=== PATIENT | female | born 1965 | race Caucasian/White ===

== ENCOUNTER 2019-05-03 08:29 | Emergency (ER) | payer MEDICAID ==
[~2019-05-03] VITALS: Ht 167.6 cm; Wt 79.2 kg
[~2019-05-03 08:29] MED LIST: CALC-159 PO; CYCL-1 PO; IBUP-1984 PO; PARO40TA PO; TRAZ-251 PO
[2019-05-03 08:50] VITALS: BP 170/109
[2019-05-03] MEDS ORDERED: HYDROcodone/acetaminophen 5mg/325mg tablet PO ONE (09:40)
[2019-05-03] MEDS ORDERED: NAPR-56 PO (09:49)
== END 2019-05-03 11:02 | disposition home or self-care (01) ==
LOC: ER 08:31
DX: M25.511 Pain in right shoulder (principal); G89.29 Other chronic pain; F41.9 Anxiety disorder, unspecified; F32.9 Major depressive disorder, single episode, unspecified; Z98.51 Tubal ligation status; Z98.890 Other specified postprocedural states; Z79.899 Other long term (current) drug therapy
CPT/HCPCS: 73030; 99283

== ENCOUNTER 2019-12-27 07:14 | Inpatient (IN) | payer MEDICAID ==
[2019-12-21 14:07] LABS: BASOPHILS # (AUTO) 0.1 X10'3 (0-0.2); BASOPHILS % (AUTO) 0.9 % (0-1); EOSINOPHILS # (AUTO) 0.1 X10'3 (0-0.9); EOSINOPHILS % (AUTO) 1.1 % (0-6); LYMPHOCYTES # (AUTO) 2.3 X10'3 (1.1-4.8); LYMPHOCYTES % (AUTO) 26.3 % (21-51); MEAN CORPUSCULAR HEMOGLOBIN 31.6 PG (27.0-31.0); MEAN CORPUSCULAR HGB CONC 34.1 g/dL (33.0-36.5); MEAN CORPUSCULAR VOLUME 92.5 FL (78-98); MEAN PLATELET VOLUME 8.9 FL (7.4-10.4); MONOCYTES # (AUTO) 0.9 X10'3 (0-0.9); MONOCYTES % (AUTO) 9.9 % (2-12); NEUTROPHILS # (AUTO) 5.3 X10'3 (1.8-7.7); NEUTROPHILS % (AUTO) 61.8 % (42-75); PRE OP HEMATOCRIT 45.6 % (35.0-45.0); PRE OP HEMOGLOBIN 15.6 g/dL (12.0-16.0); PRE OP PLATELET COUNT 270 X10'3 (140-440); RED BLOOD COUNT 4.93 X10'6 (4.20-5.60); RED CELL DISTRIBUTION WIDTH 13.6 % (11.5-14.5)
[2019-12-21 14:20] LABS: ALBUMIN 4.3 G/DL (3.4-5.0); ALKALINE PHOSPHATASE 79 IU/L (46-116); BLOOD UREA NITROGEN 11 MG/DL (7-18); BUN/CREATININE RATIO 13.8 (6.6-38.0); CALCIUM 9.3 MG/DL (8.5-10.1); CHLORIDE 102 MMOL/L (99-107); PRE OP ALT 32 U/L (30-65); PRE OP ANION GAP 8 (8-16); PRE OP AST 21 U/L (10-37); PRE OP BILIRUB, TOTAL 0.3 MG/DL (0.0-1.0); PRE OP GLUCOSE 91 MG/DL (70-104); PRE OP POTASSIUM 3.9 MMOL/L (3.4-5.1); PRE OP SODIUM 138 MMOL/L (135-145); TOTAL CARBON DIOXIDE 28.5 MMOL/L (24-32); TOTAL PROTEIN 8.4 G/DL (6.4-8.2); eGFR 75 ML/MIN
[~2019-12-27] VITALS: Ht 167.6 cm; Wt 77.2 kg
[2019-12-27] VITALS (22 sets, daily range): BP systolic 137–165; BP diastolic 78–109
[~2019-12-27 07:14] MED LIST changes: -CALC-159 PO; +CLON-527 PO; -CYCL-1 PO; +GABA300C PO; -IBUP-1984 PO; +LURA40TA3 PO; -PARO40TA PO; +PRAZ5CAP2 PO; +QUET300T2 PO; +TRAM50TA2 PO; -TRAZ-251 PO; +VALB80CA PO; +cefazolin/dext.iso 2gm/50ml 50 ML IV ONE; +famotidine 20mg tablet PO ONE; +ringers solution, lacted 1,000 ML IV SCH; +tranexamic acid inj. 750 MG in normal saline 100ml IV soln 92.5 ML IV ONE; +vancomycin 1,500 MG in NS 300ml IV soln IV ONE
[2019-12-27] MEDS ORDERED: [UNRECOGNIZED DRUG - OTHER] IU ONE (10:05)
[2019-12-27] MEDS ORDERED: KETOROLAC TROMETH IU ONE ×2 (10:05→10:55)
[2019-12-27] MEDS ORDERED: ROPIVACAINE IU ONE ×2 (10:05→10:55)
[2019-12-27] MEDS ORDERED: ringers solution, lacted 1,000 ML IV SCH (10:11)
[2019-12-27] MEDS ORDERED: ROPIVAcaine 0.2%/PF PUMP/bolus 550 ML INTERSCALE SCH (10:14)
[2019-12-27] MEDS ORDERED: ROPIVAcaine 0.2% (10 MG/5 ML) BOLUS INJECTION INTERSCALE PRN (10:15)
[2019-12-27] MEDS ORDERED: labetalol 20mg/4ml (5mg/ml) syringe IV PRN (10:15)
[2019-12-27] MEDS ORDERED: morphine 2 MG/ML inj. syringe IV PRN (10:15)
[2019-12-27] MEDS ORDERED: HYDROmorphone inj. 0.5 MG/0.5 ML DISP.SYRIN IV PRN ×3 (10:15→13:30)
[2019-12-27] MEDS ORDERED: meperidine/PF 25mg/ml syringe IV PRN (10:15)
[2019-12-27] MEDS ORDERED: hydrALAZINE 20mg/ml inj. IV PRN (10:15)
[2019-12-27] MEDS ORDERED: ondansetron/PF 4mg/2ml inj IV PRN ×2 (10:15→13:30)
[2019-12-27] MEDS ORDERED: acetaminophen 1,000mg/100ml IV 100 ML IV PRN (10:15)
[2019-12-27] MEDS ORDERED: morphine 4 MG/ML inj SYRINge IV PRN (10:15)
[2019-12-27] MEDS ORDERED: proCHLORperazine 10 MG/2 ml inj IV PRN (10:15)
[2019-12-27] MEDS ORDERED: sevoflurane 250ml liquid IH ONE (10:38)
[2019-12-27] MEDS ORDERED: fentaNYL/PF 50MCG/1 ML 2ML syringe ONE (10:46)
[2019-12-27] MEDS ORDERED: midazolam 2 mg/2 ml injection ONE (10:47)
[2019-12-27] MEDS ORDERED: [UNRECOGNIZED DRUG - OTHER] IU ONE (10:55)
[2019-12-27] MEDS ORDERED: rocuronium 10mg/ml inj IV ONE (11:32)
[2019-12-27] MEDS ORDERED: ROPIVAcaine 0.5% (5mg/ml) 30ml vial ONE (11:32)
[2019-12-27] MEDS ORDERED: propofol inj 20 ML IV ONE (11:32)
[2019-12-27] MEDS ORDERED: 0.9 % SODIUM CHLORIDE 10 ML VIAL ONE (11:32)
[2019-12-27] MEDS ORDERED: ePHEDrine 50MG/ML INJ. ONE (11:32)
[2019-12-27] MEDS ORDERED: LIDOcaine 2% (20mg/ml) 5ml vial ONE (11:32)
[2019-12-27] MEDS ORDERED: LIDOcaine 1%/PF 5ML 10 MG/ML VIAL ONE (11:32)
[2019-12-27] MEDS ORDERED: ondansetron/PF 4mg/2ml inj ONE (11:48)
[2019-12-27] MEDS ORDERED: dexamethasone sod phosphate 4mg/ml inj. ONE (11:48)
[2019-12-27] MEDS ORDERED: neostigmine methylsulfate 1 MG/ML 10ml vial ONE (13:03)
[2019-12-27] MEDS ORDERED: glycopyrrolate 0.2mg/ml inj ONE (13:03)
--- NOTE | 2019-12-27 13:18 | NUR ---
Received from OR via bed, accompanied by Anesthesiologist Aishwarya and report given by Anesthesiolgist. 20G left hand IVF LR at 100cc/hr. All VS stable. NC at 3L sats 95%. Patient talking and oriented, shoulder wrapped cold pack in place on-q catheter exposed. SCDs placed on patient. Teeth given back to patient.
[2019-12-27] MEDS ORDERED: bisacodyl 10mg suppository rectal RC PRN (13:30)
[2019-12-27] MEDS ORDERED: acetaminophen 325mg tablet PO PRN (13:30)
[2019-12-27] MEDS ORDERED: HYDROmorphone 1 mg/ml syringe IV PRN (13:30)
[2019-12-27] MEDS ORDERED: diphenhydrAMINE 25mg capsule PO PRN ×2 (13:30)
[2019-12-27] MEDS ORDERED: tranexamic acid inj. 770 MG in normal saline 100ml IV soln 100 ML IV ONE (13:30)
[2019-12-27] MEDS ORDERED: magnesium hydroxide 30ml (MOM) UD suspension PO PRN (13:30)
[2019-12-27] MEDS ORDERED: traMADol 50MG tablet PO PRN (13:30)
[2019-12-27] MEDS ORDERED: oxyCODONE IR 5mg (immed. release) tablet PO PRN (13:30)
[2019-12-27] MEDS ORDERED: LORazepam 2 mg/ml vial IV ONE ×2 (13:40→13:50)
[2019-12-27] MEDS ORDERED: LORazepam 2 mg/ml vial ONE (13:52)
[2019-12-27] MEDS ORDERED: clonazePAM 1mg tablet PO ONE (14:05)
--- NOTE | 2019-12-27 14:58 | NUR ---
Report called to receiving nurse. Transferred via ortho bed to room 4020B. Belongings sent with patient. She states she feels much better since receiving the ativan and klonopin. Special Issues communicated to receiving nurse RC Sweeney. Patient BLL and call light within reach chart at bedside.
--- NOTE | 2019-12-27 18:20 | NUR ---
Patient in room ORTHO 4020. I have received report from Mag TATUM and had the opportunity to ask questions and assume patient care.
[2019-12-27] MEDS: gabapentin 300mg capsule PO SCH (18:43)
[2019-12-27] MEDS: acetaminophen 325mg tablet PO SCH (18:43)
--- NOTE | 2019-12-27 18:58 | NUR ---
Problems reprioritized. Patient report given, questions answered & plan of care reviewed with RC Larose.
[2019-12-27] MEDS ORDERED: vancomycin/NS 1 GM ADD-VANTAGE 250 ML IV SCH (20:00)
[2019-12-27] MEDS: ceFAZolin/D5W- 1GM premix 50 ML IV SCH (20:38)
[2019-12-27] MEDS: potassium cl 20mEq in 1/2 NS 1,000 ML IV SCH ×2 (20:38→21:26)
[2019-12-27] MEDS ORDERED: lurasidone 20mg tablet PO SCH (21:00)
[2019-12-27] MEDS ORDERED: quetiapine 100mg tablet PO SCH (21:00)
[2019-12-27] MEDS ORDERED: prazosin 5mg capsule PO SCH (21:00)
[2019-12-27] MEDS ORDERED: sennosides 8.6mg tablet PO SCH (21:00)
[2019-12-28] MEDS: gabapentin 300mg capsule PO SCH ×2 (00:38→07:41)
[2019-12-28] MEDS: acetaminophen 325mg tablet PO SCH ×3 (00:38→07:41)
[2019-12-28] MEDS: ceFAZolin/D5W- 1GM premix 50 ML IV SCH (00:39)
[2019-12-28 02:00] VITALS: BP 143/79
[2019-12-28] MEDS: oxyCODONE IR 5mg (immed. release) tablet PO PRN ×2 (03:31→11:12)
[2019-12-28 06:00] VITALS: BP 163/92
--- NOTE | 2019-12-28 06:50 | NUR ---
Problems reprioritized. Patient report given, questions answered & plan of care reviewed with Radha TATUM.
[2019-12-28 07:26] LABS: BASOPHILS # (AUTO) 0.1 X10'3 (0-0.2); BASOPHILS % (AUTO) 0.6 % (0-1); EOSINOPHILS % (AUTO) 0.2 % (0-6); HEMATOCRIT 37.9 % (35.0-45.0); HEMOGLOBIN 12.7 g/dl (12.0-16.0); LYMPHOCYTES # (AUTO) 2.2 X10'3 (1.1-4.8); LYMPHOCYTES % (AUTO) 20.4 % (21-51); MEAN CORPUSCULAR HEMOGLOBIN 31.9 PG (27.0-31.0); MEAN CORPUSCULAR HGB CONC 33.6 g/dL (33.0-36.5); MEAN PLATELET VOLUME 9.2 FL (7.4-10.4); MONOCYTES % (AUTO) 9.1 % (2-12); NEUTROPHILS # (AUTO) 7.6 X10'3 (1.8-7.7); NEUTROPHILS % (AUTO) 69.7 % (42-75); PLATELET COUNT 243 X10'3 (140-440); RED BLOOD COUNT 3.99 X10'6 (4.20-5.60); RED CELL DISTRIBUTION WIDTH 13.4 % (11.5-14.5); WHITE BLOOD COUNT 10.9 X10'3 (4.5-11.0)
[2019-12-28 07:41] LABS: ANION GAP 9 (8-16); CHLORIDE 107 MMOL/L (99-107); POTASSIUM 3.9 MMOL/L (3.5-5.1); SODIUM 142 MMOL/L (135-145); TOTAL CARBON DIOXIDE 25.9 MMOL/L (24-32)
[2019-12-28] MEDS: potassium cl 20mEq in 1/2 NS 1,000 ML IV SCH (07:46)
[2019-12-28] MEDS ORDERED: VALBENAZINE TOSYLATE PO SCH (08:00)
[2019-12-28] MEDS ORDERED: clonazePAM 1mg tablet PO SCH (08:00)
[2019-12-28] MEDS ORDERED: aspirin 325mg tablet PO SCH (08:30)
[2019-12-28] MEDS ORDERED: ONQPUMP ADDCANAL (09:28)
[2019-12-28] MEDS ORDERED: ASPI-1 PO (09:28)
[2019-12-28 10:50] VITALS: BP 166/97
[2019-12-29] MEDS ORDERED: acetaminophen 325mg tablet PO PRN (13:30)
== END 2019-12-28 11:15 | disposition home or self-care (01) | DRG 322 ==
LOC: PAS IN 07:14 → UNDOADMIN 07:14 → EDSTATUS 10:15 → PAS IN 13:26 → ORTHO 4S 15:10
PROVIDERS: ADMIT Orthopaedic Surgery; ATTEND Orthopaedic Surgery
PROC: 0LS30ZZ Reposition Right Upper Arm Tendon, Open Approach (ICD-10-PCS; 2019-12-27)
PROC: 3E0T3BZ Introduction of Anesthetic Agent into Peripheral Nerves and Plexi, Percutaneous Approach (ICD-10-PCS; 2019-12-27)
PROC: 0RRJ0JZ Replacement of Right Shoulder Joint with Synthetic Substitute, Open Approach (ICD-10-PCS; principal; 2019-12-27 10:38)
DX: M19.011 Primary osteoarthritis, right shoulder (principal); M87.029 Idiopathic aseptic necrosis of unspecified humerus; M75.21 Bicipital tendinitis, right shoulder; F31.9 Bipolar disorder, unspecified; G89.29 Other chronic pain; M65.811 Other synovitis and tenosynovitis, right shoulder; Z79.899 Other long term (current) drug therapy
CPT/HCPCS: 36415; 80051; 80053; 82948; 85025; 87081; 87635; 97110; 97116; 97161; 97530; A4565; A4618; A7000; C1713; C1776; G0378; J0690; J1100; J2001; J2060; J2250; J2405; J2704; J2710; J2795; J3010; J3370; J3480; J3490; J7040; J7120; Q0163

== ENCOUNTER 2020-03-06 15:51 | Emergency (ER) | payer MEDICAID ==
[~2020-03-06] VITALS: Ht 167.6 cm; Wt 75.5 kg
[~2020-03-06 15:51] MED LIST changes: +ASPI-1 PO; +ONQPUMP ADDCANAL; -cefazolin/dext.iso 2gm/50ml 50 ML IV ONE; -famotidine 20mg tablet PO ONE; -ringers solution, lacted 1,000 ML IV SCH; -tranexamic acid inj. 750 MG in normal saline 100ml IV soln 92.5 ML IV ONE; -vancomycin 1,500 MG in NS 300ml IV soln IV ONE
[2020-03-06] MEDS ORDERED: normal saline 1000ML IV soln IVB ONE (16:15)
[2020-03-06] MEDS ORDERED: meclizine 12.5mg tablet PO ONE (16:15)
[2020-03-06] MEDS ORDERED: LORazepam 2 mg/ml vial IV ONE (16:15)
[2020-03-06 17:37] LABS: BASOPHILS # (AUTO) 0.1 X10'3 (0-0.2); BASOPHILS % (AUTO) 0.7 % (0-1); EOSINOPHILS % (AUTO) 0.4 % (0-6); HEMATOCRIT 41.1 % (35.0-45.0); HEMOGLOBIN 13.9 g/dl (12.0-16.0); LYMPHOCYTES # (AUTO) 2.2 X10'3 (1.1-4.8); LYMPHOCYTES % (AUTO) 31.5 % (21-51); MEAN CORPUSCULAR HEMOGLOBIN 31.9 PG (27.0-31.0); MEAN CORPUSCULAR HGB CONC 33.7 g/dL (33.0-36.5); MEAN CORPUSCULAR VOLUME 94.4 FL (78-98); MEAN PLATELET VOLUME 9.1 FL (7.4-10.4); MONOCYTES # (AUTO) 0.5 X10'3 (0-0.9); MONOCYTES % (AUTO) 7.3 % (2-12); NEUTROPHILS # (AUTO) 4.3 X10'3 (1.8-7.7); NEUTROPHILS % (AUTO) 60.1 % (42-75); PLATELET COUNT 244 X10'3 (140-440); RED BLOOD COUNT 4.35 X10'6 (4.20-5.60); RED CELL DISTRIBUTION WIDTH 14.2 % (11.5-14.5); WHITE BLOOD COUNT 7.1 X10'3 (4.5-11.0)
[2020-03-06 17:47] LABS: ALANINE AMINOTRANSFERASE 33 U/L (12-78); ALBUMIN 4.1 G/DL (3.4-5.0); ALBUMIN/GLOBULIN RATIO 1.4 (1.1-1.5); ALKALINE PHOSPHATASE 80 IU/L (46-116); ANION GAP 16 (8-16); ASPARTATE AMINO TRANSFERASE 19 U/L (10-37); BILIRUBIN,TOTAL 0.3 MG/DL (0.1-1.0); BLOOD UREA NITROGEN 8 MG/DL (7-18); CALCIUM 9.3 MG/DL (8.5-10.1); CHLORIDE 107 MMOL/L (99-107); CREATININE 0.89 MG/DL (0.40-0.90); GLUCOSE 117 MG/DL (70-104); POTASSIUM 3.2 MMOL/L (3.5-5.1); SODIUM 142 MMOL/L (135-145); TOTAL CARBON DIOXIDE 18.8 MMOL/L (24-32); eGFR 66 ML/MIN
[2020-03-06 17:54] LABS: MAGNESIUM 1.9 MG/DL (1.5-2.4)
[2020-03-06] MEDS ORDERED: potassium Cl 20 mEq SR tablet PO STA (17:56)
--- NOTE | 2020-03-06 18:21 | NUR ---
pt states her dizziness is better. sitting on side of bed and doing well.
[2020-03-06 19:09] VITALS: BP 133/81
== END 2020-03-06 18:54 | disposition home or self-care (01) ==
LOC: ER 15:51
DX: R42 Dizziness and giddiness (principal); R55 Syncope and collapse; E87.6 Hypokalemia
CPT/HCPCS: 36415; 70450; 71045; 80053; 83735; 83880; 84484; 85025; 93005; 96361; 96374; 99285; J2060; J7030; J8597

== ENCOUNTER 2020-08-21 05:27 | Inpatient (IN) | payer MEDICAID ==
[2020-08-14 11:55] LABS: PRE OP PROTIME 10.7 SECONDS (9.0-12.0)
[2020-08-14 11:57] LABS: ALBUMIN 4.5 G/DL (3.4-5.0); ALBUMIN/GLOBULIN RATIO 1.6 (1.1-1.5); ALKALINE PHOSPHATASE 73 IU/L (46-116); BLOOD UREA NITROGEN 11 MG/DL (7-18); BUN/CREATININE RATIO 12.1 (6.6-38.0); CALCIUM 9.1 MG/DL (8.5-10.1); CHLORIDE 105 MMOL/L (99-107); CREATININE 0.91 MG/DL (0.40-0.90); PRE OP ALT 20 U/L (30-65); PRE OP ANION GAP 10 (8-16); PRE OP AST 14 U/L (10-37); PRE OP BILIRUB, TOTAL 0.3 MG/DL (0.0-1.0); PRE OP GLUCOSE 102 MG/DL (70-104); PRE OP POTASSIUM 3.5 MMOL/L (3.4-5.1); PRE OP SODIUM 143 MMOL/L (135-145); TOTAL CARBON DIOXIDE 28.3 MMOL/L (24-32); TOTAL PROTEIN 7.3 G/DL (6.4-8.2); eGFR 64 ML/MIN
[2020-08-14 12:08] LABS: BASOPHILS % (AUTO) 0.6 % (0-1); EOSINOPHILS % (AUTO) 0.8 % (0-6); LYMPHOCYTES # (AUTO) 1.8 X10'3 (1.1-4.8); LYMPHOCYTES % (AUTO) 31.7 % (21-51); MEAN CORPUSCULAR HEMOGLOBIN 32.3 PG (27.0-31.0); MEAN CORPUSCULAR HGB CONC 33.8 g/dL (33.0-36.5); MEAN CORPUSCULAR VOLUME 95.6 FL (78-98); MEAN PLATELET VOLUME 9.9 FL (7.4-10.4); MONOCYTES # (AUTO) 0.5 X10'3 (0-0.9); MONOCYTES % (AUTO) 7.9 % (2-12); NEUTROPHILS # (AUTO) 3.4 X10'3 (1.8-7.7); PRE OP HEMATOCRIT 42.8 % (35.0-45.0); PRE OP HEMOGLOBIN 14.5 g/dL (12.0-16.0); PRE OP PLATELET COUNT 221 X10'3 (140-440); RED BLOOD COUNT 4.48 X10'6 (4.20-5.60); RED CELL DISTRIBUTION WIDTH 13.9 % (11.5-14.5)
[2020-08-21] VITALS (20 sets, daily range): BP systolic 125–155; BP diastolic 72–95
[~2020-08-21] VITALS: Ht 167.6 cm; Wt 69.9 kg
[~2020-08-21 05:27] MED LIST changes: -ASPI-1 PO; -ONQPUMP ADDCANAL; +ringers solution, lacted 1,000 ML IV SCH
[2020-08-21] MEDS ORDERED: tranexamic acid 650mg tablet PO ONE (05:30)
[2020-08-21] MEDS ORDERED: VANCOMYCIN INJ 1000 MG in NORMAL SALINE 250ml IV.SOLN IV ONE (05:30)
[2020-08-21] MEDS ORDERED: cefazolin/dext.iso 2gm/100ml IV ONE (05:30)
[2020-08-21] MEDS ORDERED: famotidine 20mg tablet PO ONE (05:30)
[2020-08-21] MEDS ORDERED: ROPIVAcaine 0.5% (5mg/ml) 30ml vial ONE ×2 (06:43→07:04)
[2020-08-21] MEDS ORDERED: ketorolac trometh. 30mg/ml inj. ONE (06:43)
[2020-08-21] MEDS ORDERED: MIDAZolam 1 MG/ML 5ML VIAL ONE (07:04)
[2020-08-21] MEDS ORDERED: fentaNYL/PF 50MCG/1 ML 2ML syringe ONE (07:04)
[2020-08-21] MEDS ORDERED: propofol inj 20 ML IV ONE (07:21)
[2020-08-21] MEDS ORDERED: ondansetron/PF 4mg/2ml inj ONE (07:33)
[2020-08-21] MEDS ORDERED: morphine 4 MG/ML inj SYRINge IV PRN (08:20)
[2020-08-21] MEDS ORDERED: proCHLORperazine 10 MG/2 ml inj IV PRN (08:20)
[2020-08-21] MEDS ORDERED: meperidine/PF 25mg/ml syringe IV PRN ×3 (08:20)
[2020-08-21] MEDS ORDERED: morphine 2 MG/ML inj. syringe IV PRN (08:20)
[2020-08-21] MEDS ORDERED: ondansetron/PF 4mg/2ml inj IV PRN ×2 (08:20→09:10)
[2020-08-21] MEDS ORDERED: ringers solution, lacted 1,000 ML IV SCH (08:20)
[2020-08-21] MEDS ORDERED: ROPIVAcaine 0.2% (10 MG/5 ML) BOLUS INJECTION INTERSCALE PRN (08:25)
[2020-08-21] MEDS ORDERED: ROPIVAcaine 0.2%/PF PUMP/bolus 545 ML INTERSCALE SCH (09:00)
--- NOTE | 2020-08-21 09:05 | NUR ---
PT RECEIVED FROM OR VIA BED WITH DR HATHAWAY, ANESTHESIA-REPORT GIVEN, PT STILL SLEEPY, DENIES PAIN, VSS, PIV 20G TO RIGHT UE-LR RUNNING AT 100ML/HR, LEFT SHOULDER WRAP IN PLACE WITH COLD PACK, ON-Q CATHETER PRESENT, FINGERS PINK, WARM, +PULSE TO LEFT WRIST, INTERSCALENE BLOCK USED, SCDS IN PLACE.
[2020-08-21] MEDS ORDERED: HYDROmorphone 1 mg/ml syringe IV PRN (09:10)
[2020-08-21] MEDS ORDERED: magnesium hydroxide 30ml (MOM) UD suspension PO PRN (09:10)
[2020-08-21] MEDS ORDERED: HYDROmorphone inj. 0.5 MG/0.5 ML DISP.SYRIN IV PRN (09:10)
[2020-08-21] MEDS ORDERED: oxyCODONE IR 5mg (immed. release) tablet PO PRN (09:10)
[2020-08-21] MEDS ORDERED: diphenhydrAMINE 25mg capsule PO PRN ×2 (09:10)
[2020-08-21] MEDS ORDERED: acetaminophen 325mg tablet PO PRN (09:10)
[2020-08-21] MEDS ORDERED: bisacodyl 10mg suppository rectal RC PRN (09:10)
--- NOTE | 2020-08-21 10:05 | NUR ---
PT AWAKE, TOLERATING FLUIDS, VSS, DENIES PAIN, INTERSCALENE BLOCK STILL INTACT AND WORKING ON LEFT SIDE-NO SENSATION/MOVEMENT, FINGERS-PINK, WARM, +2 PULSE, ON-Q BALL ATTACHED AND STARTED AT 2ML/HR, PT EDUCATED REGARDING USE-ALL QUESTIONS ANSWERED, SCDS IN PLACE, 20G PIV TO RIGHT UE-LR RUNNING AT 100ML/HR, SHOULDER WRAP AND COLD PACK IN PLACE DRSG-CDI, REPORT CALLED TO LENNY ON ORTHO-ALL QUESTIONS ANSWERED, TAKEN WITH ALL BELONGINGS TO RM 4023B, MEET WITH PRIMARY RN IN ROOM-ASSISTED TO PLACE SLING ON PT, BED LOW AND LOCKED, HOOKED UP TO MONITORS.
--- NOTE | 2020-08-21 10:26 | NUR ---
RECEIVED POST-OP REPORT FROM RC COSTELLO. PT ARRIVED TO FLOOR AT 1005
[2020-08-21] MEDS: oxyCODONE IR 5mg (immed. release) tablet PO PRN ×2 (13:46→19:19)
[2020-08-21] MEDS: acetaminophen 325mg tablet PO SCH ×2 (13:46→21:12)
[2020-08-21] MEDS: potassium cl 20mEq in 1/2 NS 1,000 ML IV SCH ×2 (14:13→17:35)
[2020-08-21] MEDS: ceFAZolin/D5W- 1GM premix 50 ML IV SCH (17:34)
[2020-08-21] MEDS: gabapentin 300mg capsule PO SCH (17:34)
--- NOTE | 2020-08-21 18:34 | NUR ---
Problems reprioritized. Patient report given, questions answered & plan of care reviewed with RC Delvalle.
[2020-08-21] MEDS ORDERED: vancomycin/NS 1 GM ADD-VANTAGE 250 ML IV SCH (20:00)
[2020-08-21] MEDS ORDERED: quetiapine fumarate ER 300mg tablet PO SCH (21:00)
[2020-08-21] MEDS ORDERED: prazosin 5mg capsule PO SCH (21:00)
[2020-08-21] MEDS ORDERED: lurasidone 60mg tablet PO SCH (21:00)
[2020-08-21] MEDS ORDERED: sennosides 8.6mg tablet PO SCH (21:00)
[2020-08-22] MEDS: ceFAZolin/D5W- 1GM premix 50 ML IV SCH (00:54)
[2020-08-22] MEDS: gabapentin 300mg capsule PO SCH ×2 (00:54→08:03)
[2020-08-22] MEDS: clonazePAM 1mg tablet PO SCH ×2 (01:15→08:03)
[2020-08-22] MEDS: potassium cl 20mEq in 1/2 NS 1,000 ML IV SCH ×2 (01:16→09:10)
[2020-08-22 02:00] VITALS: BP 139/83
[2020-08-22] MEDS: acetaminophen 325mg tablet PO SCH ×2 (02:00→08:05)
[2020-08-22] MEDS: oxyCODONE IR 5mg (immed. release) tablet PO PRN ×2 (04:45→10:17)
[2020-08-22 05:57] LABS: BASOPHILS % (AUTO) 0.2 % (0-1); EOSINOPHILS % (AUTO) 0.4 % (0-6); HEMATOCRIT 35.7 % (35.0-45.0); LYMPHOCYTES # (AUTO) 2.6 X10'3 (1.1-4.8); LYMPHOCYTES % (AUTO) 26.3 % (21-51); MEAN CORPUSCULAR HEMOGLOBIN 32.5 PG (27.0-31.0); MEAN CORPUSCULAR HGB CONC 33.5 g/dL (33.0-36.5); MEAN CORPUSCULAR VOLUME 96.9 FL (78-98); MEAN PLATELET VOLUME 10.1 FL (7.4-10.4); MONOCYTES # (AUTO) 0.9 X10'3 (0-0.9); MONOCYTES % (AUTO) 9.3 % (2-12); NEUTROPHILS # (AUTO) 6.3 X10'3 (1.8-7.7); NEUTROPHILS % (AUTO) 63.8 % (42-75); PLATELET COUNT 171 X10'3 (140-440); RED BLOOD COUNT 3.68 X10'6 (4.20-5.60); RED CELL DISTRIBUTION WIDTH 14.1 % (11.5-14.5); WHITE BLOOD COUNT 9.9 X10'3 (4.5-11.0)
[2020-08-22 06:00] VITALS: BP 144/80
[2020-08-22 06:19] LABS: ANION GAP 11 (8-16); CHLORIDE 108 MMOL/L (99-107); POTASSIUM 3.6 MMOL/L (3.5-5.1); SODIUM 144 MMOL/L (135-145); TOTAL CARBON DIOXIDE 24.6 MMOL/L (24-32)
--- NOTE | 2020-08-22 06:26 | NUR ---
Patient in room ORTHO 4023B. I have received report from RC Delvalle and had the opportunity to ask questions and assume patient care.
[2020-08-22] MEDS ORDERED: VALBENAZINE TOSYLATE 80 MG PO SCH (08:00)
[2020-08-22] MEDS ORDERED: aspirin 325mg tablet PO SCH (08:30)
[2020-08-22 10:00] VITALS: BP 124/79
[2020-08-22] MEDS ORDERED: ASPI-1 PO (11:33)
--- NOTE | 2020-08-22 12:22 | NUR ---
Joint Replacement Consult: Pt seen by SAMARA for written/verbal high protein ed w/ RD contact information provided. Addendum: 08/22/20 at [address] Amended: Links added.
--- NOTE | 2020-08-22 12:34 | NUR ---
D/C instructions give, questions answered. Belongings gathered by nurse and sent with pt. IV d/c'd, cannula intact, no complications. D/C'd pt in stable condition to home in a private vehicle. Pt left floor at 1225
[2020-08-23] MEDS ORDERED: acetaminophen 325mg tablet PO PRN (09:10)
== END 2020-08-22 12:25 | disposition home or self-care (01) | DRG 322 ==
LOC: UNDOADMIN 05:27 → PAS IN 05:27 → ORTHO 4S 10:10 → PAS IN 10:10
PROVIDERS: ADMIT Orthopaedic Surgery; ATTEND Orthopaedic Surgery
PROC: 0LS40ZZ Reposition Left Upper Arm Tendon, Open Approach (ICD-10-PCS; 2020-08-21)
PROC: 3E0T3BZ Introduction of Anesthetic Agent into Peripheral Nerves and Plexi, Percutaneous Approach (ICD-10-PCS; 2020-08-21)
PROC: 3E0T33Z Introduction of Anti-inflammatory into Peripheral Nerves and Plexi, Percutaneous Approach (ICD-10-PCS; 2020-08-21)
PROC: 0RRK0JZ Replacement of Left Shoulder Joint with Synthetic Substitute, Open Approach (ICD-10-PCS; principal; 2020-08-21 07:05)
DX: M87.022 Idiopathic aseptic necrosis of left humerus (principal); G89.29 Other chronic pain; M65.812 Other synovitis and tenosynovitis, left shoulder; Z79.899 Other long term (current) drug therapy; Z79.82 Long term (current) use of aspirin
CPT/HCPCS: 36415; 80051; 80053; 82948; 85025; 85610; 85730; 87081; 97110; 97161; 97530; A4618; A7000; C1713; C1776; G0378; J0690; J1885; J2250; J2405; J2704; J2795; J3010; J3370; J3480; J7120

== ENCOUNTER 2021-05-01 06:17 | Emergency (ER) | payer MEDICAID ==
[~2021-05-01] VITALS: Ht 167.6 cm; Wt 68.0 kg
[~2021-05-01 06:17] MED LIST changes: +ASPI-1 PO; -ringers solution, lacted 1,000 ML IV SCH
[2021-05-01 06:26] VITALS: BP 118/75
[2021-05-01] MEDS ORDERED: ondansetron 4mg rapidly disintigrating tab PO ONE (07:15)
[2021-05-01] MEDS ORDERED: acetaminophen 325mg tablet PO ONE (07:15)
[2021-05-01] MEDS ORDERED: ketorolac trometh inj. 60 MG/2 ML VIAL IM ONE (07:15)
[2021-05-01] MEDS ORDERED: HYDROcodone/acetaminophen 5mg/325mg tablet PO ONE (07:15)
[2021-05-01] MEDS ORDERED: HYDR-3965 PO ×2 (07:20→08:11)
[2021-05-01] MEDS ORDERED: ketorolac trometh. 30mg/ml inj. IM ONE (07:25)
== END 2021-05-01 08:24 | disposition home or self-care (01) ==
LOC: ER 06:18
DX: S82.832A Other fracture of upper and lower end of left fibula, initial encounter for closed fracture (principal); R10.84 Generalized abdominal pain; R42 Dizziness and giddiness; G89.29 Other chronic pain; F41.9 Anxiety disorder, unspecified; F31.9 Bipolar disorder, unspecified; Z98.51 Tubal ligation status; Z90.89 Acquired absence of other organs; Z98.890 Other specified postprocedural states; Z91.013 Allergy to seafood; Z79.82 Long term (current) use of aspirin; Z79.899 Other long term (current) drug therapy; W19.XXXA Unspecified fall, initial encounter; Y93.89 Activity, other specified; Y92.89 Other specified places as the place of occurrence of the external cause; Y99.8 Other external cause status
CPT/HCPCS: 29515; 73610; 93005; 96372; 99284; J1885

== ENCOUNTER 2021-11-11 11:17 | Inpatient (IN) | payer MEDICAID ==
[~2021-11-11] VITALS: Ht 170.2 cm; Wt 75.0 kg
[~2021-11-11 11:17] MED LIST changes: +LURA40TA2 PO; -LURA40TA3 PO
--- NOTE | 2021-11-11 12:07 | NUR ---
Assumed care of pt, ,noted pt up and out of bed, assisted pt back in bed with help from Dr Murray.
--- NOTE | 2021-11-11 12:34 | NUR ---
Spoke with Elizabet in poison control to make aware of pt's overdose.
[2021-11-11 12:48] LABS: BASOPHILS # (AUTO) 0.1 X10'3 (0-0.2); BASOPHILS % (AUTO) 0.8 % (0-1); EOSINOPHILS # (AUTO) 0.1 X10'3 (0-0.9); HEMATOCRIT 38.9 % (35.0-45.0); LYMPHOCYTES # (AUTO) 2.7 X10'3 (1.1-4.8); LYMPHOCYTES % (AUTO) 40.4 % (21-51); MEAN CORPUSCULAR HEMOGLOBIN 31.1 PG (27.0-31.0); MEAN CORPUSCULAR HGB CONC 33.5 g/dL (33.0-36.5); MEAN CORPUSCULAR VOLUME 92.7 FL (78-98); MEAN PLATELET VOLUME 10.1 FL (7.4-10.4); MONOCYTES # (AUTO) 0.7 X10'3 (0-0.9); MONOCYTES % (AUTO) 11.2 % (2-12); NEUTROPHILS # (AUTO) 3.1 X10'3 (1.8-7.7); NEUTROPHILS % (AUTO) 46.6 % (42-75); PLATELET COUNT 197 X10'3 (140-440); RED BLOOD COUNT 4.19 X10'6 (4.20-5.60); RED CELL DISTRIBUTION WIDTH 13.4 % (11.5-14.5); WHITE BLOOD COUNT 6.6 X10'3 (4.5-11.0)
[2021-11-11 12:55] LABS: ALANINE AMINOTRANSFERASE 30 U/L (12-78); ALBUMIN 3.8 G/DL (3.4-5.0); ALBUMIN/GLOBULIN RATIO 1.4 (1.1-1.5); ALKALINE PHOSPHATASE 70 IU/L (46-116); ANION GAP 7 (8-16); ASPARTATE AMINO TRANSFERASE 23 U/L (10-37); BILIRUBIN,TOTAL 0.2 MG/DL (0.1-1.0); BLOOD UREA NITROGEN 10 MG/DL (7-18); BUN/CREATININE RATIO 12.8 (6.6-38.0); CHLORIDE 103 MMOL/L (99-107); CREATININE 0.78 MG/DL (0.40-0.90); GLUCOSE 101 MG/DL (70-104); POTASSIUM 3.2 MMOL/L (3.5-5.1); SODIUM 135 MMOL/L (135-145); TOTAL CARBON DIOXIDE 24.6 MMOL/L (24-32); TOTAL PROTEIN 6.5 G/DL (6.4-8.2); eGFR 77 ML/MIN
--- NOTE | 2021-11-11 13:00 | NUR ---
Kate Barksdale, assigned to be a bed side sitter for patient.
[2021-11-11 13:05] LABS: ETHANOL 0.251 GM/DL (0.0-0.010)
[2021-11-11 13:07] LABS: ACETAMINOPHEN < 2.0 UG/ML (10-30)
[2021-11-11 13:52] LABS: CLARITY,URINE CLEAR (Clear); GLUCOSE, URINE NEGATIVE (Neg); KETONES,URINE NEGATIVE (Neg); LEUKOCYTE ESTERASE ,URINE NEGATIVE (Neg); NITRITES, URINE NEGATIVE (Neg); OCCULT BLOOD,URINE NEGATIVE (Neg); PROTEIN,URINE NEGATIVE (Neg); UA COLLECTION TYPE STRAIGHT CATH; URINE HCG NEGATIVE (NEG); UROBILINOGEN,URINE 0.2 E.U/dL (0.2-1.0)
[2021-11-11 13:54] LABS: COLOR,URINE STRAW (Yellow)
[2021-11-11 14:09] LABS: URINE AMPHETAMINE SCREEN NEGATIVE (Neg); URINE BARBITUATE SCREEN NEGATIVE (Neg); URINE BENZODIAZEPINES SCREEN NEGATIVE (Neg); URINE CANNABINOID SCREEN NEGATIVE (Neg); URINE COCAINE SCREEN NEGATIVE (Neg); URINE METHADONE SCREEN NEGATIVE (Neg); URINE OPIATE SCREEN NEGATIVE (Neg); URINE PHENCYCLIDINE SCREEN NEGATIVE (Neg)
--- NOTE | 2021-11-11 15:24 | NUR ---
spoke with Dr. Pineda regarding patients potassium level at 3.2. Dr. Pineda gave verbal order for potassium replacement 20 mEq eff once now.
[2021-11-11] MEDS ORDERED: POTASSIUM BICARB 20meq eff tab 20 MEQ TABLET.EFF PO ONE (15:25)
--- NOTE | 2021-11-11 18:30 | NUR ---
First encoutner with pt that is here today for etoh. Pt denies HI or SI or taking any pills. PT is cooperative and resting in the cart. PT requesting anxiety meds and at this time she was told there were no orders for that.
--- NOTE | 2021-11-11 21:00 | NUR ---
Pt was up to the comode in the room and is still unsatble to walk on her own
[2021-11-11] MEDS ORDERED: magnesium 2GM in 50ml NS 50 ML IV PRN (23:15)
[2021-11-11] MEDS ORDERED: acetaminophen 325mg tablet PO PRN ×2 (23:15)
[2021-11-11] MEDS ORDERED: acetaminophen 650mg rectal suppository RC PRN (23:15)
[2021-11-11] MEDS ORDERED: POTASSIUM BICARB 20meq eff tab 20 MEQ TABLET.EFF PO PRN ×2 (23:15)
[2021-11-11] MEDS ORDERED: magnesium 4gm in 100ml NS 100 ML IV PRN (23:15)
[2021-11-11] MEDS ORDERED: potassium CL 10mEq/100ml bag 100 ML IV PRN (23:15)
[2021-11-11] MEDS ORDERED: magnesium Cl slow-release 64mg tablet PO PRN (23:15)
[2021-11-11] MEDS ORDERED: bisacodyl 10mg suppository rectal RC PRN (23:15)
[2021-11-11] MEDS ORDERED: ondansetron/PF 4mg/2ml inj IV PRN (23:15)
[2021-11-11] MEDS ORDERED: LORazepam 2 mg/ml vial IV PRN (23:20)
[2021-11-11] MEDS ORDERED: LORazepam 1 MG tablet PO PRN (23:20)
[2021-11-11] MEDS: normal saline 1000ml 1,000 ML IV SCH (23:40)
[2021-11-11] MEDS ORDERED: PROM25TA14 PO (23:49)
[2021-11-11] MEDS ORDERED: ESCI-8 PO (23:49)
[2021-11-11] MEDS ORDERED: ASPI-10 PO (23:53)
[2021-11-12] MEDS ORDERED: LORazepam 2 mg/ml vial IV PRN (00:10)
[2021-11-12] MEDS ORDERED: proMETHazine 25mg tablet PO PRN (00:15)
[2021-11-12] MEDS ORDERED: traMADol 50MG tablet PO PRN (00:15)
[2021-11-12] MEDS: LORazepam 1 MG tablet PO PRN ×3 (00:36→13:35)
[2021-11-12 06:54] LABS: BASOPHILS # (AUTO) 0.1 X10'3 (0-0.2); BASOPHILS % (AUTO) 1.1 % (0-1); EOSINOPHILS # (AUTO) 0.1 X10'3 (0-0.9); EOSINOPHILS % (AUTO) 1.6 % (0-6); HEMOGLOBIN 13.8 g/dl (12.0-16.0); LYMPHOCYTES # (AUTO) 1.9 X10'3 (1.1-4.8); LYMPHOCYTES % (AUTO) 29.7 % (21-51); MEAN CORPUSCULAR HEMOGLOBIN 31.4 PG (27.0-31.0); MEAN CORPUSCULAR HGB CONC 33.7 g/dL (33.0-36.5); MEAN PLATELET VOLUME 9.9 FL (7.4-10.4); MONOCYTES # (AUTO) 0.7 X10'3 (0-0.9); MONOCYTES % (AUTO) 10.5 % (2-12); NEUTROPHILS # (AUTO) 3.7 X10'3 (1.8-7.7); NEUTROPHILS % (AUTO) 57.1 % (42-75); PLATELET COUNT 228 X10'3 (140-440); RED BLOOD COUNT 4.41 X10'6 (4.20-5.60); RED CELL DISTRIBUTION WIDTH 13.3 % (11.5-14.5); WHITE BLOOD COUNT 6.5 X10'3 (4.5-11.0)
[2021-11-12 07:37] LABS: ALANINE AMINOTRANSFERASE 36 U/L (12-78); ALBUMIN 3.8 G/DL (3.4-5.0); ALBUMIN/GLOBULIN RATIO 1.3 (1.1-1.5); ALKALINE PHOSPHATASE 74 IU/L (46-116); ANION GAP 10 (8-16); ASPARTATE AMINO TRANSFERASE 25 U/L (10-37); BILIRUBIN,TOTAL 0.2 MG/DL (0.1-1.0); BLOOD UREA NITROGEN 13 MG/DL (7-18); BUN/CREATININE RATIO 13.8 (6.6-38.0); CALCIUM 8.1 MG/DL (8.5-10.1); CHLORIDE 110 MMOL/L (99-107); CREATININE 0.94 MG/DL (0.40-0.90); GLUCOSE 98 MG/DL (70-104); LIPASE 87 U/L (73-393); PHOSPHORUS 5.1 MG/DL (2.3-4.5); POTASSIUM 4.3 MMOL/L (3.5-5.1); SODIUM 146 MMOL/L (135-145); TOTAL CARBON DIOXIDE 25.7 MMOL/L (24-32); TOTAL PROTEIN 6.7 G/DL (6.4-8.2); eGFR 62 ML/MIN
[2021-11-12] MEDS ORDERED: ESCITALOPRAM OXALATE 5 MG TABLET PO SCH (08:00)
[2021-11-12] MEDS ORDERED: K and/or MAG REPLACEMENT MC SCH (08:00)
[2021-11-12] MEDS ORDERED: heparin, porcine 5000 units/ml vial SQ SCH (08:00)
[2021-11-12] MEDS ORDERED: folic acid 1mg/0.2ml inj IV SCH (08:00)
[2021-11-12] MEDS: thiamine 100mg/ml 2ml inj. IV SCH ×2 (08:24→13:41)
--- NOTE | 2021-11-12 08:50 | NUR ---
PHARMACY PREPPING FOLIC ACID MEDICATION
[2021-11-12] MEDS: normal saline 1000ml 1,000 ML IV SCH (09:18)
--- NOTE | 2021-11-12 11:30 | NUR ---
Patient resting on bed. Patient is calmmed, although expresses anxiety.
--- NOTE | 2021-11-12 12:00 | NUR ---
Patient is teary, patient is cooperative and calmmed.
--- NOTE | 2021-11-12 12:47 | NUR ---
covering primary rn mitali for lunch break. patient up to bathroom and now resting with eyes closed.
[2021-11-12 14:05] VITALS: BP 110/68
--- NOTE | 2021-11-12 15:00 | NUR ---
Patient spoke to Chau from Mental Health. He states she has been released from any Mental Health hold need.
--- NOTE | 2021-11-12 16:06 | NUR ---
1545: As per doctor Anh patient was provided an AMA form that she signed. Patient is ao x 4. Patient denies discomfort. Patient states she has no further questions. Patient was explained risks and symptoms to return to ED.
[2021-11-12] MEDS ORDERED: prazosin 5mg capsule PO SCH (21:00)
== END 2021-11-12 16:06 | disposition left against medical advice (07) | DRG 817 ==
LOC: ER 11:18 → ED HOLD 23:16
PROVIDERS: ADMIT Internal Medicine; ATTEND Family Medicine
DX: T42.4X2A Poisoning by benzodiazepines, intentional self-harm, initial encounter (principal); G93.40 Encephalopathy, unspecified; G89.29 Other chronic pain; M54.9 Dorsalgia, unspecified; Z53.29 Procedure and treatment not carried out because of patient's decision for other reasons; F10.129 Alcohol abuse with intoxication, unspecified; F31.9 Bipolar disorder, unspecified; F41.9 Anxiety disorder, unspecified; Y92.89 Other specified places as the place of occurrence of the external cause; Z79.899 Other long term (current) drug therapy; Z87.891 Personal history of nicotine dependence; Z91.013 Allergy to seafood
CPT/HCPCS: 36415; 70450; 80053; 80305; 80320; 80329; 81003; 81025; 83605; 83690; 83735; 84100; 84443; 85025; 87040; 87077; 87186; 93005; 99285; G0378; J1644; J2060; J3411; J3490; J7030

== ENCOUNTER 2023-03-22 10:02 | Inpatient (IN) | payer MEDICAID ==
[2023-03-22] VITALS (14 sets, daily range): BP systolic 88–153; BP diastolic 48–105; PULSE 73–90; RESP 12–20; O2SAT 92–98
[~2023-03-22] VITALS: Ht 162.6 cm; Wt 85.0 kg
[~2023-03-22 10:02] MED LIST changes: -ASPI-1 PO; +ASPI-10 PO; +ESCI-8 PO; +PROM25TA14 PO
[2023-03-22] MEDS ORDERED: iohexol 350MG/ML 100ml bottle IV ONE (10:30)
[2023-03-22 10:34] LABS: BASOPHILS % (AUTO) 0.1 % (0-1); EOSINOPHILS % (AUTO) 0.1 % (0-6); HEMATOCRIT 44.8 % (35.0-45.0); HEMOGLOBIN 14.6 g/dl (12.0-16.0); LYMPHOCYTES % (AUTO) 6.9 % (21-51); MEAN CORPUSCULAR HEMOGLOBIN 30.9 PG (27.0-31.0); MEAN CORPUSCULAR HGB CONC 32.7 g/dL (33.0-36.5); MEAN CORPUSCULAR VOLUME 94.7 FL (78-98); MONOCYTES % (AUTO) 6.9 % (2-12); NEUTROPHILS # (AUTO) 12.9 X10'3 (1.8-7.7); PLATELET COUNT 235 X10'3 (140-440); RED BLOOD COUNT 4.73 X10'6 (4.20-5.60); RED CELL DISTRIBUTION WIDTH 14.6 % (11.5-14.5)
[2023-03-22 10:39] LABS: APTT 25 SECONDS (22-32); INR 0.9 INR; PROTHROMBIN TIME 10.2 SECONDS (9.0-12.0)
[2023-03-22 10:40] LABS: ALANINE AMINOTRANSFERASE 48 U/L (12-78); ALBUMIN 3.9 G/DL (3.4-5.0); ALBUMIN/GLOBULIN RATIO 1.1 (1.1-1.5); ALKALINE PHOSPHATASE 93 IU/L (46-116); ANION GAP 9 (8-16); BILIRUBIN,TOTAL 0.6 MG/DL (0.1-1.0); BLOOD UREA NITROGEN 18 MG/DL (7-18); BUN/CREATININE RATIO 7.6 (10.0-20.0); CALCIUM 8.7 MG/DL (8.5-10.1); CHLORIDE 102 MMOL/L (99-107); CREATININE 2.37 MG/DL (0.40-0.90); GLUCOSE 154 MG/DL (70-104); SODIUM 137 MMOL/L (135-145); TOTAL CARBON DIOXIDE 26.1 MMOL/L (24-32); TOTAL PROTEIN 7.6 G/DL (6.4-8.2); eCRCL 23 ML/MIN; eGFR 21 ML/MIN
[2023-03-22 10:43] LABS: ASPARTATE AMINO TRANSFERASE 72 U/L (10-37); POTASSIUM 5.5 MMOL/L (3.5-5.1)
[2023-03-22 10:47] LABS: PRO BRAIN NATRIURETIC PEPTIDE 4330 PG/ML (0-125)
[2023-03-22] MEDS ORDERED: normal saline 1000ml 1,000 ML IV ONE (10:50)
[2023-03-22] MEDS ORDERED: CefTRIAXone/D5W-Rocephin 1gm 50 ML IV ONE (10:50)
[2023-03-22 11:00] LABS: ABG BASE EXCESS -6.3 mmol/L (-2.0-2.0); ABG HCO3 21.2 mmol/L (22.0-26.0); ABG OXYGEN SATURATION 90.2 % (94-97); ABG PCO2 (T) 49.7 mmHg (32.0-45.0); ABG PH (T) 7.248 (7.350-7.450); ABG PO2 (T) 61.2 mmHg (75.0-100.0); FCOHb 0.5 % (0.0-3.9); FHHb 9.7 % (0.0-5.0); FLOW 15 L/min; FMetHb 0.4 % (0.0-1.5); FO2Hb 89.4 % (94-97); MODE MASK - NRB; TOTAL HEMOGLOBIN 14.5 G/dl (12.0-16.0)
[2023-03-22] MEDS ORDERED: VANCOMYCIN 750MG IV in NS 250 ML IV ONE (11:05)
[2023-03-22] MEDS ORDERED: ketamine 10mg/ml 20ml inj vial IV STA (11:07)
[2023-03-22] MEDS ORDERED: FENTANYL-0.9 % NACL/PF 100 ML IV SCH (11:10)
[2023-03-22] MEDS ORDERED: midazolam 100mg in NS 100ml 100 ML IV SCH (11:10)
[2023-03-22] MEDS ORDERED: LidoCAINE 2% Topical Jelly 11mL syringe TOP ONE ×2 (11:15→15:10)
[2023-03-22 11:25] LABS: ETHANOL < 10 MG/DL (<10); SALICYLATE 1.1 MG/DL (4.0-20.0)
[2023-03-22 11:26] LABS: ACETAMINOPHEN < 2.0 UG/ML (10-30)
[2023-03-22] MEDS ORDERED: propofol 1000mg/100ml bottle 100 ML IV SCH ×2 (12:20→15:10)
[2023-03-22 12:39] LABS: URINE AMPHETAMINE SCREEN NEGATIVE (Neg); URINE BARBITUATE SCREEN NEGATIVE (Neg); URINE BENZODIAZEPINES SCREEN NEGATIVE (Neg); URINE CANNABINOID SCREEN NEGATIVE (Neg); URINE COCAINE SCREEN NEGATIVE (Neg); URINE METHADONE SCREEN NEGATIVE (Neg); URINE OPIATE SCREEN POSITIVE (Neg); URINE PHENCYCLIDINE SCREEN NEGATIVE (Neg)
[2023-03-22 12:46] LABS: BILIRUBIN,URINE NEGATIVE (Neg); CLARITY,URINE SLIGHTLY CLOUDY (Clear); COLOR,URINE YELLOW (Yellow); GLUCOSE, URINE NEGATIVE (Neg); KETONES,URINE NEGATIVE (Neg); LEUKOCYTE ESTERASE ,URINE NEGATIVE (Neg); NITRITES, URINE NEGATIVE (Neg); PROTEIN,URINE 30 mg/dl (Neg); UROBILINOGEN,URINE 0.2 E.U/dL (0.2-1.0)
[2023-03-22] MEDS ORDERED: acetaminophen 650mg rectal suppository RC ONE (12:50)
[2023-03-22 12:52] LABS: OCCULT BLOOD,URINE MODERATE (Neg); PH,URINE 5.5 (4.8-8.0)
[2023-03-22 12:56] LABS: UA COLLECTION TYPE FOLEY CATH
[2023-03-22 13:01] LABS: MUCUS STRANDS MANY /LPF (Neg); SQUAMOUS EPITHELIAL CELL,UR MODERATE /LPF (FEW)
[2023-03-22 13:03] LABS: CAL OXALATE CRYSTALS 1+ /HPF (NEGATIVE)
[2023-03-22 13:05] LABS: BACTERIA,URINE FEW /HPF (Neg); RBC,URINE 0-2 /HPF (0-2); WBC,URINE 0-4 /HPF (0-4)
[2023-03-22 13:21] LABS: ABG BASE EXCESS -6.5 mmol/L (-2.0-2.0); ABG HCO3 22.7 mmol/L (22.0-26.0); ABG OXYGEN SATURATION 95.9 % (94-97); ABG PCO2 (T) 60.4 mmHg (32.0-45.0); ABG PH (T) 7.193 (7.350-7.450); ABG PO2 (T) 87.2 mmHg (75.0-100.0); ALLEN'S TEST POSITIVE; FCOHb 0.3 % (0.0-3.9); FHHb 4.1 % (0.0-5.0); FMetHb 0.6 % (0.0-1.5); MODE VENT - AC; PEEP 5 cm H2O; RESPIRATORY RATE 16 b/min; TIDAL VOLUME 450 mL; TOTAL HEMOGLOBIN 16.1 G/dl (12.0-16.0)
[2023-03-22] MEDS ORDERED: normal saline 1000ml 1,000 ML IVB ONE (13:55)
[2023-03-22] MEDS ORDERED: FENTANYL-0.9 % NACL/PF 100 ML IV PRN (15:10)
[2023-03-22] MEDS ORDERED: morphine 2 MG/ML inj. syringe IV PRN (15:10)
[2023-03-22] MEDS ORDERED: acetaminophen 325mg tablet PO PRN (15:10)
[2023-03-22] MEDS ORDERED: morphine 4 MG/ML inj SYRINge IV PRN (15:10)
[2023-03-22] MEDS ORDERED: magnesium hydroxide 30ml (MOM) UD suspension PO PRN (15:10)
[2023-03-22] MEDS ORDERED: ondansetron/PF 4mg/2ml inj IV PRN (15:10)
[2023-03-22] MEDS: heparin, porcine 5000 units/ml vial SQ SCH (16:23)
[2023-03-22 17:55] LABS: ABG BASE EXCESS -6.3 mmol/L (-2.0-2.0); ABG HCO3 20.4 mmol/L (22.0-26.0); ABG OXYGEN SATURATION 96.5 % (94-97); ABG PCO2 (T) 47.3 mmHg (32.0-45.0); ABG PH (T) 7.259 (7.350-7.450); ABG PO2 (T) 96.3 mmHg (75.0-100.0); ALLEN'S TEST POSITIVE; FCOHb 0.2 % (0.0-3.9); FHHb 3.5 % (0.0-5.0); FO2Hb 96.3 % (94-97); MODE VENT - AC; PATIENT TEMPERATURE 38.1; PEEP 10 cm H2O; RESPIRATORY RATE 16 b/min; TIDAL VOLUME 400 mL; TOTAL HEMOGLOBIN 14.2 G/dl (12.0-16.0)
[2023-03-22] MEDS ORDERED: ringers solution, lactated 500ml IV solution IV ONE (22:30)
[2023-03-22] MEDS: pantoprazole 40 MG vial IV SCH (22:54)
[2023-03-23] VITALS (25 sets, daily range): BP systolic 101–185; BP diastolic 56–101; PULSE 68–93; RESP 9–20; O2SAT 93–97
[2023-03-23] MEDS: dexmedetomidine inj. 400 MCG in normal saline 100ml IV soln 96 ML IV SCH ×6 (00:59→23:35)
[2023-03-23] MEDS: heparin, porcine 5000 units/ml vial SQ SCH ×4 (01:13→23:39)
[2023-03-23 02:04] LABS: ABG BASE EXCESS -1.2 mmol/L (-2.0-2.0); ABG HCO3 24.7 mmol/L (22.0-26.0); ABG OXYGEN SATURATION 97.4 % (94-97); ABG PCO2 (T) 47.2 mmHg (32.0-45.0); ABG PH (T) 7.339 (7.350-7.450); ABG PO2 (T) 98.9 mmHg (75.0-100.0); FCOHb 0.1 % (0.0-3.9); FHHb 2.6 % (0.0-5.0); FLOW 10 L/min; FMetHb 0.3 % (0.0-1.5); MODE HIGH FLOW; PATIENT TEMPERATURE 37.6; TOTAL HEMOGLOBIN 12.4 G/dl (12.0-16.0)
[2023-03-23 02:28] LABS: BASOPHILS % (AUTO) 0.2 % (0-1); EOSINOPHILS % (AUTO) 0 % (0-6); HEMATOCRIT 35.8 % (35.0-45.0); HEMOGLOBIN 11.9 g/dl (12.0-16.0); LYMPHOCYTES # (AUTO) 1.7 X10'3 (1.1-4.8); LYMPHOCYTES % (AUTO) 10.9 % (21-51); MEAN CORPUSCULAR HEMOGLOBIN 30.7 PG (27.0-31.0); MEAN CORPUSCULAR HGB CONC 33.1 g/dL (33.0-36.5); MEAN CORPUSCULAR VOLUME 92.9 FL (78-98); MEAN PLATELET VOLUME 9.9 FL (7.4-10.4); MONOCYTES # (AUTO) 0.9 X10'3 (0-0.9); NEUTROPHILS # (AUTO) 12.8 X10'3 (1.8-7.7); NEUTROPHILS % (AUTO) 82.9 % (42-75); PLATELET COUNT 158 X10'3 (140-440); RED BLOOD COUNT 3.86 X10'6 (4.20-5.60); RED CELL DISTRIBUTION WIDTH 14.6 % (11.5-14.5); WHITE BLOOD COUNT 15.4 X10'3 (4.5-11.0)
[2023-03-23 02:34] LABS: APTT 27 SECONDS (22-32); PROTHROMBIN TIME 11.2 SECONDS (9.0-12.0)
[2023-03-23 02:40] LABS: ALANINE AMINOTRANSFERASE 54 U/L (12-78); ALBUMIN 2.8 G/DL (3.4-5.0); ALBUMIN/GLOBULIN RATIO 0.9 (1.1-1.5); ALKALINE PHOSPHATASE 72 IU/L (46-116); ANION GAP 8 (8-16); ASPARTATE AMINO TRANSFERASE 50 U/L (10-37); BILIRUBIN,TOTAL 0.6 MG/DL (0.1-1.0); BLOOD UREA NITROGEN 13 MG/DL (7-18); BUN/CREATININE RATIO 12.5 (10.0-20.0); CALCIUM 8.1 MG/DL (8.5-10.1); CHLORIDE 108 MMOL/L (99-107); CREATININE 1.04 MG/DL (0.40-0.90); GLUCOSE 146 MG/DL (70-104); MAGNESIUM 1.7 MG/DL (1.5-2.4); PHOSPHORUS 3.3 MG/DL (2.3-4.5); POTASSIUM 3.9 MMOL/L (3.5-5.1); SODIUM 141 MMOL/L (135-145); eCRCL 52 ML/MIN; eGFR 55 ML/MIN
[2023-03-23] MEDS: CefTRIAXone/D5W-Rocephin 1gm 50 ML IV SCH (07:31)
[2023-03-23] MEDS ORDERED: levoFLOXACIN-Levaquin 750MG/D5 150 ML IV SCH (08:00)
[2023-03-23] MEDS: pantoprazole 40 MG vial IV SCH (08:00)
[2023-03-23] MEDS: aspirin 325mg tablet, delayed-release (Ecotrin) PO SCH (08:00)
[2023-03-23] MEDS ORDERED: haloperidol lactate 5mg/ml inj IM ONE (08:55)
[2023-03-23] MEDS ORDERED: gabapentin 300mg capsule PO SCH (09:16)
[2023-03-23] MEDS ORDERED: proMETHazine 25mg tablet PO PRN (09:20)
[2023-03-23] MEDS: ESCITALOPRAM 10 mg tablet 10 MG TABLET PO SCH (10:09)
[2023-03-23] MEDS ORDERED: labetalol 20mg/4ml (5mg/ml) syringe IV PRN (11:05)
[2023-03-23] MEDS: prazosin 5mg capsule PO SCH (11:16)
[2023-03-23] MEDS: lurasidone 20mg tablet PO SCH (11:17)
[2023-03-23] MEDS: quetiapine 100mg tablet PO SCH (11:17)
[2023-03-23] MEDS: hydrALAZINE 20mg/ml inj. IV SCH ×4 (11:23→23:39)
[2023-03-23] MEDS: clonazePAM 1mg tablet PO SCH (19:37)
[2023-03-23] MEDS: haloperidol lactate 5mg/ml inj IM PRN ×3 (19:58→23:40)
[2023-03-23] MEDS ORDERED: mineral oil/petrolatum ophthal oint EACHEYE SCH (20:00)
[2023-03-24] VITALS: BP 154/82; PULSE 73; RESP 14; O2SAT 97
[2023-03-24] MEDS: dexmedetomidine inj. 400 MCG in normal saline 100ml IV soln 96 ML IV SCH ×2 (02:43→06:47)
[2023-03-24] MEDS: hydrALAZINE 20mg/ml inj. IV SCH ×5 (03:37→20:07)
[2023-03-24] MEDS: haloperidol lactate 5mg/ml inj IM PRN (03:37)
[2023-03-24 04:00] VITALS: BP 147/80; PULSE 70; RESP 17; O2SAT 96
[2023-03-24 04:33] LABS: BASOPHILS % (AUTO) 0.3 % (0-1); EOSINOPHILS # (AUTO) 0.1 X10'3 (0-0.9); EOSINOPHILS % (AUTO) 0.7 % (0-6); HEMATOCRIT 33.6 % (35.0-45.0); HEMOGLOBIN 11.3 g/dl (12.0-16.0); LYMPHOCYTES # (AUTO) 1.5 X10'3 (1.1-4.8); LYMPHOCYTES % (AUTO) 13.8 % (21-51); MEAN CORPUSCULAR HEMOGLOBIN 30.9 PG (27.0-31.0); MEAN CORPUSCULAR HGB CONC 33.7 g/dL (33.0-36.5); MEAN CORPUSCULAR VOLUME 91.9 FL (78-98); MONOCYTES # (AUTO) 0.8 X10'3 (0-0.9); NEUTROPHILS # (AUTO) 8.6 X10'3 (1.8-7.7); NEUTROPHILS % (AUTO) 78.2 % (42-75); PLATELET COUNT 142 X10'3 (140-440); RED BLOOD COUNT 3.66 X10'6 (4.20-5.60); RED CELL DISTRIBUTION WIDTH 14.1 % (11.5-14.5)
[2023-03-24 04:47] LABS: APTT 28 SECONDS (22-32); PROTHROMBIN TIME 10.6 SECONDS (9.0-12.0)
[2023-03-24 04:50] LABS: ALANINE AMINOTRANSFERASE 40 U/L (12-78); ALBUMIN 2.7 G/DL (3.4-5.0); ALBUMIN/GLOBULIN RATIO 0.8 (1.1-1.5); ALKALINE PHOSPHATASE 70 IU/L (46-116); ANION GAP 10 (8-16); ASPARTATE AMINO TRANSFERASE 29 U/L (10-37); BILIRUBIN,TOTAL 0.4 MG/DL (0.1-1.0); BLOOD UREA NITROGEN 8 MG/DL (7-18); BUN/CREATININE RATIO 14.3 (10.0-20.0); CALCIUM 8.2 MG/DL (8.5-10.1); CHLORIDE 103 MMOL/L (99-107); CREATININE 0.56 MG/DL (0.40-0.90); GLUCOSE 138 MG/DL (70-104); POTASSIUM 3.1 MMOL/L (3.5-5.1); SODIUM 139 MMOL/L (135-145); TOTAL CARBON DIOXIDE 25.9 MMOL/L (24-32); TOTAL PROTEIN 6.1 G/DL (6.4-8.2); eCRCL 97 ML/MIN; eGFR > 90 ML/MIN
[2023-03-24 04:54] LABS: MAGNESIUM 1.6 MG/DL (1.5-2.4); PHOSPHORUS 1.4 MG/DL (2.3-4.5)
[2023-03-24] MEDS: heparin, porcine 5000 units/ml vial SQ SCH ×2 (07:34→16:12)
[2023-03-24] MEDS: aspirin 325mg tablet, delayed-release (Ecotrin) PO SCH (07:34)
[2023-03-24] MEDS: pantoprazole 40 MG vial IV SCH (07:35)
[2023-03-24] MEDS: gabapentin 300mg capsule PO SCH (07:35)
[2023-03-24] MEDS: clonazePAM 1mg tablet PO SCH ×2 (07:35→20:07)
[2023-03-24] MEDS: ESCITALOPRAM 10 mg tablet 10 MG TABLET PO SCH (07:40)
[2023-03-24] MEDS: CefTRIAXone/D5W-Rocephin 1gm 50 ML IV SCH (07:45)
[2023-03-24 08:00] VITALS: BP 173/106; PULSE 70; RESP 12; RESP 16; O2SAT 96
[2023-03-24] MEDS ORDERED: VALBENAZINE 80 MG PO SCH (08:00)
[2023-03-24] MEDS ORDERED: magnesium Cl slow-release 64mg tablet PO PRN (10:15)
[2023-03-24] MEDS ORDERED: magnesium 4gm in 100ml NS 100 ML IV PRN (10:15)
[2023-03-24] MEDS ORDERED: potassium phosphate inj 15 MMOL in dextrose 5%-water 250 ML IV PRN (10:15)
[2023-03-24] MEDS ORDERED: magnesium 2GM in 50ml NS 50 ML IV PRN (10:15)
[2023-03-24] MEDS ORDERED: potassium phosphate inj 30 MMOL in dextrose 5%-water 250 ML IV PRN (10:15)
[2023-03-24] MEDS ORDERED: Neutra Phos packet PO PRN (10:15)
[2023-03-24 12:00] VITALS: BP 190/99; PULSE 94; RESP 15; O2SAT 96
[2023-03-24] MEDS: acetaminophen 325mg tablet PO PRN (15:51)
[2023-03-24 16:00] VITALS: BP 169/93; PULSE 106; RESP 17; O2SAT 96
[2023-03-24 18:50] LABS: PHOSPHORUS 2.9 MG/DL (2.3-4.5)
[2023-03-24 19:48] LABS: POTASSIUM 2.9 MMOL/L (3.5-5.1)
[2023-03-24 20:00] VITALS: BP 167/85; PULSE 110; RESP 16; RESP 17; O2SAT 94; O2SAT 95
[2023-03-24] MEDS: prazosin 5mg capsule PO SCH (20:06)
[2023-03-24] MEDS: quetiapine 100mg tablet PO SCH (20:06)
[2023-03-24] MEDS: lurasidone 20mg tablet PO SCH (20:06)
[2023-03-24] MEDS: potassium Cl 40MEQ/1/2NS 520ml 520 ML IV PRN (20:58)
[2023-03-25] VITALS (10 sets, daily range): BP systolic 98–163; BP diastolic 57–96; PULSE 74–140; RESP 14–25; TEMP 97.7–99.3; O2SAT 92–96
[2023-03-25] MEDS: hydrALAZINE 20mg/ml inj. IV SCH ×6 (00:16→20:40)
[2023-03-25] MEDS: heparin, porcine 5000 units/ml vial SQ SCH ×3 (00:16→16:22)
[2023-03-25] MEDS: haloperidol lactate 5mg/ml inj IM PRN (00:23)
[2023-03-25] MEDS: potassium Cl 40MEQ/1/2NS 520ml 520 ML IV PRN (02:58)
[2023-03-25 06:22] LABS: BASOPHILS % (AUTO) 0.4 % (0-1); EOSINOPHILS % (AUTO) 0.5 % (0-6); HEMATOCRIT 32.9 % (35.0-45.0); HEMOGLOBIN 11.2 g/dl (12.0-16.0); LYMPHOCYTES # (AUTO) 2.1 X10'3 (1.1-4.8); LYMPHOCYTES % (AUTO) 20.7 % (21-51); MEAN CORPUSCULAR HEMOGLOBIN 31.2 PG (27.0-31.0); MEAN CORPUSCULAR VOLUME 91.8 FL (78-98); MEAN PLATELET VOLUME 10.4 FL (7.4-10.4); MONOCYTES # (AUTO) 0.9 X10'3 (0-0.9); MONOCYTES % (AUTO) 8.4 % (2-12); NEUTROPHILS # (AUTO) 7.1 X10'3 (1.8-7.7); PLATELET COUNT 175 X10'3 (140-440); RED BLOOD COUNT 3.59 X10'6 (4.20-5.60); RED CELL DISTRIBUTION WIDTH 14.4 % (11.5-14.5); WHITE BLOOD COUNT 10.1 X10'3 (4.5-11.0)
[2023-03-25 06:28] LABS: APTT 23 SECONDS (22-32); PROTHROMBIN TIME 10.5 SECONDS (9.0-12.0)
[2023-03-25 06:36] LABS: ALANINE AMINOTRANSFERASE 32 U/L (12-78); ALBUMIN 2.5 G/DL (3.4-5.0); ALBUMIN/GLOBULIN RATIO 0.8 (1.1-1.5); ALKALINE PHOSPHATASE 75 IU/L (46-116); ANION GAP 8 (8-16); ASPARTATE AMINO TRANSFERASE 22 U/L (10-37); BILIRUBIN,TOTAL 0.6 MG/DL (0.1-1.0); BLOOD UREA NITROGEN 5 MG/DL (7-18); BUN/CREATININE RATIO 8.2 (10.0-20.0); CHLORIDE 105 MMOL/L (99-107); CREATININE 0.61 MG/DL (0.40-0.90); GLUCOSE 116 MG/DL (70-104); MAGNESIUM 1.7 MG/DL (1.5-2.4); PHOSPHORUS 2.4 MG/DL (2.3-4.5); POTASSIUM 3.4 MMOL/L (3.5-5.1); SODIUM 140 MMOL/L (135-145); TOTAL CARBON DIOXIDE 26.8 MMOL/L (24-32); TOTAL PROTEIN 5.7 G/DL (6.4-8.2); eCRCL 89 ML/MIN; eGFR > 90 ML/MIN
[2023-03-25] MEDS: K and/or MAG REPLACEMENT MC SCH (08:00)
[2023-03-25] MEDS: clonazePAM 1mg tablet PO SCH (08:09)
[2023-03-25] MEDS: gabapentin 300mg capsule PO SCH (08:09)
[2023-03-25] MEDS: aspirin 325mg tablet, delayed-release (Ecotrin) PO SCH (08:09)
[2023-03-25] MEDS: ESCITALOPRAM 10 mg tablet 10 MG TABLET PO SCH (08:09)
[2023-03-25] MEDS ORDERED: morphine 4 MG/ML inj SYRINge IV PRN (08:45)
[2023-03-25] MEDS ORDERED: morphine 2 MG/ML inj. syringe IV PRN (08:45)
[2023-03-25] MEDS: pantoprazole 40mg Tablet.DR PO SCH (10:15)
[2023-03-25] MEDS: levoFLOXACIN-Levaquin 750MG/D5 150 ML IV SCH (10:16)
[2023-03-25] MEDS: potassium Cl 20 mEq SR tablet PO PRN ×3 (12:41→21:47)
[2023-03-25] MEDS: atenolol 25mg tablet PO SCH (13:20)
[2023-03-25] MEDS: acetaminophen 325mg tablet PO PRN (16:18)
[2023-03-25] MEDS: lurasidone 20mg tablet PO SCH (17:58)
[2023-03-25] MEDS ORDERED: PROP40TA72 PO (19:02)
[2023-03-25] MEDS ORDERED: TRAZ-256 PO (19:02)
[2023-03-25] MEDS ORDERED: VALB80CA PO (19:02)
[2023-03-25] MEDS: prazosin 5mg capsule PO SCH (20:40)
[2023-03-25] MEDS: quetiapine 100mg tablet PO SCH (20:41)
[2023-03-26] VITALS (9 sets, daily range): BP systolic 121–171; BP diastolic 77–98; PULSE 70–99; RESP 15–22; TEMP 97.4–98.4; O2SAT 95–96
[2023-03-26] MEDS: heparin, porcine 5000 units/ml vial SQ SCH ×3 (00:40→16:10)
[2023-03-26] MEDS: hydrALAZINE 20mg/ml inj. IV SCH ×4 (00:41→12:00)
[2023-03-26] MEDS: acetaminophen 325mg tablet PO PRN (03:51)
[2023-03-26 06:17] LABS: APTT 29 SECONDS (22-32); PROTHROMBIN TIME 10.6 SECONDS (9.0-12.0)
[2023-03-26 06:21] LABS: ALANINE AMINOTRANSFERASE 38 U/L (12-78); ALBUMIN 2.6 G/DL (3.4-5.0); ALBUMIN/GLOBULIN RATIO 0.7 (1.1-1.5); ALKALINE PHOSPHATASE 82 IU/L (46-116); ANION GAP 7 (8-16); ASPARTATE AMINO TRANSFERASE 22 U/L (10-37); BILIRUBIN,TOTAL 0.5 MG/DL (0.1-1.0); BLOOD UREA NITROGEN 4 MG/DL (7-18); BUN/CREATININE RATIO 5.8 (10.0-20.0); CALCIUM 8.6 MG/DL (8.5-10.1); CHLORIDE 108 MMOL/L (99-107); CREATININE 0.69 MG/DL (0.40-0.90); GLUCOSE 125 MG/DL (70-104); MAGNESIUM 1.7 MG/DL (1.5-2.4); PHOSPHORUS 2.3 MG/DL (2.3-4.5); POTASSIUM 3.5 MMOL/L (3.5-5.1); SODIUM 141 MMOL/L (135-145); TOTAL CARBON DIOXIDE 25.9 MMOL/L (24-32); TOTAL PROTEIN 6.3 G/DL (6.4-8.2); eCRCL 79 ML/MIN; eGFR 88 ML/MIN
[2023-03-26 06:24] LABS: BASOPHILS % (AUTO) 0.5 % (0-1); EOSINOPHILS # (AUTO) 0.1 X10'3 (0-0.9); EOSINOPHILS % (AUTO) 1.6 % (0-6); HEMATOCRIT 34.5 % (35.0-45.0); HEMOGLOBIN 11.5 g/dl (12.0-16.0); LYMPHOCYTES # (AUTO) 2.3 X10'3 (1.1-4.8); LYMPHOCYTES % (AUTO) 29.6 % (21-51); MEAN CORPUSCULAR HEMOGLOBIN 30.9 PG (27.0-31.0); MEAN CORPUSCULAR HGB CONC 33.3 g/dL (33.0-36.5); MEAN CORPUSCULAR VOLUME 92.8 FL (78-98); MEAN PLATELET VOLUME 9.7 FL (7.4-10.4); MONOCYTES # (AUTO) 0.9 X10'3 (0-0.9); MONOCYTES % (AUTO) 11.6 % (2-12); NEUTROPHILS # (AUTO) 4.5 X10'3 (1.8-7.7); NEUTROPHILS % (AUTO) 56.7 % (42-75); PLATELET COUNT 192 X10'3 (140-440); RED BLOOD COUNT 3.72 X10'6 (4.20-5.60); RED CELL DISTRIBUTION WIDTH 15.1 % (11.5-14.5); WHITE BLOOD COUNT 7.9 X10'3 (4.5-11.0)
[2023-03-26] MEDS: pantoprazole 40mg Tablet.DR PO SCH (06:52)
[2023-03-26] MEDS: HYDROcodone/acetaminophen 5mg/325mg tablet PO PRN (06:53)
[2023-03-26] MEDS: aspirin 325mg tablet, delayed-release (Ecotrin) PO SCH (07:55)
[2023-03-26] MEDS: gabapentin 300mg capsule PO SCH (07:56)
[2023-03-26] MEDS: ESCITALOPRAM 10 mg tablet 10 MG TABLET PO SCH (07:56)
[2023-03-26] MEDS: clonazePAM 1mg tablet PO PRN (07:57)
[2023-03-26] MEDS: atenolol 25mg tablet PO SCH (07:57)
[2023-03-26] MEDS: K and/or MAG REPLACEMENT MC SCH (08:00)
[2023-03-26] MEDS: acetaminophen 325mg tablet PO SCH ×3 (11:05→19:06)
[2023-03-26] MEDS: HYDROcodone/acetaminophen 10/325mg tab PO PRN (16:11)
[2023-03-26] MEDS: lurasidone 20mg tablet PO SCH (17:18)
[2023-03-26] MEDS: HYDROchlorothiazide 12.5mg capsule PO SCH (17:18)
[2023-03-26] MEDS ORDERED: atenolol 25mg tablet PO ONE (18:55)
[2023-03-26] MEDS: prazosin 5mg capsule PO SCH (21:00)
[2023-03-26] MEDS: quetiapine 100mg tablet PO SCH (21:00)
[2023-03-27] VITALS (7 sets, daily range): BP systolic 148–176; BP diastolic 94–111; PULSE 73–81; RESP 12–20; TEMP 97.4–98.1; O2SAT 92–97
[2023-03-27] MEDS: heparin, porcine 5000 units/ml vial SQ SCH ×3 (00:08→17:20)
[2023-03-27] MEDS: acetaminophen 325mg tablet PO SCH ×4 (02:00→20:00)
[2023-03-27 06:15] LABS: BASOPHILS # (AUTO) 0.1 X10'3 (0-0.2); EOSINOPHILS # (AUTO) 0.3 X10'3 (0-0.9); EOSINOPHILS % (AUTO) 3.8 % (0-6); HEMATOCRIT 35.5 % (35.0-45.0); HEMOGLOBIN 11.9 g/dl (12.0-16.0); LYMPHOCYTES # (AUTO) 2.6 X10'3 (1.1-4.8); LYMPHOCYTES % (AUTO) 32.8 % (21-51); MEAN CORPUSCULAR HGB CONC 33.4 g/dL (33.0-36.5); MEAN CORPUSCULAR VOLUME 92.9 FL (78-98); MEAN PLATELET VOLUME 9.2 FL (7.4-10.4); MONOCYTES # (AUTO) 0.8 X10'3 (0-0.9); MONOCYTES % (AUTO) 10.5 % (2-12); NEUTROPHILS # (AUTO) 4.1 X10'3 (1.8-7.7); NEUTROPHILS % (AUTO) 51.9 % (42-75); PLATELET COUNT 205 X10'3 (140-440); RED BLOOD COUNT 3.82 X10'6 (4.20-5.60); RED CELL DISTRIBUTION WIDTH 14.9 % (11.5-14.5); WHITE BLOOD COUNT 7.9 X10'3 (4.5-11.0)
[2023-03-27 06:21] LABS: APTT 27 SECONDS (22-32); PROTHROMBIN TIME 10.3 SECONDS (9.0-12.0)
[2023-03-27 06:24] LABS: ALANINE AMINOTRANSFERASE 32 U/L (12-78); ALBUMIN 2.7 G/DL (3.4-5.0); ALBUMIN/GLOBULIN RATIO 0.8 (1.1-1.5); ALKALINE PHOSPHATASE 77 IU/L (46-116); ANION GAP 8 (8-16); ASPARTATE AMINO TRANSFERASE 17 U/L (10-37); BILIRUBIN,TOTAL 0.3 MG/DL (0.1-1.0); BLOOD UREA NITROGEN 6 MG/DL (7-18); CALCIUM 8.8 MG/DL (8.5-10.1); CHLORIDE 105 MMOL/L (99-107); GLUCOSE 107 MG/DL (70-104); MAGNESIUM 1.8 MG/DL (1.5-2.4); PHOSPHORUS 4.5 MG/DL (2.3-4.5); POTASSIUM 3.4 MMOL/L (3.5-5.1); SODIUM 139 MMOL/L (135-145); TOTAL CARBON DIOXIDE 25.9 MMOL/L (24-32); TOTAL PROTEIN 6.3 G/DL (6.4-8.2); eCRCL 90 ML/MIN; eGFR > 90 ML/MIN
[2023-03-27] MEDS: potassium Cl 20 mEq SR tablet PO PRN ×2 (07:09→20:38)
[2023-03-27] MEDS: gabapentin 300mg capsule PO SCH (07:09)
[2023-03-27] MEDS: ESCITALOPRAM 10 mg tablet 10 MG TABLET PO SCH (07:09)
[2023-03-27] MEDS: HYDROchlorothiazide 12.5mg capsule PO SCH (07:09)
[2023-03-27] MEDS: pantoprazole 40mg Tablet.DR PO SCH (07:09)
[2023-03-27] MEDS: aspirin 325mg tablet, delayed-release (Ecotrin) PO SCH (07:10)
[2023-03-27] MEDS: atenolol 25mg tablet PO SCH (07:10)
[2023-03-27] MEDS: levoFLOXACIN-Levaquin 750MG/D5 150 ML IV SCH (07:10)
[2023-03-27] MEDS: K and/or MAG REPLACEMENT MC SCH (07:11)
[2023-03-27] MEDS: clonazePAM 1mg tablet PO PRN (07:13)
[2023-03-27] MEDS: HYDROcodone/acetaminophen 5mg/325mg tablet PO PRN ×2 (08:44→20:35)
[2023-03-27] MEDS ORDERED: LEVO-65 PO (12:57)
[2023-03-27] MEDS ORDERED: HYDROchlorothiazide tablet PO (12:57)
[2023-03-27] MEDS: HYDROcodone/acetaminophen 10/325mg tab PO PRN (14:12)
[2023-03-27] MEDS ORDERED: hyDRALAzine 10mg tablet PO PRN (17:10)
[2023-03-27] MEDS: lurasidone 20mg tablet PO SCH (17:21)
[2023-03-27] MEDS: prazosin 5mg capsule PO SCH (20:33)
[2023-03-27] MEDS: quetiapine 100mg tablet PO SCH (20:33)
[2023-03-28] MEDS: heparin, porcine 5000 units/ml vial SQ SCH ×2 (01:37→08:31)
[2023-03-28] MEDS: acetaminophen 325mg tablet PO SCH ×3 (01:41→14:00)
[2023-03-28 06:00] VITALS: BP 111/76; PULSE 105; RESP 15; TEMP 97.5; O2SAT 93
[2023-03-28 07:02] LABS: BASOPHILS % (AUTO) 0.5 % (0-1); EOSINOPHILS # (AUTO) 0.3 X10'3 (0-0.9); EOSINOPHILS % (AUTO) 3.4 % (0-6); HEMOGLOBIN 12.8 g/dl (12.0-16.0); LYMPHOCYTES # (AUTO) 2.9 X10'3 (1.1-4.8); LYMPHOCYTES % (AUTO) 36.9 % (21-51); MEAN CORPUSCULAR HGB CONC 33.6 g/dL (33.0-36.5); MEAN CORPUSCULAR VOLUME 92.3 FL (78-98); MEAN PLATELET VOLUME 9.4 FL (7.4-10.4); MONOCYTES % (AUTO) 13.1 % (2-12); NEUTROPHILS # (AUTO) 3.6 X10'3 (1.8-7.7); NEUTROPHILS % (AUTO) 46.1 % (42-75); PLATELET COUNT 246 X10'3 (140-440); RED BLOOD COUNT 4.12 X10'6 (4.20-5.60); RED CELL DISTRIBUTION WIDTH 14.7 % (11.5-14.5); WHITE BLOOD COUNT 7.8 X10'3 (4.5-11.0)
[2023-03-28 07:13] LABS: APTT 27 SECONDS (22-32); INR 0.9 INR; PROTHROMBIN TIME 10.1 SECONDS (9.0-12.0)
[2023-03-28 07:15] LABS: ALANINE AMINOTRANSFERASE 35 U/L (12-78); ALBUMIN/GLOBULIN RATIO 0.8 (1.1-1.5); ALKALINE PHOSPHATASE 80 IU/L (46-116); ANION GAP 9 (8-16); ASPARTATE AMINO TRANSFERASE 20 U/L (10-37); BILIRUBIN,TOTAL 0.2 MG/DL (0.1-1.0); BLOOD UREA NITROGEN 8 MG/DL (7-18); BUN/CREATININE RATIO 11.3 (10.0-20.0); CALCIUM 8.8 MG/DL (8.5-10.1); CHLORIDE 103 MMOL/L (99-107); CREATININE 0.71 MG/DL (0.40-0.90); GLUCOSE 68 MG/DL (70-104); MAGNESIUM 1.8 MG/DL (1.5-2.4); PHOSPHORUS 4.5 MG/DL (2.3-4.5); POTASSIUM 3.9 MMOL/L (3.5-5.1); SODIUM 139 MMOL/L (135-145); TOTAL CARBON DIOXIDE 26.8 MMOL/L (24-32); TOTAL PROTEIN 6.9 G/DL (6.4-8.2); eCRCL 76 ML/MIN; eGFR 85 ML/MIN
[2023-03-28 08:00] VITALS: RESP 15; O2SAT 93
[2023-03-28] MEDS: gabapentin 300mg capsule PO SCH (08:29)
[2023-03-28] MEDS: ESCITALOPRAM 10 mg tablet 10 MG TABLET PO SCH (08:29)
[2023-03-28] MEDS: aspirin 325mg tablet, delayed-release (Ecotrin) PO SCH (08:30)
[2023-03-28] MEDS: pantoprazole 40mg Tablet.DR PO SCH (08:30)
[2023-03-28] MEDS: HYDROchlorothiazide 12.5mg capsule PO SCH (08:30)
[2023-03-28] MEDS: atenolol 25mg tablet PO SCH (08:30)
[2023-03-28] MEDS: HYDROcodone/acetaminophen 10/325mg tab PO PRN ×2 (08:38→15:05)
[2023-03-28 11:00] VITALS: BP 141/87; PULSE 67; RESP 14; TEMP 97.9; O2SAT 95
[2023-03-28 15:00] VITALS: BP 166/98; PULSE 74; RESP 16; TEMP 97.3; O2SAT 97
[2023-03-28] MEDS ORDERED: LEVO-65 PO (17:15)
[2023-03-28] MEDS ORDERED: HYDR12.55 PO (17:15)
[2023-03-28] MEDS ORDERED: GABA300C PO (17:28)
[2023-03-28] MEDS ORDERED: HYDR-3972 PO (17:28)
[2023-03-28] MEDS ORDERED: MORP15TA PO (17:28)
[2023-03-29] MEDS ORDERED: levoFLOXACIN 750MG TABLET PO SCH (11:00)
== END 2023-03-28 16:53 | DRG 720 ==
LOC: ER 10:03 → ED HOLD 15:24 → CICU 2S 17:22 → PCU 3S 03-25 07:05
PROVIDERS: ADMIT Internal Medicine Critical Care Medicine; ATTEND Internal Medicine Critical Care Medicine
PROC: B325ZZZ Computerized Tomography (CT Scan) of Bilateral Common Carotid Arteries (ICD-10-PCS; principal; 2023-03-22)
PROC: 5A1935Z Respiratory Ventilation, Less than 24 Consecutive Hours (ICD-10-PCS; 2023-03-22)
PROC: B32 Imaging, Upper Arteries, Computerized Tomography (CT Scan) (ICD-10-PCS; 2023-03-22)
PROC: B32RZZZ Computerized Tomography (CT Scan) of Intracranial Arteries (ICD-10-PCS; 2023-03-22)
PROC: B328ZZZ Computerized Tomography (CT Scan) of Bilateral Internal Carotid Arteries (ICD-10-PCS; 2023-03-22)
PROC: 0BH17EZ Insertion of Endotracheal Airway into Trachea, Via Natural or Artificial Opening (ICD-10-PCS; 2023-03-22)
PROC: 5A0935A Assistance with Respiratory Ventilation, Less than 24 Consecutive Hours, High Flow/Velocity Cannula (ICD-10-PCS; 2023-03-23)
DX: A41.9 Sepsis, unspecified organism (principal); G93.40 Encephalopathy, unspecified; N17.9 Acute kidney failure, unspecified; J18.9 Pneumonia, unspecified organism; J96.01 Acute respiratory failure with hypoxia; J96.02 Acute respiratory failure with hypercapnia; E87.4 Mixed disorder of acid-base balance; I50.30 Unspecified diastolic (congestive) heart failure; I11.0 Hypertensive heart disease with heart failure; T50.901A Poisoning by unspecified drugs, medicaments and biological substances, accidental (unintentional), initial encounter; F31.9 Bipolar disorder, unspecified; G89.29 Other chronic pain; Z20.822 Contact with and (suspected) exposure to COVID-19; M54.9 Dorsalgia, unspecified; L40.9 Psoriasis, unspecified; F41.9 Anxiety disorder, unspecified; E66.9 Obesity, unspecified; M17.12 Unilateral primary osteoarthritis, left knee; E87.5 Hyperkalemia; Z91.013 Allergy to seafood; Z79.82 Long term (current) use of aspirin; Z79.899 Other long term (current) drug therapy; Z79.891 Long term (current) use of opiate analgesic; Z87.891 Personal history of nicotine dependence; Y92.89 Other specified places as the place of occurrence of the external cause; Z68.32 Body mass index [BMI] 32.0-32.9, adult
CPT/HCPCS: 36415; 36600; 70450; 70496; 70498; 71045; 71250; 80053; 80305; 80320; 80329; 81001; 82803; 82948; 83605; 83735; 83880; 84100; 84132; 84145; 84484; 85018; 85025; 85610; 85730; 87040; 87070; 87081; 87502; 87503; 87811; 92508; 92616; 93005; 93306; 94002; 94003; 94640; 94760; 94799; 97110; 97116; 97161; 97530; 99285; A4615; A6213; C1751; C1758; C9113; G0378; J0360; J0696; J1630; J1644; J1956; J2270; J2704; J3010; J3370; J3480; J3490; J7030; J7040; J7050; J7060; J7120; Q9967

== ENCOUNTER 2023-10-02 13:51 | Emergency (ER) | payer MEDICAID ==
[~2023-10-02] VITALS: Ht 167.6 cm; Wt 76.2 kg
[~2023-10-02 13:51] MED LIST changes: -ASPI-10 PO; -CLON-527 PO; +HYDR-3972 PO; +HYDR12.55 PO; +HYDROchlorothiazide tablet PO; +LEVO-65 PO; +MORP15TA PO; -PRAZ5CAP2 PO; -PROM25TA14 PO; +PROP40TA72 PO; -QUET300T2 PO; -TRAM50TA2 PO; +TRAZ-256 PO
[2023-10-02 14:14] LABS: BASOPHILS # (AUTO) 0.1 X10'3 (0-0.2); BASOPHILS % (AUTO) 0.8 % (0-1); EOSINOPHILS # (AUTO) 0.1 X10'3 (0-0.9); EOSINOPHILS % (AUTO) 0.9 % (0-6); HEMATOCRIT 40.2 % (35.0-45.0); HEMOGLOBIN 13.4 g/dl (12.0-16.0); LYMPHOCYTES # (AUTO) 2.4 X10'3 (1.1-4.8); LYMPHOCYTES % (AUTO) 31.9 % (21-51); MEAN CORPUSCULAR HEMOGLOBIN 31.1 PG (27.0-31.0); MEAN CORPUSCULAR HGB CONC 33.3 g/dL (33.0-36.5); MEAN CORPUSCULAR VOLUME 93.2 FL (78-98); MEAN PLATELET VOLUME 8.9 FL (7.4-10.4); MONOCYTES # (AUTO) 0.5 X10'3 (0-0.9); MONOCYTES % (AUTO) 7.4 % (2-12); NEUTROPHILS # (AUTO) 4.4 X10'3 (1.8-7.7); PLATELET COUNT 274 X10'3 (140-440); RED BLOOD COUNT 4.31 X10'6 (4.20-5.60); RED CELL DISTRIBUTION WIDTH 15.1 % (11.5-14.5); WHITE BLOOD COUNT 7.4 X10'3 (4.5-11.0)
[2023-10-02 14:22] LABS: ALBUMIN 3.7 G/DL (3.4-5.0); ANION GAP 8 (8-16); BLOOD UREA NITROGEN 4 MG/DL (7-18); BUN/CREATININE RATIO 4.9 (10.0-20.0); CALCIUM 8.9 MG/DL (8.5-10.1); CHLORIDE 105 MMOL/L (99-107); CREATININE 0.81 MG/DL (0.40-0.90); GLUCOSE 133 MG/DL (70-104); SODIUM 141 MMOL/L (135-145); TOTAL CARBON DIOXIDE 27.7 MMOL/L (24-32); eCRCL 72 ML/MIN; eGFR 73 ML/MIN
[2023-10-02 14:27] LABS: APTT 24 SECONDS (22-32); PROTHROMBIN TIME 10.6 SECONDS (9.0-12.0)
[2023-10-02] MEDS ORDERED: METH4TAB81 PO (14:47)
[2023-10-02] MEDS: POTASSIUM CHLORIDE 20 MEQ/15 ML oral solution PO ONE (14:54)
[2023-10-02 15:19] VITALS: TEMP 98.3
[2023-10-02 15:21] VITALS: BP 182/126; PULSE 86; RESP 14; O2SAT 96
== END 2023-10-02 15:22 | disposition home or self-care (01) ==
LOC: ER 13:52
DX: G51.0 Bell's palsy (principal); F31.9 Bipolar disorder, unspecified; F17.210 Nicotine dependence, cigarettes, uncomplicated; R79.1 Abnormal coagulation profile; Z91.013 Allergy to seafood; Z79.899 Other long term (current) drug therapy; Z79.2 Long term (current) use of antibiotics; Z98.890 Other specified postprocedural states; Z98.51 Tubal ligation status
CPT/HCPCS: 36415; 70450; 71045; 80048; 85025; 85610; 85730; 93005; 99285

== ENCOUNTER 2024-01-09 10:52 | Inpatient (IN) | payer MEDICAID ==
[~2024-01-09] VITALS: Ht 167.6 cm; Wt 83.1 kg
[~2024-01-09 10:52] MED LIST changes: +METH4TAB81 PO
[2024-01-09] MEDS ORDERED: iohexol 350MG/ML 100ml bottle IV ONE ×2 (11:21→13:21)
[2024-01-09 11:33] LABS: BASOPHILS # (AUTO) 0.1 X10'3 (0-0.2); BASOPHILS % (AUTO) 0.8 % (0-1); EOSINOPHILS % (AUTO) 0.5 % (0-6); HEMATOCRIT 42.8 % (35.0-45.0); HEMOGLOBIN 14.6 g/dl (12.0-16.0); LYMPHOCYTES # (AUTO) 1.6 X10'3 (1.1-4.8); LYMPHOCYTES % (AUTO) 20.2 % (21-51); MEAN CORPUSCULAR HGB CONC 34.1 g/dL (33.0-36.5); MONOCYTES # (AUTO) 0.5 X10'3 (0-0.9); MONOCYTES % (AUTO) 6.3 % (2-12); NEUTROPHILS # (AUTO) 5.7 X10'3 (1.8-7.7); NEUTROPHILS % (AUTO) 72.2 % (42-75); PLATELET COUNT 280 X10'3 (140-440); RED BLOOD COUNT 4.56 X10'6 (4.20-5.60); RED CELL DISTRIBUTION WIDTH 13.3 % (11.5-14.5); WHITE BLOOD COUNT 7.8 X10'3 (4.5-11.0)
[2024-01-09 11:46] LABS: ALANINE AMINOTRANSFERASE 18 U/L (12-78); ALBUMIN 3.9 G/DL (3.4-5.0); ALBUMIN/GLOBULIN RATIO 1.1 (1.1-1.5); ALKALINE PHOSPHATASE 68 IU/L (46-116); ANION GAP 9 (8-16); ASPARTATE AMINO TRANSFERASE 13 U/L (10-37); BILIRUBIN,TOTAL 0.3 MG/DL (0.1-1.0); BLOOD UREA NITROGEN 5 MG/DL (7-18); BUN/CREATININE RATIO 6.5 (10.0-20.0); CALCIUM 8.8 MG/DL (8.5-10.1); CHLORIDE 105 MMOL/L (99-107); CREATININE 0.77 MG/DL (0.40-0.90); GLUCOSE 125 MG/DL (70-104); POTASSIUM 3.3 MMOL/L (3.5-5.1); SODIUM 139 MMOL/L (135-145); TOTAL CARBON DIOXIDE 25.4 MMOL/L (24-32); TOTAL PROTEIN 7.5 G/DL (6.4-8.2); eCRCL 75 ML/MIN; eGFR 77 ML/MIN
[2024-01-09 11:55] LABS: PRO BRAIN NATRIURETIC PEPTIDE 144 PG/ML (0-125)
[2024-01-09] MEDS ORDERED: magnesium hydroxide 30ml (MOM) UD suspension PO PRN (13:05)
[2024-01-09] MEDS ORDERED: potassium Cl 40MEQ/1/2NS 520ml 520 ML IV PRN (13:05)
[2024-01-09] MEDS ORDERED: ondansetron/PF 4mg/2ml inj IV PRN (13:05)
[2024-01-09] MEDS ORDERED: mag hydrox/Alum hydrox/simeth 30ml oral suspension PO PRN (13:05)
[2024-01-09] MEDS ORDERED: magnesium sulf-water 4G/100mL 100 ML IV PRN (13:05)
[2024-01-09] MEDS ORDERED: potassium Cl 20 mEq SR tablet PO PRN (13:05)
[2024-01-09] MEDS ORDERED: magnesium Cl slow-release 64mg tablet PO PRN (13:05)
[2024-01-09] MEDS ORDERED: morphine 2 MG/ML inj. syringe IV PRN (13:05)
[2024-01-09] MEDS ORDERED: magnesium sulf-water 2g/50mL 50 ML IV PRN (13:05)
[2024-01-09 13:22] LABS: BILIRUBIN,URINE NEGATIVE (Neg); CLARITY,URINE CLEAR (Clear); COLOR,URINE YELLOW (Yellow); GLUCOSE, URINE NEGATIVE (Neg); KETONES,URINE TRACE mg/dl (Neg); LEUKOCYTE ESTERASE ,URINE NEGATIVE (Neg); NITRITES, URINE NEGATIVE (Neg); OCCULT BLOOD,URINE NEGATIVE (Neg); PROTEIN,URINE NEGATIVE (Neg); UROBILINOGEN,URINE 0.2 E.U/dL (0.2-1.0)
[2024-01-09 13:27] LABS: UA COLLECTION TYPE NON-SPECIFIED
[2024-01-09 13:32] LABS: URINE AMPHETAMINE SCREEN NEGATIVE (Neg); URINE BARBITUATE SCREEN NEGATIVE (Neg); URINE BENZODIAZEPINES SCREEN NEGATIVE (Neg); URINE CANNABINOID SCREEN NEGATIVE (Neg); URINE COCAINE SCREEN NEGATIVE (Neg); URINE METHADONE SCREEN NEGATIVE (Neg); URINE OPIATE SCREEN NEGATIVE (Neg); URINE PHENCYCLIDINE SCREEN NEGATIVE (Neg)
[2024-01-09 14:17] LABS: HEMOGLOBIN A1C 5.8 % (4.5-6.2)
[2024-01-09] MEDS ORDERED: CLON0.5T4 PO (14:53)
[2024-01-09] MEDS: atorvastatin 20mg tablet PO SCH (15:20)
[2024-01-09] MEDS: aspirin 81mg, enteric-coated 1 TAB TABLET.DR PO SCH (15:20)
[2024-01-09] MEDS: ESCITALOPRAM 10 mg tablet 10 MG TABLET PO SCH (17:33)
[2024-01-09] MEDS: clonazePAM 0.5mg tablet PO PRN (17:33)
[2024-01-09 19:00] VITALS: RESP 16; O2SAT 96
[2024-01-09] MEDS: normal saline 1000ml 1,000 ML IV SCH (19:46)
[2024-01-09 20:23] VITALS: BP 171/108; PULSE 84; RESP 16; TEMP 97.7
[2024-01-09] MEDS: K and/or MAG REPLACEMENT MC SCH (20:27)
[2024-01-09] MEDS: lurasidone 20mg tablet PO SCH (22:03)
[2024-01-09] MEDS: enoxaparin 40mg/0.4ml syringe SQ SCH (22:03)
[2024-01-09] MEDS: potassium Cl 20 mEq SR tablet PO PRN (22:04)
[2024-01-09] MEDS: gabapentin 300mg capsule PO SCH (22:05)
[2024-01-09] MEDS: traZODone 50mg tablet PO SCH (22:05)
[2024-01-10] VITALS: BP 177/100; PULSE 84; RESP 16; TEMP 98
[2024-01-10 04:00] VITALS: BP 131/84; PULSE 78; RESP 14; TEMP 97.7
[2024-01-10 06:00] VITALS: BP 143/83; PULSE 78; RESP 16; TEMP 98.4; O2SAT 99
[2024-01-10] MEDS: Valbenazine Tosylate (Ingrezza) 80 MG PO SCH (08:00)
[2024-01-10 08:10] LABS: BASOPHILS # (AUTO) 0.1 X10'3 (0-0.2); BASOPHILS % (AUTO) 0.6 % (0-1); EOSINOPHILS # (AUTO) 0.1 X10'3 (0-0.9); EOSINOPHILS % (AUTO) 0.9 % (0-6); HEMATOCRIT 41.9 % (35.0-45.0); HEMOGLOBIN 13.9 g/dl (12.0-16.0); LYMPHOCYTES # (AUTO) 2.5 X10'3 (1.1-4.8); LYMPHOCYTES % (AUTO) 28.3 % (21-51); MEAN CORPUSCULAR HEMOGLOBIN 31.3 PG (27.0-31.0); MEAN CORPUSCULAR HGB CONC 33.2 g/dL (33.0-36.5); MEAN CORPUSCULAR VOLUME 94.2 FL (78-98); MEAN PLATELET VOLUME 9.3 FL (7.4-10.4); MONOCYTES # (AUTO) 0.8 X10'3 (0-0.9); MONOCYTES % (AUTO) 9.3 % (2-12); NEUTROPHILS # (AUTO) 5.3 X10'3 (1.8-7.7); NEUTROPHILS % (AUTO) 60.9 % (42-75); PLATELET COUNT 252 X10'3 (140-440); RED BLOOD COUNT 4.45 X10'6 (4.20-5.60); RED CELL DISTRIBUTION WIDTH 13.3 % (11.5-14.5); WHITE BLOOD COUNT 8.8 X10'3 (4.5-11.0)
[2024-01-10 08:22] LABS: ALBUMIN 3.5 G/DL (3.4-5.0); ANION GAP 8 (8-16); BLOOD UREA NITROGEN 9 MG/DL (7-18); CALCIUM 8.9 MG/DL (8.5-10.1); CHLORIDE 106 MMOL/L (99-107); CHOL/HDL RATIO 5.1 (0.00-4.99); CHOLESTEROL 285 MG/DL (0-200); CREATININE 0.75 MG/DL (0.40-0.90); GLUCOSE 108 MG/DL (70-104); HDL CHOLESTEROL 56 MG/DL (35-60); LDL CHOLESTEROL 193 MG/DL (50-100); POTASSIUM 3.5 MMOL/L (3.5-5.1); SODIUM 141 MMOL/L (135-145); TOTAL CARBON DIOXIDE 27.4 MMOL/L (24-32); TRIGLYCERIDES 101 MG/DL (20-135); eCRCL 77 ML/MIN; eGFR 80 ML/MIN
[2024-01-10 10:00] VITALS: BP 130/91; PULSE 83; RESP 16; TEMP 98.6; O2SAT 94
[2024-01-10] MEDS: acetaminophen 325mg tablet PO PRN (16:21)
[2024-01-10] MEDS: morphine 2 MG/ML inj. syringe IV PRN (16:51)
[2024-01-10 18:00] VITALS: BP 151/100; PULSE 76; RESP 15; TEMP 97.6; O2SAT 94
[2024-01-10] MEDS: ESCITALOPRAM 10 mg tablet 10 MG TABLET PO SCH (21:01)
[2024-01-10 22:00] VITALS: BP 159/103; PULSE 74; RESP 16; TEMP 97.4; O2SAT 96
[2024-01-11] MEDS ORDERED: acetaminophen 325mg tablet PO PRN (00:20)
[2024-01-11 06:00] VITALS: BP 132/88; PULSE 74; RESP 14; TEMP 98.3; O2SAT 95
[2024-01-11 06:29] LABS: BASOPHILS % (AUTO) 0.4 % (0-1); EOSINOPHILS # (AUTO) 0.1 X10'3 (0-0.9); EOSINOPHILS % (AUTO) 1.1 % (0-6); HEMATOCRIT 40.5 % (35.0-45.0); HEMOGLOBIN 13.5 g/dl (12.0-16.0); LYMPHOCYTES # (AUTO) 2.2 X10'3 (1.1-4.8); LYMPHOCYTES % (AUTO) 24.7 % (21-51); MEAN CORPUSCULAR HEMOGLOBIN 31.3 PG (27.0-31.0); MEAN CORPUSCULAR HGB CONC 33.3 g/dL (33.0-36.5); MEAN CORPUSCULAR VOLUME 93.9 FL (78-98); MEAN PLATELET VOLUME 9.1 FL (7.4-10.4); MONOCYTES # (AUTO) 1.2 X10'3 (0-0.9); MONOCYTES % (AUTO) 13.2 % (2-12); NEUTROPHILS # (AUTO) 5.3 X10'3 (1.8-7.7); NEUTROPHILS % (AUTO) 60.6 % (42-75); PLATELET COUNT 217 X10'3 (140-440); RED BLOOD COUNT 4.31 X10'6 (4.20-5.60); WHITE BLOOD COUNT 8.8 X10'3 (4.5-11.0)
[2024-01-11 06:30] LABS: ALBUMIN 3.3 G/DL (3.4-5.0); ANION GAP 7 (8-16); BLOOD UREA NITROGEN 10 MG/DL (7-18); BUN/CREATININE RATIO 13.5 (10.0-20.0); CALCIUM 8.6 MG/DL (8.5-10.1); CHLORIDE 103 MMOL/L (99-107); CREATININE 0.74 MG/DL (0.40-0.90); GLUCOSE 116 MG/DL (70-104); MAGNESIUM 1.8 MG/DL (1.5-2.4); POTASSIUM 3.2 MMOL/L (3.5-5.1); SODIUM 138 MMOL/L (135-145); TOTAL CARBON DIOXIDE 27.7 MMOL/L (24-32); eCRCL 79 ML/MIN; eGFR 81 ML/MIN
[2024-01-11] MEDS ORDERED: ASPI-1265 PO (09:08)
[2024-01-11] MEDS ORDERED: ATOR-2 PO (09:08)
[2024-01-11] MEDS ORDERED: propranolol 10mg tablet PO PRN (09:30)
[2024-01-11 09:35] VITALS: RESP 16
== END 2024-01-11 10:20 | disposition home or self-care (01) | DRG 47 ==
LOC: ER 10:53 → ED HOLD 13:09 → ORTHO 4S 20:10
PROVIDERS: ADMIT Family Medicine; ATTEND Family Medicine
PROC: B3251ZZ Computerized Tomography (CT Scan) of Bilateral Common Carotid Arteries using Low Osmolar Contrast (ICD-10-PCS; principal; 2024-01-09)
PROC: B32G1ZZ Computerized Tomography (CT Scan) of Bilateral Vertebral Arteries using Low Osmolar Contrast (ICD-10-PCS; 2024-01-09)
PROC: B32R1ZZ Computerized Tomography (CT Scan) of Intracranial Arteries using Low Osmolar Contrast (ICD-10-PCS; 2024-01-09)
DX: G45.9 Transient cerebral ischemic attack, unspecified (principal); E87.6 Hypokalemia; G51.0 Bell's palsy; I48.91 Unspecified atrial fibrillation; F31.9 Bipolar disorder, unspecified; F41.9 Anxiety disorder, unspecified; G89.29 Other chronic pain; I10 Essential (primary) hypertension; Z91.013 Allergy to seafood
CPT/HCPCS: 36415; 70250; 70450; 70496; 70498; 71045; 80048; 80053; 80061; 80305; 81003; 82948; 83036; 83735; 83880; 84484; 85025; 87081; 93005; 93306; 97110; 97116; 97162; 99285; G0378; J1650; J2270; J7030; Q9967

== ENCOUNTER 2024-06-02 10:28 | Inpatient (IN) | payer MEDICAID ==
[~2024-06-02] VITALS: Ht 167.6 cm; Wt 70.0 kg
[~2024-06-02 10:28] MED LIST changes: +ATOR-2 PO; +CLON0.5T4 PO; -HYDR-3972 PO; -HYDR12.55 PO; -HYDROchlorothiazide tablet PO; -LEVO-65 PO; -METH4TAB81 PO; -MORP15TA PO
[2024-06-02 11:19] LABS: BASOPHILS # (AUTO) 0.1 X10'3 (0-0.2); EOSINOPHILS # (AUTO) 0.1 X10'3 (0-0.9); EOSINOPHILS % (AUTO) 1.3 % (0-6); HEMATOCRIT 43.6 % (35.0-45.0); HEMOGLOBIN 14.6 g/dl (12.0-16.0); LYMPHOCYTES # (AUTO) 1.9 X10'3 (1.1-4.8); LYMPHOCYTES % (AUTO) 20.6 % (21-51); MEAN CORPUSCULAR HEMOGLOBIN 31.7 PG (27.0-31.0); MEAN CORPUSCULAR HGB CONC 33.6 g/dL (33.0-36.5); MEAN CORPUSCULAR VOLUME 94.4 FL (78-98); MEAN PLATELET VOLUME 9.3 FL (7.4-10.4); MONOCYTES # (AUTO) 0.8 X10'3 (0-0.9); MONOCYTES % (AUTO) 8.8 % (2-12); NEUTROPHILS # (AUTO) 6.4 X10'3 (1.8-7.7); NEUTROPHILS % (AUTO) 68.3 % (42-75); PLATELET COUNT 341 X10'3 (140-440); RED BLOOD COUNT 4.61 X10'6 (4.20-5.60); RED CELL DISTRIBUTION WIDTH 13.6 % (11.5-14.5); WHITE BLOOD COUNT 9.3 X10'3 (4.5-11.0)
[2024-06-02 11:32] LABS: APTT 25 SECONDS (22-32); PROTHROMBIN TIME 10.6 SECONDS (9.0-12.0)
[2024-06-02 11:35] LABS: ALANINE AMINOTRANSFERASE 69 U/L (12-78); ALBUMIN 3.8 G/DL (3.4-5.0); ALBUMIN/GLOBULIN RATIO 1.1 (1.1-1.5); ALKALINE PHOSPHATASE 472 IU/L (46-116); ANION GAP 10 (8-16); ASPARTATE AMINO TRANSFERASE 40 U/L (10-37); BILIRUBIN,TOTAL 0.4 MG/DL (0.1-1.0); BLOOD UREA NITROGEN 9 MG/DL (7-18); BUN/CREATININE RATIO 12.3 (10.0-20.0); CALCIUM 9.4 MG/DL (8.5-10.1); CHLORIDE 103 MMOL/L (99-107); CREATININE 0.73 MG/DL (0.40-0.90); GLUCOSE 113 MG/DL (70-104); POTASSIUM 3.8 MMOL/L (3.5-5.1); SODIUM 141 MMOL/L (135-145); TOTAL CARBON DIOXIDE 28.2 MMOL/L (24-32); TOTAL PROTEIN 7.4 G/DL (6.4-8.2); eCRCL 80 ML/MIN; eGFR 82 ML/MIN
[2024-06-02] MEDS ORDERED: mag hydrox/Alum hydrox/simeth 30ml oral suspension PO PRN (14:05)
[2024-06-02] MEDS ORDERED: potassium Cl 40MEQ/1/2NS 520ml 520 ML IV PRN (14:05)
[2024-06-02] MEDS ORDERED: ondansetron/PF 4mg/2ml inj IV PRN (14:05)
[2024-06-02] MEDS ORDERED: magnesium sulf-water 4G/100mL 100 ML IV PRN (14:05)
[2024-06-02] MEDS ORDERED: potassium Cl 20 mEq SR tablet PO PRN ×2 (14:05)
[2024-06-02] MEDS ORDERED: magnesium hydroxide 30ml (MOM) UD suspension PO PRN (14:05)
[2024-06-02] MEDS ORDERED: magnesium sulf-water 2g/50mL 50 ML IV PRN (14:05)
[2024-06-02 14:07] LABS: C-REACTIVE PROTEIN 0.11 MG/DL (0.0-0.5); THYROID STIMULATING HORMONE 1.78 ulU/ml (0.34-4.50)
[2024-06-02] MEDS: PERFLUTREN PROTEIN-A MICROSPHR (Optison) 0.22 MG/ML 3ML VIAL IV ONE (14:28)
[2024-06-02] MEDS: normal saline 1000ml 1,000 ML IV SCH (14:44)
[2024-06-02] MEDS: hydrOXYzine 25 MG tablet PO PRN (19:58)
[2024-06-02] MEDS: enoxaparin 40mg/0.4ml syringe SQ SCH (19:58)
[2024-06-02] MEDS: docusate sod 100mg capsule PO SCH (20:00)
[2024-06-02] MEDS: K and/or MAG REPLACEMENT MC SCH (20:00)
[2024-06-02] MEDS: hydrALAZINE 20mg/ml inj. IV PRN (20:03)
[2024-06-02] MEDS ORDERED: ASPI-1475 (20:56)
[2024-06-02] MEDS ORDERED: LISI20TA28 (20:56)
[2024-06-02] MEDS: lurasidone 20mg tablet PO SCH (21:06)
[2024-06-02] MEDS ORDERED: propranolol 40mg tablet PO PRN (21:07)
[2024-06-02] MEDS ORDERED: iohexol 350MG/ML 100ml bottle IV ONE (21:14)
[2024-06-03] VITALS (8 sets, daily range): BP systolic 126–183; BP diastolic 85–106; PULSE 78–113; RESP 12–20; TEMP 97.5–98.1; O2SAT 95–97
[2024-06-03] MEDS: Melatonin 3mg tablet PO ONE (03:42)
[2024-06-03 07:23] LABS: BASOPHILS # (AUTO) 0.1 X10'3 (0-0.2); BASOPHILS % (AUTO) 0.8 % (0-1); EOSINOPHILS # (AUTO) 0.1 X10'3 (0-0.9); EOSINOPHILS % (AUTO) 0.8 % (0-6); HEMOGLOBIN 14.5 g/dl (12.0-16.0); LYMPHOCYTES # (AUTO) 1.8 X10'3 (1.1-4.8); LYMPHOCYTES % (AUTO) 19.6 % (21-51); MEAN CORPUSCULAR HEMOGLOBIN 31.6 PG (27.0-31.0); MEAN CORPUSCULAR HGB CONC 33.7 g/dL (33.0-36.5); MEAN CORPUSCULAR VOLUME 93.6 FL (78-98); MEAN PLATELET VOLUME 9.7 FL (7.4-10.4); MONOCYTES # (AUTO) 0.8 X10'3 (0-0.9); NEUTROPHILS # (AUTO) 6.4 X10'3 (1.8-7.7); NEUTROPHILS % (AUTO) 69.8 % (42-75); PLATELET COUNT 299 X10'3 (140-440); RED CELL DISTRIBUTION WIDTH 13.6 % (11.5-14.5); WHITE BLOOD COUNT 9.2 X10'3 (4.5-11.0)
[2024-06-03 07:41] LABS: ALANINE AMINOTRANSFERASE 51 U/L (12-78); ALBUMIN 3.5 G/DL (3.4-5.0); ALBUMIN/GLOBULIN RATIO 0.9 (1.1-1.5); ALKALINE PHOSPHATASE 408 IU/L (46-116); ANION GAP 11 (8-16); ASPARTATE AMINO TRANSFERASE 36 U/L (10-37); BILIRUBIN,TOTAL 0.5 MG/DL (0.1-1.0); BLOOD UREA NITROGEN 9 MG/DL (7-18); CHLORIDE 103 MMOL/L (99-107); CHOLESTEROL 164 MG/DL (0-200); CREATININE 0.75 MG/DL (0.40-0.90); GLUCOSE 114 MG/DL (70-104); HDL CHOLESTEROL 55 MG/DL (35-60); LDL CHOLESTEROL 87 MG/DL (50-100); MAGNESIUM 1.8 MG/DL (1.5-2.4); POTASSIUM 3.8 MMOL/L (3.5-5.1); SODIUM 139 MMOL/L (135-145); TOTAL CARBON DIOXIDE 25.5 MMOL/L (24-32); TOTAL PROTEIN 7.3 G/DL (6.4-8.2); TRIGLYCERIDES 88 MG/DL (20-135); eCRCL 77 ML/MIN; eGFR 80 ML/MIN
[2024-06-03] MEDS: clopidogrel 75mg tablet PO SCH (07:59)
[2024-06-03] MEDS: aspirin 81mg tab.chew PO SCH (07:59)
[2024-06-03] MEDS: atorvastatin 20mg tablet PO SCH (07:59)
[2024-06-03] MEDS ORDERED: propranolol 40mg tablet PO PRN (09:24)
[2024-06-03] MEDS: gabapentin 300mg capsule PO SCH (12:13)
[2024-06-03] MEDS: clonazePAM 0.5mg tablet PO SCH (12:14)
[2024-06-03] MEDS: acetaminophen 325mg tablet PO PRN (19:27)
[2024-06-03] MEDS: traZODone 50mg tablet PO SCH (21:30)
[2024-06-03] MEDS: ibuprofen 200mg tablet PO ONE (22:48)
[2024-06-04 02:00] VITALS: BP 92/67; PULSE 90; RESP 16; TEMP 97.7
[2024-06-04 06:30] VITALS: BP 136/79; PULSE 91; RESP 18; TEMP 97.9; O2SAT 97
[2024-06-04 07:01] LABS: BASOPHILS % (AUTO) 0.2 % (0-1); EOSINOPHILS # (AUTO) 0.1 X10'3 (0-0.9); HEMATOCRIT 42.7 % (35.0-45.0); HEMOGLOBIN 14.4 g/dl (12.0-16.0); LYMPHOCYTES # (AUTO) 1.9 X10'3 (1.1-4.8); LYMPHOCYTES % (AUTO) 19.1 % (21-51); MEAN CORPUSCULAR HEMOGLOBIN 31.4 PG (27.0-31.0); MEAN CORPUSCULAR HGB CONC 33.7 g/dL (33.0-36.5); MEAN CORPUSCULAR VOLUME 93.1 FL (78-98); MEAN PLATELET VOLUME 9.5 FL (7.4-10.4); MONOCYTES % (AUTO) 20.2 % (2-12); NEUTROPHILS # (AUTO) 5.9 X10'3 (1.8-7.7); NEUTROPHILS % (AUTO) 59.5 % (42-75); PLATELET COUNT 255 X10'3 (140-440); RED BLOOD COUNT 4.58 X10'6 (4.20-5.60); RED CELL DISTRIBUTION WIDTH 13.8 % (11.5-14.5)
[2024-06-04] MEDS: ESCITALOPRAM 10 mg tablet 10 MG TABLET PO SCH (07:11)
[2024-06-04] MEDS: lisinopril 20mg tablet PO SCH (07:13)
[2024-06-04 07:18] LABS: ALANINE AMINOTRANSFERASE 38 U/L (12-78); ALBUMIN 3.2 G/DL (3.4-5.0); ALBUMIN/GLOBULIN RATIO 0.9 (1.1-1.5); ALKALINE PHOSPHATASE 337 IU/L (46-116); ANION GAP 10 (8-16); ASPARTATE AMINO TRANSFERASE 25 U/L (10-37); BILIRUBIN,TOTAL 0.4 MG/DL (0.1-1.0); BLOOD UREA NITROGEN 9 MG/DL (7-18); BUN/CREATININE RATIO 11.8 (10.0-20.0); CHLORIDE 104 MMOL/L (99-107); CREATININE 0.76 MG/DL (0.40-0.90); GLUCOSE 116 MG/DL (70-104); MAGNESIUM 1.7 MG/DL (1.5-2.4); POTASSIUM 3.5 MMOL/L (3.5-5.1); SODIUM 140 MMOL/L (135-145); TOTAL CARBON DIOXIDE 26.5 MMOL/L (24-32); TOTAL PROTEIN 6.8 G/DL (6.4-8.2); eCRCL 76 ML/MIN; eGFR 78 ML/MIN
[2024-06-04 11:00] VITALS: BP 129/83; PULSE 94; RESP 19; TEMP 98; O2SAT 100
[2024-06-04] MEDS ORDERED: CLOP75TA34 PO (11:13)
== END 2024-06-04 16:59 | disposition home or self-care (01) | DRG 52 ==
LOC: ER 10:29 → ED HOLD 14:14 → PCU 3S 06-03 01:00
PROVIDERS: ADMIT Family Medicine; ATTEND Family Medicine
PROC: B3251ZZ Computerized Tomography (CT Scan) of Bilateral Common Carotid Arteries using Low Osmolar Contrast (ICD-10-PCS; principal; 2024-06-02)
PROC: B32G1ZZ Computerized Tomography (CT Scan) of Bilateral Vertebral Arteries using Low Osmolar Contrast (ICD-10-PCS; 2024-06-02)
PROC: B32R1ZZ Computerized Tomography (CT Scan) of Intracranial Arteries using Low Osmolar Contrast (ICD-10-PCS; 2024-06-02)
PROC: B3281ZZ Computerized Tomography (CT Scan) of Bilateral Internal Carotid Arteries using Low Osmolar Contrast (ICD-10-PCS; 2024-06-02)
DX: G92.8 Other toxic encephalopathy (principal); G45.9 Transient cerebral ischemic attack, unspecified; F31.9 Bipolar disorder, unspecified; I10 Essential (primary) hypertension; Z66 Do not resuscitate; F41.9 Anxiety disorder, unspecified; Z96.651 Presence of right artificial knee joint; Z87.891 Personal history of nicotine dependence; Z79.899 Other long term (current) drug therapy; Z91.013 Allergy to seafood
CPT/HCPCS: 36415; 70250; 70450; 70496; 70498; 71045; 80053; 80061; 83735; 84145; 84443; 85025; 85610; 85651; 85730; 86140; 87081; 92508; 92616; 93005; 93306; 97161; 97530; 99291; G0378; J0360; J1650; J7030; Q0177; Q9967

== ENCOUNTER 2024-12-03 07:20 | Inpatient (IN) | payer MEDICAID ==
[~2024-12-03] VITALS: Ht 167.6 cm; Wt 80.0 kg
[~2024-12-03 07:20] MED LIST changes: +ASPI-1475; +CLOP75TA34 PO; +LISI20TA28 PO; -VALB80CA PO
--- NOTE | 2024-12-03 07:35 | ELECTROCARDIOGRAPH REPORT ---
[facility] Test Date: 2024-12-03 Test Time: 07:33:22 Pat Name: DIANNE JACOBS Department: [facility]-ER Patient ID: [facility]-[id number] Room: Gender: F Acting Section Chief: : 1965 Requested By: LORI SCOTT Order Number: [id number] Reading MD: Measurements Intervals [place] Rate: 94 P: 38 SC: 132 QRS: 51 QRSD: 104 T: 41 QT: 364 QTc: 456 Interpretive Statements Sinus rhythm Probable left atrial enlargement Borderline T abnormalities, anterior leads Please click the below link to view image of tracing.
[2024-12-03 08:05] LABS: MEAN PLATELET VOLUME 8.9 FL (7.4-10.4); RED CELL DISTRIBUTION WIDTH 13.6 % (11.5-14.5)
--- NOTE | 2024-12-03 08:12 | Physician Documentation ---
History of Present Illness General Chief Complaint: Multiple Medical Complaints Stated Complaint: CHEST PAIN Time Seen by MD: 08:12 Primary Medical Doctor: deon Mode of Arrival: EMS History of Present Illness Initial Comments The patient is a 59-year-old female presents to the emergency department with left-sided pleuritic chest pain. Patient states she has no cardiac history. Patient states it hurts when she takes a breath and she has been slightly short of breath over last two days. Patient states she has also noted some left-sided facial droop. She states she has had facial droop in the past. She also states that she may have had a stroke in the past. 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 Patient denies any fevers or chills she does complain of a slight cough patient's symptoms are moderate and persistent. The patient denies any cardiac history Medication Reconciliation Allergies: Coded Allergies: shellfish derived (Verified Allergy, Unknown, 12/03/24) Scheduled Atorvastatin Calcium (Atorvastatin Calcium), 1 TAB PO DAILY Clopidogrel Bisulfate (Clopidogrel), 75 MG PO DAILY Gabapentin (Neurontin), 1-2 CAP PO TID, (Reported) Lisinopril (Lisinopril), 1 DAILY, (Reported) Lurasidone HCl (Latuda), 80 MG PO HS, (Reported) Propranolol Hcl* (Inderal*), 2 TAB PO TID, (Reported) Trazodone HCl (Trazodone HCl), 1 TAB PO HS, (Reported) Venlafaxine Hcl (Venlafaxine Hcl Er), 1 CAP PO DAILY, (Reported) Scheduled PRN Clonazepam (Clonazepam), 1 TAB PO TID PRN for anxiety, (Reported) Discontinued Medications Aspirin (Aspirin EC), 1 DAILY, (Reported) Discontinued Reason: patient no longer taking Escitalopram Oxalate (Escitalopram Oxalate), 3 TAB PO DAILY, (Reported) Discontinued Reason: patient no longer taking Propranolol Hcl* (Inderal*), 1 TAB PO TID PRN for anxiety, (Reported) Discontinued Reason: Other Past Medical History Past Medical History: Chronic Back Pain, Psoriasis, Anxiety, Bipolar, Depression Past Surgical History: tonsillectomy, tubal ligation, other Smoking: Quit greater than 1 year Alcohol Use: None Drug Use: none Lives In: Home Review of Systems All Other Systems at this time: Reviewed and Negative Physical Exam Physical Exam Vital Signs: Temperature: 96.7, Source: Oral, Heart Rate: 104, Respiratory Rate: 19, BP: 129/86, Pulse Oximetry: 96, Weight: 80.000 Oxygen Flow Rate: 0 Physical Exam VITALS: Reviewed and as above. GENERAL: Alert, no apparent distress. HEENT: Normocephalic, atraumatic, PERRL, EOMI, dry mucosa, no erythema RESPIRATORY: Lungs clear, normal breath sounds, no respiratory distress. CHEST: No accessory muscle use, no retractions CV: Regular rate, rhythm, no edema, no murmur, No: JVD GI: Soft, non-tender, bowels sounds present, no rebound, guarding, or rigidity BACK: No CVA tenderness, or swelling MUSCULOSKELETAL: No deformities, no edema SKIN: Warm and dry, no rash NEURO: Oriented x4, slight left facial droop with involvement of the left forehead PSYCH: Normal mood and affect, no agitation Progress Results/Orders Results/Orders Orders - OHLORI MONREAL MD Chest,Single View (12/03/24 07:29) Monitor (12/03/24 07:29) Saline Lock (12/03/24 07:29) Oxygen (12/03/24 07:29) Cta Chest Pe (12/03/24 10:37) Page Hospitalist (12/03/24 ) Echocardiogram (12/03/24 12:59) Completed Orders - LORI FONSECA MD Chest,Single View (12/03/24 07:29) Cbc/Diff (12/03/24 07:29) BMP (12/03/24 07:29) PBNP (12/03/24 07:29) Electrocardiogram (12/03/24 07:29) Hs Troponin I W Calculations (12/03/24 07:29) Hs Troponin I W Calculations (12/03/24 09:29) Hs Troponin I W Calculations (12/03/24 10:29) D-Dimer (12/03/24 08:21) Procalcitonin (12/03/24 08:21) Potassium Cl Sr Tablet (K-Dur Tablet) (12/03/24 09:37) Cta Chest Pe (12/03/24 10:37) Clonazepam 0.5mg Tablet (Klonopin 0.5mg (12/03/24 10:25) Iohexol 350mg/Ml 100ml (Omnipaque 350mg/ (12/03/24 10:24) Ceftriaxone 2gm/D5w 50ml Bag (Rocephin 2 (12/03/24 12:30) Echocardiogram (12/03/24 12:59) Hgb A1c (12/03/24 07:49) Lipid Panel (12/03/24 07:49) Vital Signs 12/03/24 12/03/24 12/03/24 12/03/24 07:23 07:58 07:58 08:48 Temp 96.7 96.7 Pulse 93 104 86 Resp 16 19 16 14 B/P (MAP) 146/99 129/86 (100) 129/86 (100) Pulse Ox 94 96 97 O2 Flow Rate 0 0 0 12/03/24 12/03/24 12/03/24 09:00 10:00 12:12 Pulse 90 86 87 Resp 14 16 14 B/P (MAP) 132/95 (107) 123/87 (99) 127/90 (102) Pulse Ox 94 94 94 O2 Flow Rate 0 0 0 Laboratory Tests Test 12/03/24 07:49 12/03/24 09:06 12/03/24 11:43 White Blood Count 12.1 H Red Blood Count 4.49 Hemoglobin 14.0 Hematocrit 41.0 Mean Corpuscular Volume 91.2 Mean Corpuscular Hemoglobin 31.2 H Mean Corpuscular Hemoglobin Concent 34.3 Red Cell Distribution Width 13.6 Platelet Count 267 Mean Platelet Volume 8.9 Neutrophils (%) (Auto) 74.5 Lymphocytes (%) (Auto) 12.3 L Monocytes (%) (Auto) 12.5 H Eosinophils (%) (Auto) 0.2 Basophils (%) (Auto) 0.5 Neutrophils # (Auto) 9.0 H Lymphocytes # (Auto) 1.5 Monocytes # (Auto) 1.5 H Eosinophils # (Auto) 0.0 Basophils # (Auto) 0.1 CBC Comment D-Dimer 3.25 H D-Dimer Comment Sodium Level 137 Potassium Level 3.1 L Chloride Level 99 Carbon Dioxide Level 29.4 Anion Gap 9 Blood Urea Nitrogen 2 L Creatinine 0.79 Estimated GFR/1.73 m2 75 BUN/Creatinine Ratio 2.5 L Glucose Level 159 H Hemoglobin A1c 5.8 Calcium Level 8.8 Troponin I High Sensitivity 9 8 10 Pro-B-Type Natriuretic Peptide 247 H Albumin 3.0 L Triglycerides Level 53 Cholesterol Level 128 LDL Cholesterol 56 HDL Cholesterol 58 Cholesterol/HDL Ratio 2.2 Chemistry Comments Troponin I High Sens Percent Delta 11 25 Troponin I Hi Sens Absolute Change -1 2 Procalcitonin < 0.05 EKG/XRAY/CT/US/VASC/MRI Chest X-Ray : Additional Comments Patient: DIANNE JACOBS Medical Record: [id number] [facility] : 1965, Age: 59 Sex: Female Location: ER Patient Status: REG ER Service Date/Time: 12/03/24728 Ordering Physician: LORI FONSECA MD Exam: CHEST,SINGLE VIEW CHEST RADIOGRAPH Indication: CP Technique: Single frontal view of the chest was obtained Comparison: DI CHEST,SINGLE VIEW on DOS: 06/02/24, DI CHEST,SINGLE VIEW on DOS: 01/09/24, DI CHEST,SINGLE VIEW on DOS: 10/02/23, DI CHEST,SINGLE VIEW on DOS: 03/26/23, DI CHEST,SINGLE VIEW on DOS: 03/24/23 FINDINGS: Lines and Tubes: None Lungs: No focal consolidation. Pleura: No effusion. No pneumothorax. Cardiomediastinal contours: Unremarkable Bones: Bilateral shoulder arthroplasties IMPRESSION: No acute cardiopulmonary disease. Electronically Signed by:MAYO EWING MD Date & Time: 12/03/24832 Dictated by: MAYO EWING MD Dictation date and time: 12/03/24832 Primary Care Provider: NO PRIMARY CARE PROVIDER cc: LORI FONSECA MD ~ CT : Impression Patient: DIANNE JACOBS Medical Record: [id number] [facility] : 1965, Age: 59 Sex: Female Location: ER Patient Status: REG ER Service Date/Time: 12/03/241036 Ordering Physician: OLRI FONSECA MD Exam: CTA CHEST PE Indication: sob d-dimer 3.25 Technique: CT axial images of the chest are obtained with intravenous contrast per CT angiogram protocol. Coronal and sagittal reformats were obtained. Radiation Dose Information: CTDI volume is 20 mGy. Dose-length product is 728 mGy*cm Comparison: None FINDINGS: No filling defect within the main left right pulmonary arteries. The trachea is patent. No pneumothorax. Bilateral atelectasis. Possible developing left upper lobe lingular segment and left lower lobe airspace consolidation. Small left pleural effusion. Large pericardial effusion. Aortic atherosclerotic disease. 12 mm right supraclavicular lymph node. 11 mm left supraclavicular lymph node.. Bilateral shoulder arthroplasty hardware. Moderate thoracic degenerative disc disease old T6 compression deformity with 20% loss height. Left breast lesion measuring 3.4 cm. IMPRESSION: No evidence for large pulmonary embolism. Large pericardial effusion. Recommend cardiology / thoracic surgery consultation for further evaluation / management. Small left pleural effusion. Left upper lobe lingular segment, left lower lobe consolidation/developing atelectasis. 3.4 cm left breast lesion. Recommend correlation with mammography and breast ultrasound. Supraclavicular lymphadenopathy. Electronically Signed by:BRISEYDA PEREZ MD Date & Time: 12/03/241107 Dictated by: BRISEYDA PEREZ MD Dictation date and time: 12/03/241107 Primary Care Provider: NO PRIMARY CARE PROVIDER cc: LORI FONSECA MD ~ Medical Decision Making Findings Patient with shortness of breath and reported hypoxia at home states that she has a pulse ox of 92% she has also had a cough the patient's chest x- ray was interpreted by me as being a normal chest x-ray has a normal cardiac s ilhouette normal mediastinum normal lung lazaro CT chest was ordered due to an elevated D-dimer shows pulmonary consolidation consistent with possible pneumonia as well as a large pericardial effusion and a left breast mass which is evidently new. The patient was given ceftriaxone in the emergency department for the consolidation the patient will be admitted to the hospitalist. The patient's CT read was reviewed the patient's chest x-ray was reviewed prior hospitalizations were reviewed the patient's cardiac monitors were reviewed and it is a sinus rhythm by myself the patient's pulse oximetry was interpreted as normal and adequate. The patient's EKG was interpreted by me it shows a sinus rhythm rate of 94 with a normal axis with nonspecific ST abnormalities and flattening of the T-waves. The patient was also found to have hypokalemia and the patient was treated in the emergency room with 40 mEq of potassium chloride. Case has been discussed with the hospitalist. Other etiologies considered but not supported by the clinical evidence include pulmonary embolism as well as cardiac causes of shortness of breath to include CHF and cardiac ischemia. This was not supported by the clinical evidence. Departure Admitted to Inpatient Unit: yes, to hospitalist Impression: Primary Impression: Pneumonia Qualified Codes: J18.9 - Pneumonia, unspecified organism Additional Impressions: Pericardial effusion Hypokalemia Breast mass Qualified Codes: N63.20 - Unspecified lump in the left breast, unspecified quadrant Referrals: NO PRIMARY CARE PROVIDER (PCP) Signature Scribe Signature: no scribe Attestation: The note accurately reflects work and decisions made by me.Lori Fonseca MD 12/05/24 18:54 LORI FONSECA MD Dec 03, 2024 08:12
[2024-12-03 08:31] LABS: CREATININE 0.79 MG/DL (0.40-0.90); PRO BRAIN NATRIURETIC PEPTIDE 247 PG/ML (0-125); TOTAL CARBON DIOXIDE 29.4 MMOL/L (24-32); eCRCL 73 ML/MIN; eGFR 75 ML/MIN
--- NOTE | 2024-12-03 08:35 | RADIOLOGY REPORT ---
CHEST RADIOGRAPH Indication: CP Technique: Single frontal view of the chest was obtained Comparison: DI CHEST,SINGLE VIEW on DOS: 06/02/24, DI CHEST,SINGLE VIEW on DOS: 01/09/24, DI CHEST,SING LE VIEW on DOS: 10/02/23, DI CHEST,SINGLE VIEW on DOS: 03/26/23, DI CHEST,SINGLE VIEW on DOS: 03/24/23 FINDINGS: Lines and Tubes: None Lungs: No focal consolidation. Pleura: No effusion. No pneumothorax. Cardiomediastinal contours: Unremarkable Bones: Bilateral shoulder arthroplasties IMPRESSION: No acute cardiopulmonary disease.
[2024-12-03] MEDS: potassium Cl 20 mEq SR tablet PO STA (09:37)
--- NOTE | 2024-12-03 11:08 | RADIOLOGY REPORT ---
Indication: sob d-dimer 3.25 Technique: CT axial images of the chest are obtained with intravenous contrast per CT angiogram prot ocol. Coronal and sagittal reformats were obtained. Radiation Dose Information: CTDI volume is 20 mGy. Dose-length product is 728 mGy*cm Comparison: None FINDINGS: No filling defect within the main left right pulmonary arteries. The trachea is patent. No pneumothorax. Bilateral atelectasis. Possible developing left upper lobe li ngular segment and left lower lobe airspace consolidation. Small left pleural effusion. Large pericardial effusion. Aortic atherosclerotic disease. 12 mm right supraclavicular lymph node. 11 mm left supraclavicular l ymph node.. Bilateral shoulder arthroplasty hardware. Moderate thoracic degenerative disc disease old T6 compress ion deformity with 20% loss height. Left breast lesion measuring 3.4 cm. IMPRESSION: No evidence for large pulmonary embolism. Large pericardial effusion. Recommend cardiology / thoracic surgery consultation for further evaluat ion / management. Small left pleural effusion. Left upper lobe lingular segment, left lower lobe consolidation/developing atelectasis. 3.4 cm left breast lesion. Recommend correlation with mammography and breast ultrasound. Supraclavicular lymphadenopathy.
[2024-12-03] MEDS ORDERED: magnesium hydroxide 30ml (MOM) UD suspension PO PRN (13:00)
[2024-12-03] MEDS ORDERED: magnesium Cl slow-release 64mg tablet PO PRN (13:00)
[2024-12-03] MEDS ORDERED: ondansetron/PF 4mg/2ml inj IV PRN (13:00)
[2024-12-03] MEDS ORDERED: potassium Cl 20 mEq SR tablet PO PRN ×2 (13:00)
[2024-12-03] MEDS ORDERED: potassium Cl 40MEQ/1/2NS 520ml 520 ML IV PRN (13:00)
[2024-12-03] MEDS ORDERED: mag hydrox/Alum hydrox/simeth 30ml oral suspension PO PRN (13:00)
[2024-12-03] MEDS ORDERED: magnesium sulf-water 2g/50mL 50 ML IV PRN (13:00)
[2024-12-03] MEDS ORDERED: magnesium sulf-water 4G/100mL 100 ML IV PRN (13:00)
[2024-12-03 13:56] LABS: CHOL/HDL RATIO 2.2 (0.00-4.99); LDL CHOLESTEROL 56 MG/DL (50-100)
--- NOTE | 2024-12-03 14:36 | HISTORY AND PHYSICAL-Residence ---
History & Physical Providers to CC Resident Creating Document: ROBI YEUNG, RES ~ History of Present Illness Primary Medical Doctor: deon Reason for Admit\Complaint: Chest pain History of Present Illness 59 years old female with past history of Anxiety/bipolar disorder,hypertension, Stroke came to ED with complains of left sided chest tightness which is 5/10 intensity which is gradual in onset from last 3 days which is non radiating which is aggravated by deep breathing, She describe it as heavy pain which is associated with Shortness of breath and cough. she also mentioned having episodes of cought around same time which is associated with white sputum of table spoon size quantity. she also mentioned having mind balance problems when got up and when trying to walk, she also mentioned having diarreah for 2-3 times.she also mentioned history of stroke for which she is on plavix last year.She denies any fever,chills,weight loss,sweating, palpitations. Allergies: Coded Allergies: shellfish derived (Verified Allergy, Unknown, 12/03/24) Home Medications Home Medications Active Clopidogrel (Clopidogrel Bisulfate) 75 Mg Tablet 75 Mg PO DAILY Do not stop medication unless instructed by prescriber. Atorvastatin Calcium 80 Mg Tablet 1 Tab PO DAILY 30 Days Reported Aspirin EC (Aspirin) 81 Mg Tablet.dr 1 DAILY Lisinopril 20 Mg Tablet 1 DAILY Clonazepam 0.5 Mg Tablet 1 Tab PO DAILY PRN Neurontin (Gabapentin) 300 Mg Capsule 1-2 Cap PO TID Trazodone HCl 100 Mg Tablet 1 Tab PO HS Inderal* (Propranolol HCl) 40 Mg Tablet 1 Tab PO TID PRN Escitalopram Oxalate 10 Mg Tablet 3 Tab PO DAILY Latuda (Lurasidone HCl) 40 Mg Tablet 80 Mg PO HS Past Medical History Past Medical History Anxiety/bipolar disorder, TIA, hypertension,left Douglas palsy Past Surgical History Surgical History Comment Tonsillectomy, tubal ligation, bilateral shoulder surgery, right knee arthroplasty, right foot bunionectomy Family History Family History: Patient reports no known family medical history. 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) ROS All Other Systems: Reviewed and Negative Constitutional: Reports: no symptoms reported Eyes: Reports: no symptoms reported ENT: Reports: no symptoms reported Respiratory: Reports: cough, shortness of breath Cardiovascular: Reports: chest pain Gastrointestinal: Reports: no symptoms reported Genitourinary: Reports: no symptoms reported Female Genitalia: Reports: no reported symptoms Neurological: Reports: no symptoms reported Musculoskeletal: Reports: no symptoms reported Integumentary: Reports: no symptoms reported Allergic/Immunologic: Reports: no symptoms reported Hematologic/Lymphatic: Reports: no symptoms reported Endocrine: Reports: no symptoms reported Exam Vitals: Vital Signs Date Time Temp Pulse Resp B/P (MAP) Pulse Ox O2 Delivery O2 Flow Rate FiO2 12/03/24 12:12 87 14 127/90 (102) 94 0 12/03/24 08:48 96.7 General: patient is alert, awake ,oriented x4 HEENT: Conjunctiva pink, Sclera clear, Mucus Membranes moist. Neck: elevated JVD, Supple, no thyromegalay, no lymphadenopathy Chest: chest pain with deep breathing, equal air movement, b/L crackles are heard Cardiovascular: Normal S1 and S2,normal heart sounds, no rubs Abdomen: Soft, non tender, no gaurding , no rigidity, no organomegaly Extremities: No cyanosis,clubbing or edema. Central Nervous System: gross motor functions intact , EOMI, Sensations are normal in All extremities Skin: warm and dry Diagnostic Data Last Recorded Lab Results: 12/03/24 0749 12/03/24 0749 Diagnostic Data: Laboratory Tests Test 12/03/24 07:49 D-Dimer 3.25 MG/L FEU (0-0.50) H D-Dimer Comment Advance Care Planning Advanced Care plannin - 30 Minutes Additional Plan 59 years old female with past history of Anxiety/bipolar disorder,hypertension is currently Evaluated for left chest pain Pleuritic chest pain possible community acquired pneumonia Covering Gram positive and gram negative, possible Acute pericardial effusion R/o Pulmonary embolism BP: 127/90 , [place]: 87, SpO2: 94 on room air WBC: 12.1, H/H: 14/41 TROPONINS: 9-8-10 D-Dimers- 3.25. procalcitonin: <0.05, Chest X-ray : No acute cardiopulmonary disease. CTA Chest/Thorax: No evidence for large pulmonary embolism.Large pericardial effusion. Recommend cardiology / thoracic surgery consultation for further evaluation / management. Small left pleural effusion. Left upper lobe lingular segment, left lower lobe consolidation/developing atelectasis. 3.4 cm left breast lesion. Recommend correlation with mammography and breast ultrasound. Supraclavicular lymphadenopathy ECHO :Normal LV size and wall thickness. Overall systolic function is hyperdynamic. Intra-cavitary gradient is present with resting gradient of 30 mmHg increasing to 42 mmHg with valsalva. RV is normal size and function. Trileaflet AV appears mildly sclerotic without stenosis. Increased velocities across the AV/LVOT with resting gradient of 21 mmHg increasing to 31 mmHg with valsalva due to hyperdynamic LV function. No insufficiency. Mild mitral annular calcification without stenosis. Trace regurgitation. The tricuspid valve is normal in structure with trace regurgitation. Moderate circumferential pericardial effusion with fibrinous material seen. Recommend clinical correlation Plan: Ordered blood culture, ESR,CRP start on Ceftriaxone 1g IV daily Azithromycin 500 mg PO DAILY started Duoneb Prn Monitor CBC/CMP Follow up with ECHO ER Doctor Consulted Cardiothoracic surgeron H/O STROKE CONTINUE PLAVIX 75MG PO DAILY ATROVASTAIN 80MG PO DAILY H/O PERIPHERAL NEUROPATHY GABAPENTIN 300MG TID PO H/O ANXIETY CLONAZEPALM 0.5MG PO tid PRN DISPOSITION ; PATIENT WILL BE MONITORED IN PCU WITH TELEMETRY Date of Service: Dec 03, 2024 Billing Provider: CORINNE OSCAR MD Common Visit Codes: 89963-EJRXUSO INP/OBS CARE (HIGH) Secondary Visit Codes: [id number] CARE PLAN 30 MINUTES ROBI YEUNG RES Dec 03, 2024 14:36 CORINNE OSCAR MD Dec 05, 2024 07:54
[2024-12-03] MEDS: CefTRIAXone 2gm/D5W 50ml BAG 50 ML IV ONE (14:39)
[2024-12-03 15:58] VITALS: BP 130/79; PULSE 103; RESP 17; TEMP 98.9; O2SAT 97
[2024-12-03] MEDS ORDERED: PROP10TA10 PO (17:42)
[2024-12-03] MEDS ORDERED: VENL150C58 PO (17:42)
[2024-12-03 18:00] VITALS: BP 157/98; PULSE 104; RESP 21; TEMP 99.2; O2SAT 96
[2024-12-03] MEDS: CefTRIAXone/D5W-Rocephin 1gm 50 ML IV SCH (18:34)
--- NOTE | 2024-12-03 18:50 | CARDIOLOGY REPORT ---
APPROVED REPORT EXAM: Comprehensive 2D, Doppler, and color-flow Echocardiogram. 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 191.4 cm/s AoV VTI 39.3 cm AO Peak GR. 14.7 mmHg AO Mean GR. 10 mmHg LVOT VTI 32.00 cm LVOT Peak Bebeto. 140.4 cm/s NORBERT(VTI)/BSA 3.05 cm2/m2 NORBERT (VTI) 3.05 cm2 Mitral Valve MV E Velocity 60.2 cm/s MV Peak Gr. 4 mmHg MV DECEL TIME 272 ms MV A Velocity 78.4 cm/s MV PHT 60 ms E/A Ratio 0.8 MVA (PHT) 3.67 cm2 MV VMax95.3 cm/s TDI Lateral E' P. V8.14 cm/s E/Lateral E' 7.4 Pulmonary Valve PAEDP12.11 mmHg Tricuspid Valve TR P. Velocity 194 cm/s RAP ESTIMATE 10 mmHg TR Peak Gr. 15 mmHg RVSP 25 mmHg LEFT VENTRICLE Normal LV size and wall thickness. Overall systolic function is hyperdynamic. Intra-cavitary gradient is present with resting gradient of 30 mmHg increasing to 42 mmHg with valsalva. Overall LVEF is 70- 75%. RIGHT VENTRICLE RV is normal size and function. ATRIA The left atrium size is normal. AORTIC VALVE Trileaflet AV appears mildly sclerotic without stenosis. Increased velocities across the AV/LVOT with resting gradient of 21 mmHg increasing to 31 mmHg with valsalva due to hyperdynamic LV function. No insufficiency. MITRAL VALVE Mild mitral annular calcification without stenosis. Trace regurgitation. TRICUSPID VALVE The tricuspid valve is normal in structure with trace regurgitation. PULMONIC VALVE The pulmonary valve is normal in structure with trace insufficiency. GREAT VESSELS The aortic root is normal in size. The ascending aorta is normal in size. The IVC is normal in size a nd collapses >50% with inspiration. PERICARDIUM [id number] circumferential pericardial effusion with fibrinous material seen. Pleural effusion present. Other Information Study Quality: Adequate Conclusion Overall LVEF is 70-75%. Normal LV size and wall thickness. Overall systolic function is hyperdynamic. Intra-cavitary gradient is present with resting gradient of 30 mmHg increasing to 42 mmHg with valsal va. RV is normal size and function. Trileaflet AV appears mildly sclerotic without stenosis. Increased velocities across the AV/LVOT wit h resting gradient of 21 mmHg increasing to 31 mmHg with valsalva due to hyperdynamic LV function. N o insufficiency. Mild mitral annular calcification without stenosis. Trace regurgitation. The tricuspid valve is normal in structure with trace regurgitation. Moderate circumferential pericardial effusion with fibrinous material seen. Recommend clinical corre lation
[2024-12-03] MEDS: POTASSIUM CHLORIDE 20 MEQ/15 ML oral solution PO PRN (19:59)
[2024-12-03] MEDS: propranolol 10mg tablet PO SCH (19:59)
[2024-12-03] MEDS: K and/or MAG REPLACEMENT MC SCH (20:00)
[2024-12-03 22:00] VITALS: BP 115/68; PULSE 81; RESP 18; TEMP 97.6; O2SAT 94
[2024-12-03 22:51] VITALS: PULSE 80; RESP 16; O2SAT 94
[2024-12-04] VITALS (9 sets, daily range): BP systolic 104–130; BP diastolic 66–89; PULSE 62–86; RESP 14–23; TEMP 97–99; O2SAT 93–95
[2024-12-04] MEDS: POTASSIUM CHLORIDE 20 MEQ/15 ML oral solution PO PRN (00:22)
[2024-12-04 06:38] LABS: MEAN PLATELET VOLUME 8.8 FL (7.4-10.4); RED CELL DISTRIBUTION WIDTH 13.5 % (11.5-14.5)
[2024-12-04 06:53] LABS: CREATININE 0.72 MG/DL (0.40-0.90); TOTAL CARBON DIOXIDE 27.4 MMOL/L (24-32); eCRCL 80 ML/MIN; eGFR 83 ML/MIN
[2024-12-04] MEDS: venlafaxine XR 75mg capsule (Q24H) PO SCH (09:04)
[2024-12-04] MEDS: azithromycin/NS 500mg/250ml 250 ML IV SCH (10:18)
[2024-12-04] MEDS ORDERED: ibuprofen tablet 400 MG TABLET PO SCH (12:30)
--- NOTE | 2024-12-04 14:52 | CONSULTATION REPORT - RESIDENT ---
Consult Providers to CC Resident Creating Document: BRANDTELBERT TENORIOJULI CHINCHILLA History of Present Illness Reason for Admit\Complaint: Chest pain History of Present Illness 59 years old female with past history of Anxiety/bipolar disorder, Hypertension, left Sanchez's palsy Stroke came to ED with chief complaints of a chest pain, five to 6/10, gradual in onset, aggravating with a deep inspiration and relieving with sitting and forward position associated with shortness of breaths and cough. She endorses cough with sputum for the past few days. She denied diaphoresis, nausea, vomiting, syncope, palpitations, loss of weight, fever. Allergies: Coded Allergies: shellfish derived (Verified Allergy, Unknown, 12/03/24) Home Medications Home Medications Active Clopidogrel (Clopidogrel Bisulfate) 75 Mg Tablet 75 Mg PO DAILY Do not stop medication unless instructed by prescriber. Atorvastatin Calcium 80 Mg Tablet 1 Tab PO DAILY 30 Days Reported Venlafaxine Hcl Er (Venlafaxine Hcl) 150 Mg Cap.sr.24h 1 Cap PO DAILY Inderal* (Propranolol HCl) 10 Mg Tablet 2 Tab PO TID Lisinopril 20 Mg Tablet 1 DAILY Clonazepam 0.5 Mg Tablet 1 Tab PO TID PRN Neurontin (Gabapentin) 300 Mg Capsule 1-2 Cap PO TID Trazodone HCl 100 Mg Tablet 1 Tab PO HS Latuda (Lurasidone HCl) 40 Mg Tablet 80 Mg PO HS Past Medical History Past Medical History Anxiety/bipolar disorder, TIA, hypertension,left [place] palsy Past Surgical History Surgical History Comment Tonsillectomy, tubal ligation, bilateral shoulder surgery, right knee arthroplasty, right foot bunionectomy Family History Family History: Patient reports no known family medical history. 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) ROS ROS All Other Systems: Reviewed and Negative Constitutional: Reports: no symptoms reported Eyes: Reports: no symptoms reported ENT: Reports: no symptoms reported Respiratory: Reports: cough, shortness of breath Cardiovascular: Reports: chest pain Gastrointestinal: Reports: no symptoms reported Genitourinary: Reports: no symptoms reported Female Genitalia: Reports: no reported symptoms Neurological: Reports: no symptoms reported Musculoskeletal: Reports: no symptoms reported Integumentary: Reports: no symptoms reported Allergic/Immunologic: Reports: no symptoms reported Hematologic/Lymphatic: Reports: no symptoms reported Endocrine: Reports: no symptoms reported Exam Vitals: Vital Signs Date Time Temp Pulse Resp B/P (MAP) Pulse Ox O2 Delivery O2 Flow Rate FiO2 12/04/24 12:13 62 16 94 Room Air* 0 21 12/04/24 11:00 98.5 119/80 (93) General: General: patient is alert, awake ,oriented x4. Bilateral supraclavicular and axillary lymphadenopathy is palpable. HEENT: Conjunctiva pink, Sclera clear, Mucus Membranes moist. Neck: Supple, no thyromegalay, no lymphadenopathy Chest: equal air movement, b/L crackles are heard Cardiovascular: Normal S1 and S2,normal heart sounds, frictional pericardial rub is heard Abdomen: Soft, non tender, no gaurding , no rigidity, no organomegaly Extremities: No cyanosis,clubbing or edema. Central Nervous System: gross motor functions intact , EOMI, Sensations are normal in All extremities Skin: warm and dry Diagnostic Data Last Recorded Lab Results: 12/04/24 0603 12/04/24 0603 Diagnostic Data: Laboratory Tests Test 12/03/24 07:49 D-Dimer 3.25 MG/L FEU (0-0.50) H D-Dimer Comment Additional Plan 1. 59-year-old female with Acute pericarditis with pericardial effusion Fibrinous circumferential pericardial effusion without cardiac tamponade Possible left breast malignancy Left pleural effusion Left upper lingular segment, left lower lobe consolidation ECHO :Normal LV size and wall thickness. Overall systolic function is hyperdynamic. Intra-cavitary gradient is present with resting gradient of 30 mmHg increasing to 42 mmHg with valsalva. RV is normal size and function. Trileaflet AV appears mildly sclerotic without stenosis. Increased velocities across the AV/LVOT with resting gradient of 21 mmHg increasing to 31 mmHg with valsalva due to hyperdynamic LV function. No insufficiency. Mild mitral annular calcification without stenosis. Trace regurgitation. The tricuspid valve is normal in structure with trace regurgitation. Moderate circumferential pericardial effusion with fibrinous material seen. Recommend clinical correlation. 2. CTA Chest/Thorax: No evidence for large pulmonary embolism.Large pericardial effusion. Recommend cardiology / thoracic surgery consultation for further evaluation / management. Small left pleural effusion. Left upper lobe lingular segment, left lower lobe consolidation/developing atelectasis. 3.4 cm left breast lesion. Recommend correlation with mammography and breast ultrasound. Supraclavicular lymphadenopathy No impending signs of cardiac tamponade. Continue conservative management with ibuprofen 800 mg PO TID daily, colchicine 0.6 mg p.o. b.i.d. as of now and We will follow up with the patient we will evaluate further if there is any need for pericardiocentesis. Initiate further workup for possible left breast cancer. 2. Cerebrovascular accident 3. 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 Anxiety Continue Plavix, atorvastatin, gabapentin, clonazepam per hospitalist team Patient seen and examined by Dr. PRITCHARD. We will again review her echocardiogram and CT scan. Sepsis Screening Reassessment Date: Dec 04, 2024 Date of Service: Dec 04, 2024 Billing Provider: VIANCA PRECIADO MD, VENKATESH, [facility] Dec 04, 2024 14:52 VIANCA PRECIADO MD Dec 04, 2024 16:56
--- NOTE | 2024-12-04 15:56 | PROGRESS NOTE- Residence ---
Progress Note - Resident Providers to CC Resident Creating Document: ROBI YEUNG RES ~ Antibiotic Timeout Antibiotic Ordered?: Yes Subjective patient is examined at bed side and she still having chest pain when deep breathing Objective Vital Signs Date Time Temp Pulse Resp B/P (MAP) Pulse Ox O2 Delivery O2 Flow Rate FiO2 12/04/24 12:13 62 16 94 Room Air* 0 21 12/04/24 11:00 98.5 119/80 (93) Result Diagram: 12/05/24 0501 12/05/24 0501 patient is awake ,oriented , repsonding to questions , and in mild distress due to chest pain HEENT: Conjunctiva pink, Sclera clear, Mucus Membranes moist. Neck: elevated JVD, Supple, no thyromegalay, no lymphadenopathy Chest: chest pain with deep breathing, equal air movement, b/L crackles are heard and patient is coughing Cardiovascular: Normal S1 and S2,normal heart sounds, no rubs Abdomen: Soft, non tender, no gaurding , no rigidity, no organomegaly Extremities: No cyanosis,clubbing or edema. Central Nervous System: gross motor functions intact , EOMI, Sensations are normal in All extremities Skin: warm and dry Coagulation Studies Laboratory Tests Test 12/03/24 07:49 D-Dimer 3.25 MG/L FEU (0-0.50) H D-Dimer Comment Assessment Assessment 59 years old female with past history of Anxiety/bipolar disorder,hypertension, Stroke is currently evaluated by pleuritic chest pain Plan Plan left sided Pleuritic chest pain possible Acute pericardial effusion-possibly due to community acquired pneumonia Covering Gram positive and gram negative, or Metastasis R/o Pulmonary embolism BP: 127/90 , ND: 87, SpO2: 94 on room air WBC: 12.1, H/H: 14/41 TROPONINS: 9-8-10 D-Dimers- 3.25. procalcitonin: <0.05, Chest X-ray : No acute cardiopulmonary disease. CTA Chest/Thorax: No evidence for large pulmonary embolism.Large pericardial effusion. Recommend cardiology / thoracic surgery consultation for further evaluation / management. Small left pleural effusion. Left upper lobe lingular segment, left lower lobe consolidation/developing atelectasis. 3.4 cm left breast lesion. Recommend correlation with mammography and breast ultrasound. Supraclavicular lymphadenopathy ECHO :Normal LV size and wall thickness. Overall systolic function is hyperdynamic. Intra-cavitary gradient is present with resting gradient of 30 mmHg increasing to 42 mmHg with valsalva. RV is normal size and function. Trileaflet AV appears mildly sclerotic without stenosis. Increased velocities across the AV/LVOT with resting gradient of 21 mmHg increasing to 31 mmHg with valsalva due to hyperdynamic LV function. No insufficiency. Mild mitral annular calcification without stenosis. Trace regurgitation. The tricuspid valve is normal in structure with trace regurgitation. Moderate circumferential pericardial effusion with fibrinous material seen. Recommend clinical correlation Plan: Ordered blood culture, ESR,CRP start on Ceftriaxone 1g IV daily Azithromycin 500 mg PO DAILY started Duoneb Prn Monitor CBC/CMP ER Doctor Consulted Cardiothoracic surgeron 12/04/24: ESR:49,Procalcitonin :<0.05 WBC: 14.5, Service Member Dr George greer : ruled out cardiac tamoponade Started conservative management with ibuprofen 800 mg PO TID daily colchicine 0.6 mg p.o. b.i.d. he will evaluate further if there is any need for pericardiocentesis. Initiate further workup for breast cancer with possible lung Mets Continue Ceftriaxone 1g IV daily (day2) Continue Azithromycin 500 mg PO DAILY (day2) Duoneb Prn Monitor CBC/CMP H/O STROKE: patient has a history of stroke and now patient is little bit confused and in background of suspected breast malignancy we are ordering head CT with out contrast possibly to rule out stroke or multiple metastasis CONTINUE PLAVIX 75MG PO DAILY ATROVASTAIN 80MG PO DAILY ordered Head CT H/O PERIPHERAL NEUROPATHY GABAPENTIN 300MG TID PO H/O ANXIETY CLONAZEPALM 0.5MG PO tid PRN Disposition : We will continue to monitor patient in PCU with telemetry and we will let arranger assembler know about patient need of oncologist appointment robi yeung Pgy1 Addendum pt with newly discovered l breast mass during this visit l pleuritic cp, poss pericarditis pericardial effusion poss 2 to malignancy h/o psychiatric illness, ct of head with no ac pathology Date of Service: Dec 04, 2024 Billing Provider: CORINNE OSCAR MD Common Visit Codes: [id number] INP/OBS CARE(HIGH) ROBI YEUNG, JULI Dec 04, 2024 15:56 CORINNE OSCAR MD Dec 05, 2024 07:57
--- NOTE | 2024-12-04 16:09 | RADIOLOGY REPORT ---
EXAM: CT CT HEAD INDICATION: POSSIBLE STROKE TECHNIQUE: CT images of the head were obtained without administration of IV contrast. CT scans at [facility] facility use dose modulation, iterative reconstruction, and/or weight based dosing when appropriate to reduce radiation dose to as low as reasonably achievable. COMPARISON: CT CT STROKE ALERT on DOS: 06/02/24 FINDINGS: PARENCHYMA: No acute hemorrhage. There is no mass effect, midline shift, or herniation. There is pres ervation of the wise white differentiation. VENTRICLES: No hydrocephalus. EXTRA-AXIAL SPACES: No extra-axial fluid collections. OTHER: The bony structures are intact. Visualized portions of the paranasal sinuses and mastoid air cells are clear. IMPRESSION: 1. No CT evidence of an acute intracranial abnormality.
[2024-12-05] VITALS (16 sets, daily range): BP systolic 91–129; BP diastolic 57–78; PULSE 68–90; RESP 14–20; TEMP 97.2–98.8; O2SAT 90–95
[2024-12-05 05:55] LABS: MEAN PLATELET VOLUME 9.1 FL (7.4-10.4); RED CELL DISTRIBUTION WIDTH 13.7 % (11.5-14.5)
[2024-12-05 06:31] LABS: CREATININE 0.64 MG/DL (0.40-0.90); TOTAL CARBON DIOXIDE 28.3 MMOL/L (24-32); eCRCL 90 ML/MIN; eGFR > 90 ML/MIN
[2024-12-05] MEDS ORDERED: iohexol 300mg/ml 100ml inj. ONE (11:00)
[2024-12-05] MEDS ORDERED: LIDOcaine 1% 30ml preserv. free vial ONE (11:42)
[2024-12-05] MEDS ORDERED: midazolam 1 mg/ML 2ml injection ONE (11:42)
[2024-12-05] MEDS ORDERED: fentaNYL/PF 50MCG/1 ML 2ML syringe ONE (11:42)
--- NOTE | 2024-12-05 12:07 | RADIOLOGY REPORT ---
Exam: CT CT ABDOMEN PELVIS W/ IV CONTRAST History: abnormal liver enzymes COMPARISON: None Technique: Multidetector spiral CT of the abdomen and pelvis was performed from lung bases to pubic s ymphysis. Intravenous contrast was administered during this examination. Multiphasic imaging was obta ined. Axial, coronal and sagittal multiplanar reformats were performed by the technologist on a [employer] workstation. Radiation Dose : 1. Abdomen/Pelvis: CTDIvol 15.8 mGy, DLP 1841 mGy*cm. Findings: Lung Bases: Large pericardial effusion. Small left pleural effusion. Liver: The liver is normal in size. No focal lesions. Normal hepatic vascular enhancement. Gallbladder and Biliary Tree: Unremarkable Spleen: Unremarkable Pancreas: The pancreas is normal in appearance without focal lesions or abnormal enhancement. Adrenal Glands: Left adrenal benign lipoma or myelolipoma measures 3.3 cm. Kidneys: No hydronephrosis. Bladder: Unremarkable Bowel: The stomach is grossly normal in appearance. Small bowel and colon are normal in caliber and d istribution. The appendix is not visualized; however, no secondary findings of acute appendicitis ave ntified. Ascites: Absent Lymphadenopathy: No mesenteric, retroperitoneal or periportal lymphadenopathy. Abdominal Wall and Mesentery: Unremarkable. Vasculature: The visualized abdominal aorta is normal in size and caliber. Abdominal and pelvic vess els demonstrate normal enhancement. Pelvic Organs: Unremarkable Musculoskeletal: No aggressive focal bony lesions, acute fractures or dislocation. IMPRESSION: No acute abdominal or pelvic finding. Large pericardial effusion. Small to moderate left pleural effusion.
--- NOTE | 2024-12-05 12:26 | PROGRESS NOTE- Residence ---
Progress Note - Resident Providers to CC Resident Creating Document: HEBER PETERSON RES ~ Antibiotic Timeout Antibiotic Ordered?: No Subjective patient is examined at bed side and she is still having the chest pain but reduced intensity /. We reviewed the chest CT imaging and echocardiogram findings related to pericardial effusion. We noted the pulses paradoxus and jugular venous distention. We think that the large pericardial effusion could be secondary to possible left breast malignancy with impending signs of tamponade. We are taking the patient to labor mediator for pericardiocentesis on today. Objective Vital Signs Date Time Temp Pulse Resp B/P (MAP) Pulse Ox O2 Delivery O2 Flow Rate FiO2 12/05/24 08:03 80 16 95 Room Air* 0 21 12/05/24 06:00 97.2 128/71 (90) Result Diagram: 12/05/24 0501 12/05/24 0501 patient is alert, awake ,oriented x4. Bilateral supraclavicular and axillary lymphadenopathy is palpable. HEENT: Conjunctiva pink, Sclera clear, Mucus Membranes moist. Neck: Supple, no thyromegalay, no lymphadenopathy. Jugular veins are distended in 45 supine position. Chest: equal air movement, b/L crackles are heard Cardiovascular: Normal S1 and S2,normal heart sounds, frictional scratchy pericardial rub is heard near the xiphisternum Abdomen: Soft, non tender, no gaurding , no rigidity, no organomegaly. Mild tenderness noted in right upper quadrant Extremities: No cyanosis,clubbing or edema. Central Nervous System: gross motor functions intact , EOMI, Sensations are normal in All extremities Skin: warm and dry Coagulation Studies Laboratory Tests Test 12/03/24 07:49 D-Dimer 3.25 MG/L FEU (0-0.50) H D-Dimer Comment Advance Care Planning Advanced Care plannin - 30 Minutes Assessment Assessment 59 years old female with past history of Anxiety/bipolar disorder,hypertension, Stroke is currently evaluated by pleuritic chest pain Plan Plan 1. 59-year-old female with Acute pericarditis with pericardial effusion Fibrinous circumferential pericardial effusion with impending signs of cardiac tamponade Possible left breast malignancy with possible lung metastasis Left pleural effusion Left upper lingular segment, left lower lobe consolidation ECHO :Normal LV size and wall thickness. Overall systolic function is hyperdynamic. Intra-cavitary gradient is present with resting gradient of 30 mmHg increasing to 42 mmHg with valsalva. RV is normal size and function. Trileaflet AV appears mildly sclerotic without stenosis. Increased velocities across the AV/LVOT with resting gradient of 21 mmHg increasing to 31 mmHg with valsalva due to hyperdynamic LV function. No insufficiency. Mild mitral annular calcification without stenosis. Trace regurgitation. The tricuspid valve is normal in structure with trace regurgitation. Moderate circumferential pericardial effusion with fibrinous material seen. Recommend clinical correlation. 2. CTA Chest/Thorax: No evidence for large pulmonary embolism.Large pericardial effusion. Recommend cardiology / thoracic surgery consultation for further evaluation / management. Small left pleural effusion. Left upper lobe lingular segment, left lower lobe consolidation/developing atelectasis. 3.4 cm left breast lesion. Recommend correlation with mammography and breast ultrasound. Supraclavicular lymphadenopathy We reviewed the CT imaging and echocardiogram which showed a large pericardial effusion with impending signs of cardiac tamponade. We thought it is better to pull out the pericardial fluid rather than continuing conservative management considering her breast mass which could be malignancy with possible lung Mets Continue conservative management with ibuprofen 800 mg PO TID daily, colchicine 0.6 mg p.o. b.i.d. as of now . Initiate further workup for possible left breast cancer. We are planning to do the pericardiocentesis in the noon. 2. Cerebrovascular accident 3. 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 Anxiety Continue Plavix, atorvastatin, gabapentin, clonazepam per hospitalist team Patient seen and examined by Dr. PRITCHARD. Patient is getting the Pericardiocentesis on today afternoon. Heber Peterson IM resident, PGY 2 Cardiology Patient seen and examined by Dr. Melissa POMPA. After discussing risks benefits alternative options, patient preferred to proceed with pericardiocentesis in view of near tamponade situation. Pericardiocentesis done in labor mediator yielded 380 cc of lianet color pericardial fluid, nonhemorrhagic. Sent for analysis. Pericardial drain left in the pericardial space connected to negative suction. Recommend primary team to evaluate for underlying malignancy. Date of Service: Dec 05, 2024 Billing Provider: VIANCA PRECIADO MD, VENKATESH, RES Dec 05, 2024 12:26 VIANCA PRECIADO MD Dec 05, 2024 17:22
[2024-12-05 13:22] LABS: LACTATE DEHYDROGENASE 343 U/L (81-234)
[2024-12-05 14:12] LABS: GLUCOSE,BODY FLUID 113 MG/DL; LDH,BODY FLUID 206 U/L; TOTAL PROTEIN,BODY FLUID 5.1 G/DL
[2024-12-05 14:39] LABS: LYMPHOCYTES,BODY FLUID 4 %; MONOCYTES,BODY FLUID 2 %; NEUTROPHILS,BODY FLUID 94 %
[2024-12-05 14:43] LABS: BF RBC COUNT 2200 /CU MM; BF WBC COUNT 344 /CU MM (0-1000); BFAPPEAR HAZY; BFCOLOR YELLOW; BFSOURCE PERICARDIAL FLD; BFVOLUME 18 ML
[2024-12-05] MEDS: HYDROmorphone 1mg tablet (1/2 of 2mg tablet) PO ONE (15:31)
--- NOTE | 2024-12-05 16:16 | RADIOLOGY REPORT ---
CHEST RADIOGRAPH Indication: post pericaridocentesis Technique: Single frontal view of the chest was obtained Comparison: CT CTA CHEST PE W/ IV CONTRAST on DOS: 12/03/24, DI CHEST,SINGLE VIEW on DOS: 12/03/24, DI CHEST,SINGLE VIEW on DOS: 06/02/24 FINDINGS: Lines and Tubes: There is a Possible drainage catheter overlying the left upper abdomen with the tip projected over the left lower lung zone. Lungs: Left mid to lower lung zone opacification with obscuration of the left hemidiaphragm. Linear density of the left mid lung zone No pneumothorax. Cardiomediastinal contours: [id number] cardiomegaly. Bones: No acute osseous abnormality. Gas-filled bowel loops are noted over the upper abdomen. IMPRESSION: Small left-sided pleural effusion with associated atelectasis / pneumonia. Questionable drainage catheter with the tip projected over the left lower lung zone overlying the car diac silhouette.
--- NOTE | 2024-12-05 18:20 | CARDIOLOGY REPORT ---
APPROVED REPORT EXAM: Limited 2D, Doppler, and color-flow Echocardiogram during pericardiocentesis. Patient Location: [facility] Blood Pressure: 120/75 mmHg Heart Rate: 75 bpm Rhythm: SINUS Indications PERICARDIAL EFFUSION 365 ccs CLEAR YELLOW FLUID REMOVED HYPERTENSION CHEST PAIN TIA Chief Nursing Officer: Kaushik Lucero MD Previous echo: 12/03/24 [facility] (EF 70-75%, trace MR, trace TR, mild to moderate circumferential pericard ial effusion with fibrinous material) LEFT VENTRICLE Small LV size and grossly normal wall thickness. Overall systolic function is hyperdynamic. Overall L VEF is 70-75%. ATRIA RA collapse is present. PERICARDIUM Moderate to large circumferential pericardial effusion with beginning signs of hemodynamic compromise . Fibrinous material visualized around the RV. 365 ccs removed from the pericardium, however no post- centesis imaging was done. Unable to visualize wire in the pericardium due to limited imaging windows . Other Information Study Quality: Adequate Conclusion Overall LVEF is 70-75%. Small LV size and grossly normal wall thickness. Overall systolic function is hyperdynamic. RA collapse is present. Moderate to large circumferential pericardial effusion with beginning signs of hemodynamic compromise . Fibrinous material visualized around the RV. 365 ccs removed from the pericardium, however no post- centesis imaging was done. Unable to visualize wire in the pericardium due to limited imaging windows .
--- NOTE | 2024-12-05 18:35 | PROGRESS NOTE- Residence ---
Progress Note - Resident Providers to CC Resident Creating Document: ROBI YEUNG RES ~ Antibiotic Timeout Antibiotic Ordered?: Yes Subjective patient is examined at bed side and she is still having the chest pain with 3/10 intensity. She was taken to lab for pericardiocentesis Objective Vital Signs Date Time Temp Pulse Resp B/P (MAP) Pulse Ox O2 Delivery O2 Flow Rate FiO2 12/05/24 15:00 98.1 68 15 98/66 (77) 93 Room Air 12/05/24 08:03 0 21 Result Diagram: 12/05/24 0501 12/05/24 0501 patient is on pericaridal continous drain.awake ,oriented , repsonding to questions , and in mild distress due to chest pain HEENT: Conjunctiva pink, Sclera clear, Mucus Membranes moist. Neck: elevated JVD, Supple, no thyromegalay, no lymphadenopathy Chest: chest pain with deep breathing, equal air movement, b/L crackles are heard and patient is coughing Cardiovascular: Normal S1 and S2,normal heart sounds, pericardial friction rub heard Abdomen: Soft, non tender, no gaurding , no rigidity, no organomegaly Extremities: No cyanosis,clubbing or edema. Central Nervous System: gross motor functions intact , EOMI, Sensations are normal in All extremities Skin: warm and dry Coagulation Studies Laboratory Tests Test 12/03/24 07:49 D-Dimer 3.25 MG/L FEU (0-0.50) H D-Dimer Comment Assessment Assessment 59 years old female with past history of Anxiety/bipolar disorder,hypertension, Stroke is currently evaluated by pleuritic chest pain Plan Plan Plan left sided Pleuritic chest pain possible due to Pericarditis, pericardial effusion-possibly due to Metastasis or community acquired pneumonia Covering Gram positive and gram negative R/o Pulmonary embolism pt with newly discovered l breast mass during this visit BP: 127/90 , ID: [id number], SpO2: 94 on room air WBC: 12.1, H/H: 14/41 TROPONINS: 9-8-10 D-Dimers- 3.25. procalcitonin: <0.05, Chest X-ray : No acute cardiopulmonary disease. CTA Chest/Thorax: No evidence for large pulmonary embolism.Large pericardial effusion. Recommend cardiology / thoracic surgery consultation for further evaluation / management. Small left pleural effusion. Left upper lobe lingular segment, left lower lobe consolidation/developing atelectasis. 3.4 cm left breast lesion. Recommend correlation with mammography and breast ultrasound. Supraclavicular lymphadenopathy ECHO :Normal LV size and wall thickness. Overall systolic function is hyperdynamic. Intra-cavitary gradient is present with resting gradient of 30 mmHg increasing to 42 mmHg with valsalva. RV is normal size and function. Trileaflet AV appears mildly sclerotic without stenosis. Increased velocities across the AV/LVOT with resting gradient of 21 mmHg increasing to 31 mmHg with valsalva due to hyperdynamic LV function. No insufficiency. Mild mitral annular calcification without stenosis. Trace regurgitation. The tricuspid valve is normal in structure with trace regurgitation. Moderate circumferential pericardial effusion with fibrinous material seen. Recommend clinical correlation Plan: Ordered blood culture, ESR,CRP start on Ceftriaxone 1g IV daily Azithromycin 500 mg PO DAILY started Duoneb Prn Monitor CBC/CMP ER Doctor Consulted Cardiothoracic surgeron 12/04/24: ESR:49,Procalcitonin :<0.05 WBC: 14.5, Volcanology Teacher Dr George greer : ruled out cardiac tamoponade Started conservative management with ibuprofen 800 mg PO TID daily colchicine 0.6 mg p.o. b.i.d. he will evaluate further if there is any need for pericardiocentesis. Initiate further workup for breast cancer with possible lung Mets Continue Ceftriaxone 1g IV daily (day2) Continue Azithromycin 500 mg PO DAILY (day2) Duoneb Prn Monitor CBC/CMP 12/05/24: pericardicentesis: is did by B VC after examining the patient yielded 380 cc of lianet color pericardial fluid, nonhemorrhagic Pericaridal analysis shows: yellow,hazy, wbc 344, rbc:2200, neutrophils 94, glucose 113, Fluid protien : 5.1 , Fluid LDH 206 Possible malignant pericarditis and patient was put on pericaridac ccontinous draining catheter P: follow up Echo continue ibuprofen 800 mg PO TID daily and colchicine 0.6 mg p.o. b.i.d. Continue Ceftriaxone 1g IV daily (day2) Continue Azithromycin 500 mg PO DAILY (day2) Duoneb Prn Monitor CBC/CMP Ordered serum LDH Initiated further workup for breast cancer with possible lung Mets H/o psychiatric illness : patient has a history of stroke and now patient is little bit confused and in background of suspected breast malignancy we are ordering head CT with out contrast possibly to rule out stroke or multiple metastasis CONTINUE PLAVIX 75MG PO DAILY ATROVASTAIN 80MG PO DAILY Head CT: No CT evidence of an acute intracranial abnormality. H/O PERIPHERAL NEUROPATHY GABAPENTIN 300MG TID PO H/O ANXIETY CLONAZEPALM 0.5MG PO tid PRN Disposition : patients pericaridal fluid is drained which is 380 cc of lianet color pericardial fluid, nonhemorrhagic and we will let nylon machine operator know about patient need of oncologist appointment robi yeung [id number] Date of Service: Dec 05, 2024 Billing Provider: CORINNE OSCAR MD Common Visit Codes: [id number] INP/OBS CARE(HIGH) ROBI YEUNG, RES Dec 05, 2024 18:35 CORINNE OSCAR MD Dec 06, 2024 08:05
[2024-12-06] VITALS (19 sets, daily range): BP systolic 91–106; BP diastolic 56–80; PULSE 75–94; RESP 11–16; TEMP 97.4–98.9; O2SAT 92–97
[2024-12-06] MEDS: HYDROcodone/acetaminophen 10/325mg tab PO ONE (02:38)
--- NOTE | 2024-12-06 03:29 | ELECTROCARDIOGRAPH REPORT ---
[facility] Test Date: 2024-12-06 Test Time: 03:27:30 Pat Name: DIANNE JACOBS Department: 3rd FLOOR PCU Room: [facility] 302 A Gender: F Icu Manager: : 1965 Requested By: NOAH ENGLISH Order Number: [id number] Reading MD: Dr. Zoe Coyne Measurements Intervals [place] Rate: 184 P: 0 CT: 0 QRS: 39 QRSD: 80 T: 139 QT: 275 QTc: 482 Interpretive Statements Atrial fibrillation with rapid V-rate Repolarization abnormality, prob rate related Electronically Signed On 12-06-2024 6:54:[address] Zoe Coyne Please click the below link to view image of tracing.
[2024-12-06] MEDS: metoprolol tartrate 1mg/ml inj IV ONE (04:16)
[2024-12-06] MEDS: amiodarone 150mg/dext, iso-os 100 ML IV ONE (05:26)
[2024-12-06] MEDS: amiodarone/D5 360MG/200ML BAG 200 ML IV SCH (05:42)
[2024-12-06 06:50] LABS: MEAN PLATELET VOLUME 8.7 FL (7.4-10.4); RED CELL DISTRIBUTION WIDTH 13.3 % (11.5-14.5)
[2024-12-06 07:10] LABS: CREATININE 0.76 MG/DL (0.40-0.90); LACTATE DEHYDROGENASE 159 U/L (81-234); TOTAL CARBON DIOXIDE 25.6 MMOL/L (24-32); eCRCL 76 ML/MIN; eGFR 78 ML/MIN
[2024-12-06] MEDS ORDERED: potassium Cl 20 mEq SR tablet PO PRN (10:10)
[2024-12-06] MEDS: HYDROcodone/acetaminophen 5mg/325mg tablet PO ONE (10:10)
[2024-12-06] MEDS: potassium Cl 20 mEq SR tablet PO PRN (10:45)
--- NOTE | 2024-12-06 11:53 | PROGRESS NOTE- Residence ---
Progress Note - Resident Providers to CC Resident Creating Document: KAM BLANCA RES ~ Antibiotic Timeout Antibiotic Ordered?: Yes Subjective Patient was examined at bed side and she is still having the left chest pain with 3/10 intensity. The pt had new onset Afib last night for which she was on the VY Amiodarone. The pt converted to the normal sinus this am and stopped the VY amiodarone Objective Vital Signs Date Time Temp Pulse Resp B/P (MAP) Pulse Ox O2 Delivery O2 Flow Rate FiO2 12/06/24 11:00 98.9 76 12 93/58 (70) 92 Room Air 12/06/24 08:36 0 21 Result Diagram: 12/06/24 0612/06/24 06 Patient was seen at the bedside this morning. The patient's vital signs were stable at the moment with pulse 80/minute, RR 18/minute, BP 103/80 mm Hg, pulse oximetry 95% on room air. On exam, General: The patient was alert, oriented, in no acute distress and neither confused nor agitated. Patient was well cooperative during the physical exam and a pericardial drain was in place. HEENT: Conjunctive are pink, sclera clear, no icterus, pupils are equal and reactive to lights in both sides. There is no ear discharge present, no pharyngeal erythema or edema. Upon checking, the mouth and lips are moist. Neck: Supple, JVD elevated, no lymphadenopathy and thyromegaly. Lungs: Patient is coughing and there is equal air entry on both lungs, b/l crackles are heard and there is chest pain present with deep inspiration. Chest: No signs of inflammation was present on drainage site, the pericordial drainage line is functioning without having any complications and drained around 20cc of serous fluid collected inside the collecting bottle this am. Heart: Regular S1-S2 present, regular rate, no gallops, pericardial friction rub heard and no murmurs Abdomen: Bowel sounds present on auscultation, soft, nontender, no guarding, no rigidity Extremities: No obvious deformities, no pitting edema bilaterally, capillary refill intact, able to wiggle toes both sides, peripheral pulsations are intact on both sides CORPORATE PLANNING MANAGER: No focal neurological deficits, no motor and sensory weakness in all 4 extremities, could move all 4 extremities Musculoskeletal: No joint swelling, deformities, inflammations, and no scoliosis and back tenderness Skin: No active skin lesions and rashes Coagulation Studies Laboratory Tests Test 12/03/24 07:49 D-Dimer 3.25 MG/L FEU (0-0.50) H D-Dimer Comment Assessment Assessment A 59 year old female with past history of hypertension, CVA/ TIA, and Anxiety/bipolar disorder/depression was presented with chest pain with elevated D-Dimeres and admitted to rule out Acute PE with Cleared CTA chest and found to have the community acquired pneumonia, left breast mass lesion with the pericardial and small left pleural effusoin. The pericardial fluid was drained with drainage tube. New onset Afib was developed post pericardial drain and currently converted to the normal sinus again. Plan Plan # New onset atrial fibrillation with Controlled Ventricular rate, possibly due to AV laci manipulation Vs post pericardial drained pericarditis -Patient presented with new onset atrial fibrillation with RVR last night, and amiodarone drip was initiated to which the patient responded positively to and is currently on normal sinus rhythm. CHA2-DS2-VA score was 3 (HTN, CVA). 12/06/24: Cardiology Dr Lucero was consulted and agreed with the plan to discontinue amiodarone IV this morning. -If the patient was converted back to AFIB, cardiology recommended to re start IV amiodarone -Will plan to discuss with the pt in the am for the anticoag plan to prevent future possibility of CVA -will start PO full dose of Eliquis if pt agrees with the plan #left sided Pleuritic chest pain possible due to Pericarditis, # pericardial effusion-possibly due to Metastasis # community acquired pneumonia Covering Gram positive and gram negative # R/o Pulmonary embolism 12/06/24: Pt complained of chest pain with 3/10 on intensity and on physical examination there was no inflammation present near the pericardial drain, pain was possibly related to pericardial drainage. Patient to continue ibuprofen 800 mg TID for pain control and to continue antibiotics for CAP. -Continue Ceftriaxone 1g IV daily (day3) -Continue Azithromycin 500 mg PO DAILY (day3) -Duoneb Prn -Initiate further workup for breast cancer with possible lung Mets in the outpatient setting -follow up with pending fluid analysis BP: 93/58, OK: 76, SpO2: 92 on room air WBC: 13.6, H/H: 12.7/37.2 Troponins: 9-8-10 D-Dimers: 3.25. Procalcitonin: <0.05 Chest X-ray: No acute cardiopulmonary disease 12/05/24: pt with newly discovered l breast mass during this visit BP: 127/90 , OK: 87, SpO2: 94 on room air WBC: 12.1, H/H: 14/41 TROPONINS: 9-8-10 D-Dimers- 3.25. procalcitonin: <0.05, Chest X-ray : No acute cardiopulmonary disease. CTA Chest/Thorax: No evidence for large pulmonary embolism.Large pericardial effusion. Recommend cardiology / thoracic surgery consultation for further evaluation / management. Small left pleural effusion. Left upper lobe lingular segment, left lower lobe consolidation/developing atelectasis. 3.4 cm left breast lesion. Recommend correlation with mammography and breast ultrasound. Supraclavicular lymphadenopathy ECHO :Normal LV size and wall thickness. Overall systolic function is hyperdynamic. Intra-cavitary gradient is present with resting gradient of 30 mmHg increasing to 42 mmHg with valsalva. RV is normal size and function. Trileaflet AV appears mildly sclerotic without stenosis. Increased velocities across the AV/LVOT with resting gradient of 21 mmHg increasing to 31 mmHg with valsalva due to hyperdynamic LV function. No insufficiency. Mild mitral annular calcification without stenosis. Trace regurgitation. The tricuspid valve is normal in structure with trace regurgitation. Moderate circumferential pericardial effusion with fibrinous material seen. Recommend clinical correlation Crosscutter Dr George greer : ruled out cardiac tamoponade Started conservative management with ibuprofen 800 mg PO TID daily colchicine 0.6 mg p.o. b.i.d. Duoneb Prn 12/05/24: pericardicentesis: was done by Melissa POMPA after examining the patient, yielded 465 cc of lianet color pericardial fluid, nonhemorrhagic Pericaridal analysis shows: yellow,hazy, wbc 344, rbc:2200, neutrophils 94, glucose 113, Fluid protien : 5.1 , Fluid LDH 206 Possible malignant pericarditis and patient was put on pericaridac continuos draining catheter Echo findings include: LEFT VENTRICLE LV appears hypovolemic with hyperdynamic function. Normal wall thickness. LVEF is 80%. AORTIC VALVE AV appears grossly normal without stenosis or regurgitation. MITRAL VALVE MV appears grossly normal with trace regurgitation. TRICUSPID VALVE TV appears grossly normal with trace regurgitation. PERICARDIUM Small circumferential, but mostly apically located, pericardial effusion is present s/p pericardiocentesis without obvious hemodynamic compromise. Catheter and drain remain in place in the pericardium. continue ibuprofen 800 mg PO TID daily and colchicine 0.6 mg p.o. b.i.d. Monitor CBC/CMP Ordered serum LDH and was reported to be 159 Initiated further workup for breast cancer with possible lung Mets # Elevated transaminitis 12/06/2024:-AST/ALT: 96/139 -ALPO4 bumped up to 415 -we will monitor the LFTs daily -encourage the oral fluid intake # H/o psychiatric illness : patient has a history of stroke and a background of suspected breast malignancy, we are ordering head CT with out contrast possibly to rule out stroke or multiple metastasis CONTINUE PLAVIX 75MG PO DAILY ATROVASTAIN 80MG PO DAILY Head CT: No CT evidence of an acute intracranial abnormality. # H/O PERIPHERAL NEUROPATHY -GABAPENTIN 300MG TID PO # H/O ANXIETY -CLONAZEPALM 0.5MG PO tid PRN CODE STATUS: Full code DVT prophylaxis: SCDs until fully ambulatory Analgesia/sedation: morphine Lines/tubes:PIV GI prophylaxis: Pantaprazole 40mg Nutrition: Regular diet Prognosis:Guarded Disposition: Continue medical management including IV antibiotics, pain control, Anticoag plan, to set up with PCP and Oncology outpatient workup for the left breast mass and Pericardial drained, PT eval and DC plan. Resident MD attestation: Patient was seen, examined and discussed with attending MD, Dr. Odalis BLANCA MD Internal Medicine Resident, PGY3 [facility] Date of Service: Dec 06, 2024 Billing Provider: CORINNE OSCAR MD Common Visit Codes: [id number] INP/OBS CARE(HIGH) KAM BLANCA RES Dec 06, 2024 11:53 CORINNE OSCAR MD Dec 06, 2024 22:00
--- NOTE | 2024-12-06 13:02 | PROGRESS NOTE- Residence ---
Progress Note - Resident Providers to CC Resident Creating Document: CHRISTIANO CORNEJO, RES ~ Antibiotic Timeout Antibiotic Ordered?: Yes Subjective The patient has been evaluated at bedside. The patient reports some chest pain 2/10 in intensity, sharp type in the area of pericardial drainage. The patient developed AFib with RVR last night, started on amiodarone drip. Objective Vital Signs Date Time Temp Pulse Resp B/P (MAP) Pulse Ox O2 Delivery O2 Flow Rate FiO2 12/06/24 12:00 76 91/59 (70) 12/06/24 11:00 98.9 12 92 Room Air 12/06/24 08:36 0 21 Physical exam: General: Well alert, well oriented, not confused, not agitated, not in acute distress, well cooperated during the physical. HEENT: Conjunctive are pink, sclerae clear, no icterus, pupil is equal in both sides, reactive to light, no ear discharge, no pharyngeal erythema or an edema. Neck: Supple, no JVD, no lymphadenopathy and thyromegaly. Chest: Equal air entry on both lungs, Crackles in the left base of the lung. Presence of drainage from pericardial the midline of the chest, no signs of infections, inflammation or hematoma. Cardiovascular: S1-S2 regular sinus rhythm and, regular rate, no gallops, no rubs, no murmurs Abdomen: No visible peristalsis, Bowel sounds present on auscultation, soft, nontender, no guarding, no rigidity Extremities: No obvious deformities, no pitting edema bilaterally, capillary refill intact, peripheral pulsations are intact on both sides Central Nervous System: No focal neurological deficits, no motor or sensory weakness in all 4 extremities, could move all 4 extremities, 2+ deep tendon reflexes, negative Babinski. Musculoskeletal: No joint swelling, deformities, inflammations, and no scoliosis and back tenderness Skin: Warm and dry. Result Diagram: 12/06/24 0600 12/06/24 06 Coagulation Studies Laboratory Tests Test 12/03/24 07:49 D-Dimer 3.25 MG/L FEU (0-0.50) H D-Dimer Comment Assessment Assessment 59-year-old female patient came to the hospital with chief complaint of chest pain. Plan Plan 1. Acute pericarditis with pericardial effusion s/p pericardiocentesis on 12/05/2024: Exudative pericardial effusion: Fibrinous circumferential pericardial effusion with impending signs of cardiac tamponade: Possible left breast malignancy with possible lung metastasis Left pleural effusion Left upper lingular segment, left lower lobe consolidation ECHO :Normal LV size and wall thickness. Overall systolic function is hyperdynamic. Intra-cavitary gradient is present with resting gradient of 30 mmHg increasing to 42 mmHg with valsalva. RV is normal size and function. Trileaflet AV appears mildly sclerotic without stenosis. Increased velocities across the AV/LVOT with resting gradient of 21 mmHg increasing to 31 mmHg with valsalva due to hyperdynamic LV function. No insufficiency. Mild mitral annular calcification without stenosis. Trace regurgitation.The tricuspid valve is normal in structure with trace regurgitation. Moderate circumferential pericardial effusion with fibrinous material seen. Recommend clinical correlation. Follow-up echocardiogram on 12/06/2024 after the procedure showing less pericardial effusion, drainage in place. CTA Chest/Thorax: No evidence for large pulmonary embolism.Large pericardial effusion. Recommend cardiology / thoracic surgery consultation for further evaluation / management. Small left pleural effusion. Left upper lobe lingular segment, left lower lobe consolidation/developing atelectasis. 3.4 cm left breast lesion. Recommend correlation with mammography and breast ultrasound. Supraclavicular lymphadenopathy Plan: Continue colchicine 0.8 mg b.i.d. Continue ibuprofen 800 mg t.i.d. The patient will require primary for care physician for follow-up. The patient will need follow-up with Oncology. 2. AFib with RVR likely secondary to pericarditis itself or post procedural: The patient developed AFib with RVR during the night of 12/06/2024. Plan: If another episode of AFib with RVR is evidenced, restarted IV amiodarone and continue until drainage is on place. 3. Community-acquired bacterial pneumonia: 4. Cerebrovascular accident 5. 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 Anxiety Continue Plavix, atorvastatin, gabapentin, clonazepam, antibiotics per hospitalist team Christiano Carrasquillo Internal Medicine Resident [facility] Patient seen and examined by Dr. Melissa POMPA. Patient had pericardiocentesis yesterday. Feels better. Follow up echocardiogram today shows significantly small pericardial effusion. Rest of the workup in progress. Discussed with the primary team. Date of Service: Dec 06, 2024 Billing Provider: CHANDRAMVIANCA LIMA MD, FRANCO LUIS, RES Dec 06, 2024 13:02 VIANCA PRECIADO MD Dec 06, 2024 17:03
--- NOTE | 2024-12-06 16:56 | CARDIOLOGY REPORT ---
APPROVED REPORT EXAM: Limited 2D, Doppler, and color-flow Echocardiogram. Patient Location: 3028 A Blood Pressure: 103/80 mmHg Heart Rate: 76 bpm Rhythm: SINUS Indications ASSESS PERICARDIAL EFFUSION S/P PERICARDIOCENTESIS PULSUS PARADOXIS PRE-PERICARDIOCENTESIS 465 CCS TOTAL DRAINED Partition Making Machine Operator: Kaushik Lucero MD Previous echo: 12/05/24 [facility] (EF 75%, moderate circumferential pericardial effusion) LEFT VENTRICLE LV appears hypovolemic with hyperdynamic function. Normal wall thickeness. Overall LVEF is 80%. AORTIC VALVE AV appears grossly normal without stenosis or regurgitation. MITRAL VALVE MV appears grossly normal with trace regurgitation. TRICUSPID VALVE TV appears grossly normal with trace regurgitation. PERICARDIUM Small circumferential, but mostly apically located, pericardial effusion is present s/p pericardiocen tesis without obvious hemodynamic compromise. Catheter and drain remain in place in the pericardium. Conclusion Overall LVEF is 80%. LV appears hypovolemic with hyperdynamic function. Normal wall thickeness. AV appears grossly normal without stenosis or regurgitation. MV appears grossly normal with trace regurgitation. TV appears grossly normal with trace regurgitation. Small circumferential, but mostly apically located, pericardial effusion is present s/p pericardiocen tesis without obvious hemodynamic compromise. Catheter and drain remain in place in the pericardium.
[2024-12-07] VITALS (14 sets, daily range): BP systolic 93–181; BP diastolic 54–107; PULSE 70–100; RESP 11–22; TEMP 96.9–98.4; O2SAT 90–95
--- NOTE | 2024-12-07 02:46 | RADIOLOGY REPORT ---
EXAM: CT CT HEAD INDICATION: fall TECHNIQUE: CT of the head without intravenous contrast. Radiation Dose : 1. Head: CT Dose: CTDI volume is 59 mGy. Dose-length product is 11 80 mGy*cm The dose indicators for CT are the volume Computed Tomography (CT) Dose Index (CTDIvol) and the Dose Length Product (DLP), and are measured in units of mGy and mGy-cm, respectively. These indicators are not patient dose, but values generated from the CT scanner acquisition factors. The report includes radiation exposure data for exposures received during this examination. COMPARISON: CT CT HEAD on DOS: 12/04/24, CT CT STROKE ALERT on DOS: 06/02/24, CT CT HEAD on DOS: , CT CT STROKE ALERT on DOS: 01/09/24, CT CT STROKE ALERT on DOS: 10/02/23 FINDINGS: Brain: No acute hemorrhage, mass effect, or cerebral edema. CSF Spaces: Size and morphology within normal limits. Bones/Soft Tissues: No acute fracture. Moderate right periorbital hematoma. Metallic fragments redemo nstrated along the left face with partially imaged maxillary dental bridge. Orbits/Sinuses/Mastoids: Unremarkable as visualized. IMPRESSION: 1. No acute intracranial abnormality. 2. New right periorbital soft tissue hematoma from 3 days prior. Radiation optimization: All CT scans at this facility use at least one of these dose optimization rod hniques: automated exposure control mA and/or kV adjustment per patient size (includes targeted exam s where dose is matched to clinical indication) or iterative reconstruction.
[2024-12-07 06:05] LABS: MEAN PLATELET VOLUME 8.8 FL (7.4-10.4); RED CELL DISTRIBUTION WIDTH 13.5 % (11.5-14.5)
[2024-12-07 06:07] LABS: CREATININE 1.65 MG/DL (0.40-0.90); TOTAL CARBON DIOXIDE 27.4 MMOL/L (24-32); eCRCL 35 ML/MIN; eGFR 32 ML/MIN
[2024-12-07] MEDS: normal saline 1000ml 1,000 ML IV SCH (09:24)
--- NOTE | 2024-12-07 10:06 | ELECTROCARDIOGRAPH REPORT ---
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 SERGEY Preciado Measurements Intervals [place] Rate: 96 P: 18 NE: 140 QRS: 11 QRSD: 96 T: 81 QT: 401 QTc: 507 Interpretive Statements Sinus rhythm Abnormal inferior Q waves Borderline T wave abnormalities Borderline prolonged QT interval Electronically Signed On 12-07-2024 17:18:[address] SERGEY Preciado Please click the below link to view image of tracing.
[2024-12-07 11:57] LABS: MEAN PLATELET VOLUME 9.2 FL (7.4-10.4); RED CELL DISTRIBUTION WIDTH 13.5 % (11.5-14.5)
--- NOTE | 2024-12-07 12:00 | PROGRESS NOTE- Residence ---
Progress Note - Resident Providers to CC Resident Creating Document: KAM BLANCA RES ~ Antibiotic Timeout Antibiotic Ordered?: Yes Subjective Patient was examined at bed side and reported no chest pain but upper abdominal pain with 5/10 on the severity scale still persists. Objective Vital Signs Date Time Temp Pulse Resp B/P (MAP) Pulse Ox O2 Delivery O2 Flow Rate FiO2 12/07/24 11:42 96 16 92 Room Air* 0 21 12/07/24 06:00 97.4 98/66 (77) Result Diagram: 12/07/2445012/07/24450 Patient was seen at the bedside this morning. The patient's vital signs were stable at the moment with pulse 78/minute, RR 14/minute, BP 98/66mm Hg, pulse oximetry 92% on room air. On exam; General: The patient was alert, oriented, seemed a bit jittery and neither confused nor agitated. Patient was well cooperative during the physical exam and a pericardial drain is still in place. There was a right periorbital hematoma which occurred after a fall last night HEENT: Conjunctive are pink, sclera clear, no icterus, pupils are equal and reactive to lights in both sides. There is no ear discharge present, no pharyngeal erythema or edema. Upon checking, the mouth and lips are moist. Neck: Supple, JVD elevated, no lymphadenopathy and thyromegaly. Lungs: Patient is coughing and there is equal air entry on both lungs, b/l crackles are heard and there is chest pain present with deep inspiration. Chest: No signs of inflammation was present on drainage site, the pericordial drainage line is still in situ, and functioning without having any complications and drained around 5cc of serous fluid collected inside the collecting bottle this am. Heart: Regular S1-S2 present, regular rate, no gallops, pericardial friction rub heard and no murmurs Abdomen: Bowel sounds present on auscultation, soft, nontender, no guarding, no rigidity Extremities: No obvious deformities, no pitting edema bilaterally, capillary refill intact, able to wiggle toes both sides, peripheral pulsations are intact on both sides [employer]: No focal neurological deficits, no motor and sensory weakness in all 4 extremities, could move all 4 extremities Musculoskeletal: No joint swelling, deformities, inflammations, and no scoliosis and back tenderness Skin: No active skin lesions and rashes. Coagulation Studies Laboratory Tests Test 8/22/25 07:49 D-Dimer 3.25 MG/L FEU (0-0.50) H D-Dimer Comment Assessment Assessment A 59 year old female with past history of hypertension, CVA/ TIA, and Anxiety/bipolar disorder/depression was presented with chest pain with elevated D-Dimeres and admitted to rule out Acute PE with Cleared CTA chest and found to have the community acquired pneumonia, left breast mass lesion with the pericardial and small left pleural effusion. The pericardial fluid was drained with drainage tube. New onset Afib was developed post pericardial drain and currently converted to the normal sinus again. Patient complained of stomach pain most likely due to patient being on ibuprofen or gastrointestinal issue. WBCs were uptrending, so as BUN and creatinine. Plan Plan # Ground level Fall on 12/07/24 # Non specific leucocytosis -Nurse reported that the patient had a fall around 1:[address] head without contrast was ordered which showed no intracranial abnormalities or acute hemorrhage, with the previous right hematoma 3 days back, and vitals were within normal limits after the event. -continued neuro checks monitoring with no abnormalities were detected. -pt is not on the any anticoag yet -WBC trending up this am, mostly from the reactive reaction from post pericardial drainage Vs recent GLF Vs infections for which procal and UA ordered to be followed up. # Acute pericarditis with pericardial effusion s/p pericardiocentesis on 12/05/2024 # Exudative pericardial effusion 12/07/24: Lights criteria was used, which a showed 98% sensitivity for an exudative effusion possibly due to metastasis from left breast mass. -continue IV fluid and analgesic and colchicine # Fibrinous circumferential pericardial effusion with impending signs of cardiac tamponade # Possible left breast malignancy with possible lung metastasis # Left pleural effusion # Left upper lingular segment, left lower lobe consolidation- Community acquired pneumonia covering with broad spectrum ABx ECHO :Normal LV size and wall thickness. Overall systolic function is hyperdynamic. Intra-cavitary gradient is present with resting gradient of 30 mmHg increasing to 42 mmHg with valsalva. RV is normal size and function. Trileaflet AV appears mildly sclerotic without stenosis. Increased velocities across the AV/LVOT with resting gradient of 21 mmHg increasing to 31 mmHg with valsalva due to hyperdynamic LV function. No insufficiency. Mild mitral annular calcification without stenosis. Trace regurgitation.The tricuspid valve is normal in structure with trace regurgitation. Moderate circumferential pericardial effusion with fibrinous material seen. Recommend clinical correlation. Follow-up echocardiogram on 12/06/2024 after the procedure showing less pericardial effusion, drainage in place. CTA Chest/Thorax: No evidence for large pulmonary embolism.Large pericardial effusion. Recommend cardiology / thoracic surgery consultation for further evaluation / management. Small left pleural effusion. Left upper lobe lingular segment, left lower lobe consolidation/developing atelectasis. 3.4 cm left breast lesion. Recommend correlation with mammography and breast ultrasound. Supraclavicular lymphadenopathy Plan: continue IV Ceftriaxone and Azithromycin- Day 5 so far and plan to stop tomorrow if pt improves respiratory wide -Continue Duoneb and respiratory rehab -We will arrange to set up with PCP and Oncology out patient management on discharge -ordered CXR for the gradually progressive SOB today. -Ordered IV reglan 10 mg Q6H prn for the acute gastric pain and no BM # AFib with RVR likely secondary to pericarditis itself or post procedural- converted to sinus The patient developed AFib with RVR during the night of 12/06/2024. Plan: If another episode of AFib with RVR is evidenced, plan to restart IV amiodarone and continue it until drainage is removed. 12/07/24: remains sinus after IV amiodarone was discontinued. 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 CODE STATUS: Full code DVT prophylaxis: SCDs until fully ambulatory Analgesia/sedation: morphine Lines/tubes:PIV GI prophylaxis: Pantaprazole 40mg Nutrition: Regular diet Prognosis: Guarded Disposition: Continue medical management including IV antibiotics, pain control, Anticoag plan to be discussed with pt, to set up with PCP and Oncology outpatient workup for the left breast mass and to track cytology for the pericardial fluid drained, patient was taken to OR for EX-LAP due to peritonitis, continue to monitor BM, PT eval and DC plan. Resident MD attestation: Patient was seen, examined and discussed with attending , Dr. Odalis BLANCA MD Internal Medicine Resident, PGY3 [facility] Date of Service: Dec 07, 2024 Billing Provider: CORINNE OSCAR MD, TIN, RES Dec 07, 2024 12:00
[2024-12-07] MEDS ORDERED: metoclopramide 5 mg/ml inj IV PRN (12:10)
--- NOTE | 2024-12-07 13:41 | RADIOLOGY REPORT ---
EXAM: DI CHEST,SINGLE VIEW Indication: SOB Technique: Single frontal view of the chest was obtained Comparison: DI CHEST,SINGLE VIEW on DOS: 12/05/24, DI CHEST,SINGLE VIEW on DOS: 12/03/24, DI CHEST,SING LE VIEW on DOS: 06/02/24, DI CHEST,SINGLE VIEW on DOS: 01/09/24, DI CHEST,SINGLE VIEW on DOS: 10/02/23 FINDINGS: Lines and Tubes: None Lungs: Left basilar opacities. Low lung volumes. Pleura: No effusion. No pneumothorax. Cardiomediastinal contours: Unremarkable. Bones: No acute osseous abnormality. IMPRESSION: Pneumoperitoneum which may be postsurgical versus pneumoperitoneum. Correlate with surgical history. If indicated consider further evaluation with CT.
--- NOTE | 2024-12-07 17:19 | PROGRESS NOTE- Residence ---
Progress Note - Resident Providers to CC Resident Creating Document: TYRON ENGLE RES ~ Antibiotic Timeout Antibiotic Ordered?: Yes Subjective Patient was examined at bed side and she is complaining of slight shortness of breath. Patient had a fall last night while using the washroom. Objective Vital Signs Date Time Temp Pulse Resp B/P (MAP) Pulse Ox O2 Delivery O2 Flow Rate FiO2 12/07/24 11:42 96 16 92 Room Air* 0 21 12/07/24 11:00 96.9 136/85 (102) Result Diagram: 12/07/24 1008 12/07/24 0451 Coagulation Studies Laboratory Tests Test 12/03/24 07:49 D-Dimer 3.25 MG/L FEU (0-0.50) H D-Dimer Comment Assessment Assessment A 59 year old female with past history of hypertension, CVA/ TIA, and Anxiety/bipolar disorder/depression was presented with chest pain with elevated D-Dimeres and admitted to rule out Acute PE with Cleared CTA chest and found to have the community acquired pneumonia, left breast mass lesion with the pericardial and small left pleural effusion. The pericardial fluid was drained with drainage tube. New onset Afib was developed post pericardial drain and currently converted to the normal sinus again. Patient complained of stomach pain most likely due to patient being on ibuprofen or gastrointestinal issue. WBCs were uptrending, so as BUN and creatinine were. Plan Plan 1. Acute pericarditis with pericardial effusion s/p pericardiocentesis on 12/05/2024: Exudative pericardial effusion: Fibrinous circumferential pericardial effusion with impending signs of cardiac tamponade: Possible left breast malignancy with possible lung metastasis Left pleural effusion Left upper lingular segment, left lower lobe consolidation ECHO :Normal LV size and wall thickness. Overall systolic function is hyperdynamic. Intra-cavitary gradient is present with resting gradient of 30 mmHg increasing to 42 mmHg with valsalva. RV is normal size and function. Trileaflet AV appears mildly sclerotic without stenosis. Increased velocities across the AV/LVOT with resting gradient of 21 mmHg increasing to 31 mmHg with valsalva due to hyperdynamic LV function. No insufficiency. Mild mitral annular calcification without stenosis. Trace regurgitation.The tricuspid valve is normal in structure with trace regurgitation. Moderate circumferential pericardial effusion with fibrinous material seen. Recommend clinical correlation. Follow-up echocardiogram on 12/06/2024 after the procedure showing less pericardial effusion, drainage in place. CTA Chest/Thorax: No evidence for large pulmonary embolism.Large pericardial effusion. Recommend cardiology / thoracic surgery consultation for further evaluation / management. Small left pleural effusion. Left upper lobe lingular segment, left lower lobe consolidation/developing atelectasis. 3.4 cm left breast lesion. Recommend correlation with mammography and breast ultrasound. Supraclavicular lymphadenopathy Plan: Continue colchicine 0.8 mg b.i.d. Ibuprofen discontinued in view of increasing creatinine and urea levels. The patient will require primary for care physician for follow-up. The patient will need follow-up with Oncology. 3. Community-acquired bacterial pneumonia: 4. Cerebrovascular accident 5. 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 Anxiety Continue Plavix, atorvastatin, gabapentin, clonazepam, antibiotics per hospitalist team Tyron Engle PGY-1 Patient seen and examined by Dr. Melissa POMPA. No significant output in pericardial drainage. Patient drowsy did receive sedatives. NSAID stopped because of renal function dysfunction. Recommend hydration for a day. Date of Service: Dec 07, 2024 Billing Provider: VIANCA PRECIADO MD, PREETHI, RES Dec 07, 2024 17:19 VIANCA PRECIADO MD Dec 07, 2024 17:32
[2024-12-08] VITALS (29 sets, daily range): BP systolic 99–158; BP diastolic 62–95; PULSE 61–98; RESP 10–20; TEMP 97.1–98.4; O2SAT 91–98
[2024-12-08 07:05] LABS: MEAN PLATELET VOLUME 9.0 FL (7.4-10.4); RED CELL DISTRIBUTION WIDTH 13.3 % (11.5-14.5)
[2024-12-08 07:20] LABS: CREATININE 0.94 MG/DL (0.40-0.90); TOTAL CARBON DIOXIDE 26.1 MMOL/L (24-32); eCRCL 61 ML/MIN; eGFR 61 ML/MIN
[2024-12-08 08:37] LABS: LEUKOCYTE ESTERASE ,URINE TRACE (Neg); NITRITES, URINE NEGATIVE (Neg); OCCULT BLOOD,URINE SMALL (Neg)
[2024-12-08 08:47] LABS: UA COLLECTION TYPE NON-SPECIFIED
[2024-12-08 08:51] LABS: SQUAMOUS EPITHELIAL CELL,UR MODERATE /LPF (FEW)
[2024-12-08 08:52] LABS: CELLULAR CAST 20-30 /LPF (NEGATIVE)
[2024-12-08 08:53] LABS: YEAST FEW /HPF (NEGATIVE)
--- NOTE | 2024-12-08 09:14 | PROGRESS NOTE- Residence ---
Progress Note - Resident Providers to CC Resident Creating Document: CHRISTIANO CORNEJO, JULI ~ Antibiotic Timeout Antibiotic Ordered?: Yes Subjective The patient has been evaluated at bedside. The patient complains of shortness of breaths and abdominal pain in the level of the lower abdomen. Objective Vital Signs Date Time Temp Pulse Resp B/P (MAP) Pulse Ox O2 Delivery O2 Flow Rate FiO2 12/08/24 06:00 82 12/08/24 06:00 98.4 17 144/93 (110) 91 Nasal Cannula 2.0 12/07/24 20:36 21 Physical exam: General: Well alert, well oriented, not confused, not agitated, mildly acute distress, well cooperated during the physical. HEENT: Conjunctive are pink, sclerae clear, no icterus, pupil is equal in both sides, reactive to light, no ear discharge, no pharyngeal erythema or an edema. Neck: Supple, no JVD, no lymphadenopathy and thyromegaly. Chest: Equal air entry on both lungs, no evidence of crackles or wheezing. Incision side from previous drainage without signs of infection or inflammation. Cardiovascular: S1-S2 regular sinus rhythm and, regular rate, no gallops, no rubs, no murmurs Abdomen: Abdominal tenderness in the level of the lower extremity with superficial and deep palpation. Extremities: No obvious deformities, no pitting edema bilaterally, capillary refill intact, peripheral pulsations are intact on both sides, presence of scars in the level of the lower extremities from previous surgeries. Central Nervous System: No focal neurological deficits, no motor or sensory weakness in all 4 extremities, could move all 4 extremities, 2+ deep tendon reflexes, negative Babinski. Musculoskeletal: No joint swelling, deformities, inflammations, and no scoliosis and back tenderness Skin: Warm and dry. Result Diagram: 12/08/24 0555 12/08/24 0555 Coagulation Studies Laboratory Tests Test 12/03/24 07:49 D-Dimer 3.25 MG/L FEU (0-0.50) H D-Dimer Comment Assessment Assessment 59-year-old female patient came to the hospital with chief complaint of chest pain. Plan Plan 1. Acute pericarditis with pericardial effusion s/p pericardiocentesis on 12/05/2024: Exudative pericardial effusion: Fibrinous circumferential pericardial effusion with impending signs of cardiac tamponade: Possible left breast malignancy with possible lung metastasis Left pleural effusion Left upper lingular segment, left lower lobe consolidation Acute hypoxemic respiratory failure secondary to acute exacerbation of diastolic congestive heart failure: ECHO :Normal LV size and wall thickness. Overall systolic function is hyperdynamic. Intra-cavitary gradient is present with resting gradient of 30 mmHg increasing to 42 mmHg with valsalva. RV is normal size and function. Trileaflet AV appears mildly sclerotic without stenosis. Increased velocities across the AV/LVOT with resting gradient of 21 mmHg increasing to 31 mmHg with valsalva due to hyperdynamic LV function. No insufficiency. Mild mitral annular calcification without stenosis. Trace regurgitation.The tricuspid valve is normal in structure with trace regurgitation. Moderate circumferential pericardial effusion with fibrinous material seen. Recommend clinical correlation. Follow-up echocardiogram on 12/06/2024 after the procedure: Overall LVEF is 80%. LV appears hypovolemic with hyperdynamic function. Small circumferential, but mostly apically located, pericardial effusion is present s/p pericardiocentesis without obvious hemodynamic compromise. Catheter and drain remain in place in the pericardium. CTA Chest/Thorax: No evidence for large pulmonary embolism.Large pericardial effusion. Recommend cardiology / thoracic surgery consultation for further evaluation / management. Small left pleural effusion. Left upper lobe lingular segment, left lower lobe consolidation/developing atelectasis. 3.4 cm left breast lesion. Recommend correlation with mammography and breast ultrasound. Supraclavicular lymphadenopathy. Pericardial tube removed on 12/08/2024. Fluid removed in 48 hours approximally less than 10 mL. ProBNP trended up from [id number]. Plan: Continue colchicine 0.8 mg b.i.d. Discontinued ibuprofen due to kidney function. Completed 24 hours of IV fluids. Discontinued today. Pending pathology results from pericardial fluid. Records from previous mammography requested. The patient will require primary for care physician for follow-up. The patient will need follow-up with Oncology. 2. Possible peritonitis: CT chest/abdomen/pelvis: Large large volume pneumoperitoneum consistent with bowel/ viscus perforation. Recommend surgical consultation. Mucosal hyperemia of the large bowel which could represent reactive changes, colitis, inflammatory bowel disease. Colonic diverticular disease. Small amount of ascites. Moderate volume free pelvic fluid the free pelvic fluid may represent a developing abscess. Bilateral atelectatic changes. Cardiomegaly. Small pericardial effusion, decreased from prior. Left breast nodule measuring 3.2 cm. Recommend correlation with mammography and breast ultrasound. Posterior wall gastric diverticulum. Enlarged mesenteric lymph nodes up to 1.8 cm could represent reactive changes, mesenteric adenitis, other infectious / inflammatory processes. Dr. Pressley consulted. The patient will undergo exploratory laparotomy today. 3. AFib with RVR likely secondary to pericarditis itself or post procedural: Chads Vasc score: 4 points: The patient developed AFib with RVR during the night of 12/06/2024. No new episodes of atrial fibrillation, telemetry monitoring showing sinus rhythm, heart rate within reference range. Plan: If another episode of AFib with RVR is evidenced, restarted IV amiodarone and continue until drainage is on place. We will consider anticoagulation for discharge. 4. Acute kidney injury secondary to NSAIDs use: Early acute tubular necrosis-resolved: Creatinine trended down from 1.65-0.84 after stopping NSAIDs. Plan: Discontinued ibuprofen. Discontinued IV fluids. 5. Community-acquired bacterial pneumonia: 6. Cerebrovascular accident 7. 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 Anxiety Continue Plavix, atorvastatin, gabapentin, clonazepam, antibiotics per hospitalist team. Disposition: Pericardial tube removed. The patient will undergo exploratory laparotomy today. Christiano Carrasquillo Internal Medicine Resident [facility] Patient seen and examined in the morning. Very minimal output from pericardial catheter. Pericardial catheter removed under aseptic precaution this morning. Subsequently patient noted to have acute abdomen with suspected pneumoperitoneum and taken to OR requiring resection of the distal transverse colon. Date of Service: Dec 08, 2024 Billing Provider: VIANCA PRECIADO MD, FRANCO LUIS, RES Dec 08, 2024 09:14 VIANCA PRECIADO MD Dec 08, 2024 19:29
[2024-12-08] MEDS ORDERED: iohexol 300mg/ml 100ml inj. ONE (10:55)
--- NOTE | 2024-12-08 11:42 | RADIOLOGY REPORT ---
Indication: ABNORMAL CHEST XRAY;ABNORMAL LIVER ENZYMES;EVALUATE FOR METS Technique: CT axial images of the abdomen and pelvis are obtained with intravenous contrast. Coronal and sagittal reformats were obtained. Radiation Dose Information: CTDI volume is 25.4 mGy. Dose-length product is 2076 mGy*cm Comparison: CT CT ABDOMEN PELVIS W/ IV CONTRAST on DOS: 12/05/24, chest radiograph from today FINDINGS: Trachea patent. No pneumothorax. Right lower lobe atelectasis. Left upper lobe lingular segment atele ctasis. Left lower lobe consolidation. Moderate left pleural effusion. Cardiomegaly. Small pericardial effusion, decreased from prior. No supraclavicular or axillary lympha denopathy. Left breast nodule measuring 3.2 cm. Adrenal glands, spleen, pancreas unremarkable. No enhancing hepatic lesion. No CT evidence for cholel ithiasis. No hydronephrosis. Gastric diverticulum measuring 2.5 cm. Moderate distention stomach. Small bowel loops are normal in caliber. Colonic diverticular disease. Colonic mucosal hyperemia and wall edema/ thickening most pronounced wi thin the rectosigmoid colon region. Appendix not well visualized. Abdominal aortic atherosclerotic disease. Bladder partially distended small amount of free fluid. Moderate volume pelvic free fluid. Large volume pneumoperitoneum. Mesenteric lymph nodes up to 1.8 cm. Bladder partially distended. No inguinal lymphadenopathy. [id number] bilateral sacroiliac degenerative joint disease. [id number] thoracic degenerat daniel disc disease. Tmfa-jl-[id number] lumbar degenerative disc disease. Bilateral shoulder arthroplasty hardware. IMPRESSION: Large large volume pneumoperitoneum consistent with bowel/ viscus perforation. Recommend surgical co nsultation. Mucosal hyperemia of the large bowel which could represent reactive changes, colitis, inflammatory bernice wel disease. Colonic diverticular disease. Small amount of ascites. Moderate volume free pelvic fluid the free pelvic fluid may represent a dev eloping abscess. Bilateral atelectatic changes. Cardiomegaly. Small pericardial effusion, decreased from prior. Left breast nodule measuring 3.2 cm. Recommend correlation with mammography and breast ultrasound. Posterior wall gastric diverticulum. Enlarged mesenteric lymph nodes up to 1.8 cm could represent reactive changes, mesenteric adenitis, o ther infectious / inflammatory processes. Other findings as described.
[2024-12-08] MEDS: ipratropium/albuterol 3ml nebule NEB PRN (11:45)
--- NOTE | 2024-12-08 13:02 | PROGRESS NOTE ---
Progress Note ID Providers to CC ~ Progress Note Progress Note: pt seen and examined-now with peritonitis-needs ex lap-discussed procedure including risks/benefits/alternatives KHRIS LUIS MD Dec 08, 2024 13:02
[2024-12-08] MEDS ORDERED: BUPIVAcaine 2.5mg/ml inj 50ml vial (contains preservative) ONE (13:23)
[2024-12-08] MEDS ORDERED: HYDROmorphone/PF 0.2 MG/ML SYRINGE IV PRN ×2 (13:45)
[2024-12-08] MEDS ORDERED: labetalol 20mg/4ml (5mg/ml) syringe IV PRN (13:45)
[2024-12-08] MEDS ORDERED: ondansetron/PF 4mg/2ml inj IV PRN (13:45)
[2024-12-08] MEDS ORDERED: hydrALAZINE 20mg/ml inj. IV PRN (13:45)
[2024-12-08] MEDS: ringers solution, lacted 1,000 ML IV SCH (13:45)
[2024-12-08] MEDS ORDERED: morphine 4 MG/ML inj SYRINge IV PRN (13:45)
[2024-12-08] MEDS ORDERED: midazolam 1 mg/ML 2ml injection ONE (13:49)
[2024-12-08] MEDS ORDERED: fentaNYL /PF 50mcg/ml 5ml ampule ONE (13:49)
[2024-12-08] MEDS ORDERED: albumin (Human) 5% 250ml 250 ML IV ONE ×2 (14:17→15:07)
--- NOTE | 2024-12-08 14:49 | PROGRESS NOTE- Residence ---
Progress Note - Resident Providers to CC Resident Creating Document: KAM BLANCA RES ~ Antibiotic Timeout Antibiotic Ordered?: Yes Subjective Patient was examined at bed side and reported progressive persistent upper abdominal pain but no more complaint of chest pain this am. Objective Vital Signs Date Time Temp Pulse Resp B/P (MAP) Pulse Ox O2 Delivery O2 Flow Rate FiO2 12/08/24 11:56 78 16 Nasal Cannula 3.0 12/08/24 11:51 94 32 12/08/24 11:00 97.1 158/95 (116) Result Diagram: 12/08/24 0555 12/08/24 05 Patient was seen at the bedside this morning. The patient's vital signs were stable at the moment apart from being slightly hypertensive with BP measuring 144/93 mmhg, pulse 85/minute, RR 17/minute, pulse oximetry 91% on room air. On exam; General: The patient was alert, oriented, seemed a bit jittery and neither confused nor agitated. Patient was well cooperative during the physical exam and the pericardial drain was removed. There was a slight right periorbital hematoma which occurred after a fall 2 nights ago HEENT: Conjunctive are pink, sclera clear, no icterus, pupils are equal and reactive to lights in both sides. There is no ear discharge present, no pharyngeal erythema or edema. Upon checking, the mouth and lips are moist. Neck: Supple, JVD elevated, no lymphadenopathy and thyromegaly. Lungs: Patient is coughing and there is equal air entry on both lungs, and no more chest pain with deep inspiration. Chest: No signs of inflammation was present on drainage site Breast and axilla: NO signs of visible mastitis, infection, inflammation, any skin changes, and lymphatic drainage abnormalities on inspection. No bilateral Breast or axillary lymphadenopathy were noted on palpation. Heart: Regular S1-S2 present, regular rate, no gallops, pericardial friction rub heard and no murmurs Abdomen: Bowel sounds present on auscultation, soft, tender at the right upper and epigastric area, no guarding, no rigidity Extremities: No obvious deformities, no pitting edema bilaterally, capillary refill intact, able to wiggle toes both sides, peripheral pulsations are intact on both sides POWER SYSTEM DISPATCHER: No focal neurological deficits, no motor and sensory weakness in all 4 extremities, could move all 4 extremities Musculoskeletal: No joint swelling, deformities, inflammations, and no scoliosis and back tenderness Skin: No active skin lesions and rashes. Coagulation Studies Laboratory Tests Test 12/03/24 07:49 D-Dimer 3.25 MG/L FEU (0-0.50) H D-Dimer Comment Assessment Assessment A 59 year old female with past history of hypertension, CVA/ TIA, and Anxiety/bipolar disorder/depression was presented with chest pain with elevated D-Dimeres and admitted to rule out Acute PE with Cleared CTA chest and found to have the community acquired pneumonia, left breast mass lesion with the pericardial and small left pleural effusion. The pericardial fluid was drained with drainage tube. New onset Afib was developed post pericardial drain and currently converted to the normal sinus again. Patient complained of stomach pain most likely due to patient being on ibuprofen or gastrointestinal issue. WBCs were uptrending, so as BUN and creatinine. Patient developed peritonitis and was taken into the OR for exploratory laparotomy. Plan Plan #Peritonitis # Leucocytosis -Given radiological finding of pneumoperitoneum on CXR on 12/07/24, CT Chest Abdomen and pelvis with IV Contrast was ordered which resulted into A large volume pneumoperitoneum consistent with bowel/viscus perforation was observed with a small amount of ascites. Moderate volume, free pelvic fluid and the free pelvic fluid may represent a developing abscess. Surgery was consulted and patient was taken to OR for exploratory laparotomy. -CT scan also showed Enlarged mesenteric lymph nodes up to 1.8 cm could represent reactive changes, mesenteric adenitis, other infectious / inflammatory processes. Colonic diverticular disease. Posterior wall gastric diverticulum. -f/up with Dr Pressley Surgical team management plan in the post ex laparotomy. -elevated procalcitonin, Trending down WBC which was 2/2 from the peritonitis and peritonitis Vs Possible LUTIs/bacteuria with no symptoms # Acute pericarditis with pericardial effusion s/p pericardiocentesis on 12/05/2024 # Exudative pericardial effusion 12/07/24: Lights criteria was used, which a showed 98% sensitivity for an exudative effusion possibly due to metastasis from left breast mass. -continue IV fluid and analgesic and colchicine 12/08/24: Pericardial tube was removed on 12/08/2024, and ibuprofen was also discontinued due to up trending creatinine. ProBNP trended up from 247 to 1313. Stopped IV Fluid. # Fibrinous circumferential pericardial effusion with impending signs of cardiac tamponade # Possible left breast malignancy with possible lung metastasis # Left pleural effusion # Left upper lingular segment, left lower lobe consolidation- Community acquired pneumonia covering with broad spectrum ABx ECHO :Normal LV size and wall thickness. Overall systolic function is hyperdynamic. Intra-cavitary gradient is present with resting gradient of 30 mmHg increasing to 42 mmHg with valsalva. RV is normal size and function. Trileaflet AV appears mildly sclerotic without stenosis. Increased velocities across the AV/LVOT with resting gradient of 21 mmHg increasing to 31 mmHg with valsalva due to hyperdynamic LV function. No insufficiency. Mild mitral annular calcification without stenosis. Trace regurgitation.The tricuspid valve is normal in structure with trace regurgitation. Moderate circumferential pericardial effusion with fibrinous material seen. Recommend clinical correlation. Follow-up echocardiogram on 12/06/2024 after the procedure showing less pericardial effusion, drainage in place. CTA Chest/Thorax: No evidence for large pulmonary embolism.Large pericardial effusion. Recommend cardiology / thoracic surgery consultation for further evaluation / management. Small left pleural effusion. Left upper lobe lingular segment, left lower lobe consolidation/developing atelectasis. 3.4 cm left breast lesion. Recommend correlation with mammography and breast ultrasound. Supraclavicular lymphadenopathy 12/08/24: continue IV Ceftriaxone and Azithromycin- Day 5 so far and switch to the IV ABx as per Surgical management in the post Ex lap. -Continue Duoneb and respiratory rehab -We will arrange to set up with PCP and Oncology out patient management on discharge -Tracking Pericardial fluid analysis including cytology report and recent mammogram what the pt stated for normal report in the last 3-6 months. -continue IV reglan 10 mg Q6H prn for the acute gastric pain and no BM # AFib with RVR likely secondary to pericarditis itself or post procedural- converted to sinus The patient developed AFib with RVR during the night of 12/06/2024. Plan: If another episode of AFib with RVR is evidenced, plan to restart IV amiodarone and continue it until drainage is removed. 12/07/24: remains sinus persistently after IV amiodarone was discontinued. 12/08/24: Patient continues to be in sinus rhythm. -continue telemetry monitoring in PCU # Ground level Fall on 12/07/24 -Nurse reported that the patient had a fall around 1:[address] head without contrast was ordered which showed no intracranial abnormalities or acute hemorrhage, with the previous right hematoma 3 days back, and vitals were within normal limits after the event. -continued neuro checks monitoring with no abnormalities were detected. -pt is not on the any anticoag yet -WBC trending up this am, mostly from the reactive reaction from post pericardial drainage Vs recent GLF Vs infections for which procal and UA ordered to be followed up. 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 CODE STATUS: Full code DVT prophylaxis: SCDs until fully ambulatory Analgesia/sedation: morphine Lines/tubes:PIV GI prophylaxis: Pantaprazole 40mg Nutrition: Regular diet Prognosis: Guarded Disposition: follow up with the surgical team for the post op management with proper pain control and monitor post op complications, Continue medical management including IV antibiotics, pain control, Anticoag plan to be discussed with pt, to set up with PCP and Oncology outpatient workup for the left breast mass and to track cytology for the pericardial fluid drained, tracking up for the recent mammogram result, patient was taken to OR for EX-LAP due to peritonitis, continue to monitor BM, PT eval and DC plan. Resident MD attestation: Patient was seen, examined and discussed with attending MD, Dr. Ysabel BLANCA MD Internal Medicine Resident, PGY3 [facility] Date of Service: Dec 08, 2024 Billing Provider: RASTA LAMAS MD Common Visit Codes: [id number] INP/OBS CARE(HIGH) KAM BLANCA RES Dec 08, 2024 14:49 RASTA LAMAS MD Dec 08, 2024 18:33
[2024-12-08] MEDS ORDERED: propofol inj 20 ML IV ONE (15:07)
[2024-12-08] MEDS ORDERED: rocuronium 10mg/ml inj IV ONE (15:07)
[2024-12-08] MEDS ORDERED: dexamethasone sod phosphate 4mg/ml inj. ONE (15:08)
[2024-12-08] MEDS ORDERED: ePHEDrine 50MG/ML INJ. ONE (15:08)
[2024-12-08] MEDS ORDERED: glycopyrrolate 0.2mg/ml inj ONE (15:52)
[2024-12-08] MEDS ORDERED: ondansetron/PF 4mg/2ml inj ONE (15:52)
--- NOTE | 2024-12-08 16:07 | OPERATIVE REPORT ---
Operative Report Providers to CC ~ Date of Procedure: Dec 08, 2024 Pre-Operative Diagnosis: acute abdomen Post-Operative Diagnosis SAME as PRE-Op Procedure Performed ex lap/partial colectomy/takedown splenic flexure Surgeon: kenneth gonzalez Anesthesiologist: Anupam Lundberg Type of Anesthesia: General Findings: perforated colon Estimated Blood Loss: 100 ml Specimen Removed: distal transverse-proximal left KHRIS LUIS MD Dec 08, 2024 16:07
[2024-12-08 16:42] LABS: ABG BASE EXCESS -2.2 mmol/L (-2.0-3.0); ABG HCO3 24.0 mmol/L (21.0-28.0); ABG OXYGEN SATURATION 94.9 % (94.0-98.0); ABG PCO2 (T) 44.7 mmHg (32.0-45.0); ABG PH (T) 7.343 (7.350-7.450); ABG PO2 (T) 76.5 mmHg (83.0-108.0); FCOHb 0.5 % (0.5-1.5); FHHb 5.1 % (0.0-5.0); FIO2 60.0 mmHg/%; FLOW 10 L/min; FMetHb 0.2 % (0.0-1.5); FO2Hb 94.2 % (94.0-98.0); MODE MASK - SIMPLE; PATIENT TEMPERATURE 36.1; TOTAL HEMOGLOBIN 12.9 G/dl (12.0-16.0)
[2024-12-08] MEDS: acetaminophen 1,000mg/100ml IV 100 ML IV ONE (16:55)
--- NOTE | 2024-12-08 17:01 | RADIOLOGY REPORT ---
CHEST RADIOGRAPH Indication: POST OP CL Technique: DI CHEST,SINGLE VIEW COMPARISON: 12/07/2024 FINDINGS: Nasogastric tube projects towards stomach. Right IJ catheter tip projects over the cavoat rial junction. Endotracheal tube tip projects 3.5 cm above the juliet. The cardiac silhouette is enlarged. The lungs demonstrate bilateral patchy airspace opacities, left-g [id number]. The pulmonary vasculature is prominent. Moderate left and small right pleural effu sions. There is no pneumothorax. Pneumoperitoneum better seen on previous CT abdomen pelvis. IMPRESSION: Cardiomegaly with pulmonary vascular congestion and bilateral patchy airspace opacities. Pneumoperitoneum, better seen on previous CT abdomen pelvis.
--- NOTE | 2024-12-08 19:35 | CONSULTATION ---
DATE OF CONSULTATION: 12/08/2024 DICTATING PHYSICIAN: Reji Pressley MD REASON FOR CONSULTATION: Evaluation of pneumoperitoneum. HISTORY OF PRESENT ILLNESS: The patient is a 59-year-old female who was admitted on 12/03, with chest discomfort. Ultimately, she was found to have a pericardial effusion as well as community-acquired pneumonia. The patient underwent pericardial drain placement. Drain was subsequently removed and the patient developed extensive abdominal discomfort with pneumoperitoneum. Surgical evaluation is now requested. On further questioning, the patient complains of severe abdominal discomfort. Pain has been present for approximately 24 hours. PAST MEDICAL HISTORY: Notable for anxiety, bipolar, TIA, hypertension, Sanchez's palsy. PAST SURGICAL HISTORY: Tubal ligation, shoulder procedures, knee arthroplasty, bunionectomy, and recent pericardial drain placement. HOME MEDICATIONS: Include aspirin, ____, Neurontin, trazodone, Inderal, escitalopram, Latuda and Plavix. ALLERGIES: SHELLFISH. SOCIAL HISTORY: No history of tobacco use. PHYSICAL EXAMINATION: GENERAL: Well-nourished female, in no distress. VITAL SIGNS: Unremarkable. HEART: Regular rhythm. LUNGS: Clear to auscultation. ABDOMEN: Shows diffuse tenderness ____. EXTREMITIES: Unremarkable. NEUROLOGIC: Nonfocal. LABORATORY DATA: WBC 13, hematocrit of 36, platelet count 285. Chemistries include is 26. IMAGING STUDIES: CAT scan reveals pneumoperitoneum. IMPRESSION: * Perforated viscus. * History of pericardial effusion, status post drain placement. * History of anxiety. * History of cerebrovascular disease. * History of hypertension. RECOMMENDATIONS: Laparotomy for management of perforated viscus. Reji Pressley MD TID: [id number] RECEIPT: [id number] KB/SANDY/AMA
[2024-12-09] VITALS (22 sets, daily range): BP systolic 126–170; BP diastolic 71–94; PULSE 58–91; RESP 9–20; TEMP 97.7–97.8; O2SAT 93–98
[2024-12-09] MEDS: metroNIDAZOLE-Flagyl 500mg/NS 100 ML IV SCH (01:21)
[2024-12-09 02:47] LABS: MEAN PLATELET VOLUME 8.0 FL (7.4-10.4); RED CELL DISTRIBUTION WIDTH 13.4 % (11.5-14.5)
[2024-12-09 03:40] LABS: BANDS% (MANUAL) 23 % (0-10); LYMPHOCYTES % (MANUAL) 5 % (21-51); MONOCYTES % (MANUAL) 5 % (2-12); NEUTROPHILS % (MANUAL) 67 % (42-75); PLATELET ESTIMATE NORMAL
[2024-12-09] MEDS: hydrALAZINE 20mg/ml inj. IV ONE (04:02)
[2024-12-09 04:19] LABS: CREATININE 0.74 MG/DL (0.40-0.90); PHOSPHORUS 3.2 MG/DL (2.3-4.5); TOTAL CARBON DIOXIDE 26.3 MMOL/L (24-32); eCRCL 78 ML/MIN; eGFR 81 ML/MIN
--- NOTE | 2024-12-09 07:39 | OPERATIVE REPORT ---
DATE OF SURGERY: 12/08/2024 DICTATING PHYSICIAN: Reji Pressley MD PREOPERATIVE DIAGNOSES: Acute abdomen. POSTOPERATIVE DIAGNOSES: Acute abdomen. PROCEDURES PERFORMED: * Exploratory laparotomy. * Partial colectomy involving distal transverse and proximal left colon. * splenic flexure. SURGEON: Reji Pressley MD TRAFFIC ANALYSIS TECHNICIAN: Malika. ANESTHESIA: General/Dr. Lundberg. DRAINS: None. INDICATIONS FOR OPERATION: A 59-year-old female admitted with chest discomfort, found to have a pericardial effusion, had a pericardial drain placed. Post drain removal, the patient developed pneumoperitoneum and evidence of peritonitis. Taken to the surgery for laparotomy. INTRAOPERATIVE FINDINGS: The patient had a perforated distal transverse colon. There was sensitive contamination present in the peritoneal cavity. Collections were obtained. DESCRIPTION OF PROCEDURE: The patient was placed supine on the operating table. After induction of general anesthesia and placement of endotracheal tube, the abdomen was prepped and draped. I made a midline incision, which was explored. A large amount of contaminations was present. The patient had cultures performed. The colon was carefully examined from the hepatic flexure to the sigmoid. There was obvious perforation of the distal transverse colon. Gastric lumen was then taken down. Secondary to possible perforation identified. The splenic flexure was immobilized. The proximal descending colon was then divided with BRENNA 75 stapler. Transverse colon stapler and colonic coagulation device. Specimen for evaluation. Stomach was then carefully examined, both posterior wall and anterior wall of the stomach with no evidence of perforation. The stomach was then inflated with air via an NG tube with no evidence of leak identified. Small bowel essentially . Ileocecal valve found to be unremarkable. The right colon and proximal contours were unremarkable as was the rectum. Abdomen was then copiously irrigated with large amount of antibiotic-containing solution. [id number]-mt-[id number] ultrasound was then extracted using a GI centrifuged taper and was closed with a TA-30. The mesenteric defect was then closed sutures with 3-0 silk. After additional irrigation, drains were placed through a stab incision directly in the pelvis. looped with PDS as well as clipped. Fixed place dressing applied. The patient was transferred to recovery in stable condition after the general anesthesia. Reji Pressley MD TID: [id number] RECEIPT: [id number] HUGO/INDER/STANLEY
[2024-12-09] MEDS: HYDROmorphone inj. 0.5 MG/0.5 ML DISP.SYRIN IV PRN (10:39)
--- NOTE | 2024-12-09 12:28 | PROGRESS NOTE- Residence ---
Progress Note - Resident Providers to CC Resident Creating Document: KAM BLANCA RES ~ Antibiotic Timeout Antibiotic Ordered?: Yes Subjective Patient was examined at CICU bed side and no reportable post op abd pain, stable vitals except for slightly elevated BP, MAP, and no post op complications at that moment. Currently on NPO with NG tube decompression. Objective Vital Signs Date Time Temp Pulse Resp B/P (MAP) Pulse Ox O2 Delivery O2 Flow Rate FiO2 12/09/24 11:00 98.6 78 13 142/81 (101) 96 Nasal Cannula 3.0 12/09/24 08:00 21 Result Diagram: 12/09/24 0230 12/09/24 0230 Patient was seen at the bedside this morning. The patient's vital signs were stable at the moment apart from being slightly hypertensive with BP measuring 142/81 mmhg, pulse 78/minute, RR 13/minute, pulse oximetry 96% on nasal canula. On exam; General: The patient was alert, oriented, a bit drowsy but neither confused nor agitated. Patient was well cooperative during the physical exam. HEENT: There was a slight right forehead hematoma and old bruises. Conjunctive are pink, sclera clear, no icterus, pupils are equal and reactive to lights in both sides. There is no ear discharge present, no pharyngeal erythema or edema. Upon checking, the mouth and lips are moist. NG tube decompression in situ. Neck: Supple, JVD elevated, no lymphadenopathy and thyromegaly. Lungs: Patient is coughing and there is equal air entry on both lungs, and no more chest pain with deep inspiration. Chest: No signs of inflammation was present on drainage site Breast and axilla: NO signs of visible mastitis, infection, inflammation, any skin changes, and lymphatic drainage abnormalities on inspection. No bilateral Breast or axillary lymphadenopathy were noted on palpation. Heart: Regular S1-S2 present, regular rate, no gallops, pericardial friction rub heard and no murmurs Abdomen: Surgical dressing over incision site is clean, dry and intact with no signs of erythema, drainage or dehiscence. SIVA drain is in place with approximately 80 cc of serosanguinous fluid and no signs of infection or obstruction. Bowel sounds sluggish on auscultation, soft, slight tender at the operated area due to post op ex lap, no guarding, no rigidity. Extremities: No obvious deformities, no pitting edema bilaterally, capillary refill intact, able to wiggle toes both sides, peripheral pulsations are intact on both sides RESOLUTION AGENT: No focal neurological deficits, no motor and sensory weakness in all 4 extremities, could move all 4 extremities Musculoskeletal: No joint swelling, deformities, inflammations, and no scoliosis and back tenderness Skin: No active skin lesions and rashes. Coagulation Studies Laboratory Tests Test 12/03/24 07:49 D-Dimer 3.25 MG/L FEU (0-0.50) H D-Dimer Comment Assessment Assessment A 59 year old female with past history of hypertension, CVA/ TIA, and Anxiety/bipolar disorder/depression was presented with chest pain with elevated D-Dimeres and admitted to rule out Acute PE with Cleared CTA chest and found to have the community acquired pneumonia, left breast mass lesion with the pericardial and small left pleural effusion. The pericardial fluid was drained with drainage tube. New onset Afib was developed post pericardial drain and currently converted to the normal sinus again. Patient complained of stomach pain most likely due to patient being on ibuprofen or gastrointestinal issue. WBCs were uptrending. Patient has undergone s/p exploratory laparotomy, partial left descending colectomy and take down splenic flexure for perforated viscus by Dr Pressley on 12/09/24. Plan Plan # s/p exploratory laparotomy, partial left descending colectomy and take down splenic flexure # Perforated distal transverse colon # pneumoperitoneum and peritonitis 12/09/2024:-There was sensitive contamination present in the peritoneal cavity and collections were obtained. -surgery done by Dr Pressley on 12/09/24. -currently on IV ceftriaxone, azithromycin, and metronidazole -continue postop care in CICU as per surgical team management plan 12/08/2024: -Given radiological finding of pneumoperitoneum on CXR on 12/07/24, CT Chest Abdomen and pelvis with IV Contrast was ordered which resulted into A large volume pneumoperitoneum consistent with bowel/viscus perforation was observed with a small amount of ascites. Moderate volume, free pelvic fluid and the free pelvic fluid may represent a developing abscess. Surgery was consulted and patient was taken to OR for exploratory laparotomy. -CT scan also showed Enlarged mesenteric lymph nodes up to 1.8 cm could represent reactive changes, mesenteric adenitis, other infectious / inflammatory processes. Colonic diverticular disease. Posterior wall gastric diverticulum. -f/up with Dr Pressley Surgical team management plan in the post ex laparotomy. -elevated procalcitonin, Trending down WBC which was 2/2 from the peritonitis and peritonitis Vs Possible LUTIs/bacteuria with no symptoms # Acute pericarditis with pericardial effusion s/p pericardiocentesis on 12/05/2024 # Exudative pericardial effusion 12/07/24: Lights criteria was used, which a showed 98% sensitivity for an exudative effusion possibly due to metastasis from left breast mass. -continue IV fluid and analgesic and colchicine 12/08/24: Pericardial tube was removed on 12/08/2024, and ibuprofen was also discontinued due to up trending creatinine. ProBNP trended up from 247 to 1313. Stopped IV Fluid. # Hypertension 12/09/24: BP has been trending up to 160/170s systolic and urine output has been trending down to 20 an hour. Hydralazine as prn, and lasix 20 were ordered. Continue to monitor blood pressure. # Fibrinous circumferential pericardial effusion with impending signs of cardiac tamponade # Possible left breast malignancy with possible lung metastasis # Left pleural effusion # Left upper lingular segment, left lower lobe consolidation- Community acquired pneumonia covering with broad spectrum ABx # Acute hypoxemic respiratory failure secondary to acute exacerbation of diastolic congestive heart failure ECHO :Normal LV size and wall thickness. Overall systolic function is hyperdynamic. Intra-cavitary gradient is present with resting gradient of 30 mmHg increasing to 42 mmHg with valsalva. RV is normal size and function. Trileaflet AV appears mildly sclerotic without stenosis. Increased velocities across the AV/LVOT with resting gradient of 21 mmHg increasing to 31 mmHg with valsalva due to hyperdynamic LV function. No insufficiency. Mild mitral annular calcification without stenosis. Trace regurgitation.The tricuspid valve is normal in structure with trace regurgitation. Moderate circumferential pericardial effusion with fibrinous material seen. Recommend clinical correlation. Follow-up echocardiogram on 12/06/2024 after the procedure showing less pericardial effusion, drainage in place. CTA Chest/Thorax: No evidence for large pulmonary embolism.Large pericardial effusion. Recommend cardiology / thoracic surgery consultation for further evaluation / management. Small left pleural effusion. Left upper lobe lingular segment, left lower lobe consolidation/developing atelectasis. 3.4 cm left breast lesion. Recommend correlation with mammography and breast ultrasound. Supraclavicular lymphadenopathy 12/08/24: continue IV Ceftriaxone and Azithromycin- Day 5 so far and switch to the IV ABx as per Surgical management in the post Ex lap. -Continue Duoneb and respiratory rehab -We will arrange to set up with PCP and Oncology out patient management on discharge -Tracking Pericardial fluid analysis including cytology report and recent mammogram what the pt stated for normal report in the last 3-6 months. -continue IV reglan 10 mg Q6H prn for the acute gastric pain and no BM 12/09/24: Continue current management plan # AFib with RVR likely secondary to pericarditis itself or post procedural- converted to sinus Chads Vasc score: 4 points: The patient developed AFib with RVR during the night of 12/06/2024. Plan: If another episode of AFib with RVR is evidenced, plan to restart IV amiodarone and continue it until drainage is removed. 12/07/24: remains sinus persistently after IV amiodarone was discontinued. 12/08/24: Patient continues to be in sinus rhythm. -continue telemetry monitoring in PCU 12/09/2024: Plan for amiodarone for recurrent AFib again, remains persistent sinus rhythm # JASE- possibly from the NSAIDs induced Vs renal tubular stasis # Electrolytes imbalances-hyponatremia/hypokalemia # selective hypoalbuminemia 12/08/2024:-Cr trending with IV fluid and stopped the fluid -stopped NSAIDs -we will order urine lytes and continue monitoring CMP -replace as per protocol for the electrolyte imbalances -encourage protein diet 12/09/2024: Continue IV fluid, normalized kidney function today # Ground level Fall on 12/07/24 -Nurse reported that the patient had a fall around 1:[address] head without contrast was ordered which showed no intracranial abnormalities or acute hemorrhage, with the previous right hematoma 3 days back, and vitals were within normal limits after the event. -continued neuro checks monitoring with no abnormalities were detected. -pt is not on the any anticoag yet -WBC trending up this am, mostly from the reactive reaction from post pericardial drainage Vs recent GLF Vs infections for which procal and UA ordered to be followed up. 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 CODE STATUS: Full code DVT prophylaxis: SCDs until fully ambulatory Analgesia/sedation: morphine Lines/tubes: PIV GI prophylaxis: Pantaprazole 40mg Nutrition: NPO Prognosis: Guarded Disposition: follow up with the surgical team for the post op management with proper pain control and monitor post op complications, Continue medical management including IV antibiotics, pain control, Anticoag plan to be discussed with pt, to set up with PCP and Oncology outpatient workup for the left breast mass and to track cytology for the pericardial fluid drained, tracking up for the recent mammogram result, antibiotics and with nurses to monitor for any post op complications, continue to monitor BM, PT eval and DC plan. Resident MD attestation: Patient was seen, examined and discussed with attending MD, Dr. Simon BLANCA MD Internal Medicine Resident, PGY3 [facility] Date of Service: Dec 09, 2024 Billing Provider: RASTA LAMAS MD Common Visit Codes: [id number] INP/OBS CARE(MOD) KAM BLANCA RES Dec 09, 2024 12:28 RASTA LAMAS MD Dec 12, 2024 17:27
--- NOTE | 2024-12-09 12:42 | PROGRESS NOTE- Residence ---
Progress Note - Resident Providers to CC Resident Creating Document: SERGE CORNEJO, RES ~ Antibiotic Timeout Antibiotic Ordered?: Yes Subjective The patient has been evaluated at bedside. The patient is currently awake, oriented to place person and time. States some pain in the level of the abdomen. Objective Vital Signs Date Time Temp Pulse Resp B/P (MAP) Pulse Ox O2 Delivery O2 Flow Rate FiO2 12/09/24 12:00 98.6 73 12 141/79 (99) 97 Nasal Cannula 3.0 12/09/24 08:00 21 Physical exam: General: Well alert, well oriented, not confused, not agitated, mildly acute distress, well cooperated during the physical. HEENT: Conjunctive are pink, sclerae clear, no icterus, pupil is equal in both sides, reactive to light, no ear discharge, no pharyngeal erythema or an edema. Presence of right periorbital hematoma. Neck: Supple, no JVD, no lymphadenopathy and thyromegaly. Chest: Equal air entry on both lungs, no evidence of crackles or wheezing. Incision side from previous drainage without signs of infection or inflammation. Cardiovascular: S1-S2 regular sinus rhythm and, regular rate, no gallops, no rubs, no murmurs Abdomen: Mild tenderness in the level of the abdomen, presence of clean dressing over surgical area, presence of SIVA drain, no signs of infection or inflammation. Extremities: No obvious deformities, no pitting edema bilaterally, capillary refill intact, peripheral pulsations are intact on both sides, presence of scars in the level of the lower extremities from previous surgeries. Central Nervous System: No focal neurological deficits, no motor or sensory weakness in all 4 extremities, could move all 4 extremities, 2+ deep tendon reflexes, negative Babinski. Musculoskeletal: No joint swelling, deformities, inflammations, and no scoliosis and back tenderness Skin: Warm and dry. Result Diagram: 12/09/24 0230 12/09/24 0230 Coagulation Studies Laboratory Tests Test 12/03/24 07:49 D-Dimer 3.25 MG/L FEU (0-0.50) H D-Dimer Comment Assessment Assessment 59-year-old female patient came to the hospital with chief complaint of chest pain. Plan Plan 1. Acute pericarditis with pericardial effusion s/p pericardiocentesis on 12/05/2024: Exudative pericardial effusion: Fibrinous circumferential pericardial effusion with impending signs of cardiac tamponade: Possible left breast malignancy with possible lung metastasis Left pleural effusion Left upper lingular segment, left lower lobe consolidation Acute hypoxemic respiratory failure secondary to acute exacerbation of diastolic congestive heart failure: ECHO :Normal LV size and wall thickness. Overall systolic function is hyperdynamic. Intra-cavitary gradient is present with resting gradient of 30 mmHg increasing to 42 mmHg with valsalva. RV is normal size and function. Trileaflet AV appears mildly sclerotic without stenosis. Increased velocities across the AV/LVOT with resting gradient of 21 mmHg increasing to 31 mmHg with valsalva due to hyperdynamic LV function. No insufficiency. Mild mitral annular calcification without stenosis. Trace regurgitation.The tricuspid valve is normal in structure with trace regurgitation. Moderate circumferential pericardial effusion with fibrinous material seen. Recommend clinical correlation. Follow-up echocardiogram on 12/06/2024 after the procedure: Overall LVEF is 80%. LV appears hypovolemic with hyperdynamic function. Small circumferential, but mostly apically located, pericardial effusion is present s/p pericardiocentesis without obvious hemodynamic compromise. Catheter and drain remain in place in the pericardium. CTA Chest/Thorax: No evidence for large pulmonary embolism.Large pericardial effusion. Recommend cardiology / thoracic surgery consultation for further evaluation / management. Small left pleural effusion. Left upper lobe lingular segment, left lower lobe consolidation/developing atelectasis. 3.4 cm left breast lesion. Recommend correlation with mammography and breast ultrasound. Supraclavicular lymphadenopathy. Pericardial tube removed on 12/08/2024. Fluid removed in 48 hours approximally less than 10 mL. ProBNP trended up from 247-1313. Plan: Continue colchicine 0.8 mg b.i.d. Pending pathology results from pericardial fluid. The patient will require primary for care physician for follow-up. The patient will need follow-up with Oncology. 2. Peritonitis: S/p exploratory laparotomy, partial colectomy involving distal transverse and proximal left colon on 12/08/2024: CT chest/abdomen/pelvis: Large large volume pneumoperitoneum consistent with bowel/ viscus perforation. Recommend surgical consultation. Mucosal hyperemia of the large bowel which could represent reactive changes, colitis, inflammatory bowel disease. Colonic diverticular disease. Small amount of ascites. Moderate volume free pelvic fluid the free pelvic fluid may represent a developing abscess. Bilateral atelectatic changes. Cardiomegaly. Small pericardial effusion, decreased from prior. Left breast nodule measuring 3.2 cm. Recommend correlation with mammography and breast ultrasound. Posterior wall gastric diverticulum. Enlarged mesenteric lymph nodes up to 1.8 cm could represent reactive changes, mesenteric adenitis, other infectious / inflammatory processes. The patient underwent exploratory laparotomy, partial colectomy involving distal transverse and proximal left colon on 12/08/2024: Dr. Pressley. Currently on azithromycin, ceftriaxone and metronidazole. 3. AFib with RVR likely secondary to pericarditis itself or post procedural: Chads Vasc score: 4 points: The patient developed AFib with RVR during the night of 12/06/2024. No new episodes of atrial fibrillation, telemetry monitoring showing sinus rhythm, heart rate within reference range. Plan: If another episode of AFib with RVR is evidenced, restarted IV amiodarone and continue until drainage is on place. We will consider anticoagulation for discharge. 4. Acute kidney injury secondary to NSAIDs use: Early acute tubular necrosis-resolved: Creatinine trended down from 1.65-0.84 after stopping NSAIDs. Plan: Continue to monitor CMP. 5. Community-acquired bacterial pneumonia: 6. Cerebrovascular accident 7. 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 Anxiety Continue Plavix, atorvastatin, gabapentin, clonazepam, antibiotics per hospitalist team. Disposition: Patient doing well. Continue management as per surgeon and hospitalist team. Serge Carrasquillo Internal Medicine Resident [facility] Patient seen and examined by Dr. Melissa POMPA. Patient getting better and being transferred to PCU. Date of Service: Dec 09, 2024 Billing Provider: VIANCA PRECIADO MD,SERGE MASON, RES Dec 09, 2024 12:41 VIANCA PRECIADO MD Dec 09, 2024 18:33
[2024-12-09] MEDS: hydrALAZINE 20mg/ml inj. IV PRN (13:30)
[2024-12-09] MEDS ORDERED: VALB80CA PO (17:05)
[2024-12-09] MEDS ORDERED: ATOR80TA PO (17:05)
[2024-12-09] MEDS ORDERED: LURA80TA4 PO (17:05)
[2024-12-09] MEDS ORDERED: CLOP-32 PO (17:05)
--- NOTE | 2024-12-09 20:05 | PROGRESS NOTE ---
Progress Note ID Providers to CC ~ Progress Note Progress Note: doingf well/transfer to tele KHRIS LUIS MD Dec 09, 2024 20:05
[2024-12-10] VITALS (8 sets, daily range): BP systolic 144–169; BP diastolic 85–96; PULSE 61–93; RESP 11–19; TEMP 97.5–98.4; O2SAT 92–95
[2024-12-10 06:34] LABS: MEAN PLATELET VOLUME 8.1 FL (7.4-10.4); RED CELL DISTRIBUTION WIDTH 13.6 % (11.5-14.5)
[2024-12-10 06:55] LABS: CREATININE 0.69 MG/DL (0.40-0.90); PHOSPHORUS 1.4 MG/DL (2.3-4.5); TOTAL CARBON DIOXIDE 33.6 MMOL/L (24-32); eCRCL 83 ML/MIN; eGFR 87 ML/MIN
[2024-12-10] MEDS ORDERED: magnesium sulf-water 2g/50mL 50 ML IV PRN (07:25)
[2024-12-10] MEDS ORDERED: sodium phosphate inj. 15 MMOL in dextrose 5%-water 250 ML IV PRN (07:25)
[2024-12-10] MEDS ORDERED: magnesium sulf-water 4G/100mL 100 ML IV PRN (07:25)
[2024-12-10] MEDS: potassium Cl 40MEQ/1/2NS 520ml 520 ML IV PRN (07:50)
[2024-12-10] MEDS ORDERED: K and/or MAG REPLACEMENT MC SCH (08:00)
[2024-12-10] MEDS: sodium phosphate inj. 30 MMOL in dextrose 5%-water 250 ML IV PRN (09:23)
[2024-12-10] MEDS: HYDROmorphone inj. 0.5 MG/0.5 ML DISP.SYRIN IV ONE (11:28)
--- NOTE | 2024-12-10 12:16 | PROGRESS NOTE- Residence ---
Progress Note - Resident Providers to CC Resident Creating Document: VASYL TATUM RES ~ Antibiotic Timeout Antibiotic Ordered?: Yes Subjective Patient was examined at bed side and reported post op abd pain, stable vitals except for slightly elevated BP which was 144/86 mmhg, MAP, and no post op complications at that moment. Currently on NPO. Objective Vital Signs Date Time Temp Pulse Resp B/P (MAP) Pulse Ox O2 Delivery O2 Flow Rate FiO2 12/10/24 11:37 88 16 94 Room Air* 0 21 12/10/24 06:00 97.5 161/89 (113) Result Diagram: 12/10/24 0612 12/10/24 06 Patient was seen at the bedside this morning. The patient's vital signs were stable at the moment apart from being slightly hypertensive with BP measuring 144/86 mmhg, pulse 76/minute, RR 18/minute, pulse oximetry 93% on room air. On exam; General: The patient was alert, oriented, neither confused nor agitated. Patient was well cooperative during the physical exam. HEENT: There was a slight right forehead hematoma and old bruises. Conjunctive are pink, sclera clear, no icterus, pupils are equal and reactive to lights in both sides. There is no ear discharge present, no pharyngeal erythema or edema. Upon checking, the mouth and lips are moist. NG tube decompression in situ. Neck: Supple, JVD elevated, no lymphadenopathy and thyromegaly. Lungs: There is equal air entry on both lungs, and no more chest pain with deep inspiration. Chest: No signs of inflammation was present on drainage site Breast and axilla: NO signs of visible mastitis, infection, inflammation, any skin changes, and lymphatic drainage abnormalities on inspection. No bilateral Breast or axillary lymphadenopathy were noted on palpation. Heart: Regular S1-S2 present, regular rate, no gallops, pericardial friction rub heard and no murmurs Abdomen: Surgical dressing over incision site is clean, dry and intact with no signs of erythema, drainage or dehiscence. SIVA drain is in place with approximately 80 cc of serosanguinous fluid and no signs of infection or obstruction. Bowel sounds sluggish on auscultation, soft, slight tender at the operated area due to post op ex lap, no guarding, no rigidity. Extremities: No obvious deformities, no pitting edema bilaterally, capillary refill intact, able to wiggle toes both sides, peripheral pulsations are intact on both sides INSURANCE CLAIMS EXAMINER: No focal neurological deficits, no motor and sensory weakness in all 4 extremities, could move all 4 extremities Musculoskeletal: No joint swelling, deformities, inflammations, and no scoliosis and back tenderness Skin: No active skin lesions and rashes. Coagulation Studies Laboratory Tests Test 12/03/24 07:49 D-Dimer 3.25 MG/L FEU (0-0.50) H D-Dimer Comment Advance Care Planning Advanced Care plannin - 30 Minutes Assessment Assessment A 59 year old female with past history of hypertension, CVA/ TIA, and Anxiety/bipolar disorder/depression was presented with chest pain with elevated D-Dimeres and admitted to rule out Acute PE with Cleared CTA chest and found to have the community acquired pneumonia, left breast mass lesion with the pericardial and small left pleural effusion. The pericardial fluid was drained with drainage tube. New onset Afib was developed post pericardial drain and currently converted to the normal sinus again. Patient complained of stomach pain most likely due to patient being on ibuprofen or gastrointestinal issue. WBCs were uptrending. Patient has undergone s/p exploratory laparotomy, partial left descending colectomy and take down splenic flexure for perforated viscus by Dr Pressley on 12/09/24. Patient complained of post op abdominal pain around incision site, and hypokalemia was recorded on labs. Plan Plan #Hypokalemia 12/10/2024: Patient's potassium values were recorded at 2.9 compared to 3.9 the previous day and was started on a potassium IV. # s/p exploratory laparotomy, partial left descending colectomy and take down splenic flexure # Perforated distal transverse colon # pneumoperitoneum and peritonitis 12/10/2024: Patient complained of post op pain, dilaudid was increased from 0.5mg to 1mg as per doctors orders. Discontinued azithromycin as she completed the course, Ceftriaxone and metronidazole will be continued. Continue post op care as per surgical team management plan. 12/09/2024:-There was sensitive contamination present in the peritoneal cavity and collections were obtained. -surgery done by Dr Pressley on 12/09/24. -currently on IV ceftriaxone, azithromycin, and metronidazole -continue postop care in CICU as per surgical team management plan 12/08/2024: -Given radiological finding of pneumoperitoneum on CXR on 12/07/24, CT Chest Abdomen and pelvis with IV Contrast was ordered which resulted into A large volume pneumoperitoneum consistent with bowel/viscus perforation was observed with a small amount of ascites. Moderate volume, free pelvic fluid and the free pelvic fluid may represent a developing abscess. Surgery was consulted and patient was taken to OR for exploratory laparotomy. -CT scan also showed Enlarged mesenteric lymph nodes up to 1.8 cm could represent reactive changes, mesenteric adenitis, other infectious / inflammatory processes. Colonic diverticular disease. Posterior wall gastric diverticulum. -f/up with Dr Pressley Surgical team management plan in the post ex laparotomy. -elevated procalcitonin, Trending down WBC which was 2/2 from the peritonitis and peritonitis Vs Possible LUTIs/bacteuria with no symptoms # Acute pericarditis with pericardial effusion s/p pericardiocentesis on 12/05/2024 # Exudative pericardial effusion 12/07/24: Lights criteria was used, which a showed 98% sensitivity for an exudative effusion possibly due to metastasis from left breast mass. -continue IV fluid and analgesic and colchicine 12/08/24: Pericardial tube was removed on 12/08/2024, and ibuprofen was also discontinued due to up trending creatinine. ProBNP trended up from 247 to 1313. Stopped IV Fluid. # Hypertension 12/09/24: BP has been trending up to 160/170s systolic and urine output has been trending down to 20 an hour. Hydralazine as prn, and lasix 20 were ordered. Continue to monitor blood pressure. 12/10/24: BP today was 114/86 mmhg and patient is currently on lisinopril 20mg # Fibrinous circumferential pericardial effusion with impending signs of cardiac tamponade # Possible left breast malignancy with possible lung metastasis # Left pleural effusion # Left upper lingular segment, left lower lobe consolidation- Community acquired pneumonia covering with broad spectrum ABx # Acute hypoxemic respiratory failure secondary to acute exacerbation of diastolic congestive heart failure ECHO :Normal LV size and wall thickness. Overall systolic function is hyperdynamic. Intra-cavitary gradient is present with resting gradient of 30 mmHg increasing to 42 mmHg with valsalva. RV is normal size and function. Trileaflet AV appears mildly sclerotic without stenosis. Increased velocities across the AV/LVOT with resting gradient of 21 mmHg increasing to 31 mmHg with valsalva due to hyperdynamic LV function. No insufficiency. Mild mitral annular calcification without stenosis. Trace regurgitation.The tricuspid valve is normal in structure with trace regurgitation. Moderate circumferential pericardial effusion with fibrinous material seen. Recommend clinical correlation. Follow-up echocardiogram on 12/06/2024 after the procedure showing less pericardial effusion, drainage in place. CTA Chest/Thorax: No evidence for large pulmonary embolism.Large pericardial effusion. Recommend cardiology / thoracic surgery consultation for further evaluation / management. Small left pleural effusion. Left upper lobe lingular segment, left lower lobe consolidation/developing atelectasis. 3.4 cm left breast lesion. Recommend correlation with mammography and breast ultrasound. Supraclavicular lymphadenopathy 12/08/24: continue IV Ceftriaxone and Azithromycin- Day 5 so far and switch to the IV ABx as per Surgical management in the post Ex lap. -Continue Duoneb and respiratory rehab -We will arrange to set up with PCP and Oncology out patient management on discharge -Tracking Pericardial fluid analysis including cytology report and recent mammogram what the pt stated for normal report in the last 3-6 months. -continue IV reglan 10 mg Q6H prn for the acute gastric pain and no BM 12/09/24: Continue current management plan # AFib with RVR likely secondary to pericarditis itself or post procedural- converted to sinus Chads Vasc score: 4 points: The patient developed AFib with RVR during the night of 12/06/2024. Plan: If another episode of AFib with RVR is evidenced, plan to restart IV amiodarone and continue it until drainage is removed. 12/07/24: remains sinus persistently after IV amiodarone was discontinued. 12/08/24: Patient continues to be in sinus rhythm. -continue telemetry monitoring in PCU 12/09/2024: Plan for amiodarone for recurrent AFib again, remains persistent sinus rhythm # JASE- possibly from the NSAIDs induced Vs renal tubular stasis # Electrolytes imbalances-hyponatremia/hypokalemia # selective hypoalbuminemia 12/08/2024:-Cr trending with IV fluid and stopped the fluid -stopped NSAIDs -we will order urine lytes and continue monitoring CMP -replace as per protocol for the electrolyte imbalances -encourage protein diet 12/09/2024: Continue IV fluid, normalized kidney function today # Ground level Fall on 12/07/24 -Nurse reported that the patient had a fall around 1:[address] head without contrast was ordered which showed no intracranial abnormalities or acute hemorrhage, with the previous right hematoma 3 days back, and vitals were within normal limits after the event. -continued neuro checks monitoring with no abnormalities were detected. -pt is not on the any anticoag yet -WBC trending up this am, mostly from the reactive reaction from post pericardial drainage Vs recent GLF Vs infections for which procal and UA ordered to be followed up. 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 CODE STATUS: Full code DVT prophylaxis: SCDs until fully ambulatory Analgesia/sedation: morphine Lines/tubes: PIV GI prophylaxis: Pantaprazole 40mg Nutrition: NPO Prognosis: Guarded Vasyl Tatum MD Internal Medicine Resident, PGY-2 Date of Service: Dec 10, 2024 Billing Provider: CORINNE OSCAR MD,VASYL, RES Dec 10, 2024 12:16
[2024-12-10] MEDS: HYDROmorphone inj. 0.5 MG/0.5 ML DISP.SYRIN IV PRN (14:25)
--- NOTE | 2024-12-10 17:41 | PROGRESS NOTE ---
Progress Note ID Providers to CC ~ Progress Note Progress Note: pain improving/vss/abd-nondistended/labs noted a/p 1. s/p partial colectomy-slow progress/clears KHRIS LUIS MD Dec 10, 2024 17:41
--- NOTE | 2024-12-10 18:06 | PATHOLOGY REPORT ---
[facility] [address] [place] [address] SURGICAL PATHOLOGY REPORT CaseNumber: [id number] Surgeon:DEANA Hall CLINICAL INFORMATION CLINICAL INFORMATION: Not provided. DIAGNOSIS DIAGNOSIS: COLON, DESCENDING; PARTIAL COLECTOMY/TAKEDOWN - COLONIC PERFORATION WITH ACUTE SEROSITIS AND FIBRINOPURULENT EXUDATE. - BACKGROUND COLON WITH VIABLE MUCOSA, NO DYSPLASIA OR CARCINOMA IDENTIFIED. - ONE LYMPH NODE NEGATIVE FOR CARCINOMA (0/1) MICROSCOPIC DESCRIPTION MICROSCOPIC DESCRIPTION: Three H&E slides are reviewed. Sections show a segment of colon with full-th ickness defect consistent with perforation. The serosal surface adjacent to the perforation is covere d by abundant fibrinopurulent exudate composed of neutrophils, fibrin, and necrotic debris. The mucos a away from the perforation shows no evidence of dysplasia or carcinoma, but has serositis and fibrop erulent exudate. Additionally, one benign lymph node is identified. GROSS DESCRIPTION GROSS DESCRIPTION: Received in a container of formalin labeled with the patient's name, number, and " descending colon" is a 17 cm length of previously opened bowel which measures 3 cm in diameter. The s erosa is congested with areas of indurated fibropurulent exudate. There is a 0.5 cm area of perforati on identified. Aside from the area of perforation, the mucosa is intact and without focal lesion. Sec tions are submitted as follows:A1-A2) Area of perforationA3) RepresentativeThe time at which th e specimen was removed was 1500. The time at which the specimen was placed in formalin was 1615. (meb ) Electronically signed by: Cam Healy M.D. 12/10/2024 5:33:00 PM
[2024-12-10] MEDS: potassium Cl 20 mEq SR tablet PO PRN (20:49)
[2024-12-11] VITALS (9 sets, daily range): BP systolic 139–159; BP diastolic 75–99; PULSE 61–96; RESP 12–20; TEMP 97.1–97.8; O2SAT 93–97
[2024-12-11 06:21] LABS: MEAN PLATELET VOLUME 8.2 FL (7.4-10.4); RED CELL DISTRIBUTION WIDTH 14.0 % (11.5-14.5)
[2024-12-11 06:45] LABS: CREATININE 0.56 MG/DL (0.40-0.90); PHOSPHORUS 2.4 MG/DL (2.3-4.5); TOTAL CARBON DIOXIDE 30.4 MMOL/L (24-32); eCRCL 103 ML/MIN; eGFR > 90 ML/MIN
[2024-12-11 07:51] LABS: BANDS% (MANUAL) 5.0 % (0-10); EOSINOPHILS % (MANUAL) 3.0 % (0-6); LYMPHOCYTES % (MANUAL) 23.0 % (21-51); METAMYLEOCYTES% (MANUAL) 3.0 % (0-0); MONOCYTES % (MANUAL) 8.0 % (2-12); NEUTROPHILS % (MANUAL) 58.0 % (42-75); PLATELET ESTIMATE NORMAL
[2024-12-11] MEDS: magnesium Cl slow-release 64mg tablet PO PRN (08:18)
[2024-12-11] MEDS: ampicillin/sulbac 3gm/NS 100ml 100 ML IV SCH (09:28)
--- NOTE | 2024-12-11 12:18 | PROGRESS NOTE ---
Progress Note Dictate Providers to CC CC: ENRIKE BECK MD ~ Progress Note: Subsequent surgical care on a 59-year-old woman who is postoperative day 2, status post exploratory laparotomy with partial colectomy Covering for Dr. Reji Pressley over the weekend Patient tolerating clear liquids but not passing any flatus as of yet Incision is clean, dry, and intact Serous output from the SIVA drain Continue clear liquids until passing flatus No acute surgical issue Continue drain for now Dr. Reji Pressley returns on Friday Antibiotic Ordered?: Yes Objective Vitals Vital Signs Date Time Temp Pulse Resp B/P (MAP) Pulse Ox O2 Delivery O2 Flow Rate FiO2 12/11/24 08:18 96 12/11/24 08:17 18 12/11/24 07:33 94 Room Air* 0 21 12/11/24 06:00 97.8 159/98 (118) Lab Results: 12/11/24 0550 12/11/24 0550 Coagulation Studies Laboratory Tests Test 12/03/24 07:49 D-Dimer 3.25 MG/L FEU (0-0.50) H D-Dimer Comment ENRIKE BECK MD Dec 11, 2024 12:18
--- NOTE | 2024-12-11 16:44 | PROGRESS NOTE- Residence ---
Progress Note - Resident Providers to CC Resident Creating Document: KAM BLANCA RES ~ Antibiotic Timeout Antibiotic Ordered?: Yes Subjective Patient was seen at the bedside this morning complaining of the abdominal pain 10/10 on IV Dilaudid 1 mg q.4 hours. The patient said that she can not walk for some reason as she used to walk without using any walking aids before hospitalization. She was reported that she did not pass gas and the bowel movement yet and currently on the clear liquid diet as per surgical team management plan. Her right IJ will be out. GB drain was draining for 750 cc yesterday and 180 cc this morning. Objective Vital Signs Date Time Temp Pulse Resp B/P (MAP) Pulse Ox O2 Delivery O2 Flow Rate FiO2 12/11/24 15:00 97.7 74 18 144/91 (108) 96 Room Air 12/11/24 08:00 0.0 21 Result Diagram: 12/11/24 0550 12/11/24 0550 Patient was seen at the bedside this morning. The patient's vital signs were stable at the moment apart from being slightly hypertensive with BP measuring 143/86 mmHg, pulse 77/minute, RR 12/minute, pulse oximetry 95% on nasal canula. On exam; General: The patient was alert, oriented, a bit drowsy but neither confused nor agitated. Patient was well cooperative during the physical exam. HEENT: There was a slight right forehead hematoma and old bruises. Conjunctive are pink, sclera clear, no icterus, pupils are equal and reactive to lights in both sides. There is no ear discharge present, no pharyngeal erythema or edema. Upon checking, the mouth and lips are moist. NG tube decompression in situ. Neck: Supple, JVD elevated, no lymphadenopathy and thyromegaly. Lungs: Patient is coughing and there is equal air entry on both lungs, and no more chest pain with deep inspiration. Chest: No signs of inflammation was present on drainage site Breast and axilla: NO signs of visible mastitis, infection, inflammation, any skin changes, and lymphatic drainage abnormalities on inspection. No bilateral Breast or axillary lymphadenopathy were noted on palpation. Heart: Regular S1-S2 present, regular rate, no gallops, pericardial friction rub heard and no murmurs Abdomen: Surgical dressing over incision site is clean, dry and intact with no signs of erythema, drainage or dehiscence. SIVA drain is in place with approximately 180cc of serosanguinous fluid this morning, and no signs of infection or obstruction. Bowel sounds sluggish on auscultation, soft, slight tender at the operated area due to post op ex lap, no guarding, no rigidity. Extremities: No obvious deformities, no pitting edema bilaterally, capillary refill intact, able to wiggle toes both sides, peripheral pulsations are intact on both sides GAMER: No focal neurological deficits, no motor and sensory weakness in all 4 extremities, could move all 4 extremities Musculoskeletal: No joint swelling, deformities, inflammations, and no scoliosis and back tenderness Skin: No active skin lesions and rashes. Coagulation Studies Laboratory Tests Test 12/03/24 07:49 D-Dimer 3.25 MG/L FEU (0-0.50) H D-Dimer Comment Assessment Assessment A 59 year old female with past history of hypertension, CVA/ TIA, and Anxiety/bipolar disorder/depression was presented with chest pain with elevated D-Dimeres and admitted to rule out Acute PE with Cleared CTA chest and found to have the community acquired pneumonia, left breast mass lesion with the pericardial and small left pleural effusion. The pericardial fluid was drained with drainage tube. New onset Afib was developed post pericardial drain and currently converted to the normal sinus again. Patient complained of stomach pain most likely due to patient being on ibuprofen or gastrointestinal issue. WBCs were uptrending. Patient has undergone s/p exploratory laparotomy, partial left descending colectomy and take down splenic flexure for perforated viscus by Dr Pressley on 12/09/24. Patient complained of post op abdominal pain around incision site, and hypokalemia was recorded on labs. Plan Plan #Hypokalemia 12/10/2024: Patient's potassium values were recorded at 2.9 compared to 3.9 the previous day and was started on a potassium IV. 12/11/2024: Potassium was corrected with protocol and today was 3.7, still not having any bowel gas pass and bowel movement yet. # s/p exploratory laparotomy, partial left descending colectomy and take down splenic flexure # Perforated distal transverse colon # pneumoperitoneum and peritonitis 12/11/2024: Continue IV Dilaudid 1 mg q.4 hours as needed -switch to p.o. amoxicillin/sulbactum q.6 hours IV after ceftriaxone/metronidazole/azithromycin were stopped. -surgical teams following the patient, continue clear diet as per surgery until bowel gas pass 12/10/2024: Patient complained of post op pain, dilaudid was increased from 0.5mg to 1mg as per doctors orders. Discontinued azithromycin as she completed the course, Ceftriaxone and metronidazole will be continued. Continue post op care as per surgical team management plan. 12/09/2024:-There was sensitive contamination present in the peritoneal cavity and collections were obtained. -surgery done by Dr Pressley on 12/09/24. -currently on IV ceftriaxone, azithromycin, and metronidazole -continue postop care in CICU as per surgical team management plan 12/08/2024: -Given radiological finding of pneumoperitoneum on CXR on 12/07/24, CT Chest Abdomen and pelvis with IV Contrast was ordered which resulted into A large volume pneumoperitoneum consistent with bowel/viscus perforation was observed with a small amount of ascites. Moderate volume, free pelvic fluid and the free pelvic fluid may represent a developing abscess. Surgery was consulted and patient was taken to OR for exploratory laparotomy. -CT scan also showed Enlarged mesenteric lymph nodes up to 1.8 cm could represent reactive changes, mesenteric adenitis, other infectious / inflammatory processes. Colonic diverticular disease. Posterior wall gastric diverticulum. -f/up with Dr Pressley Surgical team management plan in the post ex laparotomy. -elevated procalcitonin, Trending down WBC which was 2/2 from the peritonitis and peritonitis Vs Possible LUTIs/bacteuria with no symptoms # Acute pericarditis with pericardial effusion s/p pericardiocentesis on 12/05/2024 # Exudative pericardial effusion 12/07/24: Lights criteria was used, which a showed 98% sensitivity for an exudative effusion possibly due to metastasis from left breast mass. -continue IV fluid and analgesic and colchicine 12/08/24: Pericardial tube was removed on 12/08/2024, and ibuprofen was also discontinued due to up trending creatinine. ProBNP trended up from 247 to 1313. Stopped IV Fluid. 12/11/2024: Dr. Lucero cardiology team is following the patient. # Hypertension 12/09/24: BP has been trending up to 160/170s systolic and urine output has been trending down to 20 an hour. Hydralazine as prn, and lasix 20 were ordered. Continue to monitor blood pressure. 12/10/24: BP today was 114/86 mmhg and patient is currently on lisinopril 20mg 12/11/2024: Continue p.o. lisinopril 20 mg and continuous monitoring BP # Fibrinous circumferential pericardial effusion with impending signs of cardiac tamponade # Possible left breast malignancy with possible lung metastasis # Left pleural effusion # Left upper lingular segment, left lower lobe consolidation- Community acquired pneumonia covering with broad spectrum ABx # Acute hypoxemic respiratory failure secondary to acute exacerbation of diastolic congestive heart failure ECHO :Normal LV size and wall thickness. Overall systolic function is hyperdynamic. Intra-cavitary gradient is present with resting gradient of 30 mmHg increasing to 42 mmHg with valsalva. RV is normal size and function. Trileaflet AV appears mildly sclerotic without stenosis. Increased velocities across the AV/LVOT with resting gradient of 21 mmHg increasing to 31 mmHg with valsalva due to hyperdynamic LV function. No insufficiency. Mild mitral annular calcification without stenosis. Trace regurgitation.The tricuspid valve is normal in structure with trace regurgitation. Moderate circumferential pericardial effusion with fibrinous material seen. Recommend clinical correlation. Follow-up echocardiogram on 12/06/2024 after the procedure showing less pericardial effusion, drainage in place. CTA Chest/Thorax: No evidence for large pulmonary embolism.Large pericardial effusion. Recommend cardiology / thoracic surgery consultation for further evaluation / management. Small left pleural effusion. Left upper lobe lingular segment, left lower lobe consolidation/developing atelectasis. 3.4 cm left breast lesion. Recommend correlation with mammography and breast ultrasound. Supraclavicular lymphadenopathy 12/08/24: continue IV Ceftriaxone and Azithromycin- Day 5 so far and switch to the IV ABx as per Surgical management in the post Ex lap. -Continue Duoneb and respiratory rehab -We will arrange to set up with PCP and Oncology out patient management on discharge -Tracking Pericardial fluid analysis including cytology report and recent mammogram what the pt stated for normal report in the last 3-6 months. -continue IV reglan 10 mg Q6H prn for the acute gastric pain and no BM 12/09/24: Continue current management plan 12/11/2024: Switch to IV amoxicillin/sulbactum-day one # AFib with RVR likely secondary to pericarditis itself or post procedural- converted to sinus Chads Vasc score: 4 points: The patient developed AFib with RVR during the night of 12/06/2024. Plan: If another episode of AFib with RVR is evidenced, plan to restart IV amiodarone and continue it until drainage is removed. 12/07/24: remains sinus persistently after IV amiodarone was discontinued. 12/08/24: Patient continues to be in sinus rhythm. -continue telemetry monitoring in PCU 12/09/2024: Plan for amiodarone for recurrent AFib again, remains persistent sinus rhythm 12/11/2024: Remains sinus, we will consider amiodarone again if the patient is converted back to AFib rhythm again. Not currently on any oral anticoagulation. # JASE- possibly from the NSAIDs induced Vs renal tubular stasis # Electrolytes imbalances-hyponatremia/hypokalemia # selective hypoalbuminemia 12/08/2024:-Cr trending with IV fluid and stopped the fluid -stopped NSAIDs -we will order urine lytes and continue monitoring CMP -replace as per protocol for the electrolyte imbalances -encourage protein diet 12/09/2024: Continue IV fluid, normalized kidney function today 12/11/2024: Normalized renal function # Ground level Fall on 12/07/24 -Nurse reported that the patient had a fall around 1:[address] head without contrast was ordered which showed no intracranial abnormalities or acute hemorrhage, with the previous right hematoma 3 days back, and vitals were within normal limits after the event. -continued neuro checks monitoring with no abnormalities were detected. -pt is not on the any anticoag yet -WBC trending up this am, mostly from the reactive reaction from post pericardial drainage Vs recent GLF Vs infections for which procal and UA ordered to be followed up. 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 CODE STATUS: Full code DVT prophylaxis: SCDs until fully ambulatory Analgesia/sedation: morphine Lines/tubes: PIV GI prophylaxis: Pantaprazole 40mg Nutrition: Clear liquid, as per surgical team Prognosis: Guarded Disposition: Continue medical management including IV antibiotics, and follow the surgical team management plan, continuous telemetry monitoring and follow up with cardiology team, monitor bowel movement and a electrolyte imbalances, prevent postop complications, possible arrangement for PCP/Oncology in outpatient for the possible malignant left breast lesion for further management plan, PT eval and DC plan. Resident MD attestation: Patient was seen, examined and discussed with attending MD, Dr. Odalis BLANCA MD Internal Medicine Resident, PGY3 [facility] Date of Service: Dec 11, 2024 Billing Provider: CORINNE OSCAR MD Common Visit Codes: [id number] INP/OBS CARE(HIGH) KAM BLANCA, JULI Dec 11, 2024 16:44 CORINNE OSCAR MD Dec 12, 2024 10:34
--- NOTE | 2024-12-11 19:57 | PROGRESS NOTE ---
Progress Note Cardiology Providers to CC ~ Subjective Subjective Patient up in PCU. Overall doing well. Has not had any BM. Hypoactive bowel sounds. Objective Result Diagram: 12/11/24 0550 12/11/24 0550 Objective General: Normal body habitus, no acute distress, HEENT: Sclerae clear, PERRL, gums without lesions or bleeding, oropharynx clear without erythema or exudate. Neck: Supple without enlargement of the thyroid, or lymphadenopathy, Chest: Normal size and shape, no tenderness, nonlabored breathing, Breath sounds clear to auscultation. Heart: Regular in rate and rhythm, S1 and S2 normal, no S3-S4 or murmurs. Abdomen: Soft, nontender, no organomegaly, bowel sounds hypoactive Extremities: No edema cyanosis or clubbing. Coagulation Studies Laboratory Tests Test 12/03/24 07:49 D-Dimer 3.25 MG/L FEU (0-0.50) H D-Dimer Comment Problem\Assessment\Plan Additional Plan 1. Acute pericarditis with pericardial effusion s/p pericardiocentesis on 12/05/2024: Exudative pericardial effusion: Fibrinous circumferential pericardial effusion with impending signs of cardiac tamponade: Continue to evaluate for cause of pericarditis. 2. Left upper lingular segment, left lower lobe consolidation On antibiotic 3. diastolic congestive heart failure: Use p.r.n. diuretics and keep her euvolemic. ECHO :Normal LV size and wall thickness. Overall systolic function is hyperdynamic. Intra-cavitary gradient is present with resting gradient of 30 mmHg increasing to 42 mmHg with valsalva. RV is normal size and function. Trileaflet AV appears mildly sclerotic without stenosis. Increased velocities across the AV/LVOT with resting gradient of 21 mmHg increasing to 31 mmHg with valsalva due to hyperdynamic LV function. No insufficiency. Mild mitral annular calcification without stenosis. Trace regurgitation.The tricuspid valve is normal in structure with trace regurgitation. Moderate circumferential pericardial effusion with fibrinous material seen. Recommend clinical correlation. Follow-up echocardiogram on 12/06/2024 after the procedure: Overall LVEF is 80%. LV appears hypovolemic with hyperdynamic function. Small circumferential, but mostly apically located, pericardial effusion is present s/p pericardiocentesis without obvious hemodynamic compromise. 4. . 3.4 cm left breast lesion. Recommend correlation with mammography and breast ultrasound. Supraclavicular lymphadenopathy. Patient needs to evaluation of a left breast mass. Management per primary team 4. Peritonitis: S/p exploratory laparotomy, partial colectomy involving distal transverse and proximal left colon on 12/08/2024: CT chest/abdomen/pelvis: Large large volume pneumoperitoneum consistent with bowel/ viscus perforation. Recommend surgical consultation. Mucosal hyperemia of the large bowel which could represent reactive changes, colitis, inflammatory bowel disease. Colonic diverticular disease. Small amount of ascites. Moderate volume free pelvic fluid the free pelvic fluid may represent a developing abscess. Bilateral atelectatic changes. Cardiomegaly. Small pericardial effusion, decreased from prior. Left breast nodule measuring 3.2 cm. Recommend correlation with mammography and breast ultrasound. Posterior wall gastric diverticulum. Enlarged mesenteric lymph nodes up to 1.8 cm could represent reactive changes, mesenteric adenitis, other infectious / inflammatory processes. The patient underwent exploratory laparotomy, partial colectomy involving distal transverse and proximal left colon on 12/08/2024: Dr. Pressley. Currently on azithromycin, ceftriaxone and metronidazole. 6. AFib with RVR likely secondary to pericarditis itself or post procedural: AFib has not recurred since removing the pericardial drainage catheter 7. Acute kidney injury secondary to NSAIDs use: Normalized with stopping NSAIDs and hydration . 8. Other comorbidities include: Cerebrovascular accident . 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 VIANCA PRECIADO MD Dec 11, 2024 19:57
[2024-12-12] VITALS (9 sets, daily range): BP systolic 104–134; BP diastolic 54–87; PULSE 67–84; RESP 11–20; TEMP 97.5–98.2; O2SAT 94–97
[2024-12-12 06:21] LABS: MEAN PLATELET VOLUME 7.8 FL (7.4-10.4); RED CELL DISTRIBUTION WIDTH 13.8 % (11.5-14.5)
[2024-12-12 06:51] LABS: CREATININE 0.50 MG/DL (0.40-0.90); PHOSPHORUS 3.4 MG/DL (2.3-4.5); TOTAL CARBON DIOXIDE 30.3 MMOL/L (24-32); eCRCL 115 ML/MIN; eGFR > 90 ML/MIN
[2024-12-12 08:05] LABS: BANDS% (MANUAL) 7.0 % (0-10); EOSINOPHILS % (MANUAL) 2.0 % (0-6); LYMPHOCYTES % (MANUAL) 19.0 % (21-51); METAMYLEOCYTES% (MANUAL) 3.0 % (0-0); MONOCYTES % (MANUAL) 11.0 % (2-12); MYELOCYTES % (MANUAL) 1.0 % (0-0); NEUTROPHILS % (MANUAL) 57.0 % (42-75)
[2024-12-12 08:06] LABS: PLATELET ESTIMATE NORMAL
[2024-12-12] MEDS: potassium Cl 20 mEq SR tablet PO PRN (09:49)
--- NOTE | 2024-12-12 12:42 | PROGRESS NOTE ---
Progress Note Dictate Providers to CC CC: ENRIKE BECK MD ~ Progress Note: Subsequent surgical care on a 59-year-old woman who is postoperative day 3, status post exploratory laparotomy with partial colectomy Covering for Dr. Reji Pressley over the weekend Patient tolerating clear liquids but claims to be not passing gas Nighttime nurse states gas passing noted Incision is clean, dry, and intact Serous output from the SIVA drain Trial of full liquids No acute surgical issues Continue drain for now Dr. Reji Pressley returns tomorrow Antibiotic Ordered?: Yes Objective Vitals Vital Signs Date Time Temp Pulse Resp B/P (MAP) Pulse Ox O2 Delivery O2 Flow Rate FiO2 12/12/24 08:47 72 20 96 Room Air* 0 21 12/12/24 07:44 98.0 134/87 (103) Lab Results: 12/12/24 0603 12/12/24 0603 Coagulation Studies Laboratory Tests Test 12/03/24 07:49 D-Dimer 3.25 MG/L FEU (0-0.50) H D-Dimer Comment ENRIKE BECK MD Dec 12, 2024 12:42
[2024-12-12] MEDS: lactose-reduced food (Ensure Enlive) - 237ml bottle PO SCH (13:00)
[2024-12-12] MEDS: HYDROcodone/acetaminophen 10/325mg tab PO PRN (13:00)
--- NOTE | 2024-12-12 14:22 | PROGRESS NOTE ---
Progress Note Cardiology Providers to CC ~ Subjective Subjective Patient seen and examined this afternoon. Overall slowly improving. Has not had BM yet. Was able to take something p.o.. Objective Result Diagram: 12/12/2460212/12/24602 Objective General: Normal body habitus, no acute distress, HEENT: Sclerae clear, PERRL, gums without lesions or bleeding, oropharynx clear without erythema or exudate. Neck: Supple without enlargement of the thyroid, or lymphadenopathy, Chest: Normal size and shape, no tenderness, nonlabored breathing, Breath sounds clear to auscultation. Heart: Regular in rate and rhythm, S1 and S2 normal, no S3-S4 or murmurs. Abdomen: Soft, questionable occasional bowel sounds present. Extremities: Trace edema Coagulation Studies Laboratory Tests Test 12/03/24 07:49 D-Dimer 3.25 MG/L FEU (0-0.50) H D-Dimer Comment Problem\Assessment\Plan Additional Plan 1. Acute pericarditis with pericardial effusion s/p pericardiocentesis on 12/05/2024: Exudative pericardial effusion: Follow up echo very small pericardial effusion. 2. Left upper lingular segment, left lower lobe consolidation On antibiotic 3. diastolic congestive heart failure: Use p.r.n. diuretics and keep her euvolemic. ECHO :Normal LV size and wall thickness. Overall systolic function is hyperdynamic. Intra-cavitary gradient is present with resting gradient of 30 mmHg increasing to 42 mmHg with valsalva. RV is normal size and function. Trileaflet AV appears mildly sclerotic without stenosis. Increased velocities across the AV/LVOT with resting gradient of 21 mmHg increasing to 31 mmHg with valsalva due to hyperdynamic LV function. No insufficiency. Mild mitral annular calcification without stenosis. Trace regurgitation.The tricuspid valve is normal in structure with trace regurgitation. Moderate circumferential pericardial effusion with fibrinous material seen. Recommend clinical correlation. Follow-up echocardiogram on 12/06/2024 after the procedure: Overall LVEF is 80%. LV appears hypovolemic with hyperdynamic function. Small circumferential, but mostly apically located, pericardial effusion is present s/p pericardiocentesis without obvious hemodynamic compromise. 4. . 3.4 cm left breast lesion. Recommend correlation with mammography and breast ultrasound. Supraclavicular lymphadenopathy. Patient needs to evaluation of a left breast mass. Management per primary team 4. Peritonitis: S/p exploratory laparotomy, partial colectomy involving distal transverse and proximal left colon on 12/08/2024: Enlarged mesenteric lymph nodes up to 1.8 cm could represent reactive changes, mesenteric adenitis, noted. The patient underwent exploratory laparotomy, partial colectomy involving distal transverse and proximal left colon on 12/08/2024: Dr. Pressley. Currently on azithromycin, ceftriaxone and metronidazole. 6. AFib with RVR likely secondary to pericarditis itself or post procedural: AFib has not recurred since removing the pericardial drainage catheter 7. Acute kidney injury secondary to NSAIDs use: Normalized with stopping NSAIDs and hydration . 8. Other comorbidities include: Cerebrovascular accident . 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
[2024-12-12] MEDS: bisacodyl 10mg suppository rectal RC STA (14:27)
--- NOTE | 2024-12-12 17:08 | PROGRESS NOTE- Residence ---
Progress Note - Resident Providers to CC Resident Creating Document: KAM BLANCA RES ~ Antibiotic Timeout Antibiotic Ordered?: Yes Subjective Pt has undergone the PT walking today up to 140 ft, and could not walk much because of her weakness and pain. She complained of the abd pain over the operated site 01/21 and responded to Dilaudid. She is confused to differentiate between passing gas and bowel movement. The night nurse recorded for passing gas overnight but no BM, however, pt is not able to recognize any flatus passing and bowel movement so far. Her SIVA is still functioning and draining for 100 cc this morning, and 250 cc last night. Objective Vital Signs Date Time Temp Pulse Resp B/P (MAP) Pulse Ox O2 Delivery O2 Flow Rate FiO2 12/12/24 15:00 98.1 72 12 123/68 (86) 95 Room Air 12/12/24 08:47 0 21 Result Diagram: 12/12/2460212/12/24602 Patient was seen at the bedside this morning. The patient's vital signs were stable at the moment BP measuring 123/68 mmHg, pulse 72/minute, RR 12/minute, pulse oximetry 95% on nasal canula. On exam; General: The patient was alert, oriented, a bit drowsy but neither confused nor agitated. Patient was well cooperative during the physical exam. HEENT: There was a slight right forehead hematoma and old bruises. Conjunctive are pink, sclera clear, no icterus, pupils are equal and reactive to lights in both sides. There is no ear discharge present, no pharyngeal erythema or edema. Upon checking, the mouth and lips are moist. NG tube decompression in situ. Neck: Supple, JVD elevated, no lymphadenopathy and thyromegaly. Lungs: Patient is coughing and there is equal air entry on both lungs, and no more chest pain with deep inspiration. Chest: No signs of inflammation was present on drainage site Breast and axilla: NO signs of visible mastitis, infection, inflammation, any skin changes, and lymphatic drainage abnormalities on inspection. No bilateral Breast or axillary lymphadenopathy were noted on palpation. Heart: Regular S1-S2 present, regular rate, no gallops, pericardial friction rub heard and no murmurs Abdomen: Surgical dressing over incision site is clean, dry and intact with no signs of erythema, drainage or dehiscence. SIVA drain is in place with approximately 100cc of serosanguinous fluid this morning, and no signs of infection or obstruction. Bowel sounds sluggish on auscultation, soft, slight tender at the operated area due to post op ex lap, no guarding, no rigidity. Extremities: No obvious deformities, no pitting edema bilaterally, capillary refill intact, able to wiggle toes both sides, peripheral pulsations are intact on both sides DERMATOLOGY TEACHER: No focal neurological deficits, no motor and sensory weakness in all 4 extremities, could move all 4 extremities Musculoskeletal: No joint swelling, deformities, inflammations, and no scoliosis and back tenderness Skin: No active skin lesions and rashes. Coagulation Studies Laboratory Tests Test 12/03/24 07:49 D-Dimer 3.25 MG/L FEU (0-0.50) H D-Dimer Comment Assessment Assessment A 59 year old female with past history of hypertension, CVA/ TIA, and Anxiety/bipolar disorder/depression was presented with chest pain with elevated D-Dimeres and admitted to rule out Acute PE with Cleared CTA chest and found to have the community acquired pneumonia, left breast mass lesion with the pericardial and small left pleural effusion. The pericardial fluid was drained with drainage tube. New onset Afib was developed post pericardial drain and currently converted to the normal sinus again. Patient complained of stomach pain most likely due to patient being on ibuprofen or gastrointestinal issue. WBCs were uptrending. Patient has undergone s/p exploratory laparotomy, partial left descending colectomy and take down splenic flexure for perforated viscus by Dr Pressley on 12/09/24. Patient complained of post op abdominal pain around incision site, and hypokalemia was recorded on labs. Plan Plan #Hypokalemia 12/10/2024: Patient's potassium values were recorded at 2.9 compared to 3.9 the previous day and was started on a potassium IV. 12/11/2024: Potassium was corrected with protocol and today was 3.7, still not having any bowel gas pass and bowel movement yet. 12/12/2024: Potassium dropped down to 3.2 this morning again, replace as per protocol as needed especially in the postop day three and absence of bowel movement yet. -Started suppository bisacodyl # s/p exploratory laparotomy, partial left descending colectomy and take down splenic flexure # Perforated distal transverse colon # pneumoperitoneum and peritonitis 12/12/2024: Postop day 3, occasional abdominal pain over the surgical wound, controlling with IV Dilaudid to continue -started p.o. [place] 5 or 10 according to the pain scale q.4 hours. -continue as per surgical team management plan, advanced the diet to full liquid diet today. -monitor flatus pass and bowel movement. 12/11/2024: Continue IV Dilaudid 1 mg q.4 hours as needed -switch to amoxicillin/sulbactum q.6 hours IV after ceftriaxone/metronidazole/azithromycin were stopped. -surgical teams following the patient, continue clear diet as per surgery until bowel gas pass 12/10/2024: Patient complained of post op pain, dilaudid was increased from 0.5mg to 1mg as per doctors orders. Discontinued azithromycin as she completed the course, Ceftriaxone and metronidazole will be continued. Continue post op care as per surgical team management plan. 12/09/2024:-There was sensitive contamination present in the peritoneal cavity and collections were obtained. -surgery done by Dr Pressley on 12/09/24. -currently on IV ceftriaxone, azithromycin, and metronidazole -continue postop care in CICU as per surgical team management plan 12/08/2024: -Given radiological finding of pneumoperitoneum on CXR on 12/07/24, CT Chest Abdomen and pelvis with IV Contrast was ordered which resulted into A large volume pneumoperitoneum consistent with bowel/viscus perforation was observed with a small amount of ascites. Moderate volume, free pelvic fluid and the free pelvic fluid may represent a developing abscess. Surgery was consulted and patient was taken to OR for exploratory laparotomy. -CT scan also showed Enlarged mesenteric lymph nodes up to 1.8 cm could represent reactive changes, mesenteric adenitis, other infectious / inflammatory processes. Colonic diverticular disease. Posterior wall gastric diverticulum. -f/up with Dr Pressley Surgical team management plan in the post ex laparotomy. -elevated procalcitonin, Trending down WBC which was 2/2 from the peritonitis and peritonitis Vs Possible LUTIs/bacteuria with no symptoms # Acute pericarditis with pericardial effusion s/p pericardiocentesis on 12/05/2024 # Exudative pericardial effusion 12/07/24: Lights criteria was used, which a showed 98% sensitivity for an exudative effusion possibly due to metastasis from left breast mass. -continue IV fluid and analgesic and colchicine 12/08/24: Pericardial tube was removed on 12/08/2024, and ibuprofen was also discontinued due to up trending creatinine. ProBNP trended up from 247 to 1313. Stopped IV Fluid. 12/11/2024: Dr. Lucero cardiology team is following the patient. 12/12/2024: No special changes from the Cardiology team, continue current treatment # Hypertension 12/09/24: BP has been trending up to 160/170s systolic and urine output has been trending down to 20 an hour. Hydralazine as prn, and lasix 20 were ordered. Continue to monitor blood pressure. 12/10/24: BP today was 114/86 mmhg and patient is currently on lisinopril 20mg 12/11/2024: Continue p.o. lisinopril 20 mg and continuous monitoring BP 12/12/2024: BP starting to be controlled and continue same medication, control the pain as well. # Fibrinous circumferential pericardial effusion with impending signs of cardiac tamponade # Possible left breast malignancy with possible lung metastasis # Left pleural effusion # Left upper lingular segment, left lower lobe consolidation- Community acquired pneumonia covering with broad spectrum ABx # Acute hypoxemic respiratory failure secondary to acute exacerbation of diastolic congestive heart failure ECHO :Normal LV size and wall thickness. Overall systolic function is hyperdynamic. Intra-cavitary gradient is present with resting gradient of 30 mmHg increasing to 42 mmHg with valsalva. RV is normal size and function. Trileaflet AV appears mildly sclerotic without stenosis. Increased velocities across the AV/LVOT with resting gradient of 21 mmHg increasing to 31 mmHg with valsalva due to hyperdynamic LV function. No insufficiency. Mild mitral annular calcification without stenosis. Trace regurgitation.The tricuspid valve is normal in structure with trace regurgitation. Moderate circumferential pericardial effusion with fibrinous material seen. Recommend clinical correlation. Follow-up echocardiogram on 12/06/2024 after the procedure showing less pericardial effusion, drainage in place. CTA Chest/Thorax: No evidence for large pulmonary embolism.Large pericardial effusion. Recommend cardiology / thoracic surgery consultation for further evaluation / management. Small left pleural effusion. Left upper lobe lingular segment, left lower lobe consolidation/developing atelectasis. 3.4 cm left breast lesion. Recommend correlation with mammography and breast ultrasound. Supraclavicular lymphadenopathy 12/08/24: continue IV Ceftriaxone and Azithromycin- Day 5 so far and switch to the IV ABx as per Surgical management in the post Ex lap. -Continue Duoneb and respiratory rehab -We will arrange to set up with PCP and Oncology out patient management on discharge -Tracking Pericardial fluid analysis including cytology report and recent mammogram what the pt stated for normal report in the last 3-6 months. -continue IV reglan 10 mg Q6H prn for the acute gastric pain and no BM 12/09/24: Continue current management plan 12/11/2024: Switch to IV amoxicillin/sulbactum-day one 12/12/2024: Continue current IV antibiotics day two # AFib with RVR likely secondary to pericarditis itself or post procedural- converted to sinus Chads Vasc score: 4 points The patient developed AFib with RVR during the night of 12/06/2024. Plan: If another episode of AFib with RVR is evidenced, plan to restart IV amiodarone and continue it until drainage is removed. 12/07/24: remains sinus persistently after IV amiodarone was discontinued. 12/08/24: Patient continues to be in sinus rhythm. -continue telemetry monitoring in PCU 12/09/2024: Plan for amiodarone for recurrent AFib again, remains persistent sinus rhythm 12/11/2024: Remains sinus, we will consider amiodarone again if the patient is converted back to AFib rhythm again. Not currently on any oral anticoagulation. 12/12/2024: Remains sinus rhythm. # JASE- possibly from the NSAIDs induced Vs renal tubular stasis # Electrolytes imbalances-hyponatremia/hypokalemia # selective hypoalbuminemia 12/08/2024:-Cr trending with IV fluid and stopped the fluid -stopped NSAIDs -we will order urine lytes and continue monitoring CMP -replace as per protocol for the electrolyte imbalances -encourage protein diet 12/09/2024: Continue IV fluid, normalized kidney function today 12/11/2024: Normalized renal function # Ground level Fall on 12/07/24 -Nurse reported that the patient had a fall around 1:[address] head without contrast was ordered which showed no intracranial abnormalities or acute hemorrhage, with the previous right hematoma 3 days back, and vitals were within normal limits after the event. -continued neuro checks monitoring with no abnormalities were detected. -pt is not on the any anticoag yet -WBC trending up this am, mostly from the reactive reaction from post pericardial drainage Vs recent GLF Vs infections for which procal and UA ordered to be followed up. 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 CODE STATUS: Full code DVT prophylaxis: SCDs until fully ambulatory Analgesia/sedation: morphine Lines/tubes: PIV GI prophylaxis: Pantaprazole 40mg Nutrition: Clear liquid, as per surgical team Prognosis: Guarded Disposition: Continue medical management including IV antibiotics, and follow the surgical team management plan, continuous telemetry monitoring and follow up with cardiology team, monitor bowel movement and a electrolyte imbalances, prevent postop complications, possible arrangement for PCP/Oncology in outpatient for the possible malignant left breast lesion for further management plan and try to contact POA/ family member and PCP, PT eval and DC plan. Resident MD attestation: Patient was seen, examined and discussed with attending MD, Dr. Odalis BLANCA MD Internal Medicine Resident, PGY3 [facility] Date of Service: Dec 12, 2024 Billing Provider: CORINNE OSCAR MD Common Visit Codes: [id number] INP/OBS CARE(HIGH) KAM BLANCA, RES Dec 12, 2024 17:08 CORINNE OSCAR MD Dec 13, 2024 07:04
[2024-12-13] VITALS (11 sets, daily range): BP systolic 96–142; BP diastolic 66–87; PULSE 64–84; RESP 10–20; TEMP 96.9–98.6; O2SAT 93–96
--- NOTE | 2024-12-13 04:47 | PROGRESS NOTE ---
DATE: 12/10/2024 DICTATING PHYSICIAN: SERGEY Lucero MD CARDIOLOGY NOTE SUBJECTIVE: The patient is overall gradually improving and still has mild abdominal discomfort. PHYSICAL EXAMINATION: GENERAL: Temperature 97.5, pulse 80 per minute, blood pressure 149/85. NECK: No JVD. Carotid equally well felt. CARDIAC: Regular rate and rhythm. S1, S2 normal. No S3, S4 or murmurs. LUNGS: breath sounds decreased. ABDOMEN: Soft mildly tender, occasional bowel sounds. EXTREMITIES: No edema, cyanosis, or clubbing. CENTRAL NERVOUS SYSTEM: No lateralizing signs. LABORATORY DATA: Labs include WBC 13.5, hemoglobin 11.1, hematocrit 32.5, platelet count 393. Sodium 143, potassium 2.9, chloride 105, carbon dioxide 33.6. BUN 14, creatinine 0.69. The proBNP was 1313 back on 12/07/2024. ASSESSMENT AND PLAN: * A 59-year-old postmenopausal female who came in with pericarditis and pericardial effusion, status post pericardiocentesis and pericardial fluid exudate. The patient was on colchicine and and ibuprofen. Both discontinued because of renal insufficiency. * Paroxysmal atrial fibrillation converted back to normal sinus rhythm. * Peritonitis, status post transverse colectomy on 12/08/2024. Bowel sounds slowly improving. * Acute kidney injury and chronic kidney disease, improved. * History of pulmonary infection, on antibiotics. Other comorbidities include history of cerebrovascular accident, peripheral neuropathy Sanchez's palsy, anxiety and left breast mass. SERGEY Lucero MD TID: [id number] RECEIPT: [id number] BC/SUM/AMI MTDD
[2024-12-13 09:25] LABS: MEAN PLATELET VOLUME 8.2 FL (7.4-10.4); RED CELL DISTRIBUTION WIDTH 14.2 % (11.5-14.5)
[2024-12-13 09:46] LABS: CREATININE 0.68 MG/DL (0.40-0.90); PHOSPHORUS 3.6 MG/DL (2.3-4.5); TOTAL CARBON DIOXIDE 30.8 MMOL/L (24-32); eCRCL 84 ML/MIN; eGFR 89 ML/MIN
[2024-12-13 10:05] LABS: BANDS% (MANUAL) 4.0 % (0-10); EOSINOPHILS % (MANUAL) 3.0 % (0-6); LYMPHOCYTES % (MANUAL) 12.0 % (21-51); METAMYLEOCYTES% (MANUAL) 3.0 % (0-0); MONOCYTES % (MANUAL) 7.0 % (2-12); MYELOCYTES % (MANUAL) 2.0 % (0-0); NEUTROPHILS % (MANUAL) 69.0 % (42-75); PLATELET ESTIMATE NORMAL
[2024-12-13 10:06] LABS: ELLIPTOCYTES FEW
[2024-12-13] MEDS ORDERED: potassium Cl 20 mEq SR tablet PO PRN ×2 (11:35)
[2024-12-13] MEDS ORDERED: potassium Cl 40MEQ/1/2NS 520ml 520 ML IV PRN (11:35)
[2024-12-13] MEDS ORDERED: magnesium sulf-water 4G/100mL 100 ML IV PRN (11:35)
[2024-12-13] MEDS: magnesium Cl slow-release 64mg tablet PO PRN (12:15)
--- NOTE | 2024-12-13 13:26 | PROGRESS NOTE ---
Progress Note Cardiology Providers to CC ~ Subjective Subjective Patient seen and examined this afternoon. Overall she is doing well. Had BM yesterday. Her white count has gone up a little bit. Patient apparently getting further imaging studies on her abdomen tomorrow. Objective Result Diagram: 12/13/2484112/13/24841 Objective General: Normal body habitus, no acute distress, HEENT: Sclerae clear, PERRL, gums without lesions or bleeding, oropharynx clear without erythema or exudate. Neck: Supple without enlargement of the thyroid, or lymphadenopathy, Chest: Normal size and shape, no tenderness, nonlabored breathing, Breath sounds clear to auscultation. Heart: Regular in rate and rhythm, S1 and S2 normal, no S3-S4 or murmurs. Abdomen: Soft,, mild tenderness present, bowel sounds present. Extremities: No edema cyanosis or clubbing. Coagulation Studies Laboratory Tests Test 12/03/24 07:49 D-Dimer 3.25 MG/L FEU (0-0.50) H D-Dimer Comment Problem\Assessment\Plan Additional Plan 1. Acute pericarditis with pericardial effusion s/p pericardiocentesis on 12/05/2024: Exudative pericardial effusion: Follow up echo very small pericardial effusion. 2. Left upper lingular segment, left lower lobe consolidation On antibiotic 3. diastolic congestive heart failure: Use p.r.n. diuretics and keep her euvolemic. ECHO :Normal LV size and wall thickness. Overall systolic function is hyperdynamic. Intra-cavitary gradient is present with resting gradient of 30 mmHg increasing to 42 mmHg with valsalva. RV is normal size and function. Trileaflet AV appears mildly sclerotic without stenosis. Increased velocities across the AV/LVOT with resting gradient of 21 mmHg increasing to 31 mmHg with valsalva due to hyperdynamic LV function. No insufficiency. Mild mitral annular calcification without stenosis. Trace regurgitation.The tricuspid valve is normal in structure with trace regurgitation. Moderate circumferential pericardial effusion with fibrinous material seen. Recommend clinical correlation. Follow-up echocardiogram on 12/06/2024 after the procedure: Overall LVEF is 80%. LV appears hypovolemic with hyperdynamic function. Small circumferential, but mostly apically located, pericardial effusion is present s/p pericardiocentesis without obvious hemodynamic compromise. 4. . 3.4 cm left breast lesion. Recommend correlation with mammography and breast ultrasound. Supraclavicular lymphadenopathy. Patient needs to evaluation of a left breast mass. Management per primary team 4. Peritonitis: S/p exploratory laparotomy, partial colectomy involving distal transverse and proximal left colon on 12/08/2024: Enlarged mesenteric lymph nodes up to 1.8 cm could represent reactive changes, mesenteric adenitis, noted. The patient underwent exploratory laparotomy, partial colectomy involving distal transverse and proximal left colon on 12/08/2024: Dr. Pressley. Currently on azithromycin, ceftriaxone and metronidazole. 6. AFib with RVR likely secondary to pericarditis itself or post procedural: AFib has not recurred since removing the pericardial drainage catheter 7. Acute kidney injury secondary to NSAIDs use: Normalized with stopping NSAIDs and hydration . 8. Other comorbidities include: Cerebrovascular accident . 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
--- NOTE | 2024-12-13 14:29 | PROGRESS NOTE ---
Progress Note ID Providers to CC ~ Progress Note Progress Note: no complaints/vss/abd-nondistended/labs noted a/p 1. s/p partial colectomy/needs ct KHRIS LUIS MD Dec 13, 2024 14:29
--- NOTE | 2024-12-13 16:28 | PROGRESS NOTE- Residence ---
Progress Note - Resident Providers to CC Resident Creating Document: KAM BLANCA RES ~ Antibiotic Timeout Antibiotic Ordered?: Yes Subjective The patient was reported to have two bowel movement last night and one in the morning. Her appetite is good and she is currently on full liquid diet. She is still draining serosanguineous fluid into GB drain around 100 cc this morning. Patient walked with PT for septic stat yesterday. Her abdominal pain over the surgical wound is getting better around 10/21. Objective Vital Signs Date Time Temp Pulse Resp B/P (MAP) Pulse Ox O2 Delivery O2 Flow Rate FiO2 12/13/24 11:52 96.9 65 10 119/68 (85) 94 Room Air 12/13/24 08:13 0 21 Result Diagram: 12/13/2442 12/13/24 0842 Patient was seen at the bedside this morning. The patient's vital signs were stable at the moment temp 98.2 F, SD 72/minute, RR 16/minute, BP 140/74 mm Hg, pulse oximetry 94% on room air. On exam; General: The patient was alert, Well alert x 4, well oriented x 4, not confused x 4, not agitated x 4, not in acute distress, well cooperated during the physical. HEENT: There was a slight right forehead hematoma and old bruises. Conjunctive are pink, sclera clear, no icterus, pupils are equal and reactive to lights in both sides. There is no ear discharge present, no pharyngeal erythema or edema. Upon checking, the mouth and lips are moist. NG tube decompression in situ. Neck: Supple, JVD elevated, no lymphadenopathy and thyromegaly. Lungs: Patient is coughing and there is equal air entry on both lungs, and no more chest pain with deep inspiration. Chest: No signs of inflammation was present on drainage site Breast and axilla: NO signs of visible mastitis, infection, inflammation, any skin changes, and lymphatic drainage abnormalities on inspection. No bilateral Breast or axillary lymphadenopathy were noted on palpation. Heart: Regular S1-S2 present, regular rate, no gallops, pericardial friction rub heard and no murmurs Abdomen: Surgical dressing over incision site is clean, dry and intact with no signs of erythema, drainage or dehiscence. SIVA drain is in place with approximately 100cc of serosanguinous fluid this morning, and no signs of infection or obstruction. Bowel sounds sluggish on auscultation, soft, slight tender at the operated area due to post op ex lap, no guarding, no rigidity. Extremities: No obvious deformities, no pitting edema bilaterally, capillary refill intact, able to wiggle toes both sides, peripheral pulsations are intact on both sides INTERNAL COMMUNICATIONS WRITER: No focal neurological deficits, no motor and sensory weakness in all 4 extremities, could move all 4 extremities Musculoskeletal: No joint swelling, deformities, inflammations, and no scoliosis and back tenderness Skin: No active skin lesions and rashes. Coagulation Studies Laboratory Tests Test 12/03/24 07:49 D-Dimer 3.25 MG/L FEU (0-0.50) H D-Dimer Comment Assessment Assessment A 59 year old female with past history of hypertension, CVA/ TIA, and Anxiety/bipolar disorder/depression was presented with chest pain with elevated D-Dimeres and admitted to rule out Acute PE with Cleared CTA chest and found to have the community acquired pneumonia, left breast mass lesion with the pericardial and small left pleural effusion. The pericardial fluid was drained with drainage tube. New onset Afib was developed post pericardial drain and currently converted to the normal sinus again. Patient complained of stomach pain most likely due to patient being on ibuprofen or gastrointestinal issue. WBCs were uptrending. Patient has undergone s/p exploratory laparotomy, partial left descending colectomy and take down splenic flexure for perforated viscus by Dr Pressley on 12/09/24. Patient complained of post op abdominal pain around incision site, and hypokalemia was recorded on labs. Plan Plan #Hypokalemia 12/10/2024: Patient's potassium values were recorded at 2.9 compared to 3.9 the previous day and was started on a potassium IV. 12/11/2024: Potassium was corrected with protocol and today was 3.7, still not having any bowel gas pass and bowel movement yet. 12/12/2024: Potassium dropped down to 3.2 this morning again, replace as per protocol as needed especially in the postop day three and absence of bowel movement yet. -Started suppository bisacodyl 12/13/2024: Potassium is normalized back again, replace accordingly # s/p exploratory laparotomy, partial left descending colectomy and take down splenic flexure # Perforated distal transverse colon # pneumoperitoneum and peritonitis 12/13/2024: Postop day four, Dr. Pressley is following the patient -patient abdominal pain is getting better on oral [place] and IV Dilaudid as needed -had 3 times bowel movement so far, currently on full liquid diet -stopped IV fluid as patient intake enough, advance diet as per surgical team management plan -follow up with the CT abdomen and pelvis 12/12/2024: Postop day 3, occasional abdominal pain over the surgical wound, controlling with IV Dilaudid to continue -started p.o. [place] 5 or 10 according to the pain scale q.4 hours. -continue as per surgical team management plan, advanced the diet to full liquid diet today. -monitor flatus pass and bowel movement. 12/11/2024: Continue IV Dilaudid 1 mg q.4 hours as needed -switch to amoxicillin/sulbactum q.6 hours IV after ceftriaxone/metronidazole/azithromycin were stopped. -surgical teams following the patient, continue clear diet as per surgery until bowel gas pass 12/10/2024: Patient complained of post op pain, dilaudid was increased from 0.5mg to 1mg as per doctors orders. Discontinued azithromycin as she completed the course, Ceftriaxone and metronidazole will be continued. Continue post op care as per surgical team management plan. 12/09/2024:-There was sensitive contamination present in the peritoneal cavity and collections were obtained. -surgery done by Dr Pressley on 12/09/24. -currently on IV ceftriaxone, azithromycin, and metronidazole -continue postop care in CICU as per surgical team management plan 12/08/2024: -Given radiological finding of pneumoperitoneum on CXR on 12/07/24, CT Chest Abdomen and pelvis with IV Contrast was ordered which resulted into A large volume pneumoperitoneum consistent with bowel/viscus perforation was observed with a small amount of ascites. Moderate volume, free pelvic fluid and the free pelvic fluid may represent a developing abscess. Surgery was consulted and patient was taken to OR for exploratory laparotomy. -CT scan also showed Enlarged mesenteric lymph nodes up to 1.8 cm could represent reactive changes, mesenteric adenitis, other infectious / inflammatory processes. Colonic diverticular disease. Posterior wall gastric diverticulum. -f/up with Dr Pressley Surgical team management plan in the post ex laparotomy. -elevated procalcitonin, Trending down WBC which was 2/2 from the peritonitis and peritonitis Vs Possible LUTIs/bacteuria with no symptoms # Acute pericarditis with pericardial effusion s/p pericardiocentesis on 12/05/2024 # Exudative pericardial effusion 12/07/24: Lights criteria was used, which a showed 98% sensitivity for an exudative effusion possibly due to metastasis from left breast mass. -continue IV fluid and analgesic and colchicine 12/08/24: Pericardial tube was removed on 12/08/2024, and ibuprofen was also discontinued due to up trending creatinine. ProBNP trended up from 247 to 1313. Stopped IV Fluid. 12/11/2024: Dr. Lucero cardiology team is following the patient. 12/12/2024: No special changes from the Cardiology team, continue current treatment 12/13/2024: Continue colchicine and ibuprofen as prescribed, continue Dr. George Garay's cardiology management plan. # Hypertension 12/09/24: BP has been trending up to 160/170s systolic and urine output has been trending down to 20 an hour. Hydralazine as prn, and lasix 20 were ordered. Continue to monitor blood pressure. 12/10/24: BP today was 114/86 mmhg and patient is currently on lisinopril 20mg 12/11/2024: Continue p.o. lisinopril 20 mg and continuous monitoring BP 12/12/2024: BP starting to be controlled and continue same medication, control the pain as well. 12/13/2024: BP well-controlled around 120/60 mm Hg, continue current medications. # Fibrinous circumferential pericardial effusion with impending signs of cardiac tamponade # Possible left breast malignancy with possible lung metastasis # Left pleural effusion # Left upper lingular segment, left lower lobe consolidation- Community acquired pneumonia covering with broad spectrum ABx # Acute hypoxemic respiratory failure secondary to acute exacerbation of diastolic congestive heart failure ECHO :Normal LV size and wall thickness. Overall systolic function is hyperdynamic. Intra-cavitary gradient is present with resting gradient of 30 mmHg increasing to 42 mmHg with valsalva. RV is normal size and function. Trileaflet AV appears mildly sclerotic without stenosis. Increased velocities across the AV/LVOT with resting gradient of 21 mmHg increasing to 31 mmHg with valsalva due to hyperdynamic LV function. No insufficiency. Mild mitral annular calcification without stenosis. Trace regurgitation.The tricuspid valve is normal in structure with trace regurgitation. Moderate circumferential pericardial effusion with fibrinous material seen. Recommend clinical correlation. Follow-up echocardiogram on 12/06/2024 after the procedure showing less pericardial effusion, drainage in place. CTA Chest/Thorax: No evidence for large pulmonary embolism.Large pericardial effusion. Recommend cardiology / thoracic surgery consultation for further evaluation / management. Small left pleural effusion. Left upper lobe lingular segment, left lower lobe consolidation/developing atelectasis. 3.4 cm left breast lesion. Recommend correlation with mammography and breast ultrasound. Supraclavicular lymphadenopathy 12/08/24: continue IV Ceftriaxone and Azithromycin- Day 5 so far and switch to the IV ABx as per Surgical management in the post Ex lap. -Continue Duoneb and respiratory rehab -We will arrange to set up with PCP and Oncology out patient management on discharge -Tracking Pericardial fluid analysis including cytology report and recent mammogram what the pt stated for normal report in the last 3-6 months. -continue IV reglan 10 mg Q6H prn for the acute gastric pain and no BM 12/09/24: Continue current management plan 12/11/2024: Switch to IV amoxicillin/sulbactam-day one 12/12/2024: Continue current IV antibiotics day two 12/13/2024: Continue IV amoxicillin/sulbactam day three -patient was discussed about the possible malignant lesion over left breast mass and she stated that the mammogram on last December was clear. # AFib with RVR likely secondary to pericarditis itself or post procedural- converted to sinus Chads Vasc score: 4 points The patient developed AFib with RVR during the night of 12/06/2024. Plan: If another episode of AFib with RVR is evidenced, plan to restart IV amiodarone and continue it until drainage is removed. 12/07/24: remains sinus persistently after IV amiodarone was discontinued. 12/08/24: Patient continues to be in sinus rhythm. -continue telemetry monitoring in PCU 12/09/2024: Plan for amiodarone for recurrent AFib again, remains persistent sinus rhythm 12/11/2024: Remains sinus, we will consider amiodarone again if the patient is converted back to AFib rhythm again. Not currently on any oral anticoagulation. 12/12/2024: Remains sinus rhythm. 12/13/2024: Remained sinus rhythm today. # JASE- possibly from the NSAIDs induced Vs renal tubular stasis # Electrolytes imbalances-hyponatremia/hypokalemia # selective hypoalbuminemia 12/08/2024:-Cr trending with IV fluid and stopped the fluid -stopped NSAIDs -we will order urine lytes and continue monitoring CMP -replace as per protocol for the electrolyte imbalances -encourage protein diet 12/09/2024: Continue IV fluid, normalized kidney function today 12/11/2024: Normalized renal function # Ground level Fall on 12/07/24 -Nurse reported that the patient had a fall around 1:[address] head without contrast was ordered which showed no intracranial abnormalities or acute hemorrhage, with the previous right hematoma 3 days back, and vitals were within normal limits after the event. -continued neuro checks monitoring with no abnormalities were detected. -pt is not on the any anticoag yet -WBC trending up this am, mostly from the reactive reaction from post pericardial drainage Vs recent GLF Vs infections for which procal and UA ordered to be followed up. 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 CODE STATUS: Full code DVT prophylaxis: SCDs until fully ambulatory Analgesia/sedation: morphine Lines/tubes: PIV GI prophylaxis: Pantaprazole 40mg Nutrition: Clear liquid, as per surgical team Prognosis: Guarded Disposition: Continue medical management including IV antibiotics, and follow the surgical team management plan, continuous telemetry monitoring and follow up with cardiology team, monitor bowel movement and an electrolyte imbalances, prevent postop complications, possible arrangement for PCP/Oncology in outpatient for the possible malignant left breast lesion for further management plan and try to contact POA/ family member and PCP, PT eval and DC plan. Resident MD attestation: Patient was seen, examined and discussed with attending MD, Dr. Odalis BLANCA MD Internal Medicine Resident, PGY3 [facility] Date of Service: Dec 13, 2024 Billing Provider: CORINNE OSCAR MD Common Visit Codes: 57256-[id number] INP/OBS CARE(HIGH) KAM BLANCA RES Dec 13, 2024 16:28 CORINNE OSCAR MD Dec 14, 2024 07:41
[2024-12-13] MEDS: K and/or MAG REPLACEMENT MC SCH (20:00)
[2024-12-13] MEDS: diatr meglu/diatrizoate 30ml oral sol.-(3 dose) bottle PO SCH (21:00)
[2024-12-14] VITALS (9 sets, daily range): BP systolic 103–146; BP diastolic 62–91; PULSE 63–99; RESP 10–18; TEMP 96.7–98.5; O2SAT 92–97
[2024-12-14 06:35] LABS: MEAN PLATELET VOLUME 8.1 FL (7.4-10.4); RED CELL DISTRIBUTION WIDTH 14.0 % (11.5-14.5)
[2024-12-14 06:54] LABS: CREATININE 0.63 MG/DL (0.40-0.90); TOTAL CARBON DIOXIDE 33.1 MMOL/L (24-32); eCRCL 91 ML/MIN; eGFR > 90 ML/MIN
[2024-12-14 08:58] LABS: BANDS% (MANUAL) 1.0 % (0-10); EOSINOPHILS % (MANUAL) 2.0 % (0-6); LYMPHOCYTES % (MANUAL) 23.0 % (21-51); METAMYLEOCYTES% (MANUAL) 3.0 % (0-0); MONOCYTES % (MANUAL) 8.0 % (2-12); NEUTROPHILS % (MANUAL) 63.0 % (42-75); PLATELET ESTIMATE NORMAL
--- NOTE | 2024-12-14 10:03 | PROGRESS NOTE- Residence ---
Progress Note - Resident Providers to CC Resident Creating Document: SERGE CORNEJO, RES ~ Antibiotic Timeout Antibiotic Ordered?: Yes Subjective The patient has been evaluated at the bedside. The patient is complaining of bright red bowel movements which started today, one episode in the morning, some associated abdominal pain 2/10 in intensity without radiation localized diffusely in the abdomen. Objective Vital Signs Date Time Temp Pulse Resp B/P (MAP) Pulse Ox O2 Delivery O2 Flow Rate FiO2 12/14/24 08:08 78 18 93 Room Air* 0 21 12/14/24 02:00 97.5 115/62 (79) Physical exam: General: Well alert, well oriented, not confused, not agitated, mildly acute distress, well cooperated during the physical. HEENT: Conjunctive are pink, sclerae clear, no icterus, pupil is equal in both sides, reactive to light, no ear discharge, no pharyngeal erythema or an edema. Presence of right periorbital hematoma-improved. Neck: Supple, no JVD, no lymphadenopathy and thyromegaly. Chest: Equal air entry on both lungs, no evidence of crackles or wheezing. Incision side from previous drainage without signs of infection or inflammation. Cardiovascular: S1-S2 regular sinus rhythm and, regular rate, no gallops, no rubs, no murmurs Abdomen: Tenderness in the level of the epigastrium and lower abdomen, presence of albino in the midline of the abdomen, no signs of infection or inflammation, presence of SIVA drain that the right side of the abdomen with serous fluid drainage. Extremities: No obvious deformities, no pitting edema bilaterally, capillary refill intact, peripheral pulsations are intact on both sides, presence of scars in the level of the lower extremities from previous surgeries. Central Nervous System: No focal neurological deficits, no motor or sensory weakness in all 4 extremities, could move all 4 extremities, 2+ deep tendon reflexes, negative Babinski. Musculoskeletal: No joint swelling, deformities, inflammations, and no scoliosis and back tenderness Skin: Warm and dry. Result Diagram: 12/14/2461712/14/24617 Coagulation Studies Laboratory Tests Test 12/03/24 07:49 D-Dimer 3.25 MG/L FEU (0-0.50) H D-Dimer Comment Assessment Assessment 59-year-old female patient came to the hospital with chief complaint of chest pain. Plan Plan 1. Acute pericarditis with pericardial effusion s/p pericardiocentesis on 12/05/2024: Exudative pericardial effusion: Follow-up echo showed very small pericardial effusion. Follow-up echocardiogram showed very small pericardial effusion. Plan: Pending pathology results from pericardial fluid. The patient will require primary for care physician for follow-up. The patient will need follow-up with Oncology. 2. Hematochezia: Possible lower GI bleeding: The patient had an episode of hematochezia on 12/14/2024. Hemoglobin dropped by two points. Avoid NSAIDs, held clopidogrel. 3. Possible left breast malignancy with possible lung metastasis: Recommends correlation with mammography and breast ultrasound. The patient is evaluation of a left breast mass. Left pleural effusion Left upper lingular segment, left lower lobe consolidation Acute hypoxemic respiratory failure secondary to acute exacerbation of diastolic congestive heart failure: Currently on antibiotics based on ampicillin/sulbactam. Management per primary team. 4. Diastolic congestive heart failure: Echocardiogram: Normal LV size and wall thickness. Overall systolic function is hyperdynamic. Intra-cavitary gradient is present with resting gradient of 30 mmHg increasing to 42 mmHg with valsalva. RV is normal size and function. Trileaflet AV appears mildly sclerotic without stenosis. Increased velocities across the AV/LVOT with resting gradient of 21 mmHg increasing to 31 mmHg with valsalva due to hyperdynamic LV function. No insufficiency. Mild mitral annular calcification without stenosis. Trace regurgitation.The tricuspid valve is normal in structure with trace regurgitation. Moderate circumferential pericardial effusion with fibrinous material seen. Recommend clinical correlation. Follow-up echocardiogram on 12/06/2024 after the procedure: Overall LVEF is 80%. LV appears hypovolemic with hyperdynamic function. Small circumferential, but mostly apically located, pericardial effusion is present s/p pericardiocentesis without obvious hemodynamic compromise. 5. Peritonitis: S/p exploratory laparotomy, partial colectomy involving distal transverse and proximal left colon on 12/08/2024: The patient underwent exploratory laparotomy, partial colectomy involving distal transverse and proximal left colon on 12/08/2024: Dr. Pressley. Pathology: Colonic perforation with the acute serositis and fibrinopurulent exudate. Background, with viable mucosa, no dysplasia or carcinoma identified. One lymph node negative for carcinoma. Currently on ampicillin/sulbactam. Management as per Dr. Pressley. 6. AFib with RVR likely secondary to pericarditis itself or post procedural: Chads Vasc score: 4 points: The patient developed AFib with RVR during the night of 12/06/2024. No new episodes of atrial fibrillation, telemetry monitoring showing sinus rhythm, heart rate within reference range. Plan: If another episode of AFib with RVR is evidenced, restarted IV amiodarone and continue until drainage is on place. We will consider anticoagulation for discharge. No anticoagulation recommended for now due to possible GI bleeding. 7. Acute kidney injury secondary to NSAIDs use-resolved: Early acute tubular necrosis-resolved: Creatinine trended down from 1.65-0.84 after stopping NSAIDs. Plan: Continue to monitor CMP. 8. Cerebrovascular accident 9. 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 Anxiety Continue atorvastatin, gabapentin, clonazepam, antibiotics per hospitalist team. Disposition: The patient is currently on sinus rhythm, holding clopidogrel due to GI bleeding. Serge Carrasquillo Internal Medicine Resident [facility] Patient seen and examined by Dr. Melissa POMPA. Primary team evaluating for blood in her stools. Date of Service: Dec 14, 2024 Billing Provider: VIANCA PRECIADO MD, FRANCO LUIS, RES Dec 14, 2024 10:03 VIANCA PRECIADO MD Dec 14, 2024 13:49
[2024-12-14 10:39] LABS: APTT 26 SECONDS (22-32); INR 1.0 INR
--- NOTE | 2024-12-14 10:42 | CARDIOLOGY REPORT ---
DATE OF SERVICE: 12/05/2024 DICTATING PHYSICIAN: SERGEY Lucero MD PERICARDIOCENTESIS GENDER: Female. AGE: 59 years INDICATION: The patient is a 59-year-old postmenopausal female who came to the hospital with fatigue and tiredness and found to have a large pericardial effusion on CT scan of the left breast mass. Echocardiogram also showed significant pericardial effusion with near tamponade features. The patient had elevated JVD, shortness of breath and after discussing risks, benefits, and alternative options, the patient is now undergoing pericardiocentesis. Risks, benefits, and alternative options were discussed. Informed consent was obtained and other comorbidities include anxiety, bipolar disorder, history of left Sanchez's palsy, history of TIA, and hypertension. PROCEDURE TECHNIQUE: Procedure carried out in the biology laboratory assistant under conscious sedation. The patient tolerated the procedure well. PROCEDURES DONE: * Fluoroscopy. * Pericardiocentesis. * Conscious sedation for 30 minutes. SURGEON: SERGEY Lucero MD, [facility] PROCEDURE IN DETAIL: upper abdominal area , with existing his sternum is Center, was prepped and draped in the usual fashion. Procedure was done with conscious sedation and local anesthesia. This was done under fluoroscopy and echo guidance using a pericardiocentesis needle starting underneath the area aiming towards the left mid pole in the 45 degree and slowly advanced after finding the pericardium. Then, the pericardial space was entered and clear lianet-colored fluid was aspirated. After that, a wire was put in; however, there was resistance to advance the pericardial catheter, it required dilatation with 7 and 8-Kiswahili catheters and then subsequently all the way into the pericardial space and about 350 mL of lianet-colored fluid was aspirated. Fluid sent for cytology, malignant cells, Gram stain, protein, glucose, LDH and unspecific cavity. IMPRESSION AND PLAN: A 59-year-old female with a large pericardial effusion who underwent successful pericardial effusion with near tamponade features, underwent successful pericardiocentesis, 380 mL of fluid was aspirated, connected to negative suction, and was transferred in stable condition. Fluid was sent for analysis. The primary team will also evaluate for underlying left breast mass for possible malignancy. SERGEY Lucero MD TID: [id number] RECEIPT: [id number] AYAD/STANLEY/FRANCIS MTDD
--- NOTE | 2024-12-14 14:40 | PROGRESS NOTE- Residence ---
Progress Note - Resident Providers to CC Resident Creating Document: KAM BLANCA RES ~ Antibiotic Timeout Antibiotic Ordered?: Yes Subjective The patient reported that she had a little bit of for hematochezia last night and large amount of the bright red colored stools/ hematochezia this morning. However, the patient does not complain about any progressive worsening abdominal pain and nausea or vomiting including hematemesis this morning. She did not report for any new changes today including generalized weakness. Objective Vital Signs Date Time Temp Pulse Resp B/P (MAP) Pulse Ox O2 Delivery O2 Flow Rate FiO2 12/14/24 11:00 98.5 71 11 108/70 (83) 96 Room Air 12/14/24 08:08 0 21 Result Diagram: 12/14/24 0618 12/14/24 0618 Patient was seen at the bedside this morning. The patient's vital signs were stable at the moment temp on room air. On exam, General: The patient was alert, Well alert x 4, well oriented x 4, not confused x 4, not agitated x 4, not in acute distress, well cooperated during the physical. HEENT: There was a slight right forehead hematoma and old bruises. Conjunctive are pink, sclera clear, no icterus, pupils are equal and reactive to lights in both sides. There is no ear discharge present, no pharyngeal erythema or edema. Upon checking, the mouth and lips are moist. NG tube decompression in situ. Neck: Supple, JVD elevated, no lymphadenopathy and thyromegaly. Lungs: Patient is coughing and there is equal air entry on both lungs, and no more chest pain with deep inspiration. Chest: No signs of inflammation was present on drainage site Breast and axilla: NO signs of visible mastitis, infection, inflammation, any skin changes, and lymphatic drainage abnormalities on inspection. No bilateral Breast or axillary lymphadenopathy were noted on palpation. Heart: Regular S1-S2 present, regular rate, no gallops, pericardial friction rub heard and no murmurs Abdomen: Surgical dressing over incision site is clean, dry and intact with no signs of erythema, drainage or dehiscence. SIVA drain is in place with approximately lesser than 100cc of serosanguinous fluid this morning, and no signs of infection or obstruction. Bowel sounds sluggish on auscultation, soft, slight tender at the operated area due to post op ex lap, no guarding, no rigidity. Extremities: No obvious deformities, no pitting edema bilaterally, capillary refill intact, able to wiggle toes both sides, peripheral pulsations are intact on both sides CONCRETE POINTER: No focal neurological deficits, no motor and sensory weakness in all 4 extremities, could move all 4 extremities Musculoskeletal: No joint swelling, deformities, inflammations, and no scoliosis and back tenderness Skin: No active skin lesions and rashes. Coagulation Studies Laboratory Tests Test 12/03/24 07:49 12/14/24 09:13 D-Dimer 3.25 MG/L FEU (0-0.50) H D-Dimer Comment Prothrombin Time 10.7 SECONDS (9.0-12.0) INR International Normalized Ratio 1.0 INR Activated Partial Thromboplast Time 26 SECONDS (22-32) Coagulation Comments Assessment Assessment A 59 year old female with past history of hypertension, CVA/ TIA, and Anxiety/bipolar disorder/depression was presented with chest pain with elevated D-Dimeres and admitted to rule out Acute PE with Cleared CTA chest and found to have the community acquired pneumonia, left breast mass lesion with the pericardial and small left pleural effusion. The pericardial fluid was drained with drainage tube. New onset Afib was developed post pericardial drain and currently converted to the normal sinus again. Patient complained of stomach pain most likely due to patient being on ibuprofen or gastrointestinal issue. WBCs were uptrending. Patient has undergone s/p exploratory laparotomy, partial left descending colectomy and take down splenic flexure for perforated viscus by Dr Pressley on 12/09/24. Patient complained of post op abdominal pain around incision site, and hypokalemia was recorded on labs. Patient stayed was complicated with the hematochezia and hemoglobin downtrending. Plan Plan # hematochezia -patient was reported to have 2 times of hematochezia with a bright red colored in the stool -hemoglobin trending down to 10s from 12 -H&H q.12 hours, coagulation profile within normal limits -held Plavix, NSAIDs -monitor bowel movement, continue Protonix b.i.d. although her hematochezia has lesser chance from upper GI bleeding without evidence of upper GI bleed. # s/p exploratory laparotomy, partial left descending colectomy and take down splenic flexure # Perforated distal transverse colon # pneumoperitoneum and peritonitis 12/14/2024: Postop day five, continue with Dr. Pressley plan including CT abdomen and pelvis with oral and IV contrast for the possible colitis -Dr. Pressley aware of the patient hematochezia this morning. -continue pain control 12/13/2024: Postop day four, Dr. Pressley is following the patient -patient abdominal pain is getting better on oral [place] and IV Dilaudid as needed -had 3 times bowel movement so far, currently on full liquid diet -stopped IV fluid as patient intake enough, advance diet as per surgical team management plan -follow up with the CT abdomen and pelvis 12/12/2024: Postop day 3, occasional abdominal pain over the surgical wound, controlling with IV Dilaudid to continue -started p.o. [place] 5 or 10 according to the pain scale q.4 hours. -continue as per surgical team management plan, advanced the diet to full liquid diet today. -monitor flatus pass and bowel movement. 12/11/2024: Continue IV Dilaudid 1 mg q.4 hours as needed -switch to amoxicillin/sulbactum q.6 hours IV after ceftriaxone/metronidazole/azithromycin were stopped. -surgical teams following the patient, continue clear diet as per surgery until bowel gas pass 12/10/2024: Patient complained of post op pain, dilaudid was increased from 0.5mg to 1mg as per doctors orders. Discontinued azithromycin as she completed the course, Ceftriaxone and metronidazole will be continued. Continue post op care as per surgical team management plan. 12/09/2024:-There was sensitive contamination present in the peritoneal cavity and collections were obtained. -surgery done by Dr Pressley on 12/09/24. -currently on IV ceftriaxone, azithromycin, and metronidazole -continue postop care in CICU as per surgical team management plan 12/08/2024: -Given radiological finding of pneumoperitoneum on CXR on 12/07/24, CT Chest Abdomen and pelvis with IV Contrast was ordered which resulted into A large volume pneumoperitoneum consistent with bowel/viscus perforation was observed with a small amount of ascites. Moderate volume, free pelvic fluid and the free pelvic fluid may represent a developing abscess. Surgery was consulted and patient was taken to OR for exploratory laparotomy. -CT scan also showed Enlarged mesenteric lymph nodes up to 1.8 cm could represent reactive changes, mesenteric adenitis, other infectious / inflammatory processes. Colonic diverticular disease. Posterior wall gastric diverticulum. -f/up with Dr Pressley Surgical team management plan in the post ex laparotomy. -elevated procalcitonin, Trending down WBC which was 2/2 from the peritonitis and peritonitis Vs Possible LUTIs/bacteuria with no symptoms # Acute pericarditis with pericardial effusion s/p pericardiocentesis on 12/05/2024 # Exudative pericardial effusion 12/07/24: Lights criteria was used, which a showed 98% sensitivity for an exudative effusion possibly due to metastasis from left breast mass. -continue IV fluid and analgesic and colchicine 12/08/24: Pericardial tube was removed on 12/08/2024, and ibuprofen was also discontinued due to up trending creatinine. ProBNP trended up from 247 to 1313. Stopped IV Fluid. 12/11/2024: Dr. Lucero cardiology team is following the patient. 12/12/2024: No special changes from the Cardiology team, continue current treatment 12/13/2024: Continue colchicine and ibuprofen as prescribed, continue Dr. Oconnell cardiology management plan. 12/14/2024: Continue as per cardiology management plan and NSAIDs was stopped already before hematochezia # Hypertension 12/09/24: BP has been trending up to 160/170s systolic and urine output has been trending down to 20 an hour. Hydralazine as prn, and lasix 20 were ordered. Continue to monitor blood pressure. 12/10/24: BP today was 114/86 mmhg and patient is currently on lisinopril 20mg 12/11/2024: Continue p.o. lisinopril 20 mg and continuous monitoring BP 12/12/2024: BP starting to be controlled and continue same medication, control the pain as well. 12/13/2024: BP well-controlled around 120/60 mm Hg, continue current medications. # Fibrinous circumferential pericardial effusion with impending signs of cardiac tamponade # Possible left breast malignancy with possible lung metastasis # Left pleural effusion # Left upper lingular segment, left lower lobe consolidation- Community acquired pneumonia covering with broad spectrum ABx # Acute hypoxemic respiratory failure secondary to acute exacerbation of diastolic congestive heart failure ECHO :Normal LV size and wall thickness. Overall systolic function is hyperdynamic. Intra-cavitary gradient is present with resting gradient of 30 mmHg increasing to 42 mmHg with valsalva. RV is normal size and function. Trileaflet AV appears mildly sclerotic without stenosis. Increased velocities across the AV/LVOT with resting gradient of 21 mmHg increasing to 31 mmHg with valsalva due to hyperdynamic LV function. No insufficiency. Mild mitral annular calcification without stenosis. Trace regurgitation.The tricuspid valve is normal in structure with trace regurgitation. Moderate circumferential pericardial effusion with fibrinous material seen. Recommend clinical correlation. Follow-up echocardiogram on 12/06/2024 after the procedure showing less pericardial effusion, drainage in place. CTA Chest/Thorax: No evidence for large pulmonary embolism.Large pericardial effusion. Recommend cardiology / thoracic surgery consultation for further evaluation / management. Small left pleural effusion. Left upper lobe lingular segment, left lower lobe consolidation/developing atelectasis. 3.4 cm left breast lesion. Recommend correlation with mammography and breast ultrasound. Supraclavicular lymphadenopathy 12/08/24: continue IV Ceftriaxone and Azithromycin- Day 5 so far and switch to the IV ABx as per Surgical management in the post Ex lap. -Continue Duoneb and respiratory rehab -We will arrange to set up with PCP and Oncology out patient management on discharge -Tracking Pericardial fluid analysis including cytology report and recent mammogram what the pt stated for normal report in the last 3-6 months. -continue IV reglan 10 mg Q6H prn for the acute gastric pain and no BM 12/09/24: Continue current management plan 12/11/2024: Switch to IV amoxicillin/sulbactam-day one 12/12/2024: Continue current IV antibiotics day two 12/13/2024: Continue IV amoxicillin/sulbactam day three -patient was discussed about the possible malignant lesion over left breast mass and she stated that the mammogram on last December was clear. 12/14/2024: Continue IV amoxicillin/Sulbactam day 4. # AFib with RVR likely secondary to pericarditis itself or post procedural- converted to sinus Chads Vasc score: 4 points The patient developed AFib with RVR during the night of 12/06/2024. Plan: If another episode of AFib with RVR is evidenced, plan to restart IV amiodarone and continue it until drainage is removed. 12/07/24: remains sinus persistently after IV amiodarone was discontinued. 12/08/24: Patient continues to be in sinus rhythm. -continue telemetry monitoring in PCU 12/09/2024: Plan for amiodarone for recurrent AFib again, remains persistent sinus rhythm 12/11/2024: Remains sinus, we will consider amiodarone again if the patient is converted back to AFib rhythm again. Not currently on any oral anticoagulation. 12/12/2024: Remains sinus rhythm. 12/13/2024: Remained sinus rhythm today. # JASE- possibly from the NSAIDs induced Vs renal tubular stasis # Electrolytes imbalances-hyponatremia/hypokalemia # selective hypoalbuminemia 12/08/2024:-Cr trending with IV fluid and stopped the fluid -stopped NSAIDs -we will order urine lytes and continue monitoring CMP -replace as per protocol for the electrolyte imbalances -encourage protein diet 12/09/2024: Continue IV fluid, normalized kidney function today 12/11/2024: Normalized renal function # Ground level Fall on 12/07/24 -Nurse reported that the patient had a fall around 1:[address] head without contrast was ordered which showed no intracranial abnormalities or acute hemorrhage, with the previous right hematoma 3 days back, and vitals were within normal limits after the event. -continued neuro checks monitoring with no abnormalities were detected. -pt is not on the any anticoag yet -WBC trending up this am, mostly from the reactive reaction from post pericardial drainage Vs recent GLF Vs infections for which procal and UA ordered to be followed up. 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 CODE STATUS: Full code DVT prophylaxis: SCDs until fully ambulatory Analgesia/sedation: morphine Lines/tubes: PIV GI prophylaxis: Pantaprazole 40mg Nutrition: Clear liquid, as per surgical team Prognosis: Guarded Disposition: Continue medical management including IV antibiotics, and follow the surgical team management plan and proceed with CTAP w/ contrast, continuous telemetry monitoring and follow up with cardiology team, monitor bowel movement, possible arrangement for PCP/Oncology in outpatient for the possible malignant left breast lesion for further management plan and try to contact POA/ family member and PCP, PT eval and DC plan. Resident MD attestation: Patient was seen, examined and discussed with attending MD, Dr. Odalis BLANCA MD Internal Medicine Resident, PGY3 [facility] Date of Service: Dec 14, 2024 Billing Provider: CORINNE OSCAR MD Common Visit Codes: 51211-[id number] INP/OBS CARE(HIGH) KAM BLANCA, RES Dec 14, 2024 14:40 CORINNE OSCAR MD Dec 16, 2024 07:48
[2024-12-14 16:02] LABS: MEAN PLATELET VOLUME 8.0 FL (7.4-10.4); RED CELL DISTRIBUTION WIDTH 14.3 % (11.5-14.5)
--- NOTE | 2024-12-14 16:24 | PROGRESS NOTE ---
Progress Note ID Providers to CC ~ Progress Note Progress Note: pain improving-awaiting ct KHRIS LUIS MD Dec 14, 2024 16:24
[2024-12-14] MEDS ORDERED: iohexol 300mg/ml 100ml inj. ONE (16:49)
--- NOTE | 2024-12-14 18:10 | RADIOLOGY REPORT ---
Indication: WBC INCREASED X 2D Technique: CT axial images of the chest, abdomen and pelvis are obtained with intravenous contrast. Coronal and sagittal reformats were obtained. Radiation Dose Information: CTDI volume is 34.2 mGy. Dose-length product is 2540 mGy*cm Comparison: CT CT CHEST ABDOMEN PELVIS W/ IV CONTRAST on DOS: 12/08/24 FINDINGS: The trachea is patent. No pneumothorax. Right lower lobe atelectasis. 5 mm right lower lobe solid nod ule. Left upper lobe lingular segment atelectasis. Left lower lobe consolidation/atelectasis. Moderate left pleural effusion. Trace right pleural effus ion. Heart size at the upper limits of normal. No supraclavicular, axillary lymphadenopathy. Left breast nodular lesion measuring 3.7 cm. Adrenal glands, spleen, pancreas unremarkable. No enhancing hepatic lesion. No CT evidence for cholel ithiasis. The kidneys demonstrate no hydronephrosis. Stomach is partially distended. Moderate distention of the small bowel loops. Postsurgical changes of the bowel in the left abdomen in the region of the descending colon Since the prior examination. The re is moderate bowel wall edema / thickening at the region of the surgical anastomosis. Moderate dist ention of the large bowel proximal to the anastomosis up to 6.57. Luminal narrowing of the surgical a nastomosis in the left abdomen/paracolic gutter. Right abdominal approach drainage catheter coursing into the pelvis and terminating in the left lower quadrant of the abdomen. Interval decreased pneumoperitoneum. Mesenteric edema/stranding. Abdominal aorta normal in caliber. Bladder partially decompressed by Luu catheter. Presacral edema. No evidence for contrast extravasation present. Soft tissue edema / anasarca. Scattered mesenteric lymph nodes measuring up to approximately 1 cm. Right shoulder arthroplasty hardware. [id number] thoracolumbar degenerative disc disease. IMPRESSION: Interval postsurgical changes abdomen of the descending colon. Moderate bowel wall thickening/ edema in the region of the surgical anastomosis could represent colitis. Interval decreased pneumoperitoneum. Moderate distention of the large bowel loops proximal to the surgical anastomosis in the left abdomen , up to 6.5 cm. Correlate exclude any type of stricture/ obstructive etiology at the surgical anasto mosis. Follow-up KUB / CT scan can be obtained to evaluate the progression of contrast. No evidence for enteric contrast extravasation. Enteric contrast reaches the distal small bowel. Soft tissue edema /anasarca. Left lower lobe consolidation/atelectasis. Moderate left pleural effusion. 3.7 cm left breast nodule lesion. Correlate with mammography, breast ultrasound. Scattered mesenteric lymph nodes. Other findings as described.
[2024-12-15] VITALS (11 sets, daily range): BP systolic 87–108; BP diastolic 60–76; PULSE 66–88; RESP 10–18; TEMP 97.6–98.8; O2SAT 93–95
[2024-12-15 06:38] LABS: MEAN PLATELET VOLUME 7.9 FL (7.4-10.4); RED CELL DISTRIBUTION WIDTH 14.4 % (11.5-14.5)
[2024-12-15 07:08] LABS: CREATININE 0.68 MG/DL (0.40-0.90); TOTAL CARBON DIOXIDE 32.8 MMOL/L (24-32); eCRCL 84 ML/MIN; eGFR 89 ML/MIN
[2024-12-15 09:26] LABS: BANDS% (MANUAL) 1.0 % (0-10); EOSINOPHILS % (MANUAL) 3.0 % (0-6); LYMPHOCYTES % (MANUAL) 14.0 % (21-51); MONOCYTES % (MANUAL) 5.0 % (2-12); NEUTROPHILS % (MANUAL) 77.0 % (42-75); PLATELET ESTIMATE NORMAL
[2024-12-15 15:59] LABS: MEAN PLATELET VOLUME 8.4 FL (7.4-10.4); RED CELL DISTRIBUTION WIDTH 14.1 % (11.5-14.5)
--- NOTE | 2024-12-15 16:31 | PROGRESS NOTE- Residence ---
Progress Note - Resident Providers to CC Resident Creating Document: SERGE CORNEJO RES ~ Antibiotic Timeout Antibiotic Ordered?: Yes Subjective The patient has been evaluated at the bedside. Doing better, asking about placement, eager to be discharged. Objective Vital Signs Date Time Temp Pulse Resp B/P (MAP) Pulse Ox O2 Delivery O2 Flow Rate FiO2 12/15/24 16:20 16 12/15/24 11:00 98.3 66 108/65 (79) 94 Room Air 12/15/24 07:44 0 21 Physical exam: General: Well alert, well oriented, not confused, not agitated, mildly acute distress, well cooperated during the physical. HEENT: Conjunctive are pink, sclerae clear, no icterus, pupil is equal in both sides, reactive to light, no ear discharge, no pharyngeal erythema or an edema. Presence of right periorbital hematoma-improved. Neck: Supple, no JVD, no lymphadenopathy and thyromegaly. Chest: Equal air entry on both lungs, no evidence of crackles or wheezing. Incision side from previous drainage without signs of infection or inflammation. Cardiovascular: S1-S2 regular sinus rhythm and, regular rate, no gallops, no rubs, no murmurs Abdomen: Tenderness in the level of the epigastrium and lower abdomen, presence of albino in the midline of the abdomen, no signs of infection or inflammation, presence of SIVA drain that the right side of the abdomen with serous fluid drainage. Extremities: No obvious deformities, no pitting edema bilaterally, capillary refill intact, peripheral pulsations are intact on both sides, presence of scars in the level of the lower extremities from previous surgeries. Central Nervous System: No focal neurological deficits, no motor or sensory weakness in all 4 extremities, could move all 4 extremities, 2+ deep tendon reflexes, negative Babinski. Musculoskeletal: No joint swelling, deformities, inflammations, and no scoliosis and back tenderness Skin: Warm and dry. Result Diagram: 12/15/24 1516 12/15/24 0625 Coagulation Studies Laboratory Tests Test 12/03/24 07:49 12/14/24 09:13 D-Dimer 3.25 MG/L FEU (0-0.50) H D-Dimer Comment Prothrombin Time 10.7 SECONDS (9.0-12.0) INR International Normalized Ratio 1.0 INR Activated Partial Thromboplast Time 26 SECONDS (22-32) Coagulation Comments Assessment Assessment 59-year-old female patient came to the hospital with chief complaint of chest pain. Plan Plan 1. Acute pericarditis with pericardial effusion s/p pericardiocentesis on 12/05/2024: Exudative pericardial effusion: Follow-up echo showed very small pericardial effusion. Follow-up echocardiogram showed very small pericardial effusion. Plan: Pending pathology results from pericardial fluid. The patient will require primary for care physician for follow-up. The patient will need follow-up with Oncology. 2. Hematochezia: Possible lower GI bleeding: The patient had an episode of hematochezia on 12/14/2024. Hemoglobin remained stable. Avoid NSAIDs, held clopidogrel. Management as per primary team. 3. Possible left breast malignancy with possible lung metastasis: Recommends correlation with mammography and breast ultrasound. The patient is evaluation of a left breast mass. Left pleural effusion Left upper lingular segment, left lower lobe consolidation Acute hypoxemic respiratory failure secondary to acute exacerbation of diastolic congestive heart failure: Currently on antibiotics based on ampicillin/sulbactam. Management per primary team. 4. Diastolic congestive heart failure: Echocardiogram: Normal LV size and wall thickness. Overall systolic function is hyperdynamic. Intra-cavitary gradient is present with resting gradient of 30 mmHg increasing to 42 mmHg with valsalva. RV is normal size and function. Trileaflet AV appears mildly sclerotic without stenosis. Increased velocities across the AV/LVOT with resting gradient of 21 mmHg increasing to 31 mmHg with valsalva due to hyperdynamic LV function. No insufficiency. Mild mitral annular calcification without stenosis. Trace regurgitation.The tricuspid valve is normal in structure with trace regurgitation. Moderate circumferential pericardial effusion with fibrinous material seen. Recommend clinical correlation. Follow-up echocardiogram on 12/06/2024 after the procedure: Overall LVEF is 80%. LV appears hypovolemic with hyperdynamic function. Small circumferential, but mostly apically located, pericardial effusion is present s/p pericardiocentesis without obvious hemodynamic compromise. 5. Peritonitis: S/p exploratory laparotomy, partial colectomy involving distal transverse and proximal left colon on 12/08/2024: The patient underwent exploratory laparotomy, partial colectomy involving distal transverse and proximal left colon on 12/08/2024: Dr. Pressley. Pathology: Colonic perforation with the acute serositis and fibrinopurulent exudate. Background, with viable mucosa, no dysplasia or carcinoma identified. One lymph node negative for carcinoma. Currently on ampicillin/sulbactam. Management as per Dr. Pressley. 6. AFib with RVR likely secondary to pericarditis itself or post procedural: Chads Vasc score: 4 points: The patient developed AFib with RVR during the night of 12/06/2024. No new episodes of atrial fibrillation, telemetry monitoring showing sinus rhythm, heart rate within reference range. Plan: If another episode of AFib with RVR is evidenced, restarted IV amiodarone and continue until drainage is on place. We will consider anticoagulation for discharge. No anticoagulation recommended for now due to possible GI bleeding. 7. Acute kidney injury secondary to NSAIDs use-resolved: Early acute tubular necrosis-resolved: Creatinine trended down from 1.65-0.84 after stopping NSAIDs. Plan: Continue to monitor CMP. 8. Cerebrovascular accident 9. 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 Anxiety Continue atorvastatin, gabapentin, clonazepam, antibiotics per hospitalist team. Disposition: Awaiting for placement by primary team. Serge Carrasquillo Internal Medicine Resident [facility] Patient seen and examined by Dr. Melissa POMPA. Patient being evaluated for placement. Date of Service: Dec 15, 2024 Billing Provider: VIANCA PRECIADO MD, FRANCO LUIS, RES Dec 15, 2024 16:31 VIANCA PRECIADO MD Dec 15, 2024 18:54
--- NOTE | 2024-12-15 19:12 | PROGRESS NOTE ---
Progress Note ID Providers to CC ~ Progress Note Progress Note: doing well/needs dc planning KHRIS LUIS MD Dec 15, 2024 19:12
--- NOTE | 2024-12-15 19:26 | PROGRESS NOTE- Residence ---
Progress Note - Resident Providers to CC Resident Creating Document: KAM BLANCA RES ~ Antibiotic Timeout Antibiotic Ordered?: Yes Subjective Patient does not complain any increasing/New abdominal pain at the moment. The nurses did not report any bloody bowel movement at the moment. Vitals were stable and no special events occurred overnight and this morning. The SIVA is still draining this morning. Objective Vital Signs Date Time Temp Pulse Resp B/P (MAP) Pulse Ox O2 Delivery O2 Flow Rate FiO2 12/15/24 16:20 16 12/15/24 15:00 98.8 82 103/69 (80) 95 Room Air 12/15/24 07:44 0 21 Result Diagram: 12/15/24 1516 12/15/24 0625 Patient was seen at the bedside this morning. The patient's vital signs were stable at the moment temp on room air. On exam, General: The patient was alert, Well alert x 4, well oriented x 4, not confused x 4, not agitated x 4, not in acute distress, well cooperated during the physical. HEENT: There was a slight right forehead hematoma and old bruises. Conjunctive are pink, sclera clear, no icterus, pupils are equal and reactive to lights in both sides. There is no ear discharge present, no pharyngeal erythema or edema. Upon checking, the mouth and lips are moist. NG tube decompression in situ. Neck: Supple, JVD elevated, no lymphadenopathy and thyromegaly. Lungs: Patient is coughing and there is equal air entry on both lungs, and no more chest pain with deep inspiration. Chest: No signs of inflammation was present on drainage site Breast and axilla: NO signs of visible mastitis, infection, inflammation, any skin changes, and lymphatic drainage abnormalities on inspection. No bilateral Breast or axillary lymphadenopathy were noted on palpation. Heart: Regular S1-S2 present, regular rate, no gallops, pericardial friction rub heard and no murmurs Abdomen: Surgical dressing over incision site is clean, dry and intact with no signs of erythema, drainage or dehiscence. SIVA drain is in place with serosanguinous fluid this morning, and no signs of infection or obstruction. Bowel sounds sluggish on auscultation, soft, slight tender at the operated area due to post op ex lap, no guarding, no rigidity. Extremities: No obvious deformities, no pitting edema bilaterally, capillary refill intact, able to wiggle toes both sides, peripheral pulsations are intact on both sides [employer]: No focal neurological deficits, no motor and sensory weakness in all 4 extremities, could move all 4 extremities Musculoskeletal: No joint swelling, deformities, inflammations, and no scoliosis and back tenderness Skin: No active skin lesions and rashes. Coagulation Studies Laboratory Tests Test 12/03/24 07:49 12/14/24 09:13 D-Dimer 3.25 MG/L FEU (0-0.50) H D-Dimer Comment Prothrombin Time 10.7 SECONDS (9.0-12.0) INR International Normalized Ratio 1.0 INR Activated Partial Thromboplast Time 26 SECONDS (22-32) Coagulation Comments Assessment Assessment 59-year-old female patient came to the hospital with chief complaint of chest pain. Plan Plan # hematochezia -patient was reported to have 2 times of hematochezia with a bright red colored in the stool -hemoglobin trending down to 10s from 12 -H&H q.12 hours, coagulation profile within normal limits -held Plavix, NSAIDs -monitor bowel movement, continue Protonix b.i.d. although her hematochezia has lesser chance from upper GI bleeding without evidence of upper GI bleed. 12/15/2024: Continue Protonix -continue monitoring bowel movement for any blood -hemoglobin stabilized around 10s and normal coagulation profile -stay on NPO, follow up with the surgical team for diet plan and discharge plan -no more special intervention/investigation from the medical team standpoint # s/p exploratory laparotomy, partial left descending colectomy and take down splenic flexure # Perforated distal transverse colon # pneumoperitoneum and peritonitis 12/15/2024: -continue amoxicillin/sulbactam-D6, up to two weeks for the possible peritonitis -CTA abdomen and pelvis with IV oral contrast showed Interval postsurgical changes abdomen of the descending colon. Moderate bowel wall thickening/ edema in the region of the surgical anastomosis could represent colitis. Interval decreased pneumoperitoneum. Moderate distention of the large bowel loops proximal to the surgical anastomosis in the left abdomen, up to 6.5 cm. Correlate exclude any type of stricture/ obstructive etiology at the surgical anastomosis. Follow-up KUB / CT scan can be obtained to evaluate the progression of contrast. No evidence for enteric contrast extravasation. Enteric contrast reaches the distal small bowel. Soft tissue edema /anasarca. Left lower lobe consolidation/atelectasis. Moderate left pleural effusion. 3.7 cm left breast nodule lesion. Correlate with mammography, breast ultrasound. Scattered mesenteric lymph nodes. 12/14/2024: Postop day five, continue with Dr. Pressley plan including CT abdomen and pelvis with oral and IV contrast for the possible colitis -Dr. Pressley aware of the patient hematochezia this morning. -continue pain control 12/13/2024: Postop day four, Dr. Pressley is following the patient -patient abdominal pain is getting better on oral [place] and IV Dilaudid as needed -had 3 times bowel movement so far, currently on full liquid diet -stopped IV fluid as patient intake enough, advance diet as per surgical team management plan -follow up with the CT abdomen and pelvis 12/12/2024: Postop day 3, occasional abdominal pain over the surgical wound, controlling with IV Dilaudid to continue -started p.o. [place] 5 or 10 according to the pain scale q.4 hours. -continue as per surgical team management plan, advanced the diet to full liquid diet today. -monitor flatus pass and bowel movement. 12/11/2024: Continue IV Dilaudid 1 mg q.4 hours as needed -switch to amoxicillin/sulbactum q.6 hours IV after ceftriaxone/metronidazole/azithromycin were stopped. -surgical teams following the patient, continue clear diet as per surgery until bowel gas pass 12/10/2024: Patient complained of post op pain, dilaudid was increased from 0.5mg to 1mg as per doctors orders. Discontinued azithromycin as she completed the course, Ceftriaxone and metronidazole will be continued. Continue post op care as per surgical team management plan. 12/09/2024:-There was sensitive contamination present in the peritoneal cavity and collections were obtained. -surgery done by Dr Pressley on 12/09/24. -currently on IV ceftriaxone, azithromycin, and metronidazole -continue postop care in CICU as per surgical team management plan 12/08/2024: -Given radiological finding of pneumoperitoneum on CXR on 12/07/24, CT Chest Abdomen and pelvis with IV Contrast was ordered which resulted into A large volume pneumoperitoneum consistent with bowel/viscus perforation was observed with a small amount of ascites. Moderate volume, free pelvic fluid and the free pelvic fluid may represent a developing abscess. Surgery was consulted and patient was taken to OR for exploratory laparotomy. -CT scan also showed Enlarged mesenteric lymph nodes up to 1.8 cm could represent reactive changes, mesenteric adenitis, other infectious / inflammatory processes. Colonic diverticular disease. Posterior wall gastric diverticulum. -f/up with Dr Pressley Surgical team management plan in the post ex laparotomy. -elevated procalcitonin, Trending down WBC which was 2/2 from the peritonitis and peritonitis Vs Possible LUTIs/bacteuria with no symptoms # Acute pericarditis with pericardial effusion s/p pericardiocentesis on 12/05/2024 # Exudative pericardial effusion 12/07/24: Lights criteria was used, which a showed 98% sensitivity for an exudative effusion possibly due to metastasis from left breast mass. -continue IV fluid and analgesic and colchicine 12/08/24: Pericardial tube was removed on 12/08/2024, and ibuprofen was also discontinued due to up trending creatinine. ProBNP trended up from 247 to 1313. Stopped IV Fluid. 12/11/2024: Dr. Lucero cardiology team is following the patient. 12/12/2024: No special changes from the Cardiology team, continue current treatment 12/13/2024: Continue colchicine and ibuprofen as prescribed, continue Dr. Oconnell cardiology management plan. 12/14/2024: Continue as per cardiology management plan and NSAIDs was stopped already before hematochezia 12/15/2024: Continue cardiology Dr. Lucero office in outpatient setting. # Hypertension 12/09/24: BP has been trending up to 160/170s systolic and urine output has been trending down to 20 an hour. Hydralazine as prn, and lasix 20 were ordered. Continue to monitor blood pressure. 12/10/24: BP today was 114/86 mmhg and patient is currently on lisinopril 20mg 12/11/2024: Continue p.o. lisinopril 20 mg and continuous monitoring BP 12/12/2024: BP starting to be controlled and continue same medication, control the pain as well. 12/13/2024: BP well-controlled around 120/60 mm Hg, continue current medications. # Fibrinous circumferential pericardial effusion with impending signs of cardiac tamponade # Possible left breast malignancy with possible lung metastasis # Left pleural effusion # Left upper lingular segment, left lower lobe consolidation- Community acquired pneumonia covering with broad spectrum ABx # Acute hypoxemic respiratory failure secondary to acute exacerbation of diastolic congestive heart failure ECHO :Normal LV size and wall thickness. Overall systolic function is hyperdynamic. Intra-cavitary gradient is present with resting gradient of 30 mmHg increasing to 42 mmHg with valsalva. RV is normal size and function. Trileaflet AV appears mildly sclerotic without stenosis. Increased velocities across the AV/LVOT with resting gradient of 21 mmHg increasing to 31 mmHg with valsalva due to hyperdynamic LV function. No insufficiency. Mild mitral annular calcification without stenosis. Trace regurgitation.The tricuspid valve is normal in structure with trace regurgitation. Moderate circumferential pericardial effusion with fibrinous material seen. Recommend clinical correlation. Follow-up echocardiogram on 12/06/2024 after the procedure showing less pericardial effusion, drainage in place. CTA Chest/Thorax: No evidence for large pulmonary embolism.Large pericardial effusion. Recommend cardiology / thoracic surgery consultation for further evaluation / management. Small left pleural effusion. Left upper lobe lingular segment, left lower lobe consolidation/developing atelectasis. 3.4 cm left breast lesion. Recommend correlation with mammography and breast ultrasound. Supraclavicular lymphadenopathy 12/08/24: continue IV Ceftriaxone and Azithromycin- Day 5 so far and switch to the IV ABx as per Surgical management in the post Ex lap. -Continue Duoneb and respiratory rehab -We will arrange to set up with PCP and Oncology out patient management on discharge -Tracking Pericardial fluid analysis including cytology report and recent mammogram what the pt stated for normal report in the last 3-6 months. -continue IV reglan 10 mg Q6H prn for the acute gastric pain and no BM 12/09/24: Continue current management plan 12/11/2024: Switch to IV amoxicillin/sulbactam-day one 12/12/2024: Continue current IV antibiotics day two 12/13/2024: Continue IV amoxicillin/sulbactam day three -patient was discussed about the possible malignant lesion over left breast mass and she stated that the mammogram on last December was clear. 12/14/2024: Continue IV amoxicillin/Sulbactam day 4. 12/15/2024: Continue IV antibiotics day five # AFib with RVR likely secondary to pericarditis itself or post procedural- converted to sinus Chads Vasc score: 4 points The patient developed AFib with RVR during the night of 12/06/2024. Plan: If another episode of AFib with RVR is evidenced, plan to restart IV amiodarone and continue it until drainage is removed. 12/07/24: remains sinus persistently after IV amiodarone was discontinued. 12/08/24: Patient continues to be in sinus rhythm. -continue telemetry monitoring in PCU 12/09/2024: Plan for amiodarone for recurrent AFib again, remains persistent sinus rhythm 12/11/2024: Remains sinus, we will consider amiodarone again if the patient is converted back to AFib rhythm again. Not currently on any oral anticoagulation. 12/12/2024: Remains sinus rhythm. 12/13/2024: Remained sinus rhythm today. # JASE- possibly from the NSAIDs induced Vs renal tubular stasis # Electrolytes imbalances-hyponatremia/hypokalemia # selective hypoalbuminemia 12/08/2024:-Cr trending with IV fluid and stopped the fluid -stopped NSAIDs -we will order urine lytes and continue monitoring CMP -replace as per protocol for the electrolyte imbalances -encourage protein diet 12/09/2024: Continue IV fluid, normalized kidney function today 12/11/2024: Normalized renal function # Ground level Fall on 12/07/24 -Nurse reported that the patient had a fall around 1:[address] head without contrast was ordered which showed no intracranial abnormalities or acute hemorrhage, with the previous right hematoma 3 days back, and vitals were within normal limits after the event. -continued neuro checks monitoring with no abnormalities were detected. -pt is not on the any anticoag yet -WBC trending up this am, mostly from the reactive reaction from post pericardial drainage Vs recent GLF Vs infections for which procal and UA ordered to be followed up. 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 CODE STATUS: Full code DVT prophylaxis: SCDs until fully ambulatory Analgesia/sedation: morphine Lines/tubes: PIV GI prophylaxis: Pantaprazole 40mg Nutrition: Clear liquid, as per surgical team Prognosis: Guarded Disposition: Continue medical management including IV antibiotics, and follow the surgical team management plan and proceed with CTAP w/ contrast, continuous telemetry monitoring and follow up with cardiology team, monitor bowel movement, possible arrangement for PCP/Oncology in outpatient for the possible malignant left breast lesion for further management plan and try to contact POA/ family member and PCP, PT eval and DC plan as per surgical team with the possible LTac. Resident MD attestation: Patient was seen, examined and discussed with attending MD, Dr. Odalis BLANCA MD Internal Medicine Resident, PGY3 [facility] Date of Service: Dec 15, 2024 Billing Provider: CORINNE OSCAR MD Common Visit Codes: [id number] INP/OBS CARE(HIGH) KAM BLANCA, RES Dec 15, 2024 19:26 CORINNE OSCAR MD Dec 16, 2024 07:49
[2024-12-16] VITALS (11 sets, daily range): BP systolic 92–104; BP diastolic 45–72; PULSE 66–95; RESP 11–22; TEMP 97.8–98.3; O2SAT 92–97
[2024-12-16] MEDS: HYDROcodone/acetaminophen 5mg/325mg tablet PO PRN (04:01)
[2024-12-16 11:26] LABS: MEAN PLATELET VOLUME 8.4 FL (7.4-10.4); RED CELL DISTRIBUTION WIDTH 14.2 % (11.5-14.5)
--- NOTE | 2024-12-16 12:33 | PROGRESS NOTE- Residence ---
Progress Note - Resident Providers to CC Resident Creating Document: LETY CASE RES CC: VIANCA PRECIADO MD ~ Antibiotic Timeout Antibiotic Ordered?: Yes Subjective Patient has no acute overnight symptoms. However she does feel tired compared to yesterday. Decrease in hemoglobin from 10 to 8.4 and patient has a melenic stools which has increased today. Denies any chest pain or shortness of breaths Objective Vital Signs Date Time Temp Pulse Resp B/P (MAP) Pulse Ox O2 Delivery O2 Flow Rate FiO2 12/16/24 09:41 12 12/16/24 08:16 89 92 Room Air* 0 21 12/16/24 02:00 98.0 96/45 (62) Physical exam: General: Well alert, well oriented, not confused, not agitated,well cooperated during the physical. HEENT: Conjunctive are pink, sclerae clear, no icterus, pupil is equal in both sides, reactive to light, no ear discharge, no pharyngeal erythema or an edema. Presence of right periorbital hematoma-improved. Neck: Supple, no JVD, no lymphadenopathy and thyromegaly. Chest: Equal air entry on both lungs, no evidence of crackles or wheezing. Incision side from previous drainage without signs of infection or inflammation. Cardiovascular: S1-S2 regular sinus rhythm and, regular rate, no gallops, no rubs, no murmurs Abdomen: Tenderness in the level of the epigastrium and lower abdomen, presence of albino in the midline of the abdomen, no signs of infection or inflammation, SIVA drain has been removed today,last drain was 80ml Extremities: No obvious deformities, no pitting edema bilaterally, capillary refill intact, peripheral pulsations are intact on both sides, presence of scars in the level of the lower extremities from previous surgeries. Central Nervous System: No focal neurological deficits, no motor or sensory weakness in all 4 extremities, could move all 4 extremities, 2+ deep tendon reflexes, negative Babinski. Musculoskeletal: No joint swelling, deformities, inflammations, and no scoliosis and back tenderness Skin: Warm and dry. Result Diagram: 12/16/24 1048 12/15/24 0625 Coagulation Studies Laboratory Tests Test 12/03/24 07:49 12/14/24 09:13 D-Dimer 3.25 MG/L FEU (0-0.50) H D-Dimer Comment Prothrombin Time 10.7 SECONDS (9.0-12.0) INR International Normalized Ratio 1.0 INR Activated Partial Thromboplast Time 26 SECONDS (22-32) Coagulation Comments Assessment Assessment 59-year-old female patient came to the hospital with chief complaint of chest pain. Plan Plan 1. Acute pericarditis with pericardial effusion s/p pericardiocentesis on 12/05/2024: Exudative pericardial effusion: Follow-up echo showed very small pericardial effusion. Follow-up echocardiogram showed very small pericardial effusion. Plan: Pending pathology results from pericardial fluid. The patient will require primary for care physician for follow-up. The patient will need follow-up with Oncology. 2. Hematochezia: Possible lower GI bleeding: The patient had an episode of hematochezia on 12/14/2024. Patient had increasing melanic stools today, drop in hemoglobin to 8.4 from 10 Avoid NSAIDs, held clopidogrel. Management as per primary team. 3. Possible left breast malignancy with possible lung metastasis: Recommends correlation with mammography and breast ultrasound. The patient is evaluation of a left breast mass. Left pleural effusion Left upper lingular segment, left lower lobe consolidation Acute hypoxemic respiratory failure secondary to acute exacerbation of diastolic congestive heart failure: Currently on antibiotics based on ampicillin/sulbactam. Management per primary team. 4. Diastolic congestive heart failure: Echocardiogram: Normal LV size and wall thickness. Overall systolic function is hyperdynamic. Intra-cavitary gradient is present with resting gradient of 30 mmHg increasing to 42 mmHg with valsalva. RV is normal size and function. Trileaflet AV appears mildly sclerotic without stenosis. Increased velocities across the AV/LVOT with resting gradient of 21 mmHg increasing to 31 mmHg with valsalva due to hyperdynamic LV function. No insufficiency. Mild mitral annular calcification without stenosis. Trace regurgitation.The tricuspid valve is normal in structure with trace regurgitation. Moderate circumferential pericardial effusion with fibrinous material seen. Recommend clinical correlation. Follow-up echocardiogram on 12/06/2024 after the procedure: Overall LVEF is 80%. LV appears hypovolemic with hyperdynamic function. Small circumferential, but mostly apically located, pericardial effusion is present s/p pericardiocentesis without obvious hemodynamic compromise. 5. Peritonitis: S/p exploratory laparotomy, partial colectomy involving distal transverse and proximal left colon on 12/08/2024: The patient underwent exploratory laparotomy, partial colectomy involving distal transverse and proximal left colon on 12/08/2024: Dr. Pressley. Pathology: Colonic perforation with the acute serositis and fibrinopurulent exudate. Background, with viable mucosa, no dysplasia or carcinoma identified. One lymph node negative for carcinoma. Currently on ampicillin/sulbactam. Management as per Dr. Pressley. 6. AFib with RVR likely secondary to pericarditis itself or post procedural: Chads Vasc score: 4 points: The patient developed AFib with RVR during the night of 12/06/2024. No new episodes of atrial fibrillation, telemetry monitoring showing sinus rhythm, heart rate within reference range. Plan: If another episode of AFib with RVR is evidenced, restarted IV amiodarone and continue until drainage is on place. We will consider anticoagulation for discharge. No anticoagulation recommended for now due to possible GI bleeding. 7. Acute kidney injury secondary to NSAIDs use-resolved: Early acute tubular necrosis-resolved: Creatinine trended down from 1.65-0.84 after stopping NSAIDs. Plan: Continue to monitor CMP. 8. Cerebrovascular accident 9. 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 Anxiety Continue atorvastatin, gabapentin, clonazepam, antibiotics per hospitalist team. Disposition: Awaiting for placement by primary team. Lety Case Internal Medicine Resident [facility] Patient seen and examined by Dr. Melissa POMPA. Noted ongoing workup for GI bleed. Date of Service: Dec 16, 2024 Billing Provider: VIANCA PRECIADO MD, JAHNAVI, RES Dec 16, 2024 12:33 VIANCA PRECIADO MD Dec 16, 2024 17:37
[2024-12-16 13:08] LABS: CREATININE 0.92 MG/DL (0.40-0.90); TOTAL CARBON DIOXIDE 30.2 MMOL/L (24-32); eCRCL 62 ML/MIN; eGFR 63 ML/MIN
[2024-12-16] MEDS ORDERED: magnesium sulf-water 4G/100mL 100 ML IV PRN (13:15)
[2024-12-16] MEDS ORDERED: magnesium sulf-water 2g/50mL 50 ML IV PRN (13:15)
[2024-12-16] MEDS ORDERED: potassium Cl 20 mEq SR tablet PO PRN (13:15)
[2024-12-16] MEDS ORDERED: magnesium Cl slow-release 64mg tablet PO PRN (13:15)
[2024-12-16] MEDS ORDERED: potassium Cl 40MEQ/1/2NS 520ml 520 ML IV PRN (13:15)
[2024-12-16] MEDS: potassium Cl 20 mEq SR tablet PO PRN (13:52)
--- NOTE | 2024-12-16 17:16 | PROGRESS NOTE- Residence ---
Progress Note - Resident Providers to CC Resident Creating Document: SERGE CORNEJO, RES ~ Antibiotic Timeout Antibiotic Ordered?: No Subjective The patient has been evaluated at the bedside. The patient currently reports generalized fatigue, having episodes of hematochezia. SIVA drain removed. Objective Vital Signs Date Time Temp Pulse Resp B/P (MAP) Pulse Ox O2 Delivery O2 Flow Rate FiO2 12/16/24 16:31 98.2 68 11 92/48 (63) 96 Room Air 12/16/24 08:16 0 21 Physical exam: General: Well alert, well oriented, not confused, not agitated, mildly acute distress, well cooperated during the physical. HEENT: Conjunctive are pink, sclerae clear, no icterus, pupil is equal in both sides, reactive to light, no ear discharge, no pharyngeal erythema or an edema. Presence of right periorbital hematoma-improved. Neck: Supple, no JVD, no lymphadenopathy and thyromegaly. Chest: Equal air entry on both lungs, no evidence of crackles or wheezing. Incision side from previous drainage without signs of infection or inflammation. Cardiovascular: S1-S2 regular sinus rhythm and, regular rate, no gallops, no rubs, no murmurs Abdomen: Tenderness in the level of the epigastrium and lower abdomen, presence of albino in the midline of the abdomen, no signs of infection or inflammation. Extremities: No obvious deformities, no pitting edema bilaterally, capillary refill intact, peripheral pulsations are intact on both sides, presence of scars in the level of the lower extremities from previous surgeries. Central Nervous System: No focal neurological deficits, no motor or sensory weakness in all 4 extremities, could move all 4 extremities, 2+ deep tendon reflexes, negative Babinski. Musculoskeletal: No joint swelling, deformities, inflammations, and no scoliosis and back tenderness Skin: Warm and dry. Result Diagram: 12/16/24 1048 12/16/24 1048 Coagulation Studies Laboratory Tests Test 12/03/24 07:49 12/14/24 09:13 D-Dimer 3.25 MG/L FEU (0-0.50) H D-Dimer Comment Prothrombin Time 10.7 SECONDS (9.0-12.0) INR International Normalized Ratio 1.0 INR Activated Partial Thromboplast Time 26 SECONDS (22-32) Coagulation Comments Assessment Assessment 59-year-old female patient came to the hospital with chief complaint of chest pain. Plan Plan 1. Hematochezia: Possible lower GI bleeding: The patient had an episode of hematochezia on 12/14/2024. Reported three more episodes on 12/15/2024, two episodes in the morning of 12/16/2024. Hemoglobin and hematocrit dropping. Plan: Hemogram q.8h. Avoid NSAIDs, held clopidogrel. GI consulted, plan for EGD tomorrow. Dr. Norman consulted, awaiting recommendations. NPO after midnight. Transfuse if hemoglobin levels drops below seven. 2. Acute pericarditis with pericardial effusion s/p pericardiocentesis on 12/05/2024: Exudative pericardial effusion: Follow-up echo showed very small pericardial effusion. Follow-up echocardiogram showed very small pericardial effusion. Plan: Pending pathology results from pericardial fluid. The patient will need follow-up with Oncology. 3. Peritonitis: Perforated distal transverse colon: Pneumoperitoneum and peritonitis: S/p exploratory laparotomy, partial colectomy involving distal transverse and proximal left colon on 12/08/2024: The patient underwent exploratory laparotomy, partial colectomy involving distal transverse and proximal left colon on 12/08/2024: Dr. Pressley. 12/08/2024: -Given radiological finding of pneumoperitoneum on CXR on 12/07/24, CT Chest Abdomen and pelvis with IV Contrast was ordered which resulted into A large volume pneumoperitoneum consistent with bowel/viscus perforation was observed with a small amount of ascites. Moderate volume, free pelvic fluid and the free pelvic fluid may represent a developing abscess. Surgery was consulted and patient was taken to OR for exploratory laparotomy. -CT scan also showed Enlarged mesenteric lymph nodes up to 1.8 cm could represent reactive changes, mesenteric adenitis, other infectious / inflammatory processes. Colonic diverticular disease. Posterior wall gastric diverticulum. -elevated procalcitonin, Trending down WBC which was 2/2 from the peritonitis and peritonitis Vs Possible LUTIs/bacteuria with no symptoms Pathology: Colonic perforation with the acute serositis and fibrinopurulent exudate. Background, with viable mucosa, no dysplasia or carcinoma identified. One lymph node negative for carcinoma. 12/16/2024: Currently on ampicillin/sulbactam. Management as per Dr. Pressley. 4. Acute hypoxemic respiratory failure secondary to acute exacerbation of diastolic congestive heart failure: Echocardiogram: Normal LV size and wall thickness. Overall systolic function is hyperdynamic. Intra-cavitary gradient is present with resting gradient of 30 mmHg increasing to 42 mmHg with valsalva. RV is normal size and function. Trileaflet AV appears mildly sclerotic without stenosis. Increased velocities across the AV/LVOT with resting gradient of 21 mmHg increasing to 31 mmHg with valsalva due to hyperdynamic LV function. No insufficiency. Mild mitral annular calcification without stenosis. Trace regurgitation.The tricuspid valve is normal in structure with trace regurgitation. Moderate circumferential pericardial effusion with fibrinous material seen. Recommend clinical correlation. Follow-up echocardiogram on 12/06/2024 after the procedure: Overall LVEF is 80%. LV appears hypovolemic with hyperdynamic function. Small circumferential, but mostly apically located, pericardial effusion is present s/p pericardiocentesis without obvious hemodynamic compromise. Currently on ampicillin/sulbactam day 5. 5. Possible left breast malignancy with possible lung metastasis: Recommends correlation with mammography and breast ultrasound. The patient is evaluation of a left breast mass. Left pleural effusion Left upper lingular segment, left lower lobe consolidation: DuoNebs q.4h PRN. Currently on antibiotics based on ampicillin/sulbactam. 6. AFib with RVR likely secondary to pericarditis itself or post procedural- resolved: Chads Vasc score: 4 points: The patient developed AFib with RVR during the night of 12/06/2024. No new episodes of atrial fibrillation, telemetry monitoring showing sinus rhythm, heart rate within reference range. Plan: Currently on sinus rhythm. We will consider anticoagulation for discharge. No anticoagulation recommended for now due to possible GI bleeding. 7. Acute kidney injury secondary to NSAIDs use-resolved: Electrolytes imbalances-hyponatremia/hypokalemia Selective hypoalbuminemia Early acute tubular necrosis-resolved: Creatinine trended down from 1.65-0.84 after stopping NSAIDs. Plan: Continue to monitor CMP. 8. H/o Cerebrovascular accident 9. 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 Anxiety Continue atorvastatin, gabapentin, clonazepam. Holding clopidogrel due to GI bleed. Code status: Full code DVT prophylaxis: SCDs Analgesia/sedation: Morphine Line/tube: PIV GI prophylaxis: Protonix Nutrition: Clear liquid diet, NPO after midnight for EGD PT: Recommended post-acute care Prognosis: Guarded Disposition: Continue medical management, GI specialist, Dr. Vazquez and Dr. Pressley following the patient, plan for EGD tomorrow. Serge Carrasquillo Internal Medicine Resident [facility] Date of Service: Dec 16, 2024 Billing Provider: CORINNE OSCAR MD Common Visit Codes: [id number] INP/OBS CARE(HIGH) SERGE CORNEJO, RES Dec 16, 2024 17:16 CORINNE OSCAR MD Dec 16, 2024 22:31
[2024-12-16] MEDS ORDERED: K and/or MAG REPLACEMENT MC SCH (20:00)
--- NOTE | 2024-12-16 20:34 | PROGRESS NOTE ---
Progress Note ID Providers to CC ~ Progress Note Progress Note: bloody bm noted-will discuss angio with ir in am KHRIS LUIS MD Dec 16, 2024 20:34
[2024-12-16 21:02] LABS: MEAN PLATELET VOLUME 8.1 FL (7.4-10.4); RED CELL DISTRIBUTION WIDTH 14.4 % (11.5-14.5)
[2024-12-17] VITALS (10 sets, daily range): BP systolic 94–112; BP diastolic 54–64; PULSE 66–93; RESP 12–19; TEMP 97.1–97.8; O2SAT 93–98
[2024-12-17 05:32] LABS: MEAN PLATELET VOLUME 8.0 FL (7.4-10.4); RED CELL DISTRIBUTION WIDTH 14.6 % (11.5-14.5)
--- NOTE | 2024-12-17 06:58 | CONSULTATION ---
DATE OF CONSULTATION: 12/16/2024 DICTATING PHYSICIAN: Alea Dickson MD REASON FOR CONSULTATION: Hematochezia. HISTORY OF PRESENT ILLNESS: The patient is 59 years old, who came in with what appeared like congestive heart failure and investigations revealed this could be a near cardiac tamponade or impending cardiac tamponade due to pericardiocentesis. She subsequently went on to have a pericardiocentesis under ultrasound and fluoroscopic guidance and a few days afterwards, she developed a colonic perforation and had to have emergency surgery with laparotomy and partial colectomy and colo-colonic anastomosis. She was doing well, but started having hematochezia for the past three days. It was intermittent and small, but yesterday she had multiple episodes of copious hematochezia and had 2 gram dropped in hemoglobin and hematocrit. She is comfortable at this time. She denies abdominal pain, nausea, vomiting, or coffee-ground emesis. PAST MEDICAL HISTORY: Positive for hypertension, TIA, left-sided Sanchez's palsy and anxiety disorder. PAST SURGICAL HISTORY: Tonsillectomy, tubal ligation, bilateral shoulder surgery and other orthopedic surgeries of minor nature. FAMILY HISTORY AND PERSONAL HISTORY: Noncontributory. REVIEW OF SYSTEMS: A 12-point review of systems essentially same as history of present illness. PHYSICAL EXAMINATION: GENERAL: She is awake, alert, appears to be in no apparent distress. She is sitting in a chair and eating lunch, friendly, cooperative. VITAL SIGNS: Normal. Afebrile. NECK: Supple. HEART: Normal. LUNGS: Normal. ABDOMEN: Soft. Minimal tenderness. No masses, no organomegaly. Bowel sounds are present. LABORATORY VALUES: Reviewed. Today, hemoglobin was 8.6, has a drop of 2 gram from yesterday. Platelet count is normal. Chemistries are essentially unremarkable. IMPRESSION: A 59-year-old lady, came in for pericardial effusion. Etiology unclear and ended up having a colonic perforation pericardiocentesis. The pathology of the operative specimen is essentially normal colon. Now, she has developed hematochezia. I will discuss with the surgeon, colonoscopy at this time postoperative within 7 days will be somewhat dangerous because an anastomosis would not be mature yet and insufflating the colon could be dangerous for the anastomosis. An EGD can possibly be done in order to rule out upper GI source, however, I do not think this is an upper GI source bleeding since if it is upper GI bleeding with fast transit, she would have shown some clinical deterioration with low blood pressure and fast bleeding features, however, if that is to be done in order to rule out and treat her appropriately postoperative bleeding that is possibly reasonable. I will discuss about all of these thoughts that I have with the surgeon as well as the hospitalist before proceeding. I have tentatively kept her on clear liquid diet and place on n.p.o. order after midnight in case of any procedure needing to be done. Alea Dickson MD TID: [id number] RECEIPT: [id number] ALEC/CROW/STANLEY
--- NOTE | 2024-12-17 10:02 | RADIOLOGY REPORT ---
EXAM: DI CHEST,SINGLE VIEW Indication: Confirm NG placement Technique: Single frontal view of the chest was obtained Comparison: DI CHEST,SINGLE VIEW on DOS: 12/08/24, DI CHEST,SINGLE VIEW on DOS: 12/07/24, DI CHEST,SING LE VIEW on DOS: 12/05/24, DI CHEST,SINGLE VIEW on DOS: 12/03/24, DI CHEST,SINGLE VIEW on DOS: 06/02/24 FINDINGS: Lines and Tubes: Enteric tube tip projects over the expected region stomach. Lungs: Left basilar opacity. Pleura: No effusion. No pneumothorax. Cardiomediastinal contours: Unremarkable Bones: No acute osseous abnormality. IMPRESSION: No acute cardiopulmonary disease.
[2024-12-17 10:28] LABS: TOTAL CARBON DIOXIDE 30.6 MMOL/L (24-32)
[2024-12-17 10:37] LABS: CREATININE 0.86 MG/DL (0.40-0.90); eCRCL 67 ML/MIN; eGFR 68 ML/MIN
--- NOTE | 2024-12-17 13:01 | PROGRESS NOTE- Residence ---
Progress Note - Resident Providers to CC Resident Creating Document: CHRISTIANO CORNEJO, RES ~ Antibiotic Timeout Antibiotic Ordered?: Yes Subjective The patient has been evaluated at the bedside. The patient reports improvement of fatigue, feeling better, the patient had three episodes of hematochezia yesterday and one this morning. Objective Vital Signs Date Time Temp Pulse Resp B/P (MAP) Pulse Ox O2 Delivery O2 Flow Rate FiO2 12/17/24 11:00 97.5 85 12 106/64 (78) 97 Room Air 12/17/24 07:49 0 21 Physical exam: General: Well alert, well oriented, not confused, not agitated, mildly acute distress, well cooperated during the physical. HEENT: Conjunctive are pink, sclerae clear, no icterus, pupil is equal in both sides, reactive to light, no ear discharge, no pharyngeal erythema or an edema. Presence of right periorbital hematoma-improved. Neck: Supple, no JVD, no lymphadenopathy and thyromegaly. Chest: Equal air entry on both lungs, no evidence of crackles or wheezing. Incision side from previous drainage without signs of infection or inflammation. Cardiovascular: S1-S2 regular sinus rhythm and, regular rate, no gallops, no rubs, no murmurs Abdomen: Tenderness in the level of the epigastrium and lower abdomen, presence of albino in the midline of the abdomen, no signs of infection or inflammation. Extremities: No obvious deformities, no pitting edema bilaterally, capillary refill intact, peripheral pulsations are intact on both sides, presence of scars in the level of the lower extremities from previous surgeries. Central Nervous System: No focal neurological deficits, no motor or sensory weakness in all 4 extremities, could move all 4 extremities, 2+ deep tendon reflexes, negative Babinski. Musculoskeletal: No joint swelling, deformities, inflammations, and no scoliosis and back tenderness Skin: Warm and dry. Result Diagram: 12/17/24 0513 12/17/24 0513 Coagulation Studies Laboratory Tests Test 12/03/24 07:49 12/14/24 09:13 D-Dimer 3.25 MG/L FEU (0-0.50) H D-Dimer Comment Prothrombin Time 10.7 SECONDS (9.0-12.0) INR International Normalized Ratio 1.0 INR Activated Partial Thromboplast Time 26 SECONDS (22-32) Coagulation Comments Assessment Assessment 59-year-old female patient came to the hospital with chief complaint of chest pain. Plan Plan 1. Hematochezia: Possible lower GI bleeding: The patient had an episode of hematochezia on 12/14/2024. Reported three more episodes on 12/15/2024, two episodes in the morning of 12/16/2024. Hemoglobin and hematocrit stable around 9.0, 25.9 respectively. General surgeon, Dr. Pressley was consulted regarding the episodes of hematochezia who recommended evaluation by Interventional Radiology for angiogram, unfortunately we are not going to be able to obtain in this hospital. Dr. Jamil. NG tube placement and lavage was done by surgeon recommendation, not showing upper active GI bleeding. Plan: Hemogram q.8h. Avoid NSAIDs, held clopidogrel. Cytogeneticist, Dr. Vazquez reconsulted, plan for EGD tomorrow to rule out upper causes of GI bleeding. NPO after midnight. Transfuse if hemoglobin levels drops below seven. 2. Acute pericarditis with pericardial effusion s/p pericardiocentesis on 12/05/2024: Exudative pericardial effusion: Follow-up echo showed very small pericardial effusion. Follow-up echocardiogram showed very small pericardial effusion. 12/17/2024: [facility] contacted regarding pericardial fluid, cytology: Numerous neutrophils, occasionally foamy macrophages with rare mesothelial cells, no Infectious elements are identified, no epithelial cells are identified. No dysplastic or neoplastic features. Plan: The patient will need follow-up with Oncology. 3. Peritonitis: Perforated distal transverse colon: Pneumoperitoneum and peritonitis: S/p exploratory laparotomy, partial colectomy involving distal transverse and proximal left colon on 12/08/2024: The patient underwent exploratory laparotomy, partial colectomy involving distal transverse and proximal left colon on 12/08/2024: Dr. Pressley. 12/08/2024: -Given radiological finding of pneumoperitoneum on CXR on 12/07/24, CT Chest Abdomen and pelvis with IV Contrast was ordered which resulted into A large volume pneumoperitoneum consistent with bowel/viscus perforation was observed with a small amount of ascites. Moderate volume, free pelvic fluid and the free pelvic fluid may represent a developing abscess. Surgery was consulted and patient was taken to OR for exploratory laparotomy. -CT scan also showed Enlarged mesenteric lymph nodes up to 1.8 cm could represent reactive changes, mesenteric adenitis, other infectious / inflammatory processes. Colonic diverticular disease. Posterior wall gastric diverticulum. -elevated procalcitonin, Trending down WBC which was 2/2 from the peritonitis and peritonitis Vs Possible LUTIs/bacteuria with no symptoms Pathology: Colonic perforation with the acute serositis and fibrinopurulent exudate. Background, with viable mucosa, no dysplasia or carcinoma identified. One lymph node negative for carcinoma. 12/17/2024: WBC today within reference range. Plan: Continue on ampicillin/sulbactam. Management as per Dr. Pressley. 4. Acute hypoxemic respiratory failure secondary to acute exacerbation of diastolic congestive heart failure: Echocardiogram: Normal LV size and wall thickness. Overall systolic function is hyperdynamic. Intra-cavitary gradient is present with resting gradient of 30 mmHg increasing to 42 mmHg with valsalva. RV is normal size and function. Trileaflet AV appears mildly sclerotic without stenosis. Increased velocities across the AV/LVOT with resting gradient of 21 mmHg increasing to 31 mmHg with valsalva due to hyperdynamic LV function. No insufficiency. Mild mitral annular calcification without stenosis. Trace regurgitation.The tricuspid valve is normal in structure with trace regurgitation. Moderate circumferential pericardial effusion with fibrinous material seen. Recommend clinical correlation. Follow-up echocardiogram on 12/06/2024 after the procedure: Overall LVEF is 80%. LV appears hypovolemic with hyperdynamic function. Small circumferential, but mostly apically located, pericardial effusion is present s/p pericardiocentesis without obvious hemodynamic compromise. Currently on ampicillin/sulbactam day 6. 5. Possible left breast malignancy with possible lung metastasis: Recommends correlation with mammography and breast ultrasound. The patient is evaluation of a left breast mass. Left pleural effusion Left upper lingular segment, left lower lobe consolidation: DuoNebs q.4h PRN. Currently on antibiotics based on ampicillin/sulbactam. 6. AFib with RVR likely secondary to pericarditis itself or post procedural- resolved: Chads Vasc score: 4 points: The patient developed AFib with RVR during the night of 12/06/2024. No new episodes of atrial fibrillation, telemetry monitoring showing sinus rhythm, heart rate within reference range. Plan: Currently on sinus rhythm. We will consider anticoagulation for discharge. No anticoagulation recommended for now due to possible GI bleeding. 7. Acute kidney injury secondary to NSAIDs use-resolved: Electrolytes imbalances-hyponatremia/hypokalemia Selective hypoalbuminemia Early acute tubular necrosis-resolved: Creatinine trended down from 1.65-0.84 after stopping NSAIDs. Plan: Continue to monitor CMP. 8. H/o Cerebrovascular accident 9. 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 Anxiety Continue atorvastatin, gabapentin, clonazepam, venlafaxine, trazodone. Holding clopidogrel due to GI bleed. Code status: Full code DVT prophylaxis: SCDs Analgesia/sedation: Dilaudid/[place] Line/tube: PIV GI prophylaxis: Protonix Nutrition: Clear liquid diet, NPO after midnight for EGD PT: Recommended post-acute care Prognosis: Guarded Disposition: Continue medical management, GI specialist, Dr. Vazquez following the patient, plan for EGD tomorrow. Christiano Carrasquillo Internal Medicine Resident [facility] Date of Service: Dec 17, 2024 Billing Provider: CORINNE OSCAR MD Common Visit Codes: [id number] INP/OBS CARE(HIGH) CHRISTIANO CORNEJO, RES Dec 17, 2024 13:01 CORINNE OSCAR MD Dec 18, 2024 09:11
[2024-12-17 13:04] LABS: MEAN PLATELET VOLUME 8.3 FL (7.4-10.4); RED CELL DISTRIBUTION WIDTH 14.2 % (11.5-14.5)
--- NOTE | 2024-12-17 16:47 | PROGRESS NOTE ---
Progress Note Cardiology Providers to CC ~ Subjective Subjective Patient seen and examined this afternoon. Overall she is doing okay. However she continues to have intermittent hematochezia. Objective Result Diagram: 12/17/24 1228 12/17/24 0513 Objective General: Normal body habitus, no acute distress, HEENT: Sclerae clear, PERRL, gums without lesions or bleeding, oropharynx clear without erythema or exudate. Neck: Supple without enlargement of the thyroid, or lymphadenopathy, Chest: Normal size and shape, no tenderness, nonlabored breathing, Breath sounds clear to auscultation. Heart: Regular in rate and rhythm, S1 and S2 normal, no S3-S4 or murmurs. Abdomen: Soft, nontender, no organomegaly, bowel sounds present. Extremities: No edema cyanosis or clubbing. Coagulation Studies Laboratory Tests Test 12/03/24 07:49 12/14/24 09:13 D-Dimer 3.25 MG/L FEU (0-0.50) H D-Dimer Comment Prothrombin Time 10.7 SECONDS (9.0-12.0) INR International Normalized Ratio 1.0 INR Activated Partial Thromboplast Time 26 SECONDS (22-32) Coagulation Comments Problem\Assessment\Plan Additional Plan 1. Acute pericarditis with pericardial effusion s/p pericardiocentesis on 12/05/2024: Exudative pericardial effusion: Follow up echo showed very small pericardial effusion. 3. diastolic congestive heart failure: Use p.r.n. diuretics and keep her euvolemic. ECHO :Normal LV size and wall thickness. Overall systolic function is hyperdynamic. Intra-cavitary gradient is present with resting gradient of 30 mmHg increasing to 42 mmHg with valsalva. RV is normal size and function. Trileaflet AV appears mildly sclerotic without stenosis. Increased velocities across the AV/LVOT with resting gradient of 21 mmHg increasing to 31 mmHg with valsalva due to hyperdynamic LV function. No insufficiency. Mild mitral annular calcification without stenosis. Trace regurgitation. 4. . 3.4 cm left breast lesion. Recommend correlation with mammography and breast ultrasound. Supraclavicular lymphadenopathy. Patient needs to evaluation of a left breast mass. Management per primary team 4. Peritonitis: S/p exploratory laparotomy, partial colectomy involving distal transverse and proximal left colon on 12/08/2024: Enlarged mesenteric lymph nodes up to 1.8 cm could represent reactive changes, mesenteric adenitis, noted. The patient underwent exploratory laparotomy, partial colectomy involving distal transverse and proximal left colon on 12/08/2024: Dr. Pressley. Now having intermittent hematochezia. Being evaluated, hemoglobin 9 g% on 12/17/2024 6. AFib with RVR likely secondary to pericarditis itself or post procedural: AFib has not recurred since removing the pericardial drainage catheter 7. Acute kidney injury secondary to NSAIDs use: Normalized with stopping NSAIDs and hydration . 8. Other comorbidities include: Cerebrovascular accident . 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
--- NOTE | 2024-12-17 21:22 | PROGRESS NOTE ---
Progress Note ID Providers to CC ~ Progress Note Progress Note: complains of pain/vss/abd-nondistended/hct stable a/p 1. s/p partial colectomy-hct stable-angio not done/cont supportive care KHRIS LUIS MD Dec 17, 2024 21:22
[2024-12-17 21:24] LABS: MEAN PLATELET VOLUME 8.4 FL (7.4-10.4); RED CELL DISTRIBUTION WIDTH 14.4 % (11.5-14.5)
[2024-12-18] VITALS (16 sets, daily range): BP systolic 94–130; BP diastolic 46–78; PULSE 12–78; RESP 10–21; TEMP 97.2–98; O2SAT 93–100
[2024-12-18 06:38] LABS: MEAN PLATELET VOLUME 8.2 FL (7.4-10.4); RED CELL DISTRIBUTION WIDTH 14.4 % (11.5-14.5)
[2024-12-18 07:05] LABS: CREATININE 0.68 MG/DL (0.40-0.90); TOTAL CARBON DIOXIDE 32.3 MMOL/L (24-32); eCRCL 84 ML/MIN; eGFR 89 ML/MIN
[2024-12-18] MEDS ORDERED: MIDAZolam 1 MG/ML 5ML VIAL ONE (07:49)
[2024-12-18] MEDS ORDERED: fentaNYL/PF 50MCG/1 ML 2ML syringe ONE (07:49)
[2024-12-18] MEDS ORDERED: LIDOcaine 2% Viscous 15ml cup ONE (07:49)
--- NOTE | 2024-12-18 09:16 | PROGRESS NOTE ---
Progress Note Cardiology Providers to CC ~ Subjective Subjective Patient seen and examined this morning in recovery room. Patient had EGD this morning. Did not show any evidence of bleeding. Objective Result Diagram: 12/18/2459 12/18/24558 Objective General: Normal body habitus, no acute distress, HEENT: Sclerae clear, PERRL, gums without lesions or bleeding, oropharynx clear without erythema or exudate. Neck: Supple without enlargement of the thyroid, or lymphadenopathy, Chest: Normal size and shape, no tenderness, nonlabored breathing, Breath sounds clear to auscultation. Heart: Regular in rate and rhythm, S1 and S2 normal, no S3-S4 or murmurs. Abdomen: Soft, nontender, no organomegaly, bowel sounds present. Extremities: No edema cyanosis or clubbing. Coagulation Studies Laboratory Tests Test 12/03/24 07:49 12/14/24 09:13 D-Dimer 3.25 MG/L FEU (0-0.50) H D-Dimer Comment Prothrombin Time 10.7 SECONDS (9.0-12.0) INR International Normalized Ratio 1.0 INR Activated Partial Thromboplast Time 26 SECONDS (22-32) Coagulation Comments Problem\Assessment\Plan Additional Plan 1. Acute pericarditis with pericardial effusion s/p pericardiocentesis on 12/05/2024: Exudative pericardial effusion: Follow up echo showed very small pericardial effusion. Cardiac-patel stable 3. diastolic congestive heart failure: Use p.r.n. diuretics and keep her euvolemic. ECHO :Normal LV size and wall thickness. Overall systolic function is hyperdynamic. Intra-cavitary gradient is present with resting gradient of 30 mmHg increasing to 42 mmHg with valsalva. RV is normal size and function. Trileaflet AV appears mildly sclerotic without stenosis. Increased velocities across the AV/LVOT with resting gradient of 21 mmHg increasing to 31 mmHg with valsalva due to hyperdynamic LV function. No insufficiency. Mild mitral annular calcification without stenosis. Trace regurgitation. No clinical evidence of CHF. 4. . 3.4 cm left breast lesion. Recommend correlation with mammography and breast ultrasound. Supraclavicular lymphadenopathy. Patient needs to evaluation of a left breast mass. Management per primary team 4. Peritonitis: S/p exploratory laparotomy, partial colectomy involving distal transverse and proximal left colon on 12/08/2024: Enlarged mesenteric lymph nodes up to 1.8 cm could represent reactive changes, mesenteric adenitis, noted. The patient underwent exploratory laparotomy, partial colectomy involving distal transverse and proximal left colon on 12/08/2024: Dr. Pressley. Now having intermittent hematochezia. EGD on 12/18/2024 showed no source of bleeding. Being evaluated, hemoglobin 8.6 on 12/18/2024. 6. AFib with RVR likely secondary to pericarditis itself or post procedural: AFib has not recurred since removing the pericardial drainage catheter 7. Acute kidney injury secondary to NSAIDs use: Normalized with stopping NSAIDs and hydration . 8. Other comorbidities include: Cerebrovascular accident . 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
[2024-12-18 12:03] LABS: MEAN PLATELET VOLUME 8.2 FL (7.4-10.4); RED CELL DISTRIBUTION WIDTH 14.3 % (11.5-14.5)
--- NOTE | 2024-12-18 12:59 | PROGRESS NOTE ---
Progress Note ID Providers to CC ~ Progress Note Progress Note: hgb stable/resume po KHRIS LUIS MD Dec 18, 2024 12:59
--- NOTE | 2024-12-18 15:43 | PROGRESS NOTE- Residence ---
Progress Note - Resident Providers to CC Resident Creating Document: KAM BLANCA RES ~ Antibiotic Timeout Antibiotic Ordered?: Yes Subjective Patient reported for still having some amount of blood in the bowel movement this morning, however, her hemoglobin was stabilized around 8s. She stated that she is not happy with her abd pain. She has done EGD this morning with no active abnormal result. Objective Vital Signs Date Time Temp Pulse Resp B/P (MAP) Pulse Ox O2 Delivery O2 Flow Rate FiO2 12/18/24 14:10 13 12/18/24 09:59 68 12/18/24 08:50 96/59 (71) 99 Nasal Cannula 2.0 12/18/24 08:15 99.0 12/17/24 19:30 96 Result Diagram: 12/19/24 0655 12/19/24 06 Patient was seen at the bedside this morning. The patient's vital signs were stable at the moment temp on room air. On exam, General: The patient was alert, Well alert x 4, well oriented x 4, not confused x 4, not agitated x 4, not in acute distress, well cooperated during the physical. HEENT: There was a slight right forehead hematoma and old bruises. Conjunctive are pink, sclera clear, no icterus, pupils are equal and reactive to lights in both sides. There is no ear discharge present, no pharyngeal erythema or edema. Upon checking, the mouth and lips are moist. NG tube decompression in situ. Neck: Supple, JVD elevated, no lymphadenopathy and thyromegaly. Lungs: Patient is coughing and there is equal air entry on both lungs, and no more chest pain with deep inspiration. Chest: No signs of inflammation was present on drainage site Breast and axilla: NO signs of visible mastitis, infection, inflammation, any skin changes, and lymphatic drainage abnormalities on inspection. No bilateral Breast or axillary lymphadenopathy were noted on palpation. Heart: Regular S1-S2 present, regular rate, no gallops, pericardial friction rub heard and no murmurs Abdomen: Surgical dressing over incision site is clean, dry and intact with no signs of erythema, drainage or dehiscence. SIVA drain is in place with serosanguinous fluid this morning, and no signs of infection or obstruction. Bowel sounds sluggish on auscultation, soft, slight tender at the operated area due to post op ex lap, no guarding, no rigidity. Extremities: No obvious deformities, no pitting edema bilaterally, capillary refill intact, able to wiggle toes both sides, peripheral pulsations are intact on both sides SIDE GUIDER: No focal neurological deficits, no motor and sensory weakness in all 4 extremities, could move all 4 extremities Musculoskeletal: No joint swelling, deformities, inflammations, and no scoliosis and back tenderness Skin: No active skin lesions and rashes. Coagulation Studies Laboratory Tests Test 12/03/24 07:49 12/14/24 09:13 D-Dimer 3.25 MG/L FEU (0-0.50) H D-Dimer Comment Prothrombin Time 10.7 SECONDS (9.0-12.0) INR International Normalized Ratio 1.0 INR Activated Partial Thromboplast Time 26 SECONDS (22-32) Coagulation Comments Assessment Assessment 59-year-old female patient came to the hospital with chief complaint of chest pain. Plan Plan # Hematochezia # Possible lower GI bleeding The patient had an episode of hematochezia on 12/14/2024. Reported three more episodes on 12/15/2024, two episodes in the morning of 12/16/2024. 12/18/2024: Hemoglobin and hematocrit stable around 8 -General surgeon, Dr. Pressley was consulted regarding the episodes of hematochezia who recommended evaluation by Interventional Radiology for angiogram, unfortunately we are not going to be able to obtain in this hospital. NG tube placement and lavage was done by surgeon recommendation, not showing upper active GI bleeding. -Dr Vazquez re consulted pt for EGD which was done with WNL findings and resumed the oral regular diet. -Avoid NSAIDs, held clopidogrel. -Transfuse if hemoglobin levels drops below seven. # Acute pericarditis with pericardial effusion s/p pericardiocentesis on 12/05/2024 # Exudative pericardial effusion: Follow-up echo showed very small pericardial effusion. Follow-up echocardiogram showed very small pericardial effusion. 12/17/2024: [place] pathology associates contacted regarding pericardial fluid, cytology: Numerous neutrophils, occasionally foamy macrophages with rare mesothelial cells, no Infectious elements are identified, no epithelial cells are identified. No dysplastic or neoplastic features. Plan: The patient will need follow-up with Oncology. # Peritonitis # Perforated distal transverse colon # Pneumoperitoneum and peritonitis # S/p exploratory laparotomy, partial colectomy involving distal transverse and proximal left colon on 12/08/2024 The patient underwent exploratory laparotomy, partial colectomy involving distal transverse and proximal left colon on 12/08/2024: Dr. Pressley. 12/08/2024: -Given radiological finding of pneumoperitoneum on CXR on 12/07/24, CT Chest Abdomen and pelvis with IV Contrast was ordered which resulted into A large volume pneumoperitoneum consistent with bowel/viscus perforation was observed with a small amount of ascites. Moderate volume, free pelvic fluid and the free pelvic fluid may represent a developing abscess. Surgery was consulted and patient was taken to OR for exploratory laparotomy. -CT scan also showed Enlarged mesenteric lymph nodes up to 1.8 cm could represent reactive changes, mesenteric adenitis, other infectious / inflammatory processes. Colonic diverticular disease. Posterior wall gastric diverticulum. -elevated procalcitonin, Trending down WBC which was 2/2 from the peritonitis and peritonitis Vs Possible LUTIs/bacteuria with no symptoms Pathology: Colonic perforation with the acute serositis and fibrinopurulent exudate. Background, with viable mucosa, no dysplasia or carcinoma identified. One lymph node negative for carcinoma. 12/17/2024: WBC today within reference range. Plan: Continue on ampicillin/sulbactam. Management as per Dr. Pressley. 12/18/2024: Continue IV amoxicillin/sulbactam-day nine, continue up to 14 days -monitor hematochezia and stabilization of hemoglobin -paln to discharge to [facility] if her vitals and Hb will be stable, and abd pain is getting better. -increase the dosage of pain medication today # Acute hypoxemic respiratory failure secondary to acute exacerbation of diastolic congestive heart failure Echocardiogram: Normal LV size and wall thickness. Overall systolic function is hyperdynamic. Intra-cavitary gradient is present with resting gradient of 30 mmHg increasing to 42 mmHg with valsalva. RV is normal size and function. Trileaflet AV appears mildly sclerotic without stenosis. Increased velocities across the AV/LVOT with resting gradient of 21 mmHg increasing to 31 mmHg with valsalva due to hyperdynamic LV function. No insufficiency. Mild mitral annular calcification without stenosis. Trace regurgitation.The tricuspid valve is normal in structure with trace regurgitation. Moderate circumferential pericardial effusion with fibrinous material seen. Recommend clinical correlation. Follow-up echocardiogram on 12/06/2024 after the procedure: Overall LVEF is 80%. LV appears hypovolemic with hyperdynamic function. Small circumferential, but mostly apically located, pericardial effusion is present s/p pericardiocentesis without obvious hemodynamic compromise. # Possible left breast malignancy with possible lung metastasis Recommends correlation with mammography and breast ultrasound. The patient is evaluation of a left breast mass. # Left pleural effusion # Left upper lingular segment, left lower lobe consolidation: DuoNebs q.4h PRN. Currently on antibiotics based on ampicillin/sulbactam. # AFib with RVR likely secondary to pericarditis itself or post procedural- resolved Chads Vasc score: 4 points The patient developed AFib with RVR during the night of 12/06/2024. No new episodes of atrial fibrillation, telemetry monitoring showing sinus rhythm, heart rate within reference range. Plan: Remains sinus rhythm. We will consider anticoagulation for discharge. No anticoagulation recommended for now due to possible GI bleeding. # Acute kidney injury secondary to NSAIDs use-resolved # Electrolytes imbalances-hyponatremia/hypokalemia # Selective hypoalbuminemia Early acute tubular necrosis-resolved: Creatinine trended down from 1.65-0.84 after stopping NSAIDs. Plan: Continue to monitor CMP. 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 Holding clopidogrel due to GI bleed. Code status: Full code DVT prophylaxis: SCDs Analgesia/sedation: Dilaudid/[place] Line/tube: PIV GI prophylaxis: Protonix Nutrition: Regular PT: Recommended post-acute care Prognosis: Guarded Disposition: Continue medical management including IV antibiotics, pain control, monitor bowel movement, possible arrangement for PCP/Oncology in outpatient for the possible malignant left breast lesion for further management plan and try to contact POA/ family member and PCP, PT eval and DC plan including possible fibroid discharge on week days after her vitals stable and pain control. Resident MD attestation: Patient was seen, examined and discussed with attending MD, Dr. Odalis BLANCA MD Internal Medicine Resident, PGY3 [facility] Addendum hematochesia resolved so far, cont monitoring Date of Service: Dec 18, 2024 Billing Provider: CORINNE OSCAR MD Common Visit Codes: 48967-AAMVAZSILL INP/OBS CARE(HIGH) KAM BLANCA, RES Dec 18, 2024 15:42 CORINNE OSCAR MD Dec 19, 2024 07:37
[2024-12-18 20:06] LABS: MEAN PLATELET VOLUME 8.2 FL (7.4-10.4); RED CELL DISTRIBUTION WIDTH 14.1 % (11.5-14.5)
[2024-12-19] VITALS (8 sets, daily range): BP systolic 96–122; BP diastolic 45–73; PULSE 69–78; RESP 13–16; TEMP 97.3–98.3; O2SAT 91–100
[2024-12-19 07:18] LABS: MEAN PLATELET VOLUME 8.3 FL (7.4-10.4); RED CELL DISTRIBUTION WIDTH 14.1 % (11.5-14.5)
[2024-12-19] MEDS: levoTHYROXINE 25mcg tablet PO SCH (08:20)
[2024-12-19 08:49] LABS: CREATININE 0.67 MG/DL (0.40-0.90); TOTAL CARBON DIOXIDE 30.3 MMOL/L (24-32); eCRCL 86 ML/MIN; eGFR 90 ML/MIN
[2024-12-19 12:10] LABS: MEAN PLATELET VOLUME 8.2 FL (7.4-10.4); RED CELL DISTRIBUTION WIDTH 14.5 % (11.5-14.5)
--- NOTE | 2024-12-19 17:21 | PROGRESS NOTE ---
Progress Note Cardiology Providers to CC ~ Subjective Subjective Patient seen and examined this evening. Bleeding per rectum appears to be decreasing. Objective Result Diagram: 12/19/24 1129 12/19/24 0655 Objective General: Normal body habitus, no acute distress, HEENT: Sclerae clear, PERRL, gums without lesions or bleeding, oropharynx clear without erythema or exudate. Neck: Supple without enlargement of the thyroid, or lymphadenopathy, Chest: Normal size and shape, no tenderness, nonlabored breathing, Breath sounds clear to auscultation. Heart: Regular in rate and rhythm, S1 and S2 normal, no S3-S4 or murmurs. Abdomen: Soft, nontender, no organomegaly, bowel sounds present. Extremities: No edema cyanosis or clubbing. Coagulation Studies Laboratory Tests Test 12/03/24 07:49 12/14/24 09:13 D-Dimer 3.25 MG/L FEU (0-0.50) H D-Dimer Comment Prothrombin Time 10.7 SECONDS (9.0-12.0) INR International Normalized Ratio 1.0 INR Activated Partial Thromboplast Time 26 SECONDS (22-32) Coagulation Comments Problem\Assessment\Plan Additional Plan 1. Large pericardial effusion s/p pericardiocentesis on 12/05/2024: Exudative pericardial effusion: Follow up echo showed very small pericardial effusion. Cardiac-patel stable 3. diastolic congestive heart failure: Use p.r.n. diuretics and keep her euvolemic. ECHO :Normal LV size and wall thickness. Overall systolic function is hyperdynamic. Intra-cavitary gradient is present with resting gradient of 30 mmHg increasing to 42 mmHg with valsalva. RV is normal size and function. Trileaflet AV appears mildly sclerotic without stenosis. Increased velocities across the AV/LVOT with resting gradient of 21 mmHg increasing to 31 mmHg with valsalva due to hyperdynamic LV function. No insufficiency. Mild mitral annular calcification without stenosis. Trace regurgitation. No clinical evidence of CHF. 4. . 3.4 cm left breast lesion. Recommend correlation with mammography and breast ultrasound. Supraclavicular lymphadenopathy. Patient needs to evaluation of a left breast mass. Management per primary team 4. Peritonitis: S/p exploratory laparotomy, partial colectomy involving distal transverse and proximal left colon on 12/08/2024: Enlarged mesenteric lymph nodes up to 1.8 cm could represent reactive changes, mesenteric adenitis, noted. The patient underwent exploratory laparotomy, partial colectomy involving distal transverse and proximal left colon on 12/08/2024: Dr. Pressley. Now having intermittent hematochezia. EGD on 12/18/2024 showed no source of bleeding. hemoglobin 8.4 on 12/19/2024 6. AFib with RVR likely secondary to pericarditis itself or post procedural: AFib has not recurred since removing the pericardial drainage catheter 7. Acute kidney injury secondary to NSAIDs use: Normalized with stopping NSAIDs and hydration . 8. Other comorbidities include: Cerebrovascular accident . 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
--- NOTE | 2024-12-19 17:25 | PROGRESS NOTE ---
Progress Note ID Providers to CC ~ Progress Note Progress Note: min pain/vss/abd-nondistended/hgb stable a/p . s/p partial colectomy-doing well KHRIS LUIS MD Dec 19, 2024 17:25
--- NOTE | 2024-12-19 19:50 | PROGRESS NOTE- Residence ---
Progress Note - Resident Providers to CC Resident Creating Document: KAM BLANCA RES ~ Antibiotic Timeout Antibiotic Ordered?: Yes Subjective Patient reported her abdominal pain was getting better on increased pain medication yesterday around about 5/10. The nurse reported a little amount of the hematochezia this morning bowel movement. Her vitals and hemoglobin was stabilized today, and plan to discharge to rehab if numbers are good tomorrow Objective Vital Signs Date Time Temp Pulse Resp B/P (MAP) Pulse Ox O2 Delivery O2 Flow Rate FiO2 12/19/24 17:36 Room Air 0.0 12/19/24 17:18 11 12/19/24 15:00 97.9 70 104/45 (64) 97 12/19/24 12:38 21 Result Diagram: 12/19/24 1129 12/19/24 0655 Patient was seen at the bedside this morning. The patient's vital signs were stable at the moment temp on room air. On exam, General: The patient was alert, Well alert x 4, well oriented x 4, not confused x 4, not agitated x 4, not in acute distress, well cooperated during the physical. HEENT: There was a slight right forehead hematoma and old bruises. Conjunctive are pink, sclera clear, no icterus, pupils are equal and reactive to lights in both sides. There is no ear discharge present, no pharyngeal erythema or edema. Upon checking, the mouth and lips are moist. NG tube decompression in situ. Neck: Supple, JVD elevated, no lymphadenopathy and thyromegaly. Lungs: Patient is coughing and there is equal air entry on both lungs, and no more chest pain with deep inspiration. Chest: No signs of inflammation was present on drainage site Breast and axilla: NO signs of visible mastitis, infection, inflammation, any skin changes, and lymphatic drainage abnormalities on inspection. No bilateral Breast or axillary lymphadenopathy were noted on palpation. Heart: Regular S1-S2 present, regular rate, no gallops, pericardial friction rub heard and no murmurs Abdomen: Surgical dressing over incision site is clean, dry and intact with no signs of erythema, drainage or dehiscence. SIVA drain is in place with serosanguinous fluid this morning, and no signs of infection or obstruction. Bowel sounds sluggish on auscultation, soft, slight tender at the operated area due to post op ex lap, no guarding, no rigidity. Extremities: No obvious deformities, no pitting edema bilaterally, capillary refill intact, able to wiggle toes both sides, peripheral pulsations are intact on both sides VALIDATION LEADER: No focal neurological deficits, no motor and sensory weakness in all 4 extremities, could move all 4 extremities Musculoskeletal: No joint swelling, deformities, inflammations, and no scoliosis and back tenderness Skin: No active skin lesions and rashes. Coagulation Studies Laboratory Tests Test 12/03/24 07:49 12/14/24 09:13 D-Dimer 3.25 MG/L FEU (0-0.50) H D-Dimer Comment Prothrombin Time 10.7 SECONDS (9.0-12.0) INR International Normalized Ratio 1.0 INR Activated Partial Thromboplast Time 26 SECONDS (22-32) Coagulation Comments Assessment Assessment 59-year-old female patient came to the hospital with chief complaint of chest pain. Plan Plan # Hematochezia # Possible lower GI bleeding The patient had an episode of hematochezia on 12/14/2024. Reported three more episodes on 12/15/2024, two episodes in the morning of 12/16/2024. 12/19/2024: One small amount of the hematochezia was reported this morning. Hemoglobin was stabilized around 8.4, we will monitor H&H one time tonight and one time tomorrow before she will be stable enough to be discharged to [facility] tomorrow. -continue GI bleeding/bowel movement monitoring 12/18/2024: Hemoglobin and hematocrit stable around 8 -General surgeon, Dr. Pressley was consulted regarding the episodes of hematochezia who recommended evaluation by Interventional Radiology for angiogram, unfortunately we are not going to be able to obtain in this hospital. NG tube placement and lavage was done by surgeon recommendation, not showing upper active GI bleeding. -Dr Vazquez re consulted pt for EGD which was done with WNL findings and resumed the oral regular diet. -Avoid NSAIDs, held clopidogrel. -Transfuse if hemoglobin levels drops below seven. # Acute pericarditis with pericardial effusion s/p pericardiocentesis on 12/05/2024 # Exudative pericardial effusion: Follow-up echo showed very small pericardial effusion. Follow-up echocardiogram showed very small pericardial effusion. 12/17/2024: [place] pathology associates contacted regarding pericardial fluid, cytology: Numerous neutrophils, occasionally foamy macrophages with rare mesothelial cells, no Infectious elements are identified, no epithelial cells are identified. No dysplastic or neoplastic features. Plan: The patient will need follow-up with Oncology. # Peritonitis # Perforated distal transverse colon # Pneumoperitoneum and peritonitis # S/p exploratory laparotomy, partial colectomy involving distal transverse and proximal left colon on 12/08/2024 The patient underwent exploratory laparotomy, partial colectomy involving distal transverse and proximal left colon on 12/08/2024: Dr. Pressley. 12/08/2024: -Given radiological finding of pneumoperitoneum on CXR on 12/07/24, CT Chest Abdomen and pelvis with IV Contrast was ordered which resulted into A large volume pneumoperitoneum consistent with bowel/viscus perforation was observed with a small amount of ascites. Moderate volume, free pelvic fluid and the free pelvic fluid may represent a developing abscess. Surgery was consulted and patient was taken to OR for exploratory laparotomy. -CT scan also showed Enlarged mesenteric lymph nodes up to 1.8 cm could represent reactive changes, mesenteric adenitis, other infectious / inflammatory processes. Colonic diverticular disease. Posterior wall gastric diverticulum. -elevated procalcitonin, Trending down WBC which was 2/2 from the peritonitis and peritonitis Vs Possible LUTIs/bacteuria with no symptoms Pathology: Colonic perforation with the acute serositis and fibrinopurulent exudate. Background, with viable mucosa, no dysplasia or carcinoma identified. One lymph node negative for carcinoma. 12/17/2024: WBC today within reference range. Plan: Continue on ampicillin/sulbactam. Management as per Dr. Pressley. 12/18/2024: Continue IV amoxicillin/sulbactam-day nine, continue up to 14 days -monitor hematochezia and stabilization of hemoglobin -paln to discharge to [facility] if her vitals and Hb will be stable, and abd pain is getting better. -increase the dosage of pain medication today 12/19/2024: Continue IV amoxicillin/Sulbactam-day 10, continue up to 14 days eval in the [facility] for her peritonitis. # Acute hypoxemic respiratory failure secondary to acute exacerbation of diastolic congestive heart failure Echocardiogram: Normal LV size and wall thickness. Overall systolic function is hyperdynamic. Intra-cavitary gradient is present with resting gradient of 30 mmHg increasing to 42 mmHg with valsalva. RV is normal size and function. Trileaflet AV appears mildly sclerotic without stenosis. Increased velocities across the AV/LVOT with resting gradient of 21 mmHg increasing to 31 mmHg with valsalva due to hyperdynamic LV function. No insufficiency. Mild mitral annular calcification without stenosis. Trace regurgitation.The tricuspid valve is normal in structure with trace regurgitation. Moderate circumferential pericardial effusion with fibrinous material seen. Recommend clinical correlation. Follow-up echocardiogram on 12/06/2024 after the procedure: Overall LVEF is 80%. LV appears hypovolemic with hyperdynamic function. Small circumferential, but mostly apically located, pericardial effusion is present s/p pericardiocentesis without obvious hemodynamic compromise. # Possible left breast malignancy with possible lung metastasis Recommends correlation with mammography and breast ultrasound. The patient is evaluation of a left breast mass. # Left pleural effusion # Left upper lingular segment, left lower lobe consolidation: DuoNebs q.4h PRN. Currently on antibiotics based on ampicillin/sulbactam. # AFib with RVR likely secondary to pericarditis itself or post procedural- resolved Chads Vasc score: 4 points The patient developed AFib with RVR during the night of 12/06/2024. No new episodes of atrial fibrillation, telemetry monitoring showing sinus rhythm, heart rate within reference range. Plan: Remains sinus rhythm. We will consider anticoagulation for discharge. No anticoagulation recommended for now due to possible GI bleeding. # Acute kidney injury secondary to NSAIDs use-resolved # Electrolytes imbalances-hyponatremia/hypokalemia # Selective hypoalbuminemia Early acute tubular necrosis-resolved: Creatinine trended down from 1.65-0.84 after stopping NSAIDs. Plan: Continue to monitor CMP. 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 Holding clopidogrel due to GI bleed. Code status: Full code DVT prophylaxis: SCDs Analgesia/sedation: Dilaudid/[place] Line/tube: PIV GI prophylaxis: Protonix Nutrition: Regular PT: Recommended post-acute care Prognosis: Guarded Disposition: Continue medical management including IV antibiotics, pain control, monitor bowel movement, possible arrangement for PCP/Oncology in outpatient for the possible malignant left breast lesion for further management plan and try to contact POA/ family member and PCP, PT eval and DC plan including possible [facility] discharge on tomorrow after her vitals stable, hemoglobin stabilized, and pain control. Resident MD attestation: Patient was seen, examined and discussed with attending MD, Dr. Odalis BLANCA MD Internal Medicine Resident, PGY3 [facility] Date of Service: Dec 19, 2024 Billing Provider: CORINNE OSCAR MD Common Visit Codes: 88953-[id number] INP/OBS CARE(HIGH) KAM BLANCA, JULI Dec 19, 2024 19:50 CORINNE OSCAR MD Dec 20, 2024 06:17
[2024-12-19 20:05] LABS: MEAN PLATELET VOLUME 8.0 FL (7.4-10.4); RED CELL DISTRIBUTION WIDTH 14.6 % (11.5-14.5)
[2024-12-20] VITALS (12 sets, daily range): BP systolic 89–120; BP diastolic 50–90; PULSE 68–90; RESP 12–20; TEMP 97–99; O2SAT 93–98
[2024-12-20 06:49] LABS: MEAN PLATELET VOLUME 8.0 FL (7.4-10.4); RED CELL DISTRIBUTION WIDTH 14.3 % (11.5-14.5)
[2024-12-20] MEDS ORDERED: levoTHYROXINE 25mcg tablet PO SCH (07:00)
[2024-12-20 07:21] LABS: CREATININE 0.88 MG/DL (0.40-0.90); TOTAL CARBON DIOXIDE 31.4 MMOL/L (24-32); eCRCL 65 ML/MIN; eGFR 66 ML/MIN
--- NOTE | 2024-12-20 12:36 | PROGRESS NOTE ---
Progress Note Cardiology Providers to CC ~ Subjective Subjective Patient seen and examined this morning. Overall she is doing well. His bleeding per rectum is decreasing. Objective Result Diagram: 12/20/2462712/20/24627 Objective General: Normal body habitus, no acute distress, HEENT: Sclerae clear, PERRL, gums without lesions or bleeding, oropharynx clear without erythema or exudate. Neck: Supple without enlargement of the thyroid, or lymphadenopathy, Chest: Normal size and shape, no tenderness, nonlabored breathing, Breath sounds clear to auscultation. Heart: Regular in rate and rhythm, S1 and S2 normal, no S3-S4 or murmurs. Abdomen: Soft, mild upper abdominal tenderness present., no organomegaly, bowel sounds present. Extremities: No edema cyanosis or clubbing. Coagulation Studies Laboratory Tests Test 12/03/24 07:49 12/14/24 09:13 D-Dimer 3.25 MG/L FEU (0-0.50) H D-Dimer Comment Prothrombin Time 10.7 SECONDS (9.0-12.0) INR International Normalized Ratio 1.0 INR Activated Partial Thromboplast Time 26 SECONDS (22-32) Coagulation Comments Problem\Assessment\Plan Additional Plan 1. Large pericardial effusion s/p pericardiocentesis on 12/05/2024: Exudative pericardial effusion: Follow up echo showed very small pericardial effusion. Cardiac-patel stable 3. diastolic congestive heart failure: Use p.r.n. diuretics and keep her euvolemic. ECHO :Normal LV size and wall thickness. Overall systolic function is hyperdynamic. Intra-cavitary gradient is present with resting gradient of 30 mmHg increasing to 42 mmHg with valsalva. RV is normal size and function. Trileaflet AV appears mildly sclerotic without stenosis. Increased velocities across the AV/LVOT with resting gradient of 21 mmHg increasing to 31 mmHg with valsalva due to hyperdynamic LV function. No insufficiency. Mild mitral annular calcification without stenosis. Trace regurgitation. No clinical evidence of CHF. 4. . 3.4 cm left breast lesion. Recommend correlation with mammography and breast ultrasound. Supraclavicular lymphadenopathy. Patient needs to evaluation of a left breast mass. Management per primary team 4. Peritonitis: S/p exploratory laparotomy, partial colectomy involving distal transverse and proximal left colon on 12/08/2024: Enlarged mesenteric lymph nodes up to 1.8 cm could represent reactive changes, mesenteric adenitis, noted. The patient underwent exploratory laparotomy, partial colectomy involving distal transverse and proximal left colon on 12/08/2024: Dr. Pressley. Now having intermittent hematochezia. EGD on 12/18/2024 showed no source of bleeding. hemoglobin 8.4 on 12/19/2024 6. AFib with RVR likely secondary to pericarditis itself or post procedural: AFib has not recurred since removing the pericardial drainage catheter 7. Acute kidney injury secondary to NSAIDs use: Normalized with stopping NSAIDs and hydration . 8. Other comorbidities include: Cerebrovascular accident . 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
--- NOTE | 2024-12-20 19:01 | DISCHARGE SUMMARY-Residence ---
Discharge Summary Providers to CC Resident Creating Document: KAM BLANCA RES ~ Discharge Summary Admission Diagnosis: acute abdomen Hospital Course DATE OF ADMISSION: 12/03/2024 DATE OF DISCHARGE: 12/20/2024 Discharge Diagnosis\Comment: # hematochezia # pneumoperitoneum and peritonitis # Perforated distal transverse colon # s/p exploratory laparotomy, partial left descending colectomy and take down splenic flexure- POD 12 # Possible left breast malignancy with possible lung metastasis # Exudative pericardial effusion with Acute pericarditis # Fibrinous circumferential pericardial effusion with impending signs of cardiac tamponade # s/p pericardiocentesis on 12/05/2024 # Left pleural effusion # Left upper lingular segment, left lower lobe consolidation- Community acquired pneumonia covering with broad spectrum ABx- improving # Acute hypoxemic respiratory failure secondary to acute exacerbation of diastolic congestive heart failure # Hypertension # AFib with RVR likely secondary to pericarditis itself or post procedural- co nverted to sinus Chads Vasc score: 4 points # JASE-pre renal and renal: possibly from the NSAIDs induced and renal tubular stasis # Electrolytes imbalances-hyponatremia/hypokalemia- resolved # selective hypoalbuminemia # Ground level Fall on 12/07/24 # Hx of Cerebrovascular accident # Hx of 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 # Anxiety Operations\Procedures: # s/p exploratory laparotomy, partial left descending colectomy and take down splenic flexure- POD 12 # s/p pericardiocentesis on 12/05/2024 Consultants: - Dr Pressley, surgery - Dr Lucero, Cardiology - Dr Vazquez, GI Complications: None Condition on DC: Stable Discharge Summary: A 59 year old female with past history of hypertension, CVA/ TIA, and Anxiety/bipolar disorder/depression was presented with chest pain with elevated D-Dimeres and admitted to rule out Acute PE with Cleared CTA chest and found to have the community acquired pneumonia, left breast mass lesion with the pericardial and small left pleural effusion. The pericardial fluid was drained with drainage tube. New onset Afib was developed post pericardial drain and currently converted to the normal sinus again. Patient complained of stomach pain most likely due to patient being on ibuprofen or gastrointestinal issue. WBCs were uptrending. Patient has undergone s/p exploratory laparotomy, partial left descending colectomy and take down splenic flexure for perforated viscus by Dr Pressley on 12/09/24. Patient complained of post op abdominal pain around incision site, and hypokalemia was recorded on labs. Patient stayed was complicated with the hematochezia and hemoglobin downtrending which were stabilized around 8 before discharged. She was [facility] for the rehab. Hospital course: She was admitted to evaluate for her shortness of breaths and abdominal pain found to have elevated D-dimer with 3.25, she undergone CTA Chest/Thorax: No evidence for large pulmonary embolism.Large pericardial effusion. Recommend cardiology / thoracic surgery consultation for further evaluation / management. Small left pleural effusion. Left upper lobe lingular segment, left lower lobe consolidation/developing atelectasis. 3.4 cm left breast lesion. Recommend correlation with mammography and breast ultrasound. Supraclavicular lymphadenopathy. ECHO :Normal LV size and wall thickness. Overall systolic function is hyperdynamic. Intra-cavitary gradient is present with resting gradient of 30 mmHg increasing to 42 mmHg with valsalva. RV is normal size and function. Trileaflet AV appears mildly sclerotic without stenosis. Increased velocities across the AV/LVOT with resting gradient of 21 mmHg increasing to 31 mmHg with valsalva due to hyperdynamic LV function. No insufficiency. Mild mitral annular calcification without stenosis. Trace regurgitation.The tricuspid valve is normal in structure with trace regurgitation. Moderate circumferential pericardial effusion with fibrinous material seen. Recommend clinical correlati on. She developed Fibrinous circumferential pericardial effusion with impending signs of cardiac tamponade from the possible left breast malignancy with possible lung metastasis with left pleural effusion. She had a pericardiocente sis by Dr Lucero. Follow-up echocardiogram on 12/06/2024 after the procedure showing : Overall LVEF is 80%. LV appears hypovolemic with hyperdynamic function. Small circumferential, but mostly apically located, pericardial effusion is present s/p pericardiocentesis without obvious hemodynamic compromise. Lights criteria was used, which a showed 98% sensitivity for an exudative effusion possibly due to metastasis from left breast mass. She was treated with colchicine and ibuprofen for her pericarditis but IV profile was also discontinued due to obtunded creatinine. Pericardial tube was removed on 12/08/2024. Her community-acquired pneumonia were treated with the IV ceftriaxone and Zithromax for total five days along with a respiratory rehab and supportive therapy. Unfortunately, she developed acute abdominal pain with Given radiological finding of pneumoperitoneum on CXR on 12/07/24, CT Chest Abdomen and pelvis with IV Contrast resulted into A large volume pneumoperitoneum and peritonitis consistent with bowel/viscus perforation was observed with a small amount of ascites. Moderate volume, free pelvic fluid and the free pelvic fluid may represent a developing abscess. Enlarged mesenteric lymph nodes up to 1.8 cm could represent reactive changes, mesenteric adenitis, other infectious / inflammatory processes. Colonic diverticular disease. Posterior wall gastric diverticulum. Surgery was consulted and patient was taken to OR for exploratory laparotomy by Dr Pressley on 12/08/24. SHe was also given with IV amoxicillin/sulbactam for total day 11 and planned to give up to 14 days. Her abdominal pain was subsided down but she developed Hematochezia on 12/14/24 with trending down Hb to around 8s although she did not require for PRBC transfusion. We stopped Plavix, ibuprofen/ NSAIDs, and checked coag profile which were WNL with H&H Q6hrs. She was also given for Protonix with the concern of upper GI bleeding but she was scoped for EGD by Dr Vazquez found no active bleeding lesions. Her stay was also complicated with one time new Afib with RVR for which she was given IV amiodarone but it was not necessitated for manitaince IV Or Oral rate control agents as she converted back to sinus on IV only. She also had on level four on 12/07/[address] head without contrast was ordered which showed no intracranial abnormalities or acute hemorrhage, with the previous right hematoma 3 days back, and vitals were within normal limits after the event. DVT prophylaxis was achieved with the SCDs until fully ambulatory, pain was controlled with IV morphine/Dilaudid/p.o. [place] as needed for multiple pain. She has GI prophylaxis with the pantoprazole and all of her home medications were reconciled review and a continue appropriately during her stay. Interestingly, her [facility] pericardial fluid report and, cytology showed: Numerous neutrophils, occasionally foamy macrophages with rare mesothelial cells, no Infectious elements are identified, no epithelial cells are identified. No dysplastic or neoplastic features.Those are necessitated to follow up with the breast cancer specialist in the outpatient setting for the possible imaging guided tissue biopsy for the possible malignant pericardial and left pleural effusion. Today, her labs showed hemoglobin stabilized around eight, trending down thrombocytosis, within normal limits electrolytes, but nonspecific elevation of TSH which might possibly from her previous critical states of her hospitalization contributed to possible subclinical hypothyroidism reacted to the stress. PT myles was cleared today with the ability to move nearby. All of her questions and concerns were addressed with the best knowledge of our team before she was discharged to [facility]. All of her vitals were stable at the moment with temp 99 F, AR 82/minute, RR 70/minute, BP 98/54 mm Hg, pulse oximetry 97% on room air. On examination, General: The patient was alert, Well alert x 4, well oriented x 4, not confused x 4, not agitated x 4, not in acute distress, well cooperated during the physical. HEENT: There was a slight right forehead hematoma and old bruises which are getting better. Conjunctive are pink, sclera clear, no icterus, pupils are equal and reactive to lights in both sides. There is no ear discharge present, no pharyngeal erythema or edema. Upon checking, the mouth and lips are moist. Neck: Supple, JVD elevated, no lymphadenopathy and thyromegaly. Lungs: Patient has equal air entry on both lungs, and no more chest pain with deep inspiration. Chest: No signs of inflammation was present on drainage site Breast and axilla: NO signs of visible mastitis, infection, inflammation, any skin changes, and lymphatic drainage abnormalities on inspection. No bilateral Breast or axillary lymphadenopathy were noted on palpation. Heart: Regular S1-S2 present, regular rate, no gallops, pericardial friction rub heard and no murmurs Abdomen: Surgical dressing over incision site is clean, dry and intact with no signs of erythema, drainage or dehiscence. SIVA drain is in place with serosanguinous fluid this morning, and no signs of infection or obstruction. Bowel sounds sluggish on auscultation, soft, slight tender at the operated area due to post op ex lap, no guarding, no rigidity. Extremities: No obvious deformities, no pitting edema bilaterally, capillary refill intact, able to wiggle toes both sides, peripheral pulsations are intact on both sides [employer]POR[employer] L[employer]ED BROKER: No focal neurological deficits, no motor and sensory weakness in all 4 extremities, could move all 4 extremities Musculoskeletal: No joint swelling, deformities, inflammations, and no scoliosis and back tenderness Skin: No active skin lesions and rashes. Discharge medications: -IV ampicillin/sulbactam q.6 hours -IV Dilaudid 1 mg q.4 hours PRN for [id number] pain -IV sodium phosphate and p.o. potassium phosphate PRN -IV hydralazine 10 mg q.4 hours for hypertension -IV Reglan 10 mg q.6 hours PRN -IV pantoprazole daily -IV lorazepam 0.5 mg q.4 PRN -p.o. levothyroxine 25 mcg daily -p.o. [place] five/10 q.4 hours PRN -p.o. gabapentin 300 mg b.i.d. -IV ondansetron 4 mg q.6 hours PRN -P.o. lisinopril 20 mg daily -P.o. fentanyl vaccine 150 mg daily -P.o. atorvastatin 80 mg daily -Nebulized DuoNeb q.4 hours PRN -P.o. trazodone 100 mg HS -P.o. lorazepam stone 80 mg HS -P.o. propranolol 20 mg t.i.d. -P.o. clonazepam 0.5 mg t.i.d. -P.o. magnesium hydroxide 30 mL daily PRN -P.o. Maalox 30 mL q.4 hours PRN -P.o. acetaminophen 650 mg q.6 hours PRN Discharge instructions: REFERRAL WAS SENT FOR YOU TO [facility]. PLEASE, FOLLOW UP WITH THEM, THE PH ONE NUMBER IS [phone] -Immediate return to the ER for any emergency situations including severe progressive abd pain, nausea and vomiting, bleeding in the bowel movement, etc -please follow up with the PCP and medical oncology for the further managment including left breast mass malignant lesion and necessitated to follow up with the breast cancer specialist in the outpatient setting for the possible imaging guided tissue biopsy for the possible malignant pericardial and left pleural effusion with the left breast mass. -recheck the CBC and CMP especially for the Hemoglobin stablization and vitals with BP -Cardiology Dr Lucero and surgery Dr Pressley for the further plan -medication compliance -pain control meds as per prescribed Resident MD attestation: Patient was seen, examined and discussed with attending MD, Dr. Odalis BLANCA MD Internal Medicine Resident, PGY3 [facility] *Problems/Diagnosis: (1) Pericardial effusion Status: Resolved Total Time Spent on D/C: > 30 Minutes Date of Service: Dec 20, 2024 Billing Provider: CORINNE OSCAR MD Common Visit Codes: 99020-COF/OBS DISCH DAY >30min KAM BLANCA, RES Dec 20, 2024 18:19 CORINNE OSCAR MD Dec 20, 2024 21:20
[2024-12-21] VITALS (12 sets, daily range): BP systolic 77–114; BP diastolic 46–66; PULSE 63–119; RESP 12–18; TEMP 97.2–98.1; O2SAT 94–97
[2024-12-21 05:28] LABS: MEAN PLATELET VOLUME 8.0 FL (7.4-10.4); RED CELL DISTRIBUTION WIDTH 14.5 % (11.5-14.5)
[2024-12-21 05:57] LABS: CREATININE 0.82 MG/DL (0.40-0.90); TOTAL CARBON DIOXIDE 31.0 MMOL/L (24-32); eCRCL 70 ML/MIN; eGFR 72 ML/MIN
--- NOTE | 2024-12-21 17:23 | PROGRESS NOTE- Residence ---
Progress Note - Resident Providers to CC Resident Creating Document: KAM BLANCA RES ~ Antibiotic Timeout Antibiotic Ordered?: Yes Subjective Patient feels good today. She is awaiting for being placed in rehab. [facility] because of her insurance status/ current treatment. She does not have any bleeding bowel movement anymore with a stabilized hemoglobin, her pain is well-controlled. Objective Vital Signs Date Time Temp Pulse Resp B/P (MAP) Pulse Ox O2 Delivery O2 Flow Rate FiO2 12/21/24 15:00 97.9 70 18 107/54 (71) 96 Room Air 12/21/24 08:04 0 21 Result Diagram: 12/21/24 0508 12/21/24 0508 Patient was seen at the bedside this morning. The patient's vital signs were stable at the moment. On exam, General: The patient was alert, Well alert x 4, well oriented x 4, not confused x 4, not agitated x 4, not in acute distress, well cooperated during the physical. HEENT: There was a slight right forehead hematoma and old bruises. Conjunctive are pink, sclera clear, no icterus, pupils are equal and reactive to lights in both sides. There is no ear discharge present, no pharyngeal erythema or edema. Upon checking, the mouth and lips are moist. NG tube decompression in situ. Neck: Supple, JVD elevated, no lymphadenopathy and thyromegaly. Lungs: Patient is coughing and there is equal air entry on both lungs, and no more chest pain with deep inspiration. Chest: No signs of inflammation was present on drainage site Breast and axilla: NO signs of visible mastitis, infection, inflammation, any skin changes, and lymphatic drainage abnormalities on inspection. No bilateral Breast or axillary lymphadenopathy were noted on palpation. Heart: Regular S1-S2 present, regular rate, no gallops, pericardial friction rub heard and no murmurs Abdomen: Surgical dressing over incision site is clean, dry and intact with no signs of erythema, drainage or dehiscence. SIVA drain is in place with serosanguinous fluid this morning, and no signs of infection or obstruction. Bowel sounds sluggish on auscultation, soft, slight tender at the operated area due to post op ex lap, no guarding, no rigidity. Extremities: No obvious deformities, no pitting edema bilaterally, capillary refill intact, able to wiggle toes both sides, peripheral pulsations are intact on both sides HAIR MIXER: No focal neurological deficits, no motor and sensory weakness in all 4 extremities, could move all 4 extremities Musculoskeletal: No joint swelling, deformities, inflammations, and no scoliosis and back tenderness Skin: No active skin lesions and rashes. Coagulation Studies Laboratory Tests Test 12/03/24 07:49 12/14/24 09:13 D-Dimer 3.25 MG/L FEU (0-0.50) H D-Dimer Comment Prothrombin Time 10.7 SECONDS (9.0-12.0) INR International Normalized Ratio 1.0 INR Activated Partial Thromboplast Time 26 SECONDS (22-32) Coagulation Comments Assessment Assessment A 59-year-old female patient came to the hospital with chief complaint of chest pain. Plan Plan # Hematochezia # Possible lower GI bleeding The patient had an episode of hematochezia on 12/14/2024. Reported three more episodes on 12/15/2024, two episodes in the morning of 12/16/2024. 12/21/2024: No more hematochezia and hemoglobin was stabilized around eight 12/19/2024: One small amount of the hematochezia was reported this morning. Hemoglobin was stabilized around 8.4, we will monitor H&H one time tonight and one time tomorrow before she will be stable enough to be discharged to [facility] tomorrow. -continue GI bleeding/bowel movement monitoring 12/18/2024: Hemoglobin and hematocrit stable around 8 -General surgeon, Dr. Pressley was consulted regarding the episodes of hematochezia who recommended evaluation by Interventional Radiology for angiogram, unfortunately we are not going to be able to obtain in this hospital. NG tube placement and lavage was done by surgeon recommendation, not showing upper active GI bleeding. -Dr Vazquez re consulted pt for EGD which was done with WNL findings and resumed the oral regular diet. -Avoid NSAIDs, held clopidogrel. -Transfuse if hemoglobin levels drops below seven. # Acute pericarditis with pericardial effusion s/p pericardiocentesis on 12/05/2024 # Exudative pericardial effusion: Follow-up echo showed very small pericardial effusion. Follow-up echocardiogram showed very small pericardial effusion. 12/17/2024: [place] [facility] associates contacted regarding pericardial fluid, cytology: Numerous neutrophils, occasionally foamy macrophages with rare mesothelial cells, no Infectious elements are identified, no epithelial cells are identified. No dysplastic or neoplastic features. Plan: The patient will need follow-up with Oncology. # Peritonitis # Perforated distal transverse colon # Pneumoperitoneum and peritonitis # S/p exploratory laparotomy, partial colectomy involving distal transverse and proximal left colon on 12/08/2024 The patient underwent exploratory laparotomy, partial colectomy involving distal transverse and proximal left colon on 12/08/2024: Dr. Pressley. 12/08/2024: -Given radiological finding of pneumoperitoneum on CXR on 12/07/24, CT Chest Abdomen and pelvis with IV Contrast was ordered which resulted into A large volume pneumoperitoneum consistent with bowel/viscus perforation was observed with a small amount of ascites. Moderate volume, free pelvic fluid and the free pelvic fluid may represent a developing abscess. Surgery was consulted and patient was taken to OR for exploratory laparotomy. -CT scan also showed Enlarged mesenteric lymph nodes up to 1.8 cm could represent reactive changes, mesenteric adenitis, other infectious / inflammatory processes. Colonic diverticular disease. Posterior wall gastric diverticulum. -elevated procalcitonin, Trending down WBC which was 2/2 from the peritonitis and peritonitis Vs Possible LUTIs/bacteuria with no symptoms Pathology: Colonic perforation with the acute serositis and fibrinopurulent exudate. Background, with viable mucosa, no dysplasia or carcinoma identified. One lymph node negative for carcinoma. 12/17/2024: WBC today within reference range. Plan: Continue on ampicillin/sulbactam. Management as per Dr. Pressley. 12/21/2024: Continue IV amoxicillin/sulbactam day 12, up to day 14 12/18/2024: Continue IV amoxicillin/sulbactam-day nine, continue up to 14 days -monitor hematochezia and stabilization of hemoglobin -paln to discharge to [facility] if her vitals and Hb will be stable, and abd pain is getting better. -increase the dosage of pain medication today 12/19/2024: Continue IV amoxicillin/Sulbactam-day 10, continue up to 14 days eval in the [facility] for her peritonitis. # Acute hypoxemic respiratory failure secondary to acute exacerbation of diastolic congestive heart failure Echocardiogram: Normal LV size and wall thickness. Overall systolic function is hyperdynamic. Intra-cavitary gradient is present with resting gradient of 30 mmHg increasing to 42 mmHg with valsalva. RV is normal size and function. Trileaflet AV appears mildly sclerotic without stenosis. Increased velocities across the AV/LVOT with resting gradient of 21 mmHg increasing to 31 mmHg with valsalva due to hyperdynamic LV function. No insufficiency. Mild mitral annular calcification without stenosis. Trace regurgitation.The tricuspid valve is normal in structure with trace regurgitation. Moderate circumferential pericardial effusion with fibrinous material seen. Recommend clinical correlation. Follow-up echocardiogram on 12/06/2024 after the procedure: Overall LVEF is 80%. LV appears hypovolemic with hyperdynamic function. Small circumferential, but mostly apically located, pericardial effusion is present s/p pericardiocentesis without obvious hemodynamic compromise. # Possible left breast malignancy with possible lung metastasis Recommends correlation with mammography and breast ultrasound. The patient is evaluation of a left breast mass. # Left pleural effusion # Left upper lingular segment, left lower lobe consolidation: DuoNebs q.4h PRN. Currently on antibiotics based on ampicillin/sulbactam. # AFib with RVR likely secondary to pericarditis itself or post procedural- resolved Chads Vasc score: 4 points The patient developed AFib with RVR during the night of 12/06/2024. No new episodes of atrial fibrillation, telemetry monitoring showing sinus rhythm, heart rate within reference range. Plan: Remains sinus rhythm. We will consider anticoagulation for discharge. No anticoagulation recommended for now due to possible GI bleeding. # Acute kidney injury secondary to NSAIDs use-resolved # Electrolytes imbalances-hyponatremia/hypokalemia # Selective hypoalbuminemia Early acute tubular necrosis-resolved: Creatinine trended down from 1.65-0.84 after stopping NSAIDs. Plan: Continue to monitor CMP. 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 Holding clopidogrel due to GI bleed. Code status: Full code DVT prophylaxis: SCDs Analgesia/sedation: Dilaudid/[place] Line/tube: PIV GI prophylaxis: Protonix Nutrition: Regular PT: Recommended post-acute care Prognosis: Guarded Disposition: Continue medical management including IV antibiotics, pain control, monitor bowel movement, possible arrangement for PCP/Oncology in outpatient for the possible malignant left breast lesion for further management plan and try to contact POA/ family member and PCP, PT eval and DC plan including possible rehab discharge. Resident MD attestation: Patient was seen, examined and discussed with attending MD, Dr. Odalis BLANCA MD Internal Medicine Resident, PGY3 [facility] Date of Service: Dec 21, 2024 Billing Provider: CORINNE OSCAR MD Common Visit Codes: [id number] INP/OBS CARE(HIGH) KAM BLANCA, JULI Dec 21, 2024 17:23 CORINNE OSCAR MD Dec 22, 2024 07:09
--- NOTE | 2024-12-21 19:09 | PROGRESS NOTE- Residence ---
Progress Note - Resident Providers to CC Resident Creating Document: SERGE CORNEJO, RES ~ Antibiotic Timeout Antibiotic Ordered?: Yes Subjective The patient has been evaluated at the bedside. The patient is currently asymptomatic, denies any hematochezia. Awaiting for placement. Objective Vital Signs Date Time Temp Pulse Resp B/P (MAP) Pulse Ox O2 Delivery O2 Flow Rate FiO2 12/21/24 17:57 Room Air 0.0 12/21/24 15:00 97.9 70 18 107/54 (71) 96 12/21/24 08:04 21 Physical exam: General: Well alert, well oriented, not confused, not agitated, mildly acute distress, well cooperated during the physical. HEENT: Conjunctive are pink, sclerae clear, no icterus, pupil is equal in both sides, reactive to light, no ear discharge, no pharyngeal erythema or an edema. Presence of right periorbital hematoma-improved. Neck: Supple, no JVD, no lymphadenopathy and thyromegaly. Chest: Equal air entry on both lungs, no evidence of crackles or wheezing. Incision side from previous drainage without signs of infection or inflammation. Cardiovascular: S1-S2 regular sinus rhythm and, regular rate, no gallops, no rubs, no murmurs Abdomen: Tenderness in the level of the epigastrium and lower abdomen, presence of albino in the midline of the abdomen, no signs of infection or inflammation. Extremities: No obvious deformities, no pitting edema bilaterally, capillary refill intact, peripheral pulsations are intact on both sides, presence of scars in the level of the lower extremities from previous surgeries. Central Nervous System: No focal neurological deficits, no motor or sensory weakness in all 4 extremities, could move all 4 extremities, 2+ deep tendon reflexes, negative Babinski. Musculoskeletal: No joint swelling, deformities, inflammations, and no scoliosis and back tenderness Skin: Warm and dry. Result Diagram: 12/21/24 0508 12/21/24 0508 Coagulation Studies Laboratory Tests Test 12/03/24 07:49 12/14/24 09:13 D-Dimer 3.25 MG/L FEU (0-0.50) H D-Dimer Comment Prothrombin Time 10.7 SECONDS (9.0-12.0) INR International Normalized Ratio 1.0 INR Activated Partial Thromboplast Time 26 SECONDS (22-32) Coagulation Comments Assessment Assessment A 59-year-old female patient came to the hospital with chief complaint of chest pain. Plan Plan 1. Hematochezia: Possible lower GI bleeding: The patient had an episode of hematochezia on 12/14/2024. Reported three more episodes on 12/15/2024, two episodes in the morning of 12/16/2024. Hemoglobin and hematocrit stable Plan: Continue management as per primary team. 2. Acute pericarditis with pericardial effusion s/p pericardiocentesis on 12/05/2024: Exudative pericardial effusion: Follow-up echo showed very small pericardial effusion. Follow-up echocardiogram showed very small pericardial effusion. 12/17/2024: [place] pathology associates contacted regarding pericardial fluid, cytology: Numerous neutrophils, occasionally foamy macrophages with rare mesothelial cells, no Infectious elements are identified, no epithelial cells are identified. No dysplastic or neoplastic features. Plan: The patient will need follow-up with Oncology. Cardiology patel stable. Awaiting for placement. 3. Peritonitis: Perforated distal transverse colon: Pneumoperitoneum and peritonitis: S/p exploratory laparotomy, partial colectomy involving distal transverse and proximal left colon on 12/08/2024: The patient underwent exploratory laparotomy, partial colectomy involving distal transverse and proximal left colon on 12/08/2024: Dr. Pressley. 12/08/2024: -Given radiological finding of pneumoperitoneum on CXR on 12/07/24, CT Chest Abdomen and pelvis with IV Contrast was ordered which resulted into A large volume pneumoperitoneum consistent with bowel/viscus perforation was observed with a small amount of ascites. Moderate volume, free pelvic fluid and the free pelvic fluid may represent a developing abscess. Surgery was consulted and patient was taken to OR for exploratory laparotomy. -CT scan also showed Enlarged mesenteric lymph nodes up to 1.8 cm could represent reactive changes, mesenteric adenitis, other infectious / inflammatory processes. Colonic diverticular disease. Posterior wall gastric diverticulum. -elevated procalcitonin, Trending down WBC which was 2/2 from the peritonitis and peritonitis Vs Possible LUTIs/bacteuria with no symptoms Pathology: Colonic perforation with the acute serositis and fibrinopurulent exudate. Background, with viable mucosa, no dysplasia or carcinoma identified. One lymph node negative for carcinoma. 12/17/2024: WBC today within reference range. Plan: Continue on ampicillin/sulbactam. Management as per primary team. 4. Acute hypoxemic respiratory failure secondary to acute exacerbation of diastolic congestive heart failure: Echocardiogram: Normal LV size and wall thickness. Overall systolic function is hyperdynamic. Intra-cavitary gradient is present with resting gradient of 30 mmHg increasing to 42 mmHg with valsalva. RV is normal size and function. Trileaflet AV appears mildly sclerotic without stenosis. Increased velocities across the AV/LVOT with resting gradient of 21 mmHg increasing to 31 mmHg with valsalva due to hyperdynamic LV function. No insufficiency. Mild mitral annular calcification without stenosis. Trace regurgitation.The tricuspid valve is normal in structure with trace regurgitation. Moderate circumferential pericardial effusion with fibrinous material seen. Recommend clinical correlation. Follow-up echocardiogram on 12/06/2024 after the procedure: Overall LVEF is 80%. LV appears hypovolemic with hyperdynamic function. Small circumferential, but mostly apically located, pericardial effusion is present s/p pericardiocentesis without obvious hemodynamic compromise. Currently on ampicillin/sulbactam. 5. Possible left breast malignancy with possible lung metastasis: Recommends correlation with mammography and breast ultrasound. The patient is evaluation of a left breast mass. Left pleural effusion Left upper lingular segment, left lower lobe consolidation: DuoNebs q.4h PRN. Currently on antibiotics based on ampicillin/sulbactam. 6. AFib with RVR likely secondary to pericarditis itself or post procedural- resolved: Chads Vasc score: 4 points: The patient developed AFib with RVR during the night of 12/06/2024. No new episodes of atrial fibrillation, telemetry monitoring showing sinus rhythm, heart rate within reference range. Plan: Currently on sinus rhythm. We will consider anticoagulation for discharge. No anticoagulation recommended for now due to possible GI bleeding. 7. Acute kidney injury secondary to NSAIDs use-resolved: Electrolytes imbalances-hyponatremia/hypokalemia Selective hypoalbuminemia 8. H/o Cerebrovascular accident 9. 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 Anxiety Continue atorvastatin, gabapentin, clonazepam, venlafaxine, trazodone. Holding clopidogrel due to GI bleed. Code status: Full code DVT prophylaxis: SCDs Analgesia/sedation: Dilaudid/[place] Line/tube: PIV GI prophylaxis: Protonix Nutrition: Clear liquid diet, NPO after midnight for EGD PT: Recommended post-acute care Prognosis: Guarded Disposition: The patient is awaiting for placement. Continue management as per primary team. Serge Carrasquillo Internal Medicine Resident [facility] Patient seen and examined by Dr. Melissa POMPA. Patient continues to improve. Decreasing bleeding per rectum with relatively stable hemoglobin. Patient possibly going to rehabilitation. Recommend follow up with PMD. Also recommend outpatient echocardiogram in three months. Date of Service: Dec 21, 2024 Billing Provider: VIANCA PRECIADO MD, FRANCO LUIS, RES Dec 21, 2024 19:09 VIANCA PRECIADO MD Dec 22, 2024 19:44
[2024-12-22 06:00] VITALS: BP 127/54; PULSE 70; RESP 14; TEMP 97.7; O2SAT 97
[2024-12-22 06:01] LABS: MEAN PLATELET VOLUME 8.2 FL (7.4-10.4); RED CELL DISTRIBUTION WIDTH 15.2 % (11.5-14.5)
[2024-12-22 06:28] LABS: CREATININE 0.92 MG/DL (0.40-0.90); TOTAL CARBON DIOXIDE 34.2 MMOL/L (24-32); eCRCL 62 ML/MIN; eGFR 63 ML/MIN
[2024-12-22 10:00] VITALS: BP 116/65; PULSE 87; RESP 18; TEMP 98; O2SAT 97
[2024-12-22] MEDS ORDERED: HYDR-3973 PO (13:32)
[2024-12-22] MEDS ORDERED: HYDR-3964 PO (13:34)
--- NOTE | 2024-12-22 16:38 | PROGRESS NOTE- Residence ---
Progress Note - Resident Providers to CC Resident Creating Document: KAM BLANCA RES ~ Antibiotic Timeout Antibiotic Ordered?: Yes Subjective Patient stated that her abdominal pain was more better than previous days today. She does not have any bloody bowel movement this morning. She was informed to be discharged to home today. She will be discharged today home and referred to the discharge summary on 12/20/2024. Objective Vital Signs Date Time Temp Pulse Resp B/P (MAP) Pulse Ox O2 Delivery O2 Flow Rate FiO2 12/22/24 10:48 Room Air 0.0 21 12/22/24 10:00 98.0 87 18 116/65 (82 97 Result Diagram: 12/22/2445312/22/24453 Patient was seen at the bedside this morning. The patient's vital signs were stable at the moment. On exam, General: The patient was alert, Well alert x 4, well oriented x 4, not confused x 4, not agitated x 4, not in acute distress, well cooperated during the physical. HEENT: There was a slight right forehead hematoma and old bruises. Conjunctive are pink, sclera clear, no icterus, pupils are equal and reactive to lights in both sides. There is no ear discharge present, no pharyngeal erythema or edema. Upon checking, the mouth and lips are moist. NG tube decompression in situ. Neck: Supple, JVD elevated, no lymphadenopathy and thyromegaly. Lungs: Patient is coughing and there is equal air entry on both lungs, and no more chest pain with deep inspiration. Chest: No signs of inflammation was present on drainage site Breast and axilla: NO signs of visible mastitis, infection, inflammation, any skin changes, and lymphatic drainage abnormalities on inspection. No bilateral Breast or axillary lymphadenopathy were noted on palpation. Heart: Regular S1-S2 present, regular rate, no gallops, pericardial friction rub heard and no murmurs Abdomen: Surgical dressing over incision site is clean, dry and intact with no signs of erythema, drainage or dehiscence. Surgical lamont incisions were intact and showing no signs of infection or obstruction. Bowel sounds present on auscultation, soft, slight tender at the operated area due to post op ex lap, no guarding, no rigidity. Extremities: No obvious deformities, no pitting edema bilaterally, capillary refill intact, able to wiggle toes both sides, peripheral pulsations are intact on both sides [employer]: No focal neurological deficits, no motor and sensory weakness in all 4 extremities, could move all 4 extremities Musculoskeletal: No joint swelling, deformities, inflammations, and no scoliosis and back tenderness Skin: No active skin lesions and rashes. Coagulation Studies Laboratory Tests Test 12/03/24 07:49 12/14/24 09:13 D-Dimer 3.25 MG/L FEU (0-0.50) H D-Dimer Comment Prothrombin Time 10.7 SECONDS (9.0-12.0) INR International Normalized Ratio 1.0 INR Activated Partial Thromboplast Time 26 SECONDS (22-32) Coagulation Comments Assessment Assessment A 59-year-old female patient came to the hospital with chief complaint of chest pain. Plan Plan # Hematochezia # Possible lower GI bleeding The patient had an episode of hematochezia on 12/14/2024. Reported three more episodes on 12/15/2024, two episodes in the morning of 12/16/2024. 12/22/2024: Patient does not have any bleeding bowel movement and abdominal pain is getting better. 12/21/2024: No more hematochezia and hemoglobin was stabilized around eight 12/19/2024: One small amount of the hematochezia was reported this morning. Hemoglobin was stabilized around 8.4, we will monitor H&H one time tonight and one time tomorrow before she will be stable enough to be discharged to [facility] tomorrow. -continue GI bleeding/bowel movement monitoring 12/18/2024: Hemoglobin and hematocrit stable around 8 -General surgeon, Dr. Pressley was consulted regarding the episodes of hematochezia who recommended evaluation by Interventional Radiology for angiogram, unfortunately we are not going to be able to obtain in this hospital. NG tube placement and lavage was done by surgeon recommendation, not showing upper active GI bleeding. -Dr Vazquez re consulted pt for EGD which was done with WNL findings and resumed the oral regular diet. -Avoid NSAIDs, held clopidogrel. -Transfuse if hemoglobin levels drops below seven. # Acute pericarditis with pericardial effusion s/p pericardiocentesis on 12/05/2024 # Exudative pericardial effusion: Follow-up echo showed very small pericardial effusion. Follow-up echocardiogram showed very small pericardial effusion. 12/17/2024: [place] pathology associates contacted regarding pericardial fluid, cytology: Numerous neutrophils, occasionally foamy macrophages with rare mesothelial cells, no Infectious elements are identified, no epithelial cells are identified. No dysplastic or neoplastic features. Plan: The patient will need follow-up with Oncology. # Peritonitis # Perforated distal transverse colon # Pneumoperitoneum and peritonitis # S/p exploratory laparotomy, partial colectomy involving distal transverse and proximal left colon on 12/08/2024 The patient underwent exploratory laparotomy, partial colectomy involving distal transverse and proximal left colon on 12/08/2024: Dr. Pressley. 12/08/2024: -Given radiological finding of pneumoperitoneum on CXR on 12/07/24, CT Chest Abdomen and pelvis with IV Contrast was ordered which resulted into A large volume pneumoperitoneum consistent with bowel/viscus perforation was observed with a small amount of ascites. Moderate volume, free pelvic fluid and the free pelvic fluid may represent a developing abscess. Surgery was consulted and patient was taken to OR for exploratory laparotomy. -CT scan also showed Enlarged mesenteric lymph nodes up to 1.8 cm could represent reactive changes, mesenteric adenitis, other infectious / inflammatory processes. Colonic diverticular disease. Posterior wall gastric diverticulum. -elevated procalcitonin, Trending down WBC which was 2/2 from the peritonitis and peritonitis Vs Possible LUTIs/bacteuria with no symptoms Pathology: Colonic perforation with the acute serositis and fibrinopurulent exudate. Background, with viable mucosa, no dysplasia or carcinoma identified. One lymph node negative for carcinoma. 12/17/2024: WBC today within reference range. Plan: Continue on ampicillin/sulbactam. Management as per Dr. Pressley. 12/22/2024: Completed IV amoxicillin/sulbactam day 13, and no need to continue further at that moment. [place]ont mid line incisional wound stitches were out. 12/21/2024: Continue IV amoxicillin/sulbactam day 12, up to day 14 12/18/2024: Continue IV amoxicillin/sulbactam-day nine, continue up to 14 days -monitor hematochezia and stabilization of hemoglobin -paln to discharge to [facility] if her vitals and Hb will be stable, and abd pain is getting better. -increase the dosage of pain medication today 12/19/2024: Continue IV amoxicillin/Sulbactam-day 10, continue up to 14 days eval in the [facility] for her peritonitis. # Acute hypoxemic respiratory failure secondary to acute exacerbation of diastolic congestive heart failure Echocardiogram: Normal LV size and wall thickness. Overall systolic function is hyperdynamic. Intra-cavitary gradient is present with resting gradient of 30 mmHg increasing to 42 mmHg with valsalva. RV is normal size and function. Trileaflet AV appears mildly sclerotic without stenosis. Increased velocities across the AV/LVOT with resting gradient of 21 mmHg increasing to 31 mmHg with valsalva due to hyperdynamic LV function. No insufficiency. Mild mitral annular calcification without stenosis. Trace regurgitation.The tricuspid valve is normal in structure with trace regurgitation. Moderate circumferential pericardial effusion with fibrinous material seen. Recommend clinical correlation. Follow-up echocardiogram on 12/06/2024 after the procedure: Overall LVEF is 80%. LV appears hypovolemic with hyperdynamic function. Small circumferential, but mostly apically located, pericardial effusion is present s/p pericardiocentesis without obvious hemodynamic compromise. # Possible left breast malignancy with possible lung metastasis Recommends correlation with mammography and breast ultrasound. The patient is evaluation of a left breast mass. # Left pleural effusion # Left upper lingular segment, left lower lobe consolidation: DuoNebs q.4h PRN. Currently on antibiotics based on ampicillin/sulbactam. # AFib with RVR likely secondary to pericarditis itself or post procedural- resolved Chads Vasc score: 4 points The patient developed AFib with RVR during the night of 12/06/2024. No new episodes of atrial fibrillation, telemetry monitoring showing sinus rhythm, heart rate within reference range. Plan: Remains sinus rhythm. We will consider anticoagulation for discharge. No anticoagulation recommended for now due to possible GI bleeding. # Acute kidney injury secondary to NSAIDs use-resolved # Electrolytes imbalances-hyponatremia/hypokalemia # Selective hypoalbuminemia Early acute tubular necrosis-resolved: Creatinine trended down from 1.65-0.84 after stopping NSAIDs. Plan: Continue to monitor CMP. 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 Holding clopidogrel due to GI bleed. Code status: Full code DVT prophylaxis: SCDs Analgesia/sedation: Dilaudid/[place] Line/tube: PIV GI prophylaxis: Protonix Nutrition: Regular PT: Recommended post-acute care Prognosis: Guarded Disposition: Continue medical management including IV antibiotics, pain control, monitor bowel movement, possible arrangement for PCP/Oncology in outpatient for the possible malignant left breast lesion for further management plan and try to contact POA/ family member and PCP, PT eval and discharge today home (refer to discharge summary on 12/20/2024) Resident MD attestation: Patient was seen, examined and discussed with attending MD, Dr. Odalis BLANCA MD Internal Medicine Resident, PGY3 [facility] Date of Service: Dec 22, 2024 Billing Provider: CORINNE OSCAR MD Common Visit Codes: [id number] INP/OBS CARE(HIGH) KAM BLANCA, JULI Dec 22, 2024 16:38 CORINNE OSCAR MD Dec 22, 2024 20:00
== END 2024-12-22 15:08 | disposition home health service (06) | DRG 231 ==
LOC: ER 07:21 → ED HOLD 13:06 → PCU 3S 15:42 → CICU 2S 12-08 19:13 → PCU 3S 12-09 18:06 → SUR 3N 12-21 19:00
PROVIDERS: ADMIT Internal Medicine; ATTEND Internal Medicine
PROC: B32T1ZZ Computerized Tomography (CT Scan) of Left Pulmonary Artery using Low Osmolar Contrast (ICD-10-PCS; 2024-12-03)
PROC: B3201ZZ Computerized Tomography (CT Scan) of Thoracic Aorta using Low Osmolar Contrast (ICD-10-PCS; 2024-12-03)
PROC: B32S1ZZ Computerized Tomography (CT Scan) of Right Pulmonary Artery using Low Osmolar Contrast (ICD-10-PCS; 2024-12-03)
PROC: 0W9D30Z Drainage of Pericardial Cavity with Drainage Device, Percutaneous Approach (ICD-10-PCS; 2024-12-05)
PROC: BW211ZZ Computerized Tomography (CT Scan) of Abdomen and Pelvis using Low Osmolar Contrast (ICD-10-PCS; 2024-12-05)
PROC: 0DBL0ZZ Excision of Transverse Colon, Open Approach (ICD-10-PCS; 2024-12-08)
PROC: BW211ZZ Computerized Tomography (CT Scan) of Abdomen and Pelvis using Low Osmolar Contrast (ICD-10-PCS; 2024-12-08)
PROC: 0DBG0ZZ Excision of Left Large Intestine, Open Approach (ICD-10-PCS; principal; 2024-12-08 13:46)
PROC: BW251ZZ Computerized Tomography (CT Scan) of Chest, Abdomen and Pelvis using Low Osmolar Contrast (ICD-10-PCS; 2024-12-14)
DX: K65.8 Other peritonitis (principal); J96.01 Acute respiratory failure with hypoxia; N17.0 Acute kidney failure with tubular necrosis; I31.4 Cardiac tamponade; I50.33 Acute on chronic diastolic (congestive) heart failure; I31.39 Other pericardial effusion (noninflammatory); K63.1 Perforation of intestine (nontraumatic); J15.9 Unspecified bacterial pneumonia; I13.0 Hypertensive heart and chronic kidney disease with heart failure and stage 1 through stage 4 chronic kidney disease, or unspecified chronic kidney disease; R10.0 Acute abdomen; I31.9 Disease of pericardium, unspecified; I48.0 Paroxysmal atrial fibrillation; F31.9 Bipolar disorder, unspecified; E87.6 Hypokalemia; T39.395A Adverse effect of other nonsteroidal anti-inflammatory drugs [NSAID], initial encounter; E88.09 Other disorders of plasma-protein metabolism, not elsewhere classified; K92.1 Melena; G62.9 Polyneuropathy, unspecified; F41.9 Anxiety disorder, unspecified; N18.9 Chronic kidney disease, unspecified; N63.20 Unspecified lump in the left breast, unspecified quadrant; I48.91 Unspecified atrial fibrillation; S00.11XA Contusion of right eyelid and periocular area, initial encounter; W18.39XA Other fall on same level, initial encounter; Z86.73 Personal history of transient ischemic attack (TIA), and cerebral infarction without residual deficits; Z79.899 Other long term (current) drug therapy; Z87.891 Personal history of nicotine dependence; Z91.013 Allergy to seafood; Y93.89 Activity, other specified; Y92.89 Other specified places as the place of occurrence of the external cause; Y99.8 Other external cause status
CPT/HCPCS: 33016; 36415; 36600; 43239; 70450; 71045; 71260; 71275; 74177; 74178; 80048; 80053; 80061; 81001; 82803; 82945; 82948; 83036; 83605; 83615; 83735; 83880; 84100; 84132; 84145; 84157; 84439; 84443; 84480; 84484; 85007; 85018; 85025; 85027; 85379; 85610; 85651; 85730; 86140; 86885; 86900; 86901; 87040; 87070; 87075; 87076; 87077; 87081; 87088; 87185; 87186; 89051; 93005; 93306; 93308; 94640; 94760; 96365; 97110; 97116; 97162; 97164; 97530; 99152; 99153; 99285; A4615; A4618; A4620; A6209; A6212; A6213; A6250; A6253; A6258; A6402; A6407; A6449; A7000; C1729; C1751; C1758; C1894; G0378; J0131; J0282; J0295; J0360; J0456; J0696; J1100; J1171; J1938; J2003; J2060; J2250; J2270; J2405; J2470; J2704; J2710; J3010; J3480; J3490; J7030; J7040; J7050; J7060; J7120; J7121; P9045; Q9963; Q9967

== ENCOUNTER 2025-02-07 14:42 | Emergency (ER) | payer MEDICAID ==
[~2025-02-07] VITALS: Ht 167.6 cm; Wt 80.0 kg
[~2025-02-07 14:42] MED LIST changes: -ASPI-1475; -ATOR-2 PO; +ATOR80TA PO; -CLOP75TA34 PO; -ESCI-8 PO; +HYDR-3964 PO; -LURA40TA2 PO; +LURA80TA4 PO; +VALB80CA PO; +VENL150C58 PO
[2025-02-07 15:42] LABS: MEAN PLATELET VOLUME 8.6 FL (7.4-10.4); RED CELL DISTRIBUTION WIDTH 15.3 % (11.5-14.5)
[2025-02-07 16:11] LABS: CREATININE 0.58 MG/DL (0.40-0.90); PRO BRAIN NATRIURETIC PEPTIDE 252 PG/ML (0-125); TOTAL CARBON DIOXIDE 24.1 MMOL/L (24-32); eCRCL 99 ML/MIN; eGFR > 90 ML/MIN
--- NOTE | 2025-02-07 16:50 | RADIOLOGY REPORT ---
CHEST RADIOGRAPH Indication: CP Technique: DI CHEST,SINGLE VIEW Comparison: None FINDINGS: The cardiac silhouette is unremarkable. The lungs demonstrate no pulmonary airspace consolidation. The pulmonary vasculature is unremarkable. There is no pleural effusion. There is no pneumothorax. Bilateral shoulder arthroplasty. IMPRESSION: No pulmonary airspace consolidation.
[2025-02-07] MEDS: potassium Cl 20 mEq SR tablet PO ONE (17:18)
[2025-02-07] MEDS: potassium CL 10mEq/100ml bag 100 ML IV ONE (17:19)
[2025-02-07] MEDS: magnesium sulf-water 2g/50mL 50 ML IV ONE (17:43)
[2025-02-07] MEDS ORDERED: POTASSIUM BICARB 20meq eff tab 20 MEQ TABLET.EFF PO ONE (18:10)
[2025-02-07] MEDS ORDERED: magnesium sulf-water 4G/100mL 100 ML IV ONE (18:10)
--- NOTE | 2025-02-07 18:44 | Physician Documentation ---
History of Present Illness ~ Chief Complaint: Shortness of Breath Stated Complaint: SOB Time Seen by MD: 18:04 Primary Medical Doctor: edon Source: patient Exam Limitations: no limitations HPI Ms. Martell is a 59 y/o female with PMHx significant for HTN, HLD, Bipolar d/o who presents to the ED with c/o palpitations and SOB. She states that symptoms started yesterday and have been persistent. She denies chest pain/pressure/discomfort. No recent febrile illness. No known sick contacts. No recent travel. No leg pain or swelling. Nothing appears to make her symptoms better/worse. Medication Reconciliation Allergies: Coded Allergies: shellfish derived (Verified Allergy, Unknown, 02/07/25) develops rash when she was 20 Scheduled Atorvastatin Calcium (Lipitor), 1 TAB PO DAILY, (Reported) Gabapentin (Neurontin), 1-2 CAP PO TID, (Reported) Lisinopril (Lisinopril), 1 TAB PO DAILY, (Reported) Lurasidone HCl (Lurasidone HCl), 1 TAB PO DAILY, (Reported) Trazodone HCl (Trazodone HCl), 1 TAB PO HS, (Reported) Valbenazine Tosylate (Ingrezza), 1 CAP PO DAILY, (Reported) Venlafaxine Hcl (Venlafaxine Hcl Er), 1 CAP PO DAILY, (Reported) Scheduled PRN Clonazepam (Clonazepam), 1 TAB PO TID PRN for anxiety, (Reported) Hydrocodone Bit/Acetaminophen (Hydrocodon-Acetaminophen 5-325), 1 TAB PO Q6H PRN for moderate or severe pain 4-10 Propranolol Hcl* (Inderal*), 1 TAB PO TID PRN for anxiety, (Reported) Past Medical History Past Medical History: Chronic Back Pain, Psoriasis, Anxiety, Bipolar, Depression Past Surgical History: tonsillectomy, tubal ligation, other Patient History: Patient reports no known family medical history. Alcohol Use: None Drug Use: none Lives In: Home Occupation: unemployed Review of Systems All Other Systems at this time: Reviewed and Negative Physical Exam Vital Signs: Temperature: 98.4, Source: Oral, Heart Rate: 83, Respiratory Rate: 19, BP: 155/107, Pulse Oximetry: 98, Weight: 80.000 Oxygen Flow Rate: 0 Physical Exam GEN: Alert and oriented and in NAD. HEENT: NC/AT. PERRLA. No scleral icterus. MMM. No oral lesions. NECK: Supple. No JVD. CHEST: RRR. No M/G/T. LUNGS: CTA B. No W/R/R. ABD: Soft. NTND. + BS. No rebounding or guarding. BACK: No CVA TTP. EXT: No c/c/e. NEURO: Alert and oriented x 4. Cooperative. Sensorimotor intact x 4 extremities. Progress Results/Orders Results/Orders Orders - URBAN HENSLEY MD Clonazepam 0.5mg Tablet (Klonopin 0.5mg (02/07/25 20:00) Completed Orders - URBAN HENSLEY MD Magnesium Sulf-Water 4g/100ml (Magnesium (02/07/25 18:10) Potassium Bicarb 20meq Eff Tab (Effer-K (02/07/25 18:10) Medications Received in ER Medications (Trade) Dose Ordered Sig/Jose Route PRN Reason Start Time Stop Time Status Last Admin Dose Admin Magnesium Sulfate 50 ml @ 25 mls/hr ONCE ONCE IV 02/07/25 17:05 02/07/25 19:04 DC 02/07/25 17:43 25 MLS/HR (K-DUR tablet) 20 meq ONCE ONCE PO 02/07/25 17:05 02/07/25 17:06 DC 02/07/25 17:18 20 MEQ Potassium Chloride 100 ml @ 100 mls/hr ONCE ONCE IV 02/07/25 17:05 02/07/25 18:04 DC 02/07/25 17:19 100 MLS/HR (mag-Ox 400mg tablet) 400 mg ONCE ONCE PO 02/07/25 17:05 02/07/25 17:06 DC 02/07/25 17:45 400 MG (klonoPIN 0.5mg tablet) 0.5 mg ONCE STAT PO 02/07/25 17:03 02/07/25 17:05 DC 02/07/25 17:18 0.5 MG (klonoPIN 0.5mg tablet) 0.5 mg BID PO 02/07/25 20:00 02/07/25 20:07 0.5 MG Vital Signs 02/07/25 02/07/25 02/07/25 02/07/25 14:52 15:17 15:19 17:00 Temp 98.4 98.4 98.4 Pulse 72 83 83 Resp 18 15 20 19 B/P (MAP) 174/100 114/97 (103) 155/107 (123) Pulse Ox 99 100 98 O2 Flow Rate 0 0 0 02/07/25 02/07/25 19:00 19:53 Temp 98.4 98.4 Pulse 77 76 Resp 15 16 B/P (MAP) 150/97 (114) 158/95 (116) Pulse Ox 98 98 O2 Flow Rate 0 0 Laboratory Tests Test 02/07/25 15:23 02/07/25 17:13 02/07/25 18:19 White Blood Count 6.9 Red Blood Count 3.92 L Hemoglobin 11.0 L Hematocrit 32.8 L Mean Corpuscular Volume 83.6 Mean Corpuscular Hemoglobin 28.1 Mean Corpuscular Hemoglobin Concent 33.6 Red Cell Distribution Width 15.3 H Platelet Count 222 Mean Platelet Volume 8.6 Neutrophils (%) (Auto) 55.7 Lymphocytes (%) (Auto) 32.8 Monocytes (%) (Auto) 10.0 Eosinophils (%) (Auto) 0.7 Basophils (%) (Auto) 0.8 Neutrophils # (Auto) 3.9 Lymphocytes # (Auto) 2.3 Monocytes # (Auto) 0.7 Eosinophils # (Auto) 0.0 Basophils # (Auto) 0.1 CBC Comment Sodium Level 129 L Potassium Level 2.9 *L Chloride Level 94 L Carbon Dioxide Level 24.1 Anion Gap 11 Blood Urea Nitrogen 6 L Creatinine 0.58 Estimated GFR/1.73 m2 > 90 BUN/Creatinine Ratio 10.3 Glucose Level 94 Calcium Level 8.5 Magnesium Level 1.4 L Troponin I High Sensitivity 9 12 13 Pro-B-Type Natriuretic Peptide 252 H Albumin 3.4 Chemistry Comments Troponin I High Sens Percent Delta 33 8 Troponin I Hi Sens Absolute Change 3 1 EKG/XRAY/CT/US/VASC/MRI EKG : Intepreting Monitor?: Yes Indication: shortness of breath EKG: NSR EKG Blocks: none Lyle: normal Hypertrophy: none Medical Decision Making Additional information obtaine: N/A Findings While here in the ED, she remained hemodynamically normal with ABC's intact and in NAD. She is afebrile and nontoxic. I reviewed her EKG and it shows NSR and is without signs suggestive of acute myocardial injury or ischemia. I reviewed her CXR and there are no radiographic signs to suggest an acute cardiopulmonary process. Her K is 2.9 and Mag 1.4. These were both replaced here in the ED. She is noted to be hypertensive but this is not new for her as she is currently on antihypertensive meds. Nothing to suggest end-organ hypoperfusion. She is safe for d/c home with outpatient follow-up. She was given follow-up and return instructions. She voiced understanding and agereement with d/c instructions. Heart Score: 0 Differential Dx:Considerations: Include: anxiety, asthma, cardiogenic shock, CHF, COPD, dysrhythmia, hypertension, accelerated, hyperventilation, myocardial infarction, pneumonia, pneumonitis, pneumothorax, pulmonary embolism, respiratory distress, respiratory failure, upper resp. infection Departure Disposition: HOME / SELF CARE / HOMELESS Impression: Primary Impression: Hypokalemia Additional Impression: Hypomagnesemia Condition: Improved Discharge Instructions: Hypokalemia, Hypomagnesemia Referrals: NO PRIMARY CARE PROVIDER (PCP) Comments Follow-up with your family physician tomorrow. Return to the Emergency Department if there are any additional concerns. Education Educated: Patient Educated regarding: diagnosis, treatment ACF Form Admit Criteria Met or Not Met: NO Signature Scribe Signature: N/A Attestation: N/A URBAN HENSLEY MD Feb 07, 2025 18:44
[2025-02-07 20:20] VITALS: BP 144/102; PULSE 79; RESP 19; TEMP 98.4; O2SAT 94
== END 2025-02-07 20:42 | disposition home or self-care (01) ==
LOC: ER 14:43
DX: E87.6 Hypokalemia (principal); E83.42 Hypomagnesemia; I10 Essential (primary) hypertension; G89.29 Other chronic pain; F41.9 Anxiety disorder, unspecified; F31.9 Bipolar disorder, unspecified; E78.5 Hyperlipidemia, unspecified; Z98.51 Tubal ligation status; Z91.013 Allergy to seafood; Z90.89 Acquired absence of other organs; Z56.0 Unemployment, unspecified; Z79.899 Other long term (current) drug therapy
CPT/HCPCS: 36415; 71045; 80048; 83735; 83880; 84484; 85025; 96365; 96368; 99285; J3480